=== PATIENT | male | born 1935 | race Caucasian/White ===

== ENCOUNTER 2018-12-09 10:47 | Inpatient (IN) | payer MEDICARE, OTHER, SELFPAY ==
[2018-12-09] VITALS (13 sets, daily range): BP systolic 115–153; BP diastolic 53–96; PULSE 67–85; RESP 16–34; TEMP 37.1–39.3; O2SAT 92–100; BMI 28.7
--- NOTE | 2018-12-09 | DI.ECHO.S_ITS ---
[place] [facility]---------+ [facility] +---------+ : : [address] : : : : [id number] : : : : Phone: [phone]+ Echocardiogram Report + + :Name: VALERIE GOODE Study Date: 12/10/2018 Height: 70 in : :[facility] Weight: 200 lb : : Gender: Male BSA: 2.1 m2 : :: 1935 Age: 83 yrs BP: 126/56 mmHg: :Reason For Study: Elevated Troponin : :Ordering Physician: Judith : :Hospitalist Performed By: Hugo Monae : :Referring: LYN POE E : + + Interpretation Summary The study is technically difficult due to poor acoustic windows. The basal inferior wall appear hypokinetic in some views. Poor endocardial definition and image quality reduce the sensitivity for wall motion assessment. Left ventricular wall thickness is mildly increased. The ejection fraction is estimated to be 65-70%. Diastolic parameters suggest a relaxation abnormality of the left ventricle, consistent with probable normal filling pressures. The right ventricle is not well visualized. Pulmonary artery pressures cannot be estimated because of the lack of a measurable TR jet velocity. The IVC is of normal diameter and collapses greater than 50% with a sniff. This suggests a low right atrial pressure of 3 mm Hg. There is no prior echocardiogram noted for this patient. Procedure: A two-dimensional transthoracic echocardiogram with color flow and Doppler was performed. There is no prior echocardiogram noted for this patient. The study quality was technically limited. The patient was in normal sinus rhythm during the exam. The heart rate ranged between 56-65 bpm during the study. Left Ventricle: The left ventricle is normal in size. There is normal left ventricular wall thickness. Left ventricular wall thickness is mildly increased. The ejection fraction is estimated to be 65-70%. There is a mild dyssynchronous contraction pattern, consistent with a conduction abnormality. The basal inferior wall appear hypokinetic. Diastolic parameters suggest a relaxation abnormality of the left ventricle, consistent with probable normal filling pressures. Right Ventricle: The right ventricle is not well visualized. Atria: The left atrium grossly appears normal in size. The right atrium grossly appears normal in size. The interatrial septum is intact with no evidence for an atrial septal defect. Mitral Valve: The mitral valve leaflets are moderately calcified. There is trace mitral regurgitation. Aortic Valve: The aortic valve is trileaflet. There is no aortic valve stenosis. There is mild aortic regurgitation. Tricuspid Valve: The tricuspid valve is not well visualized. Pulmonary artery pressures cannot be estimated because of the lack of a measurable TR jet velocity. Pulmonic Valve: The pulmonic valve is not well seen, but is grossly normal. There is mild pulmonic regurgitation. Great Vessels: The aortic root is normal size. The ascending aorta is mildly enlarged. The pulmonary artery is normal size. The IVC is of normal diameter and collapses greater than 50% with a sniff. This suggests a low right atrial pressure of 3 mm Hg. Pericardium/ Pleura There is no pericardial effusion. There is no pleural effusion. MMode/2D Measurements & Calculations LVIDd: 4.6 cm LVOT diam: 2.2 cm LVIDs: 3.0 cm Ao root diam: 3.8 cm FS: 35.2 % asc Aorta Diam: 3.7 cm LV hoover. diameter/BSA (cm/m^2): 2.2 LV sys. diameter/BSA (cm/m^2): 1.4 Doppler Measurements & Calculations Ao V2 max: 127.0 cm/sec LVOT Max Chuck: 105.6 cm/sec Ao V2 mean: 97.0 cm/sec LV V1 max P.5 mmHg Ao max P.5 mmHg LV V1 VTI: 22.1 cm Ao mean P.0 mmHg EDGAR(I,D): 3.5 cm2 Ao V2 VTI: 24.7 cm EDGAR(V,D): 3.3 cm2 sev ratio: 0.89 EDGAR indexed to BSA (cm^2/m^2): 1.7 MV E max chuck: 83.5 cm/sec PA V2 max: 58.3 cm/sec MV A max chuck: 106.3 cm/sec PA V2 mean: 42.8 cm/sec MV E/A: 0.79 PA mean P.80 mmHg Med Peak E' Chuck: 4.5 cm/sec PA pr(Accel): 36.6 mmHg E/E' med: 18.4 Lat Peak E' Chuck: 6.7 cm/sec E/E' lat: 12.4 E/e' average: 15.4 MV dec time: 0.29 sec SV(LVOT): 87.0 ml Electronically signed by: Noel Swenson M.D. on Reading Physician:12/10/2018 01:11 PM
--- NOTE | 2018-12-09 11:04 | ED.WEAKNESS ---
HPI - Weakness General Chief complaint: Weakness Stated complaint: Weakness, found on floor Time Seen by Provider: 12/09/18 10:53 Source: patient, family and EMS Mode of arrival: EMS Limitations: other ( Memory problems) History of Present Illness HPI Narrative: this is an 83-year-old male who is brought in after being found down at home. Patient lives at home alone, he has caregivers that come intermittently during the day. Patient was last seen last night. He was found in his bathroom on the floor, his bed had not been disturbed and he had not had his nighttime medications. Patient is a poor historian and unable to tell me when he fell or how he fell. His family states that he did not have his non slipper socks on and they suspect he slipped on his socks. Patient has had falls in the past. Patient denies any headache, he denies any chest pain or shortness of breath, he denies any nausea or vomiting, no diarrhea or constipation and he has not had any recent incontinence. Patient can't tell me he fell but he cannot give me any particulars. He does have some skin changes on the side of his face per EMS and his family which are new. He does take carbidopa levodopa for Parkinson's and had not had his nighttime or morning medication. Related Data Home Medications Medication Instructions Recorded Confirmed acetaminophen [Tylenol 8 Hour] 1,300 mg PO PRN PRN 12/09/18 12/09/18 carbidopa-levodopa 1.5 tab PO TID 12/09/18 12/09/18 cetirizine 10 mg PO DAILY 12/09/18 12/09/18 oxybutynin chloride 5 mg PO QPM 12/09/18 12/09/18 sertraline 50 mg PO DAILY 12/09/18 12/09/18 tamsulosin 0.4 mg PO BID 12/09/18 12/09/18 Allergies Allergy/AdvReac Type Severity Reaction Status Date / Time No Known Drug Allergies Allergy Verified 12/09/18 10:54 Review of Systems Review of Systems ROS Unobtainable: All systems reviewed & are unremarkable except as noted in HPI and below Constitutional Denies chills, Denies fever(s), Denies lethargy and Denies weakness ENT Ears, Nose, Mouth, and Throat: Denies neck pain Cardiovascular Denies chest pain, Denies irregular heart rhythm, Denies lightheadedness, Denies palpitations, Denies dyspnea, Denies dyspnea on exertion and Denies orthopnea Respiratory Denies cough, Denies dyspnea, Denies dyspnea on exertion and Denies wheezing Gastrointestinal Gastrointestinal: Denies abdominal pain, Denies change in bowel habits, Denies diarrhea, Denies nausea and Denies vomiting Genitourinary Denies hematuria, Denies flank pain, Denies urinary incontinence and Denies urinary urgency Musculoskeletal Denies back pain, Denies neck pain, Denies numbness, Denies tingling and Reports other ( Tremo) Neurologic Reports as per HPI, Denies numbness, Denies tingling, Reports tremor(s) and Denies weakness Endocrine Denies palpitations Allergic/Immunologic Denies wheezing PFSH Medical History BPH (benign prostatic hyperplasia) (Acute) Parkinson disease (Acute) Social History household members: none lives independently: Yes caregiver/support person: Yes (intermittently during day.) Social History household members: none lives independently: Yes caregiver/support person: Yes (intermittently during day.) Exam Narrative Exam Narrative: GEN: well nourished, well appearing male, alert and oriented x 2, patient appears to be in no acute distress. HEENT: atraumatic except for erythema the left side the face with some mild swelling, pupils are equal round reactive to light, extraocular movements are intact, nares are clear, TMs are clear with no fluid, there is no conjunctival pallor. Throat is clear without any exudates, erythema, tonsillar enlargement or uvular deviation HEART: Regular rate and rhythm without murmur, clicks, rubs. No carotid bruits, pulses are equal in upper and lower extremities LUNGS:Lungs clear to auscultation, no wheezes, rales, crackles, chest moves symmetrically ABD:bowel sounds normal, soft, non-tender, no guarding, rebound, rigidity, no masses noted, no hepatosplenomegaly :No CVA tenderness BACK: No cervical, thoracic or lumbar vertebral point tenderness. Patient has normal range of motion. Patient's gait is not tested. Muscle strength is 5/5 in upper and lower extremities, Dorsalis pedis and tibialis pulses are 2+ and lower extremities. Sensation is intact in the lower extremities. MSCL: Non-tender, no muscle atrophy, muscles strength 5/5 upper and lower extremities, full range of motion NEURO:CN 2-12 intact, sensation normal, reflexes 2/4 upper and lower extremities. Initial Vital Signs Initial Vital Signs: Vital Signs Temperature 98.7 F 12/09/18 10:54 Pulse Rate 73 12/09/18 10:54 Respiratory Rate 16 12/09/18 10:54 Blood Pressure 141/61 H 12/09/18 10:54 Pulse Oximetry 96 12/09/18 10:54 Course Orders Ordered: ED Orders 12/09/18 11:04 EKG-12 Lead Stat 12/09/18 11:05 XR chest 1V Stat 12/09/18 11:11 CT head/brain wo con Stat 12/09/18 12:22 EKG-12 Lead Routine 12/09/18 12:33 Complete Blood Count AUTO DIFF Stat Comprehensive Metabolic Panel Stat Lactate (Lactic Acid) Stat Partial Thromboplastin Time Stat Prothrombin Time INR Stat Troponin & CK Cardiac Panel Stat 12/09/18 13:42 B Type Natriuretic Peptide Stat 12/09/18 14:30 Urinalysis and Microscopic Stat Discontinued Medications Aspirin (Aspirin Chew) 324 mg PO NOW ONE Stop: 12/09/18 13:29 Last Admin: 12/09/18 13:47 Dose: Not Given Aspirin (Aspirin) 325 mg PO NOW ONE Stop: 12/09/18 13:47 Last Admin: 12/09/18 13:47 Dose: 325 mg Carbidopa/Levodopa (Sinemet 25-100 Tab) 1.5 each PO NOW ONE Stop: 12/09/18 11:06 Last Admin: 12/09/18 11:35 Dose: 1.5 each Furosemide (Lasix) 40 mg IV NOW ONE Stop: 12/09/18 14:54 Last Admin: 12/09/18 15:02 Dose: 40 mg Vital Signs - 8 hr 12/09/18 10:54 12/09/18 10:55 12/09/18 12:07 Temperature 98.7 F 98.7 F Pulse Rate 73 75 85 Respiratory Rate 16 29 H 34 H Blood Pressure 141/61 H Blood Pressure [Right Arm] 141/61 H 153/96 H Pulse Oximetry 96 100 94 12/09/18 13:59 Temperature Pulse Rate 74 Respiratory Rate 33 H Blood Pressure Blood Pressure [Right Arm] 135/64 Pulse Oximetry 94 MDM - Weakness Lab Data Attestation: I reviewed the patient's lab results. Result diagrams: 12/09/18 12:33 12/09/18 12:33 Lab Results 12/09/18 12/09/18 12/09/18 Range/Units 12:33 12:33 12:33 WBC 7.2 (4.5-11.0) X10^3/uL RBC 4.25 L (4.5-5.9) X10^6/uL Hgb 13.8 (13.5-17.5) g/dL Hct 41.9 (41-53) % MCV 98.6 (80-100) fL MCH 32.4 (26-34) PG MCHC 32.9 (30-36) % RDW 13.4 (11.6-14.8) % Plt Count 221 (150-400) X10^3/uL Neut % (Auto) 76.3 H (50-75) % Lymph % (Auto) 8.6 L (25-40) % [place] % (Auto) 14.4 H (3-14) % Eos % (Auto) 0.3 L (2-4) % Baso % (Auto) 0.4 (0-2) % Neut # (Auto) 5500 (8045-6150) /uL Lymph # (Auto) 600 L (6005-9897) /uL [place] # (Auto) 1000 H (0-900) /uL Eos # (Auto) 0 (0-450) /uL Baso # (Auto) 0 (0-100) /uL PT 12.7 (10.1-12.7) SECONDS INR 1.1 (0.9-1.3) APTT 29 (26.4-36.2) SECONDS Sodium 140 (137-145) mmol/L Potassium 3.8 (3.4-5.1) mmol/L Chloride 103 (98-107) mmol/L Carbon Dioxide 23 (22-32) mmol/L BUN 15 (9-20) mg/dL Creatinine 0.90 (0.66-1.25) mg/dL Estimated GFR > 60.0 (>60) mL/min BUN/Creatinine Ratio 16.7 (6-22) Glucose 111 H (80-110) mg/dL Lactate (0.7-2.1) mmol/L Calcium 8.8 (8.4-10.2) mg/dL Total Bilirubin 0.4 (0.2-1.3) mg/dL AST 36 (17-59) IU/L ALT 35 (21-72) IU/L Alkaline Phosphatase 78 (38-126) U/L Total Creatine Kinase (55-170) U/L CK-MB (CK-2) (<2.37) ng/mL CK-MB (CK-2) Rel Index (1.5-5.0) % Troponin I (0.01-0.034) ng/mL B-Natriuretic Peptide (<100) Total Protein 8.4 H (6.3-8.2) g/dL Albumin 4.4 (3.5-5.0) g/dL Globulin 4.0 (1.7-4.1) g/dL Albumin/Globulin Ratio 1.1 (1.0-2.8) 12/09/18 12/09/18 12/09/18 Range/Units 12:33 12:33 13:42 WBC (4.5-11.0) X10^3/uL RBC (4.5-5.9) X10^6/uL Hgb (13.5-17.5) g/dL Hct (41-53) % MCV (80-100) fL MCH (26-34) PG MCHC (30-36) % RDW (11.6-14.8) % Plt Count (150-400) X10^3/uL Neut % (Auto) (50-75) % Lymph % (Auto) (25-40) % [place] % (Auto) (3-14) % Eos % (Auto) (2-4) % Baso % (Auto) (0-2) % Neut # (Auto) (9110-0454) /uL Lymph # (Auto) (5783-4952) /uL [place] # (Auto) (0-900) /uL Eos # (Auto) (0-450) /uL Baso # (Auto) (0-100) /uL PT (10.1-12.7) SECONDS INR (0.9-1.3) APTT (26.4-36.2) SECONDS Sodium (137-145) mmol/L Potassium (3.4-5.1) mmol/L Chloride (98-107) mmol/L Carbon Dioxide (22-32) mmol/L BUN (9-20) mg/dL Creatinine (0.66-1.25) mg/dL Estimated GFR (>60) mL/min BUN/Creatinine Ratio (6-22) Glucose (80-110) mg/dL Lactate 2.1 (0.7-2.1) mmol/L Calcium (8.4-10.2) mg/dL Total Bilirubin (0.2-1.3) mg/dL AST (17-59) IU/L ALT (21-72) IU/L Alkaline Phosphatase (38-126) U/L Total Creatine Kinase 252 H (55-170) U/L CK-MB (CK-2) 1.82 (<2.37) ng/mL CK-MB (CK-2) Rel Index 0.7 L (1.5-5.0) % Troponin I 0.148 H* (0.01-0.034) ng/mL B-Natriuretic Peptide 160 H (<100) Total Protein (6.3-8.2) g/dL Albumin (3.5-5.0) g/dL Globulin (1.7-4.1) g/dL Albumin/Globulin Ratio (1.0-2.8) Imaging Data Chest x-ray: Radiologist's impression: [place] [address] XRay Report Signed Patient: Guillermo Meza [facility]#: [id number] : 5Acct:[id number] Age/Sex: 83 / MDate of Service: 12/09/18 Loc: ED Accession Number: [id number] Procedure: XR chest 1V Ordering Provider: aMrlene Harrison D.O. PROCEDURE: XR CHEST 1V INDICATIONS: fall vs syncope TECHNIQUE: One view of the chest was acquired. COMPARISON: None. FINDINGS: Surgical changes and devices: None. Lungs and pleura: Lungs are edematous. No pleural effusions or pneumothorax. Mediastinum: Mediastinal contours appear normal. Heart size is at the upper limits of normal. Bones and chest wall: No suspicious bony lesions. Overlying soft tissues appear unremarkable. IMPRESSION: Pulmonary edema pattern, heart size at upper limits of normal. Dictated by: Lico Betancur M.D. on 12/09/2018 at 11:36 Approved by: Lico Betancur M.D. on 12/09/2018 at 11:39 CT scan - head: Radiologist's impression: [address] [address] [address] Scan Report Signed Patient: Guillermo Meza [facility]#: [id number] : 5Acct:[id number] Age/Sex: 83 / MDate of Service: 12/09/18 Loc: ED Accession Number: [id number] Procedure: CT head/brain wo con Ordering Provider: Marlene Harrison D.O. PROCEDURE: CT HEAD/BRAIN WO CON INDICATIONS: fall vs syncope TECHNIQUE: Noncontrast 4.5 mm thick angled axial sections acquired from the foramen magnum to the vertex, with coronal and sagittal reformats. For radiation dose reduction, the following was used: automated exposure control, adjustment of mA and/or kV according to patient size. COMPARISON: [facility], CT, HEAD WITHOUT CONTRAST, 01/15/2014, 13:10. FINDINGS: Image quality: Excellent. CSF spaces: Basal cisterns are patent. No extra-axial fluid collections. The ventricles are symmetric in size and shape. Brain: No intracranial bleeds or masses. There is cerebral volume loss for age, with resultant ventricular and sulcal prominence. There are periventricular and deep white matter chronic small vessel ischemic changes. There is intracranial internal carotid artery atherosclerosis. Skull and face: Calvarium and visualized facial bones appear intact, without suspicious lesions. Sinuses: Visualized sinuses and mastoids are clear. IMPRESSION: No acute intracranial abnormality. Dictated by: Gabrielle Castle M.D. on 12/09/2018 at 11:20 Approved by: Gabrielle Castle M.D. on 12/09/2018 at 11:21 ECG Data Attestation: I personally reviewed and interpreted this ECG as follows: Prior ECG tracings: not available for review Interpretation: Sinus rhythm with first-degree AV block, patient has Parkinson's and has significant motion artifact. No clear ST elevation appreciated. EKG was repeated and patient has sinus rhythm with first-degree AV block a rate of 76 and P are interval of 212, QRS 89 and QTC of 376. Nonspecific ST changes. MDM Narrative Medical decision making narrative: Patient arrived to the ER, he has no complaints initially. Patient's family arrived and evaluated all along with the additional history. Head CT and chest x-ray shows some pulmonary edema but no acute intracranial changes. Lab work shows an elevated troponin. Patient is currently denying any chest pain or pressure when re-evaluated states feels maybe a little short of breath. He has a little bit of a wet cough. Patient's BNP is not elevated but chest x-ray shows some pulmonary edema. Discussed with patient and family he nor his family want aggressive interventions. They are okay with conservative medical management. Spoke with Dr. Mckeon who accepts for observation and discussed did aspirin as well as Lasix and continue to monitor. Discharge Plan Departure Patient Disposition: Admitted as Observation Clinical Impression: Non-ST elevation CA (NSTEMI) Referrals: Vinny Mckeon MD [Primary Care Provider] - Admit Date/Time: 12/09/18 15:09 Admit Provider: Vinny Mckeon
--- NOTE | 2018-12-09 11:11 | DI.CT.S_ITS ---
PROCEDURE: CT HEAD/BRAIN WO CON INDICATIONS: fall vs syncope TECHNIQUE: Noncontrast 4.5 mm thick angled axial sections acquired from the foramen magnum to the vertex, with coronal and sagittal reformats. For radiation dose reduction, the following was used: automated exposure control, adjustment of mA and/or kV according to patient size. COMPARISON: [facility], CT, HEAD WITHOUT CONTRAST, 01/15/2014, 13:10. FINDINGS: Image quality: Excellent. CSF spaces: Basal cisterns are patent. No extra-axial fluid collections. The ventricles are symmetric in size and shape. Brain: No intracranial bleeds or masses. There is cerebral volume loss for age, with resultant ventricular and sulcal prominence. There are periventricular and deep white matter chronic small vessel ischemic changes. There is intracranial internal carotid artery atherosclerosis. Skull and face: Calvarium and visualized facial bones appear intact, without suspicious lesions. Sinuses: Visualized sinuses and mastoids are clear. IMPRESSION: No acute intracranial abnormality. Dictated by: Gabrielle Castle M.D. on 12/09/2018 at 11:20 Approved by: Gabrielle Castle M.D. on 12/09/2018 at 11:21
[2018-12-09] MEDS: CARBIDOPA-LEVODOPA 25/100 TABLET 1.5 EACH PO ×2 (11:35→21:27)
[2018-12-09 13:00] LABS: Add Manual Diff / Slide Review NO; Basophils Absolute Auto 0 /uL (0-100); Basophils Percent Auto 0.4 % (0-2); Eosinophils Absolute Auto 0 /uL (0-450); Eosinophils Percent Auto 0.3 % (2-4); Hematocrit 41.9 % (41-53); Hemoglobin 13.8 g/dL (13.5-17.5); Lymphocytes Absolute Auto 600 /uL (1100-4500); Lymphocytes Percent Auto 8.6 % (25-40); Mean Corpuscular HGB Conc 32.9 % (30-36); Mean Corpuscular Hemoglobin 32.4 PG (26-34); Mean Corpuscular Volume 98.6 fL (80-100); Monocytes Absolute Auto 1000 /uL (0-900); Monocytes Percent Auto 14.4 % (3-14); Neutrophils Absolute Auto 5500 /uL (1500-7000); Neutrophils Percent Auto 76.3 % (50-75); Platelet Count 221 X10^3/uL (150-400); Red Blood Cell Count 4.25 X10^6/uL (4.5-5.9); Red Cell Distribution Width 13.4 % (11.6-14.8); White Blood Cell Count 7.2 X10^3/uL (4.5-11.0)
[2018-12-09 13:03] LABS: INR 1.1 (0.9-1.3); Prothrombin Time 12.7 SECONDS (10.1-12.7)
[2018-12-09 13:06] LABS: PTT Partial Thromboplastin Tim 29 SECONDS (26.4-36.2)
[2018-12-09 13:09] LABS: Creatine Kinase 252 U/L (55-170)
[2018-12-09 13:11] LABS: Alanine Aminotransferase 35 IU/L (21-72); Albumin 4.4 g/dL (3.5-5.0); Albumin Globulin Ratio 1.1 (1.0-2.8); Alkaline Phosphatase 78 U/L (38-126); Aspartate Aminotransferase 36 IU/L (17-59); BUN Creatinine Ratio 16.7 (6-22); Bilirubin Total 0.4 mg/dL (0.2-1.3); Blood Urea Nitrogen 15 mg/dL (9-20); Calcium 8.8 mg/dL (8.4-10.2); Carbon Dioxide 23 mmol/L (22-32); Chloride 103 mmol/L (98-107); Estimated Glomerular Filt Rate > 60.0 mL/min (>60); Glucose 111 mg/dL (80-110); HEMOLYSIS 19 (0-50); Lactate (Lactic Acid) 2.1 mmol/L (0.7-2.1); Potassium 3.8 mmol/L (3.4-5.1); Sodium 140 mmol/L (137-145); Total Protein 8.4 g/dL (6.3-8.2)
[2018-12-09 13:26] LABS: Troponin I 0.148 ng/mL (0.01-0.034)
[2018-12-09 13:30] LABS: CKMB % Relative Index 0.7 % (1.5-5.0); Creatine Kinase MB 1.82 ng/mL (<2.37)
--- NOTE | 2018-12-09 13:39 | ED_ITS ---
HPI - Weakness General Chief complaint: Weakness Stated complaint: Weakness, found on floor Time Seen by Provider: 12/09/18 10:53 Source: patient, family and EMS Mode of arrival: EMS Limitations: other ( Memory problems) History of Present Illness HPI Narrative: this is an 83-year-old male who is brought in after being found down at home. Patient lives at home alone, he has caregivers that come intermittently during the day. Patient was last seen last night. He was found in his bathroom on the floor, his bed had not been disturbed and he had not had his nighttime medications. Patient is a poor historian and unable to tell me when he fell or how he fell. His family states that he did not have his non s lipper socks on and they suspect he slipped on his socks. Patient has had falls in the past. Patient denies any headache, he denies any chest pain or shortness of breath, he denies any nausea or vomiting, no diarrhea or constipation and he has not had any recent incontinence. Patient can't tell me he fell but he cannot give me any particulars. He does have some skin changes on the side of his face per EMS and his family which are new. He does take carbidopa levodopa for Parkinson's and had not had his nighttime or morning medication. Related Data Home Medications Medication Instructions Recorded Confirmed acetaminophen [Tylenol 8 Hour] 1,300 mg PO PRN PRN 12/09/18 12/09/18 carbidopa-levodopa 1.5 tab PO TID 12/09/18 12/09/18 cetirizine 10 mg PO DAILY 12/09/18 12/09/18 oxybutynin chloride 5 mg PO QPM 12/09/18 12/09/18 sertraline 50 mg PO DAILY 12/09/18 12/09/18 tamsulosin 0.4 mg PO BID 12/09/18 12/09/18 Allergies Allergy/AdvReac Type Severity Reaction Status Date / Time No Known Drug Allergies Allergy Verified 12/09/18 10:54 Review of Systems Review of Systems ROS Unobtainable: All systems reviewed & are unremarkable except as noted in HPI and below Constitutional Denies chills, Denies fever(s), Denies lethargy and Denies weakness ENT Ears, Nose, Mouth, and Throat: Denies neck pain Cardiovascular Denies chest pain, Denies irregular heart rhythm, Denies lightheadedness, Denies palpitations, Denies dyspnea, Denies dyspnea on exertion and Denies orthopnea Respiratory Denies cough, Denies dyspnea, Denies dyspnea on exertion and Denies wheezing Gastrointestinal Gastrointestinal: Denies abdominal pain, Denies change in bowel habits, Denies diarrhea, Denies nausea and Denies vomiting Genitourinary Denies hematuria, Denies flank pain, Denies urinary incontinence and Denies urinary urgency Musculoskeletal Denies back pain, Denies neck pain, Denies numbness, Denies tingling and Reports other ( Tremo) Neurologic Reports as per HPI, Denies numbness, Denies tingling, Reports tremor(s) and Denies weakness Endocrine Denies palpitations Allergic/Immunologic Denies wheezing PFSH Medical History BPH (benign prostatic hyperplasia) (Acute) Parkinson disease (Acute) Social History household members: none lives independently: Yes caregiver/support person: Yes (intermittently during day.) Social History household members: none lives independently: Yes caregiver/support person: Yes (intermittently during day.) Exam Narrative Exam Narrative: GEN: well nourished, well appearing male, alert and oriented x 2, patient appears to be in no acute distress. HEENT: atraumatic except for erythema the left side the face with some mild swelling, pupils are equal round reactive to light, extraocular movements are intact, nares are clear, TMs are clear with no fluid, there is no conjunctival pallor. Throat is clear without any exudates, erythema, tonsillar enlargement or uvular deviation HEART: Regular rate and rhythm without murmur, clicks, rubs. No carotid bruits, pulses are equal in upper and lower extremities LUNGS:Lungs clear to auscultation, no wheezes, rales, crackles, chest moves symmetrically ABD:bowel sounds normal, soft, non-tender, no guarding, rebound, rigidity, no masses noted, no hepatosplenomegaly :No CVA tenderness BACK: No cervical, thoracic or lumbar vertebral point tenderness. Patient has normal range of motion. Patient's gait is not tested. Muscle strength is 5/5 in upper and lower extremities, Dorsalis pedis and tibialis pulses are 2+ and lower extremities. Sensation is intact in the lower extremities. MSCL: Non-tender, no muscle atrophy, muscles strength 5/5 upper and lower extremities, full range of motion NEURO:CN 2-12 intact, sensation normal, reflexes 2/4 upper and lower extremities. Initial Vital Signs Initial Vital Signs: Vital Signs Temperature 98.7 F 12/09/18 10:54 Pulse Rate 73 12/09/18 10:54 Respiratory Rate 16 12/09/18 10:54 Blood Pressure 141/61 H 12/09/18 10:54 Pulse Oximetry 96 12/09/18 10:54 Course Orders Ordered: ED Orders 12/09/18 11:04 EKG-12 Lead Stat 12/09/18 11:05 XR chest 1V Stat 12/09/18 11:11 CT head/brain wo con Stat 12/09/18 12:22 EKG-12 Lead Routine 12/09/18 12:33 Complete Blood Count AUTO DIFF Stat Comprehensive Metabolic Panel Stat Lactate (Lactic Acid) Stat Partial Thromboplastin Time Stat Prothrombin Time INR Stat Troponin & CK Cardiac Panel Stat 12/09/18 13:42 B Type Natriuretic Peptide Stat 12/09/18 14:30 Urinalysis and Microscopic Stat Discontinued Medications Aspirin (Aspirin Chew) 324 mg PO NOW ONE Stop: 12/09/18 13:29 Last Admin: 12/09/18 13:47 Dose: Not Given Aspirin (Aspirin) 325 mg PO NOW ONE Stop: 12/09/18 13:47 Last Admin: 12/09/18 13:47 Dose: 325 mg Carbidopa/Levodopa (Sinemet 25-100 Tab) 1.5 each PO NOW ONE Stop: 12/09/18 11:06 Last Admin: 12/09/18 11:35 Dose: 1.5 each Furosemide (Lasix) 40 mg IV NOW ONE Stop: 12/09/18 14:54 Last Admin: 12/09/18 15:02 Dose: 40 mg Vital Signs - 8 hr 12/09/18 10:54 12/09/18 10:55 12/09/18 12:07 Temperature 98.7 F 98.7 F Pulse Rate 73 75 85 Respiratory Rate 16 29 H 34 H Blood Pressure 141/61 H Blood Pressure [Right Arm] 141/61 H 153/96 H Pulse Oximetry 96 100 94 12/09/18 13:59 Temperature Pulse Rate 74 Respiratory Rate 33 H Blood Pressure Blood Pressure [Right Arm] 135/64 Pulse Oximetry 94 MDM - Weakness Lab Data Attestation: I reviewed the patient's lab results. Result diagrams: 12/09/18 12:33 12/09/18 12:33 Lab Results 12/09/18 12/09/18 12/09/18 Range/Units 12:33 12:33 12:33 WBC 7.2 (4.5-11.0) X10^3/uL RBC 4.25 L (4.5-5.9) X10^6/uL Hgb 13.8 (13.5-17.5) g/dL Hct 41.9 (41-53) % MCV 98.6 (80-100) fL MCH 32.4 (26-34) PG MCHC 32.9 (30-36) % RDW 13.4 (11.6-14.8) % Plt Count 221 (150-400) X10^3/uL Neut % (Auto) 76.3 H (50-75) % Lymph % (Auto) 8.6 L (25-40) % [place] % (Auto) 14.4 H (3-14) % Eos % (Auto) 0.3 L (2-4) % Baso % (Auto) 0.4 (0-2) % Neut # (Auto) 5500 (9302-0302) /uL Lymph # (Auto) 600 L (4807-1367) /uL [place] # (Auto) 1000 H (0-900) /uL Eos # (Auto) 0 (0-450) /uL Baso # (Auto) 0 (0-100) /uL PT 12.7 (10.1-12.7) SECONDS INR 1.1 (0.9-1.3) APTT 29 (26.4-36.2) SECONDS Sodium 140 (137-145) mmol/L Potassium 3.8 (3.4-5.1) mmol/L Chloride 103 (98-107) mmol/L Carbon Dioxide 23 (22-32) mmol/L BUN 15 (9-20) mg/dL Creatinine 0.90 (0.66-1.25) mg/dL Estimated GFR > 60.0 (>60) mL/min BUN/Creatinine Ratio 16.7 (6-22) Glucose 111 H (80-110) mg/dL Lactate (0.7-2.1) mmol/L Calcium 8.8 (8.4-10.2) mg/dL Total Bilirubin 0.4 (0.2-1.3) mg/dL AST 36 (17-59) IU/L ALT 35 (21-72) IU/L Alkaline Phosphatase 78 (38-126) U/L Total Creatine Kinase (55-170) U/L CK-MB (CK-2) (<2.37) ng/mL CK-MB (CK-2) Rel Index (1.5-5.0) % Troponin I (0.01-0.034) ng/mL B-Natriuretic Peptide (<100) Total Protein 8.4 H (6.3-8.2) g/dL Albumin 4.4 (3.5-5.0) g/dL Globulin 4.0 (1.7-4.1) g/dL Albumin/Globulin Ratio 1.1 (1.0-2.8) 12/09/18 12/09/18 12/09/18 Range/Units 12:33 12:33 13:42 WBC (4.5-11.0) X10^3/uL RBC (4.5-5.9) X10^6/uL Hgb (13.5-17.5) g/dL Hct (41-53) % MCV (80-100) fL MCH (26-34) PG MCHC (30-36) % RDW (11.6-14.8) % Plt Count (150-400) X10^3/uL Neut % (Auto) (50-75) % Lymph % (Auto) (25-40) % [place] % (Auto) (3-14) % Eos % (Auto) (2-4) % Baso % (Auto) (0-2) % Neut # (Auto) (2024-9061) /uL Lymph # (Auto) (6617-4638) /uL [place] # (Auto) (0-900) /uL Eos # (Auto) (0-450) /uL Baso # (Auto) (0-100) /uL PT (10.1-12.7) SECONDS INR (0.9-1.3) APTT (26.4-36.2) SECONDS Sodium (137-145) mmol/L Potassium (3.4-5.1) mmol/L Chloride (98-107) mmol/L Carbon Dioxide (22-32) mmol/L BUN (9-20) mg/dL Creatinine (0.66-1.25) mg/dL Estimated GFR (>60) mL/min BUN/Creatinine Ratio (6-22) Glucose (80-110) mg/dL Lactate 2.1 (0.7-2.1) mmol/L Calcium (8.4-10.2) mg/dL Total Bilirubin (0.2-1.3) mg/dL AST (17-59) IU/L ALT (21-72) IU/L Alkaline Phosphatase (38-126) U/L Total Creatine Kinase 252 H (55-170) U/L CK-MB (CK-2) 1.82 (<2.37) ng/mL CK-MB (CK-2) Rel Index 0.7 L (1.5-5.0) % Troponin I 0.148 H* (0.01-0.034) ng/mL B-Natriuretic Peptide 160 H (<100) Total Protein (6.3-8.2) g/dL Albumin (3.5-5.0) g/dL Globulin (1.7-4.1) g/dL Albumin/Globulin Ratio (1.0-2.8) Imaging Data Chest x-ray: Radiologist's impression: [place] [address] XRay Report Signed Patient: Guillermo Meza [facility]#: [id number] : 5Acct:[id number] Age/Sex: 83 / MDate of Service: 12/09/18 Loc: ED Accession Number: [id number] Procedure: XR chest 1V Ordering Provider: Marlene Harrison D.O. PROCEDURE: XR CHEST 1V INDICATIONS: fall vs syncope TECHNIQUE: One view of the chest was acquired. COMPARISON: None. FINDINGS: Surgical changes and devices: None. Lungs and pleura: Lungs are edematous. No pleural effusions or pneumothorax. Mediastinum: Mediastinal contours appear normal. Heart size is at the upper li mits of normal. Bones and chest wall: No suspicious bony lesions. Overlying soft tissues appe ar unremarkable. IMPRESSION: Pulmonary edema pattern, heart size at upper limits of normal. Dictated by: Lico Betancur M.D. on 12/09/2018 at 11:36 Approved by: Lico Betancur M.D. on 12/09/2018 at 11:39 CT scan - head: Radiologist's impression: [address] [address] [address] Scan Report Signed Patient: Guillermo Meza [facility]#: [id number] : 5Acct:[id number] Age/Sex: 83 / MDate of Service: 12/09/18 Loc: ED Accession Number: [id number] Procedure: CT head/brain wo con Ordering Provider: Marlene Harrison D.O. PROCEDURE: CT HEAD/BRAIN WO CON INDICATIONS: fall vs syncope TECHNIQUE: Noncontrast 4.5 mm thick angled axial sections acquired from the foramen magnum to the vertex, with coronal and sagittal reformats. For radiation dose reduction, the following was used: automated exposure control, adjustment of mA and/or kV according to patient size. COMPARISON: [facility], CT, HEAD WITHOUT CONTRAST, 01/15/2014, 13:10. FINDINGS: Image quality: Excellent. CSF spaces: Basal cisterns are patent. No extra-axial fluid collections. The ventricles are symmetric in size and shape. Brain: No intracranial bleeds or masses. There is cerebral volume loss for age, with resultant ventricular and sulcal prominence. There are periventricular and deep white matter chronic small vessel ischemic changes. There is intracranial internal carotid artery atherosclerosis. Skull and face: Calvarium and visualized facial bones appear intact, without suspicious lesions. Sinuses: Visualized sinuses and mastoids are clear. IMPRESSION: No acute intracranial abnormality. Dictated by: Gabrielle Castle M.D. on 12/09/2018 at 11:20 Approved by: Gabrielle Castle M.D. on 12/09/2018 at 11:21 ECG Data Attestation: I personally reviewed and interpreted this ECG as follows: Prior ECG tracings: not available for review Interpretation: Sinus rhythm with first-degree AV block, patient has Parkinson's and has significant motion artifact. No clear ST elevation appreciated. EKG was repeated and patient has sinus rhythm with first-degree AV block a rate of 76 and P are interval of 212, QRS 89 and QTC of 376. Nonspecific ST changes. MDM Narrative Medical decision making narrative: Patient arrived to the ER, he has no complaints initially. Patient's family arrived and evaluated all along with the additional history. Head CT and chest x-ray shows some pulmonary edema but no acute intracranial changes. Lab work shows an elevated troponin. Patient is currently denying any chest pain or pressure when re-evaluated states feels maybe a little short of breath. He has a little bit of a wet cough. Patient's BNP is not elevated but chest x-ray shows some pulmonary edema. Discussed with patient and family he nor his family want aggressive interventions. They are okay with conservative medical management. Spoke with Dr. Mckeon who accepts for observation and discussed did aspirin as well as Lasix and continue to monitor. Discharge Plan Departure Patient Disposition: Admitted as Observation Clinical Impression: Non-ST elevation MS (NSTEMI) Referrals: Vinny Mckeon MD [Primary Care Provider] - Admit Date/Time: 12/09/18 15:09 Admit Provider: Vinny Mckeon
[2018-12-09] MEDS: ASPIRIN 325 MG TABLET PO (13:47)
[2018-12-09 14:02] LABS: B Type Natriuretic Peptide 160 (<100)
[2018-12-09] MEDS: FUROSEMIDE 40 MG/4 ML VIAL IV (15:02)
[2018-12-09 15:11] LABS: Appearance Urine UA SL CLOUDY; Bilirubin Urine UA NEGATIVE (NEGATIVE); Color Urine UA YELLOW; Glucose Urine UA NEGATIVE (Negative); Ketones Urine UA NEGATIVE (NEGATIVE); Leukocyte Esterase Urine UA NEGATIVE (NEGATIVE); Nitrite Urine UA NEGATIVE (Negative); Occult Blood Urine UA 3+ (Negative); Protein Urine UA TRACE (Negative); Specific Gravity Urine UA 1.025 (1.000-1.035); Urobilinogen Urine UA 0.2 E.U./dL (0.2)
[2018-12-09 15:33] LABS: Bacteria Urine Occasional (0-1); Hyaline Casts Urine 0-1/LPF; RBC Urine 10-30/HPF (0-5/HPF); Squamous Epithelial Cell Urine 0-1 /HPF; WBC Urine 1-5/HPF (0-5/HPF)
[2018-12-09 15:34] LABS: Culture Indicated Urine Cult Not Indicated; Granular Casts Urine 0-1/LPF; Mucus Urine 1+ (Negative)
--- NOTE | 2018-12-09 17:07 | PC.NURSE ---
1415 While placing catheter i noted that patient's right testicle is very large and swollen Not red or tender, no known hernia or issues per son. Patient states it is normal but unsure about the reliability of him as a historian due to his confusion. Dr. Harrison aware.
--- NOTE | 2018-12-09 18:49 | P.HP_ITS ---
History of Present Illness Date Patient Seen: 12/09/18 Time Patient Seen: 18:25 Chief complaint: Weakness, found on floor Narrative: 83-year-old man well known to me for some time with a history of Parkinson's and progressive dementia has been living alone although with caregivers most of each day. They usually leave at 8 in the evening. He did take a fall in the past that was significant but has generally done really pretty well. In the past he was on 24 hr care but now it has been cut back to current schedule. When the caregiver arrived this morning they found him down in the bathroom with his arm on the toilet and unable to get up. He was much more confused than usual, medics were called and he was brought to the emergency room. Continued to be quite confused there with some impact on his strength and coordination. Reviewing status with his son who is primary family, patient has had some issues with sleep sometimes he gets up early sometimes he gets up rather late yesterday he got up at 3 in the afternoon, and it was evident that he did not get his morning medications and not even very clear that he got his evening medications prior to the departure of caregiver last evening. Son notes that his tremor was much more pronounced today it is usually pretty well co ntrolled with medications. So his medications have been fairly irregular in some ways. Certainly could have contributed to what occurred this morning. Patient does not know exactly what happened in fact he remains pretty confused tonight, but his son notes that the bed was not slept in, which is not uncommon as he feels more comfortable sleeping on the sofa times so very possible that he was on the sofa when he needed to void, usually wears some traction socks when he is up and around but in bed he wears more slippery socks, so possible that he as he entered the bathroom where the floors tile loss traction and fell at that time. He denies any pain in the head or extremities. Workup in the emergency room found no evidence of significant trauma labs by and large were normal, CT of the head showed no acute change, chest x-ray suggested some pulmonary edema. One abnormality was the troponin which was fairly elevated. But EKG and other cardiac evaluation showed no evidence of concern. Family has plans to resume 24 hr care they indicate that they can get that in place within a day at least by Wednesday. Reviewed code status continued to prefer no code No significant family history contributing to this admission. Social history well supported by family. Patient History Medical History BPH (benign prostatic hyperplasia) (Acute) Depression (Acute) Hydrocele in adult (Acute) Incontinent of urine (Acute) Parkinson disease (Acute) Pollen allergies (Acute) Social History household members: caregiver and none lives independently: Yes caregiver/support person: Yes (intermittently during day.) Smoking Status: Former smoker alcohol intake: current Family & Social History Social History: household members caregiver,none lives independently Yes caregiver/support person Yes: intermittently during day. Safety & Behavioral: Feels Safe in Current Yes Environment Been Physically Hurt or No Threatened By a Person Suicidal Ideation Description None Suicide Plan Description No Plan Tobacco & Substance use: Tobacco type cigarettes Smoking Status Former smoker alcohol intake current alcohol intake frequency 0-2 drinks per day Substance Use Type does not use Meds Home Medications Medication Instructions Recorded Confirmed Type acetaminophen [Tylenol 8 Hour] 1,300 mg PO PRN PRN 12/09/18 12/09/18 History carbidopa-levodopa 1.5 tab PO TID 12/09/18 12/09/18 History cetirizine 10 mg PO DAILY 12/09/18 12/09/18 History oxybutynin chloride 5 mg PO QPM 12/09/18 12/09/18 History sertraline 50 mg PO DAILY 12/09/18 12/09/18 History tamsulosin 0.4 mg PO BID 12/09/18 12/09/18 History Allergies Allergy/AdvReac Type Severity Reaction Status Date / Time No Known Drug Allergies Allergy Verified 12/09/18 10:54 Review of Systems Review of Systems Difficult to evaluate as patient is markedly confused. But he does deny any headache or pain says breathing has been more comfortable, there has been a cough that is wet, no nausea, feels hungry normal appetite. All systems reviewed & are unremarkable except as noted in HPI and below Exam Vital Signs (past 8 hours): - 12/09/18 10:54 12/09/18 10:55 12/09/18 12:07 Temperature 98.7 F 98.7 F Pulse Rate 73 75 85 Respiratory Rate 16 29 H 34 H Blood Pressure 141/61 H Blood Pressure [Right Arm] 141/61 H 153/96 H Pulse Oximetry 96 100 94 12/09/18 13:00 12/09/18 13:30 12/09/18 13:59 Temperature Pulse Rate 76 77 74 Respiratory Rate 30 H 32 H 33 H Blood Pressure Blood Pressure [Right Arm] 127/69 135/64 135/64 Pulse Oximetry 94 95 94 12/09/18 14:30 12/09/18 15:00 12/09/18 15:30 Temperature Pulse Rate 76 76 77 Respiratory Rate 30 H 26 H 23 Blood Pressure Blood Pressure [Right Arm] 129/55 L 130/65 123/61 Pulse Oximetry 93 12/09/18 16:00 12/09/18 16:40 Temperature 100.1 F H Pulse Rate 74 67 Respiratory Rate 26 H 28 H Blood Pressure 121/54 L Blood Pressure [Right Arm] 115/53 L Pulse Oximetry 93 94 Oxygen Delivery Method Room Air Narrative Exam Narrative: Fairly healthy-appearing no obvious distress awake alert provide some history but they clearly somewhat confused. Head is atraumatic normocephalic, pupils equal round reactive to light extraocular movements are intact oropharynx appears somewhat dry but clear neck is normal with no jugular venous distention no bruit no masses, chest seems clear heart regular without murmur abdomen soft nontender nondistended normoactive bowel tones no organomegaly or mass extremities with trace edema neurologically nonfocal. Genitalia show a large left scrotum consistent with a known history of hydrocele. Objective Labs Result Diagrams: 12/09/18 12:33 12/09/18 12:33 Labs: Laboratory Results - last 24 hr 12/09/18 12/09/18 12/09/18 12:33 12:33 12:33 WBC 7.2 RBC 4.25 L Hgb 13.8 Hct 41.9 MCV 98.6 MCH 32.4 MCHC 32.9 RDW 13.4 Plt Count 221 Neut % (Auto) 76.3 H Lymph % (Auto) 8.6 L [place] % (Auto) 14.4 H Eos % (Auto) 0.3 L Baso % (Auto) 0.4 Neut # (Auto) 5500 Lymph # (Auto) 600 L [place] # (Auto) 1000 H Eos # (Auto) 0 Baso # (Auto) 0 PT 12.7 INR 1.1 APTT 29 Sodium 140 Potassium 3.8 Chloride 103 Carbon Dioxide 23 BUN 15 Creatinine 0.90 Estimated GFR > 60.0 BUN/Creatinine Ratio 16.7 Glucose 111 H Lactate Calcium 8.8 Total Bilirubin 0.4 AST 36 ALT 35 Alkaline Phosphatase 78 Total Creatine Kinase CK-MB (CK-2) CK-MB (CK-2) Rel Index Troponin I B-Natriuretic Peptide Total Protein 8.4 H Albumin 4.4 Globulin 4.0 Albumin/Globulin Ratio 1.1 Urine Color Urine Appearance Urine pH Ur Specific [place] Urine Protein Urine Glucose (UA) Urine Ketones Urine Occult Blood Urine Nitrate Urine Bilirubin Urine Urobilinogen Ur Leukocyte Esterase Urine RBC Urine WBC Ur Squamous Epith Cells Urine Bacteria Hyaline Casts Granular Casts Urine Mucus Ur Culture Indicated? 12/09/18 12/09/18 12/09/18 12:33 12:33 13:42 WBC RBC Hgb Hct MCV MCH MCHC RDW Plt Count Neut % (Auto) Lymph % (Auto) [place] % (Auto) Eos % (Auto) Baso % (Auto) Neut # (Auto) Lymph # (Auto) [place] # (Auto) Eos # (Auto) Baso # (Auto) PT INR APTT Sodium Potassium Chloride Carbon Dioxide BUN Creatinine Estimated GFR BUN/Creatinine Ratio Glucose Lactate 2.1 Calcium Total Bilirubin AST ALT Alkaline Phosphatase Total Creatine Kinase 252 H CK-MB (CK-2) 1.82 CK-MB (CK-2) Rel Index 0.7 L Troponin I 0.148 H* B-Natriuretic Peptide 160 H Total Protein Albumin Globulin Albumin/Globulin Ratio Urine Color Urine Appearance Urine pH Ur Specific [place] Urine Protein Urine Glucose (UA) Urine Ketones Urine Occult Blood Urine Nitrate Urine Bilirubin Urine Urobilinogen Ur Leukocyte Esterase Urine RBC Urine WBC Ur Squamous Epith Cells Urine Bacteria Hyaline Casts Granular Casts Urine Mucus Ur Culture Indicated? 12/09/18 14:30 WBC RBC Hgb Hct MCV MCH MCHC RDW Plt Count Neut % (Auto) Lymph % (Auto) [place] % (Auto) Eos % (Auto) Baso % (Auto) Neut # (Auto) Lymph # (Auto) [place] # (Auto) Eos # (Auto) Baso # (Auto) PT INR APTT Sodium Potassium Chloride Carbon Dioxide BUN Creatinine Estimated GFR BUN/Creatinine Ratio Glucose Lactate Calcium Total Bilirubin AST ALT Alkaline Phosphatase Total Creatine Kinase CK-MB (CK-2) CK-MB (CK-2) Rel Index Troponin I B-Natriuretic Peptide Total Protein Albumin Globulin Albumin/Globulin Ratio Urine Color Yellow Urine Appearance Sl cloudy Urine pH 6.0 Ur Specific [place] 1.025 Urine Protein Trace H Urine Glucose (UA) Negative Urine Ketones Negative Urine Occult Blood 3+ H Urine Nitrate Negative Urine Bilirubin Negative Urine Urobilinogen 0.2 Ur Leukocyte Esterase Negative Urine RBC 10-30/hpf H Urine WBC 1-5/hpf Ur Squamous Epith Cells 0-1 /hpf Urine Bacteria Occasional (0-1) Hyaline Casts 0-1/lpf Granular Casts 0-1/lpf Urine Mucus 1+ H Ur Culture Indicated? Cult not indicated Assessment & Plan (1) Parkinson disease: Problem details: Usually well controlled with medication but some issues of missing doses may have contributed to following items. Will resume usual medications. Current visit: Yes Status: Acute (2) Fall as cause of accidental injury at home as place of occurrence: Problem details: Fell at home possibly slipped mechanism not clear but no evidence of significant injury. Was down for some extended period of time uncertain Current visit: Yes Status: Acute (3) Acute confusion: Problem details: More confused than at baseline possibly related to above issues some question of possible underlying acute brain injury. Will check MR stroke Current visit: Yes Status: Acute (4) Parkinson's disease: Current visit: Yes Status: Chronic (5) Dementia: Problem details: evolving process likely due to Parkinson's may have other factors. Current visit: Yes Status: Chronic (6) Troponin level elevated: Problem details: Fairly marked elevation but without evidence of heart injury otherwise. Will check echo, labs, and EKG in morning. Current visit: Yes Status: Acute (7) BPH loc w urin obs/LUTS: Current visit: Yes Status: Chronic Assessment & Plan narrative: Will monitor tonight, get workup as noted above, sounds like family will be in a position to provide 24 hr care as of Wednesday or 2 days from now would expect that he will be ready for discharge at that time. Further workup as noted. Time Spent With Patient Time with patient: Greater than 35 minutes Quality VTE Deep Vein Thrombosis/Pulmonary Embolism Present on Admission: No
[2018-12-09] MEDS: DEXTROSE 5%-0.45% NS 1,000 ML 100 ML IV (20:27)
[2018-12-09] MEDS: PANTOPRAZOLE 20 MG TABLET PO (21:26)
[2018-12-09] MEDS: TAMSULOSIN 0.4 MG CAPSULE PO (21:26)
[2018-12-09] MEDS: ACETAMINOPHEN 325 MG TABLET 650 MG PO (21:27)
[2018-12-09] MEDS: cefTRIAXone 1,000 MG in DEXTROSE 5 % IN WATER 50 ML 100 ML IV (22:19)
[2018-12-09 23:21] LABS: Creatine Kinase 407 U/L (55-170)
[2018-12-09 23:34] LABS: Troponin I 0.106 ng/mL (0.01-0.034)
[2018-12-09 23:37] LABS: CKMB % Relative Index 0.4 % (1.5-5.0); Creatine Kinase MB 1.74 ng/mL (<2.37)
--- NOTE | 2018-12-09 23:37 | PC.NURSE ---
abilio note pt has harsh cough, nonproductive. Pt is slow to respond to questions, does follow commands. Son says pt is much more confused today than normal. pt knows he is in hospital, but does not know the day or what happened today or last night. Pt given meds whole in applesauce, but some pill chewing seen. Pt spiked a temp of 102.7. Called Dr. Robbins and multiple new orders received.
[2018-12-09 23:46] LABS: Adenovirus Not Detected (Not Detect); Bordetella pertussis Not Detected (Not Detect); Chlamydophila pneumoniae Not Detected (Not Detect); Coronavirus 229E Not Detected (Not Detect); Coronavirus HKU1 Not Detected (Not Detect); Coronavirus NL 63 Not Detected (Not Detect); Coronavirus OC43 Not Detected (Not Detect); Human Metapneumovirus Not Detected (Not Detect); Human Rhinovirus/Enterovirus Not Detected (Not Detect); Influenza A Detected (Not Detect); Influenza B Not Detected (Not Detect); Mycoplasma pneumoniae Not Detected (Not Detect); Parainfluenza Virus 1 Not Detected (Not Detect); Parainfluenza Virus 2 Not Detected (Not Detect); Parainfluenza Virus 3 Not Detected (Not Detect); Parainfluenza Virus 4 Not Detected (Not Detect); Respiratory Syncytial Virus Not Detected (Not Detect)
[2018-12-10] VITALS (9 sets, daily range): BP systolic 111–140; BP diastolic 42–88; PULSE 59–79; RESP 16–31; TEMP 36.7–39.2; O2SAT 92–96
[2018-12-10 04:54] LABS: Hemoglobin 12.6 g/dL (13.5-17.5); Platelet Count 186 X10^3/uL (150-400)
[2018-12-10 05:00] LABS: Mean Corpuscular HGB Conc 33.2 % (30-36); Mean Corpuscular Hemoglobin 32.5 PG (26-34); Mean Corpuscular Volume 97.9 fL (80-100); Red Blood Cell Count 3.88 X10^6/uL (4.5-5.9); Red Cell Distribution Width 13.3 % (11.6-14.8); White Blood Cell Count 7.9 X10^3/uL (4.5-11.0)
[2018-12-10 05:04] LABS: BUN Creatinine Ratio 16.7 (6-22); Blood Urea Nitrogen 20 mg/dL (9-20); Calcium 8.4 mg/dL (8.4-10.2); Carbon Dioxide 25 mmol/L (22-32); Chloride 100 mmol/L (98-107); Estimated Glomerular Filt Rate 57.8 mL/min (>60); Glucose 132 mg/dL (80-110); HEMOLYSIS < 15 (0-50); Potassium 3.3 mmol/L (3.4-5.1); Sodium 135 mmol/L (137-145)
[2018-12-10 05:11] LABS: B Type Natriuretic Peptide 106 (<100)
[2018-12-10 05:27] LABS: Add Manual Diff / Slide Review YES
[2018-12-10 05:34] LABS: Neutrophils Absolute Manual 5372 /uL (3000-5900); RBC Morphology Normal Morphology; Total Cells Counted 100
[2018-12-10 05:40] LABS: Creatine Kinase 487 U/L (55-170)
[2018-12-10 05:48] LABS: Troponin I 0.082 ng/mL (0.01-0.034)
[2018-12-10 05:54] LABS: CKMB % Relative Index 0.2 % (1.5-5.0); Creatine Kinase MB 1.19 ng/mL (<2.37)
[2018-12-10] MEDS: PANTOPRAZOLE 20 MG TABLET PO (06:51)
--- NOTE | 2018-12-10 08:00 | DI.RAD.S_ITS ---
PROCEDURE: XR CHEST 1V INDICATIONS: cough, fever, congestive heart failure TECHNIQUE: One view of the chest was acquired. COMPARISON: [facility], CR, XR CHEST 1V, 12/09/2018, 11:17. FINDINGS: Surgical changes and devices: None. Lungs and pleura: No pleural effusion or pneumothorax. There are bilateral perihilar linear opacities and reticular opacities throughout the lungs bilaterally. Mediastinum: Widening of the cardiac and mediastinal silhouettes are stable the comparison exam of 12/09/2018. Bones and chest wall: No suspicious bony lesions. Overlying soft tissues appear unremarkable. IMPRESSION: Findings most consistent with mild pulmonary edema with atelectasis, with an obscured pneumonia thought less likely. Dictated by: Kashif Ling M.D. on 12/10/2018 at 12:08 Approved by: Kashif Ling M.D. on 12/10/2018 at 12:09
[2018-12-10] MEDS: ASPIRIN EC 325 MG TABLET PO (08:42)
[2018-12-10] MEDS: CARBIDOPA-LEVODOPA 25/100 TABLET 1.5 EACH PO ×3 (08:42→21:22)
[2018-12-10] MEDS: SERTRALINE 50 MG TABLET PO (08:42)
[2018-12-10] MEDS: LORATADINE 10 MG TABLET PO (08:42)
[2018-12-10] MEDS: KCL 40 MEQ IN NS 1,000 ML 100 MEQ IV ×2 (08:43→18:22)
[2018-12-10] MEDS: OSELTAMIVIR 75 MG CAPSULE PO ×2 (08:43→21:23)
[2018-12-10] MEDS: TAMSULOSIN 0.4 MG CAPSULE PO ×2 (08:47→21:23)
--- NOTE | 2018-12-10 09:13 | PC.NURSE ---
Pt is lethargic this morning but rousable to voice. He falls asleep during conversation and needs much coaching during med administration. When asked to open his eyes he is able to engage better. Tempt this am 100.3. 650mg Tylenol administered at 0900.
[2018-12-10] MEDS: CEFTRIAXONE 1 GM/50 ML FROZ.PIGGY IV ×2 (10:44→21:24)
[2018-12-10] MEDS: OXYBUTYNIN 5 MG TABLET PO (16:42)
[2018-12-10] MEDS: SODIUM CHLORIDE 0.9% FLUSH 10 ML IV (21:21)
--- NOTE | 2018-12-10 21:53 | PC.NURSE ---
Pt continues to have wet sounding cough with occasional mucus production. O2 sats = 95% on RA. Given IS to encourage deep breathing as well. Pt able to stand at bedside using walker and gait belt. Saini draining large amt of yellow urine. Denies pain. Taking meds with apple sauce, no signs of aspiration. Pt speaking in soft voice with sparse but appropriate content.
[2018-12-11] VITALS (10 sets, daily range): BP systolic 125–155; BP diastolic 50–83; PULSE 50–65; RESP 15–29; TEMP 36.7–37.6; O2SAT 93–95
[2018-12-11 05:44] LABS: Creatine Kinase 492 U/L (55-170)
[2018-12-11 05:45] LABS: Add Manual Diff / Slide Review NO; Basophils Absolute Auto 0 /uL (0-100); Basophils Percent Auto 0.5 % (0-2); Eosinophils Absolute Auto 100 /uL (0-450); Eosinophils Percent Auto 1.8 % (2-4); Hematocrit 37.3 % (41-53); Hemoglobin 12.2 g/dL (13.5-17.5); Lymphocytes Absolute Auto 1500 /uL (1100-4500); Lymphocytes Percent Auto 22.1 % (25-40); Mean Corpuscular HGB Conc 32.8 % (30-36); Mean Corpuscular Hemoglobin 32.4 PG (26-34); Mean Corpuscular Volume 98.7 fL (80-100); Monocytes Absolute Auto 1200 /uL (0-900); Monocytes Percent Auto 17.3 % (3-14); Neutrophils Absolute Auto 4000 /uL (1500-7000); Neutrophils Percent Auto 58.3 % (50-75); Platelet Count 155 X10^3/uL (150-400); Red Blood Cell Count 3.78 X10^6/uL (4.5-5.9); Red Cell Distribution Width 13.3 % (11.6-14.8); White Blood Cell Count 6.8 X10^3/uL (4.5-11.0)
[2018-12-11 05:47] LABS: HEMOLYSIS < 15 (0-50); Potassium 4.1 mmol/L (3.4-5.1)
[2018-12-11 05:48] LABS: Alanine Aminotransferase 22 IU/L (21-72); Albumin 3.2 g/dL (3.5-5.0); Alkaline Phosphatase 57 U/L (38-126); Aspartate Aminotransferase 38 IU/L (17-59); BUN Creatinine Ratio 16.7 (6-22); Bilirubin Total 0.2 mg/dL (0.2-1.3); Blood Urea Nitrogen 15 mg/dL (9-20); Calcium 7.8 mg/dL (8.4-10.2); Carbon Dioxide 22 mmol/L (22-32); Chloride 107 mmol/L (98-107); Estimated Glomerular Filt Rate > 60.0 mL/min (>60); Globulin 3.2 g/dL (1.7-4.1); Glucose 99 mg/dL (80-110); Sodium 139 mmol/L (137-145); Total Protein 6.4 g/dL (6.3-8.2)
[2018-12-11 05:56] LABS: Troponin I 0.048 ng/mL (0.01-0.034)
[2018-12-11 05:59] LABS: CKMB % Relative Index 0.4 % (1.5-5.0); Creatine Kinase MB 2.08 ng/mL (<2.37)
[2018-12-11] MEDS: KCL 40 MEQ IN NS 1,000 ML 100 MEQ IV (05:59)
[2018-12-11] MEDS: PANTOPRAZOLE 20 MG TABLET PO (06:00)
--- NOTE | 2018-12-11 07:47 | P.PN_ITS ---
Subjective Date Patient Seen: 12/10/18 Time Patient Seen: 07:14 Interval history: Since admission patient developed tachypnea as well as a fever of 102. Cultures were ordered including influenza swab. Patient was started on ceftriaxone and subsequently the influenza swab was positive. Patient is confused and is a poor historian. His son is at bedside on the 2nd time that I evaluated him today. It turns out that he fell at some point in the night prior to the day of admission and was down for anywhere from 6-12 hours. It is unclear what precipitated the fall. He had an elevated troponin on admit but no EKG changes and no history of chest pain. He is currently having a cough that is very wet which he did not have clearly on the day of admission. He is feeling very weak and tired. He has a MRI stroke protocol ordered and is requesting to do this tomorrow because he is tired and feeling poorly. His son would like us to respect these wishes. He denies any other pain or headaches. Apparently there was some sort of mistake with his medications which the family feels precipitated the fall. He denies hitting his head. Review of systems is negative other than above. His appetite is decreased but he is able to eat. He has not had a bowel movement. Exam Vital Signs (past 8 hours): - 12/11/18 00:24 12/11/18 00:25 12/11/18 05:37 Temperature 99.7 F H 98.3 F Pulse Rate 62 56 L Respiratory Rate 29 H 25 H Blood Pressure 155/64 H 144/63 H Pulse Oximetry 94 94 93 Oxygen Delivery Method Room Air Oxygen Flow Rate 0 Narrative Exam Narrative: Patient is alert and oriented to person and place but not to time. He is a poor historian . HEENT: No mucosal lesions. Mucous membranes moist and pink Neck: Supple without adenopathy or masses Chest: Diffuse rhonchi with some expiratory wheeze and sonorous breath sounds with upper airway secretions transmitting to the lungs. No egophany Cor: Regular rate and rhythm with distant S1 and S2 Abdomen: Positive bowel sounds, soft, nontender, nondistended Extremities: No edema, pulses intact, no rashes Objective Labs Result Diagrams: 12/11/18 05:19 12/11/18 05:19 Labs: Laboratory Results - last 24 hr 12/11/18 12/11/18 12/11/18 05:19 05:19 05:19 WBC 6.8 RBC 3.78 L Hgb 12.2 L Hct 37.3 L MCV 98.7 MCH 32.4 MCHC 32.8 RDW 13.3 Plt Count 155 Neut % (Auto) 58.3 Lymph % (Auto) 22.1 L Marshall % (Auto) 17.3 H Eos % (Auto) 1.8 L Baso % (Auto) 0.5 Neut # (Auto) 4000 Lymph # (Auto) 1500 Marshall # (Auto) 1200 H Eos # (Auto) 100 Baso # (Auto) 0 Sodium 139 Potassium 4.1 Chloride 107 Carbon Dioxide 22 BUN 15 Creatinine 0.90 Estimated GFR > 60.0 BUN/Creatinine Ratio 16.7 Glucose 99 Calcium 7.8 L Total Bilirubin 0.2 AST 38 ALT 22 Alkaline Phosphatase 57 Total Creatine Kinase 492 H CK-MB (CK-2) 2.08 CK-MB (CK-2) Rel Index 0.4 L Troponin I 0.048 H Total Protein 6.4 Albumin 3.2 L Globulin 3.2 Albumin/Globulin Ratio 1.0 Assessment & Plan Assessment & Plan narrative: 83-year-old male found down with probable will fall and now influenza. It is hard to say what precipitated what condition. Certainly influenza is having a strong contribution to his symptoms. He did not receive a flu shot. Assessment 1. Influenza. Presumably etiology of tachypnea, cough and fever Plan: Will treat with Tamiflu 75 mg p.o. b.i.d.. Will treat with Tylenol. Will consult respiratory therapy, supportive care. Will continue ceftriaxone for now. Assessment 2. Elevated troponin admitted with suspicion for non ST elevation acute NV. At this point I suspect that these lab abnormalities were related to his fall, influenza. His troponin is decreased. We will continue to trend out. They would not want any heroic measures such as cardiac catheterization. He is not showing any evidence of cardiovascular instability. We will continue to monitor . Assessment 3. Status post fall with unclear circumstances Plan: Will proceed with MRI stroke protocol Assessment 4. Parkinson's disease with dementia certainly at exacerbated by acute illness and hospitalization Plan: Continue on his outpatient medications. They will need to consider a seat a cholinesterase inhibitor as outpatient. He will need 24 hr care and the family is able to arrange this in the home and this will be the anticipated discharge. Assessment 5. Hypokalemia Plan: Will replace potassium and recheck. Quality VTE Deep Vein Thrombosis/Pulmonary Embolism Present on Admission: No
--- NOTE | 2018-12-11 08:01 | PM.PN.1 ---
Subjective Date Patient Seen: 12/11/18 Time Patient Seen: 08:01 Interval history: Patient is feeling much better today. He alert in the bed watching TV. He states that he is feeling better that his cough is better and overall his energy feels better. He denies any chest pain or shortness of breath or palpitations prior to presentation to the ER. He denies any URI symptoms but feels that he had sudden onset of a cough and fever. He has not had a bowel movement. His appetite is normal. He is taking in fluids orally. Twelve point review of systems is negative Denies any chest pain and lightheadedness, palpitations Patient denies any change in his bowel Patient states that prior to falling he was standing at the counter prior to admission and then just fell. He denies striking his head. He denies headaches. Exam Vital Signs (past 8 hours): - 12/11/18 00:24 12/11/18 00:25 12/11/18 05:37 Temperature 99.7 F H 98.3 F Pulse Rate 62 56 L Respiratory Rate 29 H 25 H Blood Pressure 155/64 H 144/63 H Pulse Oximetry 94 94 93 Oxygen Delivery Method Room Air Oxygen Flow Rate 0 Narrative Exam Narrative: alert in no apparent distress appearing younger than his stated age lying in hospital bed with his glasses on watching the news HEENT: Shows mucous membranes moist and pink with no lesions Neck: Supple without adenopathy, thyromegaly, jugular venous distension Chest: Still with scattered rhonchi but improved air exchange and no wheezes and less sonorous lung sounds Cor: Regular rate and rhythm, no murmurs rubs or gallops Abdomen: Positive bowel sounds, soft, nontender, nondistended Extremities: No edema, pulses intact Neurologic exam: Masked faces, he is slow to speak, in no tremor at rest Objective Labs Result Diagrams: 12/11/18 05:19 12/11/18 05:19 Labs: Laboratory Results - last 24 hr 12/11/18 12/11/18 12/11/18 05:19 05:19 05:19 WBC 6.8 RBC 3.78 L Hgb 12.2 L Hct 37.3 L MCV 98.7 MCH 32.4 MCHC 32.8 RDW 13.3 Plt Count 155 Neut % (Auto) 58.3 Lymph % (Auto) 22.1 L Johnson % (Auto) 17.3 H Eos % (Auto) 1.8 L Baso % (Auto) 0.5 Neut # (Auto) 4000 Lymph # (Auto) 1500 Johnson # (Auto) 1200 H Eos # (Auto) 100 Baso # (Auto) 0 Sodium 139 Potassium 4.1 Chloride 107 Carbon Dioxide 22 BUN 15 Creatinine 0.90 Estimated GFR > 60.0 BUN/Creatinine Ratio 16.7 Glucose 99 Calcium 7.8 L Total Bilirubin 0.2 AST 38 ALT 22 Alkaline Phosphatase 57 Total Creatine Kinase 492 H CK-MB (CK-2) 2.08 CK-MB (CK-2) Rel Index 0.4 L Troponin I 0.048 H Total Protein 6.4 Albumin 3.2 L Globulin 3.2 Albumin/Globulin Ratio 1.0 Assessment & Plan Assessment & Plan narrative: 83-year-old male found unresponsive Assessment 1. Febrile illness with cough and is suspicious of pneumonia on chest x-ray with clinical improvement and now afebrile suspect influenza Plan: Continue with Tamiflu, Tylenol, ceftriaxone, respiratory therapy, supportive care. We will check a BNP in the a.m.. He is positive on fluids balance. At this point he does not appear to be in overt failure. We will stop IV fluids. Assessment 2. Elevated troponin on admit with diagnosis of non ST elevation acute PR which I do not feel is likely the case. His troponin is now trending down. It was maximum on admission. He was down for approximately 12 hr before he was found. His EKG showed no acute changes. He has cardio vascularly stable. His echo did not show any obvious wall motion abnormality but quality was poor. Ejection fraction was normal. His we discussed options at this time and we will continue to monitor. Will recheck troponin in a.m. Assessment 3. Parkinson's disease with fall with possible TIA Plan: He will need 24 hr coverage on discharge. We will proceed with MRI stroke protocol which he did not want have yesterday. We will continue on his outpatient carbidopa levodopa. We will consult Physical therapy. Assessment 4. Hypokalemia. Improved Plan: Stop IV fluids and recheck in a.m. Assessment 5. BPH Plan: Continue on his Flomax and oxybutynin as outpatient Will discontinue Saini catheter Quality VTE Deep Vein Thrombosis/Pulmonary Embolism Present on Admission: No
[2018-12-11] MEDS: TAMSULOSIN 0.4 MG CAPSULE PO ×2 (08:08→21:56)
[2018-12-11] MEDS: LORATADINE 10 MG TABLET PO (08:08)
[2018-12-11] MEDS: CARBIDOPA-LEVODOPA 25/100 TABLET 1.5 EACH PO ×3 (08:08→21:56)
[2018-12-11] MEDS: SERTRALINE 50 MG TABLET PO (08:09)
[2018-12-11] MEDS: OSELTAMIVIR 75 MG CAPSULE PO ×2 (08:10→21:56)
[2018-12-11] MEDS: SODIUM CHLORIDE 0.9% FLUSH 10 ML IV ×2 (08:11→21:57)
[2018-12-11] MEDS: ASPIRIN EC 325 MG TABLET PO (08:11)
[2018-12-11] MEDS: CEFTRIAXONE 1 GM/50 ML FROZ.PIGGY IV ×2 (10:36→21:56)
--- NOTE | 2018-12-11 13:45 | PC.NURSE ---
Pt reports decreased cough and work of breathing. Lungs CTAB but diminished. Educated to IS and pt able to get 1500 ML with 5 repititions. Encouraged use 10x/hr while awake. Pt is AO x3 but forgetful at times. Son states this is baseline. He is calm and cooperative. OOB with SBA/CGA, walker/gaitbelt/yellow socks. Denies dizziness/lightheadedness. Gait is slow but steady, noting mild tremors to extremities. Dr. Robbins rounded and orders received to D/C IVFs, D/C diana, and increase mobility. Pt up to chair most of the day. Removed diana catheter and pt was able to void approx 100 ML. Using call light appropriately and waiting for assistance before getting up.
--- NOTE | 2018-12-11 16:28 | PT.IIE ---
Current Diagnoses Unspecified dementia without behavioral disturbance (12/09/18) Parkinson's disease (12/09/18) Benign prostatic hyperplasia with lower urinary tract symptoms (12/09/18) Disorientation, unspecified (12/09/18) Abnormal levels of other serum enzymes (12/09/18) Unspecified fall, initial encounter (12/09/18) Unspecified place in unspecified non-institutional (private) residence as the place of occurrence of the external cause (12/09/18) Medical History (Last Updated 12/09/18 @ 18:35 by Vinny Mckeon MD) BPH (benign prostatic hyperplasia) (Acute) Depression (Acute) Hydrocele in adult (Acute) Incontinent of urine (Acute) Parkinson disease (Acute) Pollen allergies (Acute) Physical Therapy Inpatient Evaluation/Re-Eval M1 PT/OT-IP Prior Functional Status Start: 12/11/18 15:42 Freq: Status: Active Protocol: Document 12/11/18 15:44 LRN (Rec: 12/11/18 16:27 LRN [id number]) Medical Review Prior Functional Status Medical History Reviewed Yes Communication Pt with hearing aids. Verbally no deficits. Mobility and Gait Independent ambulator with walker. Activities of Daily Living and IADL's Independent except for meals. Caregiver 3 days a week for meals. Social History Household Members caregiver none Number of Floors (Floors) One Floor Number of Stairs To Enter/Railing? 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 Pt has been currently receiving physical therapy at [facility]. Pt states he lives in a large house, walks 150' from bedroom to bathroom. M2 PT-IP Current Condition Start: 12/11/18 15:42 Freq: Status: Active Protocol: Document 12/11/18 15:44 LRN (Rec: 12/11/18 16:27 LRN [email or web address]) Physical Therapy Current Condition Current Condition Evaluation Date 12/11/18 Treatment Diagnosis Weakness, Found on floor Onset Date 12/09/18 Precautions Other Precautions Current History: Flu PMH: Parkinson Disease (Acute Weight Bearing Status Weight Bearing Status Full Weight Bearing M3 PT-IP Subjective Start: 12/11/18 15:42 Freq: Status: Active Protocol: Document 12/11/18 15:44 LRN (Rec: 12/11/18 16:27 LRN [email or web address]) Subjective Physical Therapy Visit Type Type Initial Evaluation Visit Start Time 14:45 Visit Stop Time 15:44 Total Visit Minutes 59 Number of PSYCHOLOGY TECHNICIAN Visits 0 Physical Therapy Visit Comments Patient Comments Pt reports 150' from bed to commode. States he is a current PT patient at [facility]. Patient Goals Pt goal is to return to his prior level of function and living situation. M4 PT-IP Mobility and Gait Start: 12/11/18 15:42 Freq: Status: Active Protocol: Document 12/11/18 15:44 LRN (Rec: 12/11/18 16:27 LRN [email or web address]) PT-Bed Mobility Assessment Rolling Type of Rolling Roll to Left Level of Assist Minimal Assistance Moderate Assistance Supine to Sit Supine to Sit Moderate Assistance Sit to Supine Sit to Supine Minimal Assistance Scooting Scooting to Edge of Bed Moderate Assistance Maximum Assistance PT-Transfer Assessment Sit to and From Stand Sit to and from Stand Minimal Assistance Equipment Transfer Assistive Device Front Wheeled Walker Orthotic/Prosthetic Devices or Brace: No Transfers Transfer Destination Bed Toilet Transfer Technique Stand Pivot Transfer Ability Level of Assist Minimal Assistance Comments Mobility Comments Transfers are most limiting activity for the pt. He requires mod A moving his legs in/out of bed and for physical cuing of arms/hands during transfer. Mod A for scooting hips to EOB in supine and Max A for scooting shouders to EOB. Pt states he gets in/out of bed on the left side. Gait Assessment Gait Gait Assistance Required: Standby Assistance Contact Guard Assist Distance (Feet) 16 Able to Maintain Weight Bearing Status Yes During Gait Assistive Devices Assistive Device Gait Belt Front Wheeled Walker Orthotic/Prosthetic Devices or Brace: No Gait Deviations General Gait Pattern Decreased Stride Length Decreased Feet Clearance Flexed Trunk Factors Limiting Gait Function Factors Limiting Gait Function Abnormal Tonal Influences Decreased Activity Tolerance PT-Balance Assessment Sitting Balance and Reactions Static Sitting Balance Ability Good Dynamic Sitting Balance Ability Good Standing Balance and Reactions Static Standing Balance Ability Good Dynamic Standing Balance Ability Good Device Used FWW Comments Other Balance Tests/Deviations/Treatment Pt needed assist for sitting : position in neutral after supine to sit transfer. M5 PT-IP Objective Assessments Start: 12/11/18 15:42 Freq: Status: Active Protocol: Document 12/11/18 15:44 LRN (Rec: 12/11/18 16:27 LRN [email or web address]) Orientation Orientation/Cognition Level of Alertness Alert Orientation Name Age Day of Week Place Language Function Ability Hard of Hearing Gross Range of Motion Upper Extremity ROM Assessment Within Functional Limits Lower Extremity ROM Assessment Within Functional Limits Strength Upper Extremity Strength Assessment Within Functional Limits Lower Extremity Strength Assessment Within Functional Limits M6 PT-IP Treatment Start: 12/11/18 15:42 Freq: Status: Active Protocol: Document 12/11/18 15:44 LRN (Rec: 12/11/18 16:27 LRN [email or web address]) Physical Therapy Treatment Exercises Exercises Ankle Pumps Heel Slides Shoulder Flexion Elbow Flexion/Extension Other Treatments Other Treatment Performed Transfer training Bed to commode>stand. Assist and verbal cuing needed for transfers and assist with toileting of patient. M7 PT-IP Assessment and Plan Start: 12/11/18 15:42 Freq: Status: Active Protocol: Document 12/11/18 15:44 LRN (Rec: 12/11/18 16:27 LRN [email or web address]) PT Summary Assessment and Plan Potential Rehabilitation Potential Good Status of Condition at Evaluation Stable Summary Impairments Bed Mobility Transfers Activity Tolerance Assessment Summary Pt is a pleasant 83 year old male who requires assist for bed mobility and transfer and is limited with activity tolerance due to his current condition and bed rest. He appears to ambulate safely with slow and shortened step lengths. At this time he did not appear to demonstrate standing balance deficits due to his bent forward posturing. The pt will benefit from skilled physical therapy for transfer training and general strengthening ex's and gait to improve his mobility and activity tolerance. The pt would be safe to ambulate with nursing with gait belt/CGA> SBA. Goals Bed Mobility Goal Independent Transfer Goal Independent Gait Goal Independent Gait Distance 150' Days to Meet Goals 3 Frequency of Treatment Frequency Of Treatment Once a Day Treatment Plan Physical Therapy Treatment Plan Bed Mobility Training Transfer Training Gait Training Balance Retraining Other Recommendations and Next Treatment Nursing to ambulate patient Focus 1x/day Recommendations To Nursing Amount of Assist Needed 1 Person Assist Discharge Recommendations PT Discharge Recommendations Home with 24/7 Assist SNF Rehab
[2018-12-11] MEDS: OXYBUTYNIN 5 MG TABLET PO (16:46)
--- NOTE | 2018-12-11 17:04 | CM.DANOTE ---
Discharge Planning/Care Management DCP: assessment: case received, EMR reviewed and went to room to meet with pt. He was noted to be lying in bed, eyes closed. Droplet precautions. Spoke then by phone with pt's POA son Derrick Meza: [phone]. Introduced self and role. Pt is an 83 year old male who does live alone in his own home with family watching over his closely. Derrick confirms that he currently has Home Attendent Caregivers in place [id number] every day but recently this has not been adaquate. He says his dad has been getting up and night and forgetting medication doses. He is poised to have 24/[address] with this agency but says he needs at least 24 hours alert before the discharge so that this can be put into place. He says his father very much wants to be in his own home and and family support this. He is currently going to OUTPT PT one day a week it's really all he can do but he feels this is better than HH. I think it is good for him to get up, dressed and to out in the car to the PT and it is part of what the caregiver staff do with him. OT and PT are ordered. P: at this time Derrick is hopeful for home as per above unless snf level medical needs arise. please give Derrick 24 hours advance notice on the d/c. Of note: KAYLI Block confirms admission status remains OBS: she further notes that she is sending this to EHR for review. Dr. Robbins's note does not indicate when pt might be stable for d/c. Advanced directive, confirm from FAMILY Start: 12/09/18 17:30 Freq: Q24H Status: Complete Protocol: Document 12/09/18 17:30 [facility] (Rec: 12/09/18 23:31 [facility] [id number]) Advance Directive, confirm on record Time 19:00 Person contacted mango Meza Copy received Yes CM Discharge Assessment Start: 12/11/18 17:00 Freq: Status: Active Protocol: Document 12/11/18 17:00 ITV (Rec: 12/11/18 17:03 ITV [id number]) Discharge Planning Assessment Advance Directives? Yes History Provided By Family Member Medical Record Has Patient been admitted in last 30 No days? Comment last admission to [facility]: 06/01-09/2018 Independent with ADL's No Is patient alert and oriented? unknown. dx Parkinson's with some dementia Whiteboard Updated in Patient Room with Yes name and ext. # of Sustainability Officer Review Status In Process Next Review Type Continued Stay Review
--- NOTE | 2018-12-11 22:48 | PC.NURSE ---
Pt with uneventful shift. Pt received on RA, SPO2 95%, denies SOB. Initially up in chair. Pt worked with PT, but preferred to remain in bed this shift. Pt with strong, wet sounding, productive cough. Swallowing secretions. Rhonchi in all perez. Pt is incontinent of urine, does not call when wet. Pt with incontinent BM this shift. Tolerating diet, denies nausea, denies pain. Pt is oriented x2, does not know date. Confusion seemed to increase with progression of shift. Pt was asking about his clothes, wallet and keys. Pt was reoriented to situation but remained slightly confused. Will continue to monitor, notify MD with changes.
--- NOTE | 2018-12-12 | DI.MRI.S_ITS ---
PROCEDURE: MR STROKE Pre- and post-contrast brain MRI, non-contrast brain MR angiogram, pre- and postcontrast neck MR angiogram INDICATIONS: acute mental status changes TECHNIQUE: Brain: Noncontrast axial T1 spin echo, axial T2 fast spin echo, sagittal and axial FLAIR, coronal T2 fast spin echo, axial gradient echo, axial diffusion and ADC through the brain. After the administration of contrast, axial 3D VIBE of the cranial vasculature and brain. Brain MRA: Non-contrast 3-D time of flight MR angiogram, with multiple mxfriug-malpcvawj-kvftklbvuw (MIP) reformats performed. Neck MRA: Axial and sagittal TruFISP through the neck. Coronal dynamic MR angiogram during administration of contrast in the arterial and venous phases, with 3-dimenstional yvdnbcc-psicyyfyc-vwlohkjiwz (MIP) reformats constructed from subtraction images. COMPARISON: [facility], CT, CT BRAIN WO CON, 01/17/2016, 21:48. FINDINGS: Image quality: Degraded by motion artifact. BRAIN: CSF spaces: Ventricles are normal in size and shape. Basal cisterns are patent. No extra-axial fluid collections. Brain: No intracranial bleeds or mass effects. Scattered small white matter signal changes, probably represent chronic microvascular ischemic disease, versus statistically less likely demyelination or other infectious, inflammatory, neurodegenerative etiology, technically nonspecific. Naqvi-white matter interface is normal. Diffusion weighted images show no acute ischemic insults. Brainstem appears normal. Normal intravascular flow voids are present. No abnormal intracranial enhancement. Skull and face: Calvarial marrow signal is normal. Orbits appear normal. Sinuses: Possible scant bilateral mastoid air cell fluid, technically age-indeterminate. A presumed mucous retention cyst or polyp involving the anterior left ethmoid air cells, grossly unchanged since 01/17/16. BRAIN MR ANGIOGRAM: Anterior circulation: Intracranial internal carotid arteries are normal in size and enhancement. 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 The right A1 segment is patent The flow within the paired anterior cerebral arteries is normal and symmetric. The flow within the distal M1 segments appears decreased bilaterally on the reformations, however on source images both segments appear within normal limits and the appearance may be related to motion artifact or slow flow. No stenoses, occlusions, or aneurysms. Posterior circulation: The visualized portions of the vertebral arteries demonstrate normal caliber, and join to form a normal appearing basilar artery. 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 No stenoses, occlusions, or aneurysms. NECK MR ANGIOGRAM: Carotids: Great vessels demonstrate a conventional anatomy as they arise from the aortic arch. The origins of the common carotid arteries appear patent. The calibers and courses of both common carotid arteries are normal. The bifurcation regions appear normal bilaterally. The right NIKOLE appears grossly patent without definite focal stenosis. There is approximate 80%, 1 cm long narrowing of the mid left internal carotid artery. Posterior circulation: The origins of the vertebral arteries appear patent. More superior portions of both vertebral arteries demonstrate normal course and caliber, and join to form a normal appearing basilar artery. Miscellaneous: Subclavian arteries appear patent. Pre-contrast images through the neck show no soft tissue abnormalities. IMPRESSION: BRAIN MRI: No evidence of acute ischemia. BRAIN MR ANGIOGRAM: No focal occlusion or stenosis. Motion degraded evaluation NECK MR ANGIOGRAM: Short segment 1 cm 80% narrowing of the mid left ICA. This can be further assessed with dedicated ultrasound as clinically warranted. Dictated by: Vasquez Duran M.D. on 12/12/2018 at 12:27 Approved by: Vasquez Duran M.D. on 12/12/2018 at 12:40
[2018-12-12 03:57] VITALS: BP 159/59; PULSE 53; RESP 18; TEMP 37.1; O2SAT 93
[2018-12-12 05:16] LABS: Add Manual Diff / Slide Review NO; Basophils Absolute Auto 0 /uL (0-100); Basophils Percent Auto 0.7 % (0-2); Creatine Kinase 340 U/L (55-170); Eosinophils Absolute Auto 500 /uL (0-450); Eosinophils Percent Auto 10.4 % (2-4); Hematocrit 38.7 % (41-53); Hemoglobin 12.7 g/dL (13.5-17.5); Lymphocytes Absolute Auto 1600 /uL (1100-4500); Lymphocytes Percent Auto 31.3 % (25-40); Mean Corpuscular HGB Conc 32.9 % (30-36); Mean Corpuscular Hemoglobin 32.2 PG (26-34); Mean Corpuscular Volume 98.1 fL (80-100); Monocytes Absolute Auto 900 /uL (0-900); Monocytes Percent Auto 17.2 % (3-14); Neutrophils Absolute Auto 2000 /uL (1500-7000); Neutrophils Percent Auto 40.4 % (50-75); Platelet Count 171 X10^3/uL (150-400); Red Blood Cell Count 3.95 X10^6/uL (4.5-5.9); Red Cell Distribution Width 13.3 % (11.6-14.8)
[2018-12-12 05:17] LABS: Blood Urea Nitrogen 16 mg/dL (9-20); Calcium 8.3 mg/dL (8.4-10.2); Carbon Dioxide 25 mmol/L (22-32); Chloride 104 mmol/L (98-107); Estimated Glomerular Filt Rate > 60.0 mL/min (>60); Glucose 97 mg/dL (80-110); HEMOLYSIS < 15 (0-50); Potassium 4.1 mmol/L (3.4-5.1); Sodium 137 mmol/L (137-145)
[2018-12-12 05:29] LABS: Troponin I 0.028 ng/mL (0.01-0.034)
[2018-12-12 05:32] LABS: CKMB % Relative Index 0.9 % (1.5-5.0); Creatine Kinase MB 3.03 ng/mL (<2.37)
[2018-12-12 05:41] VITALS: RESP 18; O2SAT 95
[2018-12-12 05:50] LABS: B Type Natriuretic Peptide 142 (<100)
[2018-12-12] MEDS: PANTOPRAZOLE 20 MG TABLET PO (06:05)
--- NOTE | 2018-12-12 06:15 | PC.NURSE ---
NOC SHIFT: Patient restless this shift, encouraged to sleep but patient not wanting to rest. More secretions noted this shift, patient cough is wet, course sounding. RT at bedside to assess and help suction patient. RT teaching with patient to self suction with joyceur. Patient tolerating that well. Patient remains on room air. Patient incontinent of urine. Frequent brief changes this shift. Patient's scrotum edematous and red. Redness noted near head of penis. Barrier cream used to help patient's skin. Patient's groin area moist and skin flaking with moisture. Barrier cream applied as well. Will pass of to day shift RN that this area may need some nystatin powder. Will continue to monitor.
[2018-12-12 08:00] VITALS: BP 170/62; PULSE 55; RESP 16; TEMP 36.5; O2SAT 94
[2018-12-12] MEDS: LORATADINE 10 MG TABLET PO (08:28)
[2018-12-12] MEDS: CARBIDOPA-LEVODOPA 25/100 TABLET 1.5 EACH PO ×3 (08:28→20:00)
[2018-12-12] MEDS: OSELTAMIVIR 75 MG CAPSULE PO ×2 (08:28→20:00)
[2018-12-12] MEDS: SERTRALINE 50 MG TABLET PO (08:28)
[2018-12-12] MEDS: ASPIRIN EC 325 MG TABLET PO (08:28)
[2018-12-12] MEDS: TAMSULOSIN 0.4 MG CAPSULE PO ×2 (08:28→20:00)
[2018-12-12 08:40] VITALS: BP 142/57; PULSE 61; RESP 19; O2SAT 97
[2018-12-12] MEDS: CEFTRIAXONE 1 GM/50 ML FROZ.PIGGY IV (12:07)
[2018-12-12] MEDS: SODIUM CHLORIDE 0.9% FLUSH 10 ML IV ×2 (12:08→20:00)
--- NOTE | 2018-12-12 12:11 | PT.IPTN ---
Current Diagnoses Unspecified dementia without behavioral disturbance (12/12/18) Parkinson's disease (12/12/18) Benign prostatic hyperplasia with lower urinary tract symptoms (12/12/18) Disorientation, unspecified (12/12/18) Abnormal levels of other serum enzymes (12/12/18) Unspecified fall, initial encounter (12/12/18) Unspecified place in unspecified non-institutional (private) residence as the place of occurrence of the external cause (12/12/18) Physical Therapy Treatment Note M2 PT-IP Current Condition Start: 12/11/18 15:42 Freq: Status: Active Protocol: Document 12/11/18 15:44 LRN (Rec: 12/11/18 16:27 LRN [id number]) Physical Therapy Current Condition Current Condition Evaluation Date 12/11/18 Treatment Diagnosis Weakness, Found on floor Onset Date 12/09/18 Precautions Other Precautions Current History: Flu PMH: Parkinson Disease (Acute Weight Bearing Status Weight Bearing Status Full Weight Bearing M3 PT-IP Subjective Start: 12/11/18 15:42 Freq: Status: Active Protocol: Document 12/12/18 11:30 HH (Rec: 12/12/18 12:11 HH [email or web address]) Subjective Physical Therapy Visit Type Type Treatment Note Visit Start Time 11:00 Visit Stop Time 11:30 Total Visit Minutes 30 Notes PT was up in w/c who just returned from MRI screening. Number of LABORER DRYING DEPARTMENT Visits 0 Physical Therapy Visit Comments Patient Comments I feel better and stronger today. M4 PT-IP Mobility and Gait Start: 12/11/18 15:42 Freq: Status: Active Protocol: Document 12/12/18 11:30 HH (Rec: 12/12/18 12:11 HH [email or web address]) PT-Transfer Assessment Sit to and From Stand Sit to and from Stand Minimal Assistance Equipment Transfer Assistive Device Front Wheeled Walker Orthotic/Prosthetic Devices or Brace: No Transfers Transfer Destination Chair Bedside Commode Transfer Technique Stand Step Pivot Transfer Ability Level of Assist Minimal Assistance Comments Mobility Comments Pt got up from w/c and replaced with commode for toileting. Pt used FWW and min A to stand up and he presented increased sway back and his weight primarily on B heels. Pt LOB once backward and required assistance to reposition him to upright. Pt also stood in front of sink counter for self cleaning for 10 mins with CGA/min A due to retropulsion. Pt needed max cues for transfer, especially hand placements during sit<> stand and back of knees chair touch. Gait Assessment Gait Gait Assistance Required: Standby Assistance Contact Guard Assist Distance (Feet) 90 Able to Maintain Weight Bearing Status Yes During Gait Assistive Devices Assistive Device Gait Belt Front Wheeled Walker Orthotic/Prosthetic Devices or Brace: No Gait Deviations General Gait Pattern Decreased Stride Length Decreased Feet Clearance Flexed Trunk Factors Limiting Gait Function Factors Limiting Gait Function Abnormal Tonal Influences Decreased Activity Tolerance Comments Gait Comments pt took small steps and required CGA to remind his upright position. PT-Balance Assessment Sitting Balance and Reactions Static Sitting Balance Ability Good Dynamic Sitting Balance Ability Good Standing Balance and Reactions Static Standing Balance Ability Fair Dynamic Standing Balance Ability Poor Device Used FWW M5 PT-IP Objective Assessments Start: 12/11/18 15:42 Freq: Status: Active Protocol: Document 12/11/18 15:44 LRN (Rec: 12/11/18 16:27 LRN [id number]) Orientation Orientation/Cognition Level of Alertness Alert Orientation Name Age Day of Week Place Language Function Ability Hard of Hearing Gross Range of Motion Upper Extremity ROM Assessment Within Functional Limits Lower Extremity ROM Assessment Within Functional Limits Strength Upper Extremity Strength Assessment Within Functional Limits Lower Extremity Strength Assessment Within Functional Limits M6 PT-IP Treatment Start: 12/11/18 15:42 Freq: Status: Active Protocol: Document 12/11/18 15:44 LRN (Rec: 12/11/18 16:27 LRN [id number]) Physical Therapy Treatment Exercises Exercises Ankle Pumps Heel Slides Shoulder Flexion Elbow Flexion/Extension Other Treatments Other Treatment Performed Transfer training Bed to commode>stand. Assist and verbal cuing needed for transfers and assist with toileting of patient. M7 PT-IP Assessment and Plan Start: 12/11/18 15:42 Freq: Status: Active Protocol: Document 12/12/18 11:30 HH (Rec: 12/12/18 12:11 HH [email or web address]) PT Summary Assessment and Plan Potential Rehabilitation Potential Good Status of Condition at Evaluation Stable Summary Impairments Bed Mobility Transfers Activity Tolerance Assessment Summary Pt showed improved amb distance and activity tolerance today. But he still presents increased sway back and high fall risks during sit <> stand and transfer activities. Pt also stated Im forgetful so please remind me what i need to do. Will cont to monitor pt's balance and activity tolerance. Pt cont will benefit from either home with 24/7 assist or SNF. If pt cont demonstrates high fall risks/ episode of LOB, SNF would be the ideal option. Goals Bed Mobility Goal Independent Transfer Goal Independent Front Wheeled Walker Gait Goal Independent Front Wheel Walker Gait Distance 150' Days to Meet Goals 3 Frequency of Treatment Frequency Of Treatment Once a Day Treatment Plan Physical Therapy Treatment Plan Bed Mobility Training Transfer Training Gait Training Balance Retraining Other Recommendations and Next Treatment transfer training as radha, Focus especially approaching chair and stand to sit. balance training gait training as radha Recommendations To Nursing Amount of Assist Needed 1 Person Assist Discharge Recommendations PT Discharge Recommendations Home with 24/7 Assist SNF Rehab
--- NOTE | 2018-12-12 12:46 | P.PN_ITS ---
Subjective Date Patient Seen: 12/12/18 Time Patient Seen: 12:43 Interval history: In good spirits today says he feels better. No complaints no concerns. Spoke later with son who is concerned that he is still quite confused at times but does feel as though he has gotten somewhat better with time. I discussed the nature of treatment including for influenza as well as bacterial infections. MRI that was done for question of underlying causes is not back yet was just done today. Exam Vital Signs (past 8 hours): - 12/12/18 05:41 12/12/18 08:00 12/12/18 08:40 Temperature 97.7 F Pulse Rate 55 L 61 Respiratory Rate 18 16 19 Blood Pressure 170/62 H 142/57 H Pulse Oximetry 95 94 97 Oxygen Delivery Method Room Air Oxygen Flow Rate 0 Narrative Exam Narrative: Fairly healthy-appearing today sitting up eating lunch, no acute distress. HEENT unremarkable neck is benign without bruit chest is clear heart regular with a 2/6 systolic murmur. Abdomen soft nontender nondistended normoactive bowel tones no organomegaly or mass extremities without edema neurologically nonfocal. Objective Labs Result Diagrams: 12/12/18 04:43 12/12/18 04:43 Labs: Laboratory Results - last 24 hr 12/12/18 12/12/18 12/12/18 04:43 04:43 04:43 WBC 5.0 RBC 3.95 L Hgb 12.7 L Hct 38.7 L MCV 98.1 MCH 32.2 MCHC 32.9 RDW 13.3 Plt Count 171 Neut % (Auto) 40.4 L Lymph % (Auto) 31.3 [place] % (Auto) 17.2 H Eos % (Auto) 10.4 H Baso % (Auto) 0.7 Neut # (Auto) 2000 Lymph # (Auto) 1600 [place] # (Auto) 900 Eos # (Auto) 500 H Baso # (Auto) 0 Sodium 137 Potassium 4.1 Chloride 104 Carbon Dioxide 25 BUN 16 Creatinine 0.80 Estimated GFR > 60.0 BUN/Creatinine Ratio 20.0 Glucose 97 Calcium 8.3 L Total Creatine Kinase 340 H CK-MB (CK-2) 3.03 H D CK-MB (CK-2) Rel Index 0.9 L Troponin I 0.028 B-Natriuretic Peptide 12/12/18 04:43 WBC RBC Hgb Hct MCV MCH MCHC RDW Plt Count Neut % (Auto) Lymph % (Auto) [place] % (Auto) Eos % (Auto) Baso % (Auto) Neut # (Auto) Lymph # (Auto) [place] # (Auto) Eos # (Auto) Baso # (Auto) Sodium Potassium Chloride Carbon Dioxide BUN Creatinine Estimated GFR BUN/Creatinine Ratio Glucose Calcium Total Creatine Kinase CK-MB (CK-2) CK-MB (CK-2) Rel Index Troponin I B-Natriuretic Peptide 142 H Assessment & Plan (1) Fall as cause of accidental injury at home as place of occurrence: Problem details: Fell at home possibly slipped mechanism not clear but no evidence of significant injury. Was down for some extended period of time uncertain Current visit: Yes Status: Acute (2) Acute confusion: Problem details: Continues somewhat worse than baseline per son suspect baseline of dementia with exacerbation due to illness and hospital stay. Continue to follow Current visit: Yes Status: Acute (3) Pneumonia and influenza: Problem details: Initially suspected more bacterial still may be a factor but also positive flu, is now on anti a bacterial as well as anti fluid. Seems improved. Current visit: Yes Status: Acute (4) Dementia: Problem details: evolving process likely due to Parkinson's but has above with illness and hospital stay contributing. Current visit: Yes Status: Chronic (5) Troponin level elevated: Problem details: Now normalized, no clear underlying cause ECHO pretty reassuring. CK was also somewhat elevated and it but it has come down as well thinking that is more related to his fall. Current visit: Yes Status: Acute Assessment & Plan narrative: Will change his IV antibiotic to an oral option follow labs, a really does look pretty good today so I have informed son that he will be likely ready for home tomorrow. Son will be making arrangements for 24 hr care and needs that 24 hr notice as well. Time Spent With Patient Time with patient: 25 - 35 minutes Quality VTE Deep Vein Thrombosis/Pulmonary Embolism Present on Admission: No
--- NOTE | 2018-12-12 14:22 | CM.DPC ---
DCP Cont: Met with patient's son, Derrick. Discussed discharge planning. He stated that he is in the process of hiring 24 hour caregivers, and he stated, should be in place tomorrow. Discussed home health, and he stated, may be a good idea for physical therapy, for it's hard for him to get out to outpatient therapy. He stated that he has no preference of home health agencies. Stated that he does not feel that nursing is needed, for the caregivers make sure that he takes his medication. Verified that patient has a lifeline at home, but did not use it when the fall occurred. Patient uses an agency, [facility]. Son stated that patient has had 24 hour a day caregivers before, but they had cut back for he stated, it wasn't necessary for so many hours because he was improving. He stated that his father has the funds, has [employer] health insurance, to enable him to be home with caregivers around the clock for the next few years. P: DCP to continue to follow closely. Patient could be discharged tomorrow, and will need to pursue face to face for Dr. Mckeon to sign. Latoya Gimenez RN/Signalling And Communications Engineer
--- NOTE | 2018-12-12 14:28 | OT.IP.TRT ---
Current Diagnoses Unspecified dementia without behavioral disturbance (12/12/18) Parkinson's disease (12/12/18) Influenza due to unidentified influenza virus with unspecified type of pneumonia (12/12/18) Benign prostatic hyperplasia with lower urinary tract symptoms (12/12/18) Disorientation, unspecified (12/12/18) Abnormal levels of other serum enzymes (12/12/18) Unspecified fall, initial encounter (12/12/18) Unspecified place in unspecified non-institutional (private) residence as the place of occurrence of the external cause (12/12/18) Occupational Therapy Treatment Note M3 OT- IP Subjective and Pain Start: 12/12/18 14:27 Freq: Status: Active Protocol: Document 12/12/18 14:00 [facility] (Rec: 12/12/18 14:28 [facility] [id number]) OT- Subjective Occupational Therapy Visit Type Type Patient Unavailable Notes Pt with nursing staff and being assisted to get cleaned up in bed, therefore to do OT eval tomorrow with pt.
--- NOTE | 2018-12-12 14:50 | PC.NURSE ---
Maintaining SPO2 high 90s on RA. Denies shortness of breath with exertion or at rest. VSS. Afebrile. Pt is more conversive today than this RNs prior assessments, but is more confused. Answers orientation questions correctly but then relates concerns about being unable to find his keys and telling staff he is waiting for a ride to [place]. At times becomes irritable with reorientation but is calm and redirectable. Pt's son at bedside while Dr. Mckeon on rounds reports to concerns for more confusion today. MRI completed today with results pending. Plan is to d/c home tomorrow with 26/04 caregiver. Bed alarm and chair alarm in use as pt is frequently attempting to get OOB or chair without assistance. Monitoring closely.
[2018-12-12] MEDS: OXYBUTYNIN 5 MG TABLET PO (15:37)
[2018-12-12 15:54] VITALS: O2SAT 95
[2018-12-12 15:57] VITALS: BP 143/61; PULSE 63; RESP 18; TEMP 37.1; O2SAT 95
[2018-12-12] MEDS: cefUROXime 250 MG TABLET 500 MG PO (20:00)
[2018-12-13 00:31] VITALS: O2SAT 97
[2018-12-13 00:33] VITALS: BP 117/76; PULSE 76; RESP 18; TEMP 36.6; O2SAT 94
[2018-12-13 04:57] VITALS: BP 158/69; PULSE 65; RESP 18; TEMP 36.7; O2SAT 96
[2018-12-13 05:05] LABS: Add Manual Diff / Slide Review NO; Basophils Absolute Auto 0 /uL (0-100); Basophils Percent Auto 0.6 % (0-2); Eosinophils Absolute Auto 600 /uL (0-450); Eosinophils Percent Auto 12.6 % (2-4); Hematocrit 37.9 % (41-53); Hemoglobin 12.7 g/dL (13.5-17.5); Lymphocytes Absolute Auto 1500 /uL (1100-4500); Lymphocytes Percent Auto 30.8 % (25-40); Mean Corpuscular HGB Conc 33.5 % (30-36); Mean Corpuscular Hemoglobin 32.4 PG (26-34); Mean Corpuscular Volume 96.6 fL (80-100); Monocytes Absolute Auto 900 /uL (0-900); Monocytes Percent Auto 18.4 % (3-14); Neutrophils Absolute Auto 1800 /uL (1500-7000); Neutrophils Percent Auto 37.6 % (50-75); Platelet Count 194 X10^3/uL (150-400); Red Blood Cell Count 3.92 X10^6/uL (4.5-5.9); White Blood Cell Count 4.8 X10^3/uL (4.5-11.0)
[2018-12-13 05:11] LABS: BUN Creatinine Ratio 17.5 (6-22); Blood Urea Nitrogen 14 mg/dL (9-20); Calcium 8.5 mg/dL (8.4-10.2); Carbon Dioxide 26 mmol/L (22-32); Chloride 103 mmol/L (98-107); Estimated Glomerular Filt Rate > 60.0 mL/min (>60); Glucose 115 mg/dL (80-110); HEMOLYSIS < 15 (0-50); Potassium 3.7 mmol/L (3.4-5.1); Sodium 138 mmol/L (137-145)
--- NOTE | 2018-12-13 06:08 | PC.NURSE ---
director oncology 2330: Assumed care of pt with safe hand off. Pt a/o with short term memory. Pt sitting up in chair reading the newspaper. Denies pain at this time. 0030: Pt transferred from chair to bed. Request lights to be on during the night. 0400: Pt having a hard time sleeping. Warm blanket offered. Pt accepted then refusing saying it was too much Denies pain at this time.
[2018-12-13] MEDS: PANTOPRAZOLE 20 MG TABLET PO (06:44)
[2018-12-13] MEDS: CARBIDOPA-LEVODOPA 25/100 TABLET 1.5 EACH PO (06:44)
[2018-12-13 07:00] VITALS: O2SAT 97
--- NOTE | 2018-12-13 08:22 | PM.DS.1 ---
History of Present Illness Chief complaint: Weakness, found on floor Discharge Providers Date of admission: 12/12/18 08:47 Discharge Date: 12/13/18 Primary care physician: Vinny Mckeon MD Consults: 12/09/18 17:29 Consult to Blowing Engineer Routine Comment: has caregivers. may need more help 12/10/18 06:57 Consult to Respiratory Therapy Evaluate & Treat Comment: Physician Instructions: Evaluate and treat 12/11/18 07:59 Consult to Physical Therapy Evaluate & Treat Comment: Physician Instructions: Evaluate and Treat 12/11/18 16:34 Consult to Occupational Therapy Evaluate & Treat Comment: Physician Instructions: Evaluate and treat Discharge provider: Melissa Robbins MD Summary Discharge Diagnosis: 1. Influenza 2. Possible secondary bacterial pneumonia 3. Elevated troponin, ruled out for acute myocardial infarction 4. Parkinson's disease with recent fall 5. Peripheral vascular disease with MRI showing 80% stenosis 6. Dementia Hospital Course: Patient was found down at his home where he resides alone with caregivers during the day but not at night. Unclear time period that he was down. He was admitted for elevated troponin and for the purpose of ruling out for acute myocardial infarction. On the evening of admission he developed tachypnea and fever and was found to be positive for influenza. He was treated with Tamiflu. He was treated with IV ceftriaxone. He was continued on his other outpatient medications and his condition rapidly improved. He was discharged home in improved condition with 24 hr care. Discharge medications Tamiflu 75 mg twice daily Ceftin 500 mg twice daily for 6 days Carbidopa levodopa 1.5 tablets p.o. t.i.d. Claritin 10 mg daily Oxybutynin 5 mg every night Sertraline 50 mg daily Tamsulosin 0.4 mg p.o. b.i.d. Discharge follow-up with Dr. Mckeon on Wednesday 24 hr care Will discuss peripheral vascular disease of follow-up Status at Discharge Cognitive/behavioral status at discharge: at baseline, confused Functional status at discharge: independent ambulation Overall status at discharge: patient is progressing back to baseline Time Spent with Patient Greater than 30 minutes Exam Vital Signs (past 8 hours): - 12/13/18 00:31 12/13/18 00:33 12/13/18 04:57 Temperature 97.9 F 98.0 F Pulse Rate 76 65 Respiratory Rate 18 18 Blood Pressure 117/76 158/69 H Pulse Oximetry 97 94 96 Oxygen Delivery Method Room Air Oxygen Flow Rate 0 Narrative Exam Narrative: Patient is afebrile, vital signs are stable. O2 sats are normal on room air. Patient is sleepy and is awakened for exam HEENT shows no mucosal lesions Neck: Supple without adenopathy or thyromegaly and no jugular venous distention and no bruits are auscultated Chest: Coarse upper airway sounds with some rhonchi but no wheezes and overall improved from my last exam on 12/11/2018 Cor: Regular rate and rhythm with distant S1 and S2 Abdomen: Positive bowel sounds, soft, nontender, nondistended Extremities: No edema pulses intact Objective Labs Result Diagrams: 12/13/18 04:38 12/13/18 04:38 Labs: Laboratory Results - last 24 hr 12/13/18 12/13/18 04:38 04:38 WBC 4.8 RBC 3.92 L Hgb 12.7 L Hct 37.9 L MCV 96.6 MCH 32.4 MCHC 33.5 RDW 13.0 Plt Count 194 Neut % (Auto) 37.6 L Lymph % (Auto) 30.8 [place] % (Auto) 18.4 H Eos % (Auto) 12.6 H Baso % (Auto) 0.6 Neut # (Auto) 1800 Lymph # (Auto) 1500 [place] # (Auto) 900 Eos # (Auto) 600 H Baso # (Auto) 0 Sodium 138 Potassium 3.7 Chloride 103 Carbon Dioxide 26 BUN 14 Creatinine 0.80 Estimated GFR > 60.0 BUN/Creatinine Ratio 17.5 Glucose 115 H Calcium 8.5 Discharge Plan Discharge Plan Discharge Problem: Non-ST elevation [place] (NSTEMI) Patient Disposition: Home Health Service Transfer to: Home Health, Other Discharge Med Rec/Prescriptions Prescriptions: New cefuroxime axetil 250 mg Tablet 500 mg PO BID Qty: 14 RF: 0 oseltamivir [Tamiflu] 75 mg Capsule 75 mg PO BID Qty: 4 RF: 0 Continued cetirizine 10 mg tablet 10 mg PO DAILY RF: 0 acetaminophen [Tylenol 8 Hour] 650 mg Tablet Extended Release 1,300 mg PO PRN PRN (Reason: pain) RF: 0 tamsulosin 0.4 mg capsule 0.4 mg PO BID RF: 0 carbidopa-levodopa 25-100 mg tablet 1.5 tab PO TID RF: 0 oxybutynin chloride 5 mg tablet 5 mg PO QPM RF: 0 sertraline 50 mg tablet 50 mg PO DAILY RF: 0 Follow up/Referrals: Vinny Mckeon MD [Primary Care Provider] - 12/16/18 9:00 am Provider Discharge Instructions Diet: Diet as Tolerated Discharge Data Primary Care Provider: Vinny Mckeon Attending Provider: Vinny Mckeon Admit Date/Time: 12/12/18 08:47 Quality VTE Deep Vein Thrombosis/Pulmonary Embolism Present on Admission: No
--- NOTE | 2018-12-13 09:12 | CM.DPC ---
DCP Cont: Patient is to be discharged today, 12/13 home. Had already spoken to son, Derrick, about 24 hour caregivers. Left son a message that patient is to be discharged today. [facility] Stated that their turn around time for physical therapy is 48 hours. Went ahead and faxed face to face, orders, and discharge summary. P: Patient is to be discharged home today with [facility]. Will be having caregivers in the home set up prior to discharge today. Latoya Gimenez RN/Principal Archaeologist
[2018-12-13] MEDS: cefUROXime 250 MG TABLET 500 MG PO (10:07)
[2018-12-13] MEDS: OSELTAMIVIR 75 MG CAPSULE PO (10:08)
[2018-12-13] MEDS: SERTRALINE 50 MG TABLET PO (10:08)
[2018-12-13] MEDS: TAMSULOSIN 0.4 MG CAPSULE PO (10:08)
[2018-12-13] MEDS: ASPIRIN EC 325 MG TABLET PO (10:08)
[2018-12-13] MEDS: LORATADINE 10 MG TABLET PO (10:08)
--- NOTE | 2018-12-13 10:30 | OT.IP.TRT ---
Current Diagnoses Unspecified dementia without behavioral disturbance (12/12/18) Parkinson's disease (12/12/18) Influenza due to unidentified influenza virus with unspecified type of pneumonia (12/12/18) Benign prostatic hyperplasia with lower urinary tract symptoms (12/12/18) Disorientation, unspecified (12/12/18) Abnormal levels of other serum enzymes (12/12/18) Unspecified fall, initial encounter (12/12/18) Unspecified place in unspecified non-institutional (private) residence as the place of occurrence of the external cause (12/12/18) Occupational Therapy Treatment Note M3 OT- IP Subjective and Pain Start: 12/12/18 14:27 Freq: Status: Active Protocol: Document 12/13/18 10:29 [facility] (Rec: 12/13/18 10:30 [facility] [id number]) OT- Subjective Occupational Therapy Visit Type Notes Pt being dischargd home with 24/7 assist today.
== END 2018-12-13 10:45 | disposition home health service (06) | DRG 947 ==
LOC: ED 14:15 → AC 15:09 → ICU 16:10
PROVIDERS: Family Medicine; Admitting Provider Family Medicine; Emergency Provider Emergency Medicine; Family Provider Family Medicine; PCP Family Medicine; Visit Provider Family Medicine
DX: R79.89 Other specified abnormal findings of blood chemistry (principal); J10.08 Influenza due to other identified influenza virus with other specified pneumonia; J15.9 Unspecified bacterial pneumonia; G20 Parkinson's disease; F02.80 Dementia in other diseases classified elsewhere, unspecified severity, without behavioral disturbance, psychotic disturbance, mood disturbance, and anxiety; W18.30XA Fall on same level, unspecified, initial encounter; Y92.009 Unspecified place in unspecified non-institutional (private) residence as the place of occurrence of the external cause; I73.9 Peripheral vascular disease, unspecified; R41.0 Disorientation, unspecified; I44.0 Atrioventricular block, first degree
CPT/HCPCS: 36415; 51701; 70450; 70553; 71045; 80048; 80053; 81001; 82550; 82553; 83605; 83880; 84484; 85025; 85610; 85730; 87040; 87633; 87797; 93005; 93010; 93306; 94760; 96374; 97116; 97162; 97530; 99285; G0378; A9579; J0696; J1940; J3480

== ENCOUNTER → 2019-04-12 14:11 | Outpatient (CLI) | payer MEDICARE, OTHER, SELFPAY ==
[2018-12-09 16:49] VITALS: BMI 28.7
== END ==
PROVIDERS: Family Provider Family Medicine; PCP Family Medicine; Visit Provider Family Medicine
DX: T25.221A Burn of second degree of right foot, initial encounter (principal); L89.321 Pressure ulcer of left buttock, stage 1; G20 Parkinson's disease; R41.9 Unspecified symptoms and signs involving cognitive functions and awareness; L03.115 Cellulitis of right lower limb
CPT/HCPCS: 16020; 99203; 99213

== ENCOUNTER 2019-04-17 15:49 | Inpatient (IN) | payer MEDICARE, OTHER, SELFPAY ==
[2018-12-09 16:49] VITALS: BMI 28.7
[2019-04-17 15:50] VITALS: BP 136/68; PULSE 94; RESP 14; TEMP 36.4; O2SAT 98
--- NOTE | 2019-04-17 16:04 | ED.FALL ---
HPI - Fall General Chief Complaint: Fall Stated Complaint: Fell out of bed onto the floor Time Seen by Provider: 04/17/19 15:54 Source: patient and family (Son) Mode of arrival: wheelchair Limitations: no limitations History of Present Illness HPI Narrative: Patient is an 83-year-old male. Has a history of Parkinson's disease. Was brought in by son for evaluation for progressive weakness over the past 3-4 days. Was also reported that last evening the patient was getting out of bed and slid to the floor landing on his bottom. Did not hit his head. No loss consciousness. Is not on anticoagulation. 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 The bed alarm went off in the home swiss type screw machine operator found him on the floor. They called EMS. The son reports that it took ?3 hours ?to get him off the floor. This morning the son came by and the patient was having more lower extremity weakness. It does appear that potentially the change in activity has been over the past several weeks but just worsening over the past 3-4 days. He normally ambulates with a walker but the son states that since Wednesday he has been unable to do so. He does have a wound to his right lower extremity that he sees wound Care for. This was secondary to a burn from a heating pad. The son also reports that the patient has been more confused recently. Also problems with swallowing. Related Data Home Medications Medication Instructions Recorded Confirmed acetaminophen [Tylenol 8 Hour] 650 mg PO Q8H PRN 12/09/18 04/17/19 carbidopa-levodopa 1.5 tab PO TID 12/09/18 04/17/19 cetirizine 10 mg PO DAILY 12/09/18 04/17/19 oxybutynin chloride 5 mg PO QPM 12/09/18 04/17/19 sertraline 50 mg PO DAILY 12/09/18 04/17/19 tamsulosin 0.4 mg PO BID 12/09/18 04/17/19 aspirin 81 mg PO QPM 04/17/19 04/17/19 cephalexin 500 mg PO QID 04/17/19 04/17/19 Allergies Allergy/AdvReac Type Severity Reaction Status Date / Time No Known Drug Allergies Allergy Verified 12/09/18 10:54 Review of Systems Constitutional Denies chills, Reports fatigue, Reports frequent falls, Denies headache(s) and Reports lethargy ENT Ears, Nose, Mouth, and Throat: Denies headache(s) Cardiovascular Denies chest pain and Denies dyspnea Respiratory Denies dyspnea Gastrointestinal Gastrointestinal: Denies abdominal pain, Denies change in bowel habits, Denies nausea and Denies vomiting Musculoskeletal Reports abnormal gait, Denies back pain, Denies myalgias, Reports muscle weakness and Denies numbness Integumentary/Breasts Denies rash Neurologic Reports abnormal gait, Reports confusion, Reports frequent falls, Denies headache(s) and Denies numbness Psychiatric Reports confusion Endocrine Reports fatigue Hematologic/Lymphatic Denies easy bleeding and Denies easy bruising Exam Initial Vital Signs Initial Vital Signs: Vital Signs Temperature 97.6 F 04/17/19 15:50 Pulse Rate 94 H 04/17/19 15:50 Respiratory Rate 14 04/17/19 15:50 Blood Pressure 136/68 04/17/19 15:50 Pulse Oximetry 98 04/17/19 15:50 Const General: cooperative, well developed, well groomed and No acute distress Orientation: alert, awake and oriented x3 HENMT Head: normal to inspection and normocephalic Resp Effort & Inspection: normal respiratory effort Auscultation: clear to auscultation bilaterally Cardio Rate: regular rate Rhythm: regular rhythm GI Inspection: non-distended Palpation: soft and No tender Skin Other: Patient with a air boot to the right lower extremity for decompression of the wound to the back of the right leg. Extrem General: capillary refill normal Other: 3/5 strength bilateral lower extremity. 5/5 strength bilateral upper extremity Psych Appearance: grossly normal and well kempt [facility] Medical History BPH (benign prostatic hyperplasia) (Acute) Depression (Acute) Hydrocele in adult (Acute) Incontinent of urine (Acute) Parkinson disease (Acute) Pollen allergies (Acute) Social History household members: caregiver and none lives independently: Yes caregiver/support person: Yes (intermittently during day.) Smoking Status: Former smoker alcohol intake: current Social History household members: caregiver and none lives independently: Yes caregiver/support person: Yes (intermittently during day.) Smoking Status: Former smoker alcohol intake: current Scores GCS Ryder coma scale eye opening: Spontaneous Ryder coma scale verbal response: Orientated Ryder coma scale motor response: Obey commands Ryder coma scale total score: 15 Course Orders Ordered: ED Orders 04/17/19 16:05 CT head/brain wo con Stat 04/17/19 16:32 Basic Metabolic Panel Stat Complete Blood Count AUTO DIFF Stat Partial Thromboplastin Time Stat Prothrombin Time INR Stat 04/17/19 18:40 XR pelvis 1-2V Urgent Carbidopa/Levodopa (Sinemet 25-100 Tab) 1.5 each PO TID ABDELRAHMAN Vital Signs - 8 hr 04/17/19 15:50 04/17/19 17:25 04/17/19 17:51 Temperature 97.6 F Pulse Rate 94 H 61 59 L Respiratory Rate 14 16 18 Blood Pressure 136/68 119/49 L 121/59 L Pulse Oximetry 98 97 99 MDM - Fall Lab Data Result diagrams: 04/17/19 16:32 04/17/19 16:32 Lab Results 04/17/19 04/17/19 04/17/19 Range/Units 16:32 16:32 16:32 WBC 9.6 (4.5-11.0) X10^3/uL RBC 3.89 L (4.5-5.9) X10^6/uL Hgb 12.5 L (13.5-17.5) g/dL Hct 37.8 L (41-53) % MCV 97.3 (80-100) fL MCH 32.1 (26-34) PG MCHC 33.0 (30-36) % RDW 13.6 (11.6-14.8) % Plt Count 301 (150-400) X10^3/uL Neut % (Auto) 59.5 (50-75) % Lymph % (Auto) 22.7 L (25-40) % [place] % (Auto) 14.7 H (3-14) % Eos % (Auto) 2.3 (2-4) % Baso % (Auto) 0.8 (0-2) % Neut # (Auto) 5700 (7451-9351) /uL Lymph # (Auto) 2200 (8415-0201) /uL [place] # (Auto) 1400 H (0-900) /uL Eos # (Auto) 200 (0-450) /uL Baso # (Auto) 100 (0-100) /uL PT 14.1 H (10.1-12.7) SECONDS INR 1.2 (0.9-1.3) APTT 28 (26.4-36.2) SECONDS Sodium 137 (137-145) mmol/L Potassium 4.0 (3.4-5.1) mmol/L Chloride 102 (98-107) mmol/L Carbon Dioxide 26 (22-32) mmol/L BUN 14 (9-20) mg/dL Creatinine 0.90 (0.66-1.25) mg/dL Estimated GFR > 60.0 (>60) mL/min BUN/Creatinine Ratio 15.6 (6-22) Glucose 128 H (80-110) mg/dL Calcium 8.6 (8.4-10.2) mg/dL Imaging Data CT scan - head: Radiologist's impression: [address] [address] [address] Scan Report Signed Patient: Guillermo Meza [facility]#: [id number] : 5Acct:[id number] Age/Sex: 83 / MDate of Service: 04/17/19 Loc: ED Accession Number: [id number] Procedure: CT head/brain wo con Ordering Provider: Brooks Tineo D.O. PROCEDURE: CT HEAD/BRAIN WO CON INDICATIONS: History of Parkinson's bilateral lower extremity weakness TECHNIQUE: Noncontrast 4.5 mm thick angled axial sections acquired from the foramen magnum to the vertex, with coronal and sagittal reformats. For radiation dose reduction, the following was used: automated exposure control, adjustment of mA and/or kV according to patient size. COMPARISON: Merged With [facility], CT, CT HEAD/BRAIN WO CON, 12/09/2018, 11:03. FINDINGS: Image quality: Excellent. CSF spaces: Basal cisterns are patent. No extra-axial fluid collections. The ventricles are symmetric in size and shape. Brain: No intracranial bleeds or masses. There is cerebral volume loss for age, with resultant ventricular and sulcal prominence. There are moderate periventricular and deep white matter chronic small vessel ischemic changes. There is intracranial internal carotid artery atherosclerosis. Skull and face: Calvarium and visualized facial bones appear intact, without suspicious lesions. Sinuses: Visualized sinuses and mastoids are clear. IMPRESSION: 1. Age related volume loss and moderate small vessel ischemic change. 2. No evidence acute stroke, hemorrhage, or mass. Dictated by: Alessandro Hoffman M.D. on 04/17/2019 at 16:25 Approved by: Alessandro Hoffman M.D. on 04/17/2019 at 16:26 [facility] Narrative Medical decision making narrative: Head CT is unremarkable. Labs are unremarkable. Unable to obtain a urinalysis here in the emergency department before he was admitted. His son is at bedside. Does appear that patient has had a rapid decline over the past couple days of weakness in his lower extremity. Son also states that he has been more confused recently and potentially has had some problems with swallowing. Discussed the case with Dr. Robbins who is on-call for the patient's primary provider. Will admit for further evaluation and treatment. Discussed admission with the patient and his son. They both expressed understanding and agreement. Discharge Plan Departure Patient Disposition: Admitted as Observation Clinical Impression: Parkinson's disease, Weakness, Confusion Discharge Date/Time: 04/17/19 17:25 Interventions: ED Discharge Assessment Last Done: 04/17/19 17:25 Admit Date/Time: 04/17/19 17:29 Admit Provider: Melissa Robbins
[2019-04-17 16:46] LABS: Add Manual Diff / Slide Review NO; Basophils Absolute Auto 100 /uL (0-100); Basophils Percent Auto 0.8 % (0-2); Eosinophils Absolute Auto 200 /uL (0-450); Eosinophils Percent Auto 2.3 % (2-4); Hematocrit 37.8 % (41-53); Hemoglobin 12.5 g/dL (13.5-17.5); Lymphocytes Absolute Auto 2200 /uL (1100-4500); Lymphocytes Percent Auto 22.7 % (25-40); Mean Corpuscular Hemoglobin 32.1 PG (26-34); Mean Corpuscular Volume 97.3 fL (80-100); Monocytes Absolute Auto 1400 /uL (0-900); Monocytes Percent Auto 14.7 % (3-14); Neutrophils Absolute Auto 5700 /uL (1500-7000); Neutrophils Percent Auto 59.5 % (50-75); Platelet Count 301 X10^3/uL (150-400); Red Blood Cell Count 3.89 X10^6/uL (4.5-5.9); Red Cell Distribution Width 13.6 % (11.6-14.8); White Blood Cell Count 9.6 X10^3/uL (4.5-11.0)
[2019-04-17 16:56] LABS: INR 1.2 (0.9-1.3); Prothrombin Time 14.1 SECONDS (10.1-12.7)
[2019-04-17 16:59] LABS: PTT Partial Thromboplastin Tim 28 SECONDS (26.4-36.2)
[2019-04-17 17:00] LABS: BUN Creatinine Ratio 15.6 (6-22); Blood Urea Nitrogen 14 mg/dL (9-20); Calcium 8.6 mg/dL (8.4-10.2); Carbon Dioxide 26 mmol/L (22-32); Chloride 102 mmol/L (98-107); Estimated Glomerular Filt Rate > 60.0 mL/min (>60); Glucose 128 mg/dL (80-110); HEMOLYSIS 37 (0-50); Sodium 137 mmol/L (137-145)
[2019-04-17 17:25] VITALS: BP 119/49; PULSE 61; RESP 16; O2SAT 97
[2019-04-17 17:40] VITALS: BMI 29.1
[2019-04-17 17:51] VITALS: BP 121/59; PULSE 59; RESP 18; O2SAT 99
--- NOTE | 2019-04-17 18:06 | PC.ADMIT ---
[address] Admission Note: The patient,Guillermo Meza,83 y/o, was given written information regarding hospital policies, unit procedures and contact persons. Patient's smoking status: Former smoker. Vital Signs - 8 hr 04/17/19 15:50 04/17/19 17:25 04/17/19 17:51 Temperature 97.6 F Pulse Rate 94 H 61 59 L Respiratory Rate 14 16 18 Blood Pressure 136/68 119/49 L 121/59 L Pulse Oximetry 98 97 99 Patient admitted from ED to room 227, awake, alert, and pleasant. Transferred via sliding board due to weakness. Son states patient has been wheelchair bound with increasing weakness for the past few weeks. Oriented to room, environment and plan of care. Call light within reach. Son Derrick at bedside providing supportive care.
--- NOTE | 2019-04-17 18:40 | DI.RAD.S_ITS ---
PROCEDURE: XR PELVIS 1-2V INDICATIONS: pain TECHNIQUE: Single view of the pelvis acquired. COMPARISON: Merged With [facility], CR, XR SACRUM COCCYX MIN 2V, 04/17/2019, 18:45. FINDINGS: Bones: No displaced fractures or dislocations. There is mild axial joint space narrowing bilaterally. There is bony prominence of the femoral head-neck junction bilaterally. No suspicious bony lesions. Soft tissues: Visualized bowel gas pattern is normal. No suspicious soft tissue calcifications. IMPRESSION: 1. Mild axial joint space narrowing in the hips. 2. Bony prominence of the femoral head-neck junction bilaterally may reflect femoral acetabular impingement in the appropriate clinical context. 3. No displaced fracture or subluxation. Dictated by: Willam Larson M.D. on 04/17/2019 at 19:39 Approved by: Willam Larson M.D. on 04/17/2019 at 19:40
--- NOTE | 2019-04-17 18:46 | DI.RAD.S_ITS ---
PROCEDURE: XR SACRUM COCCYX MIN 2V INDICATIONS: PAIN TECHNIQUE: 3 views of the sacrum and coccyx acquired. COMPARISON: [facility], CR, XR PELVIS 1-2V, 04/17/2019, 18:45. FINDINGS: Bones: No displaced fractures or dislocations. There is mild degeneration of the sacroiliac joints inferiorly. There is mild facet arthropathy within the visualized lower lumbar spine. No suspicious bony lesions. Soft tissues: Visualized bowel gas pattern is normal. No suspicious soft tissue densities. IMPRESSION: 1. No displaced fracture or dislocation. Dictated by: Willam Larson M.D. on 04/17/2019 at 19:41 Approved by: Willam Larson M.D. on 04/17/2019 at 19:41
--- NOTE | 2019-04-17 19:11 | PM.HP.1 ---
History of Present Illness Date Patient Seen: 04/17/19 Time Patient Seen: 19:13 Chief complaint: Fell out of bed onto the floor Narrative: This 83-year-old male is a former patient of Dr. Mckeon who will now be seen Dr. Alonso and is brought to emergency room for evaluation of progressive weakness and confusion status post fall. He lives at home alone but has 24 hour care coverage and apparently fell out of bed last night and fell on his coccyx. They had to call the paramedics to help get him back in bed and then this morning he has not been able to move so he was brought to the emergency room for evaluation by his son. He otherwise has been in his usual state of health. He has a history of Parkinson's and dementia which is said to be progressive. Past medical history: 1. Parkinson's disease 2. Dementia, progressive presumably secondary to 1. 3. BPH 4. Depression 5. Hyperlipidemia 6. Cancer of the prostate 7. Obstructive sleep apnea 8. GERD 9. Cervical radiculopathy 10. Colonic polyps 11. Hospitalized December 2018 for influenza and complication of pneumonia Current medications are Keflex 500 mg p.o. q.i.d. through WednesdayApril 19 Tamsulosin 0.4 mg 1 p.o. b.i.d. Oxybutynin 5 mg at 9:00 p.m. The Zyrtec 10 mg at 9:00 a.m. Sertraline 50 mg at 9:00 a.m. Sinemet 25/100 1.5 tablets p.o. t.i.d. Aspirin 81 mg daily at 9:00 p.m. Tylenol 650 mg p.o. Q 8 hours as needed Allergies: No known drug allergies Past surgical history: Unremarkable Health through behavior: He previously was a smoker but quit 1963 He has a glass a wine daily Family history: Father age 74 secondary to an acute [place] Mother of breast cancer No family history of Parkinson's disease Social history: Patient is originally from [place]. 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 He is a . He lives alone but has a caregiver 24 hours a day 7 days a week. He has 1 son and 3 daughters. His son lives locally Review of systems: He has been followed at the [facility] and has an appointment on Wednesday for a wound on the back of his leg secondary to heating pad He denies any depression. He denies any headaches or fever or cough or shortness of breath. He denies any change in his bowel or bladder. He is incontinent of urine at times. He currently is complaining of tailbone pain after his fall. He denies other pain or injuries. He denies any headache. He denies any chest pain or shortness of breath or palpitations or lightheadedness or dizziness Patient History Medical History BPH (benign prostatic hyperplasia) (Acute) Depression (Acute) Hydrocele in adult (Acute) Incontinent of urine (Acute) Parkinson disease (Acute) Pollen allergies (Acute) Social History household members: caregiver and none lives independently: Yes caregiver/support person: Yes (intermittently during day.) Smoking Status: Former smoker alcohol intake: current Family & Social History Social History: household members caregiver,none lives independently Yes caregiver/support person Yes: intermittently during day. Safety & Behavioral: Feels Safe in Current Yes Environment Been Physically Hurt or No Threatened By a Person Tobacco & Substance use: Tobacco type cigarettes Smoking Status Former smoker alcohol intake current alcohol intake frequency 0-2 drinks per day Substance Use Type does not use Meds Home Medications Medication Instructions Recorded Confirmed Type acetaminophen [Tylenol 8 Hour] 650 mg PO Q8H PRN 12/09/18 04/17/19 History carbidopa-levodopa 1.5 tab PO TID 12/09/18 04/17/19 History cetirizine 10 mg PO DAILY 12/09/18 04/17/19 History oxybutynin chloride 5 mg PO QPM 12/09/18 04/17/19 History sertraline 50 mg PO DAILY 12/09/18 04/17/19 History tamsulosin 0.4 mg PO BID 12/09/18 04/17/19 History aspirin 81 mg PO QPM 04/17/19 04/17/19 History cephalexin 500 mg PO QID 04/17/19 04/17/19 History Allergies Allergy/AdvReac Type Severity Reaction Status Date / Time No Known Drug Allergies Allergy Verified 12/09/18 10:54 Review of Systems Review of Systems All systems reviewed & are unremarkable except as noted in HPI and below Exam Vital Signs (past 8 hours): - 04/17/19 15:50 04/17/19 17:25 04/17/19 17:51 Temperature 97.6 F Pulse Rate 94 H 61 59 L Respiratory Rate 14 16 18 Blood Pressure 136/68 119/49 L 121/59 L Pulse Oximetry 98 97 99 Oxygen Delivery Method Room Air Narrative Exam Narrative: Patient is alert and oriented in no apparent distress Head is normocephalic atraumatic, eyes pupils equal round reactive to light, sclera nonicteric; nose ears unremarkable. Oropharynx shows no erythema or exudate mucous membranes moist and pink Neck: Supple without adenopathy, jugular venous distension thyromegaly or bruits Chest: Clear to auscultation without wheezes rhonchi or crackles Cor: Regular rate and rhythm without any murmur but distant S1-S2 Extremities: No edema, pulses intact, wound bruit on right lower extremity Neurologic exam: Masked face, no focal abnormality. Patient was not ambulated Musculoskeletal exam. Patient with tenderness significant numbness tail bone Skin no rashes Objective Labs Result Diagrams: 04/17/19 16:32 04/17/19 16:32 Labs: Laboratory Results - last 24 hr 04/17/19 04/17/19 04/17/19 16:32 16:32 16:32 WBC 9.6 RBC 3.89 L Hgb 12.5 L Hct 37.8 L MCV 97.3 MCH 32.1 MCHC 33.0 RDW 13.6 Plt Count 301 Neut % (Auto) 59.5 Lymph % (Auto) 22.7 L [place] % (Auto) 14.7 H Eos % (Auto) 2.3 Baso % (Auto) 0.8 Neut # (Auto) 5700 Lymph # (Auto) 2200 [place] # (Auto) 1400 H Eos # (Auto) 200 Baso # (Auto) 100 PT 14.1 H INR 1.2 APTT 28 Sodium 137 Potassium 4.0 Chloride 102 Carbon Dioxide 26 BUN 14 Creatinine 0.90 Estimated GFR > 60.0 BUN/Creatinine Ratio 15.6 Glucose 128 H Calcium 8.6 Assessment & Plan Assessment & Plan narrative: 83-year-old male with Parkinson's and progressive weakness, confusion and recent fall Assessment 1. Suspect progression of disease but due to the sudden worsening we need to rule out infectious or metabolic process. Labs thus far unrevealing. Urine cultures pending. We will admit to the hospital for further monitoring and treatment. We will continue outpatient Keflex for wound. We will maintain his outpatient medications for Parkinson's disease. We will consult Physical therapy as well as social service agency director for possible placement, temporary. Assessment 2. Infectious Disease. No elevation of his white blood cell count but some concern for this with a worsening confusion and weakness. We will await the urine culture. We will continue the outpatient Keflex and have wound Care evaluate him tomorrow. Assessment 3. Coccygeal pain secondary to a fall Plan: Will do x-rays to rule out fracture. Will treat with Tylenol this point. Will consult physical therapy. Assessment 4. Dementia. Not currently on medications. We will monitor. Assessment 5. Depression stable Plan continue sertraline as outpatient Assessment 6. BPH with urinary incontinence Plan continue outpatient medications of oxybutynin and Flomax Assessment 7. Allergic rhinitis Plan continue outpatient medications of Zyrtec Code status is do not resuscitate 45 minutes spent with patient in care
[2019-04-17] MEDS: cephALEXin 250 MG CAPSULE 500 MG PO ×2 (19:23→23:45)
[2019-04-17 19:57] VITALS: BP 133/71; PULSE 56; RESP 16; TEMP 36.4; O2SAT 96
[2019-04-17] MEDS: OXYBUTYNIN 5 MG TABLET PO (20:26)
[2019-04-17] MEDS: CARBIDOPA-LEVODOPA 25/100 TABLET 1.5 EACH PO (20:26)
[2019-04-17] MEDS: SERTRALINE 50 MG TABLET PO (20:26)
[2019-04-17] MEDS: ASPIRIN EC 81 MG TABLET PO (20:26)
[2019-04-17 23:45] VITALS: BP 139/63; PULSE 57; RESP 16; TEMP 36.7; O2SAT 99
[2019-04-18 03:02] LABS: Appearance Urine UA CLEAR; Bacteria Urine None Seen; Bilirubin Urine UA NEGATIVE (NEGATIVE); Color Urine UA YELLOW; Glucose Urine UA NEGATIVE (Negative); Ketones Urine UA NEGATIVE (NEGATIVE); Leukocyte Esterase Urine UA NEGATIVE (NEGATIVE); Nitrite Urine UA NEGATIVE (Negative); Occult Blood Urine UA NEGATIVE (Negative); Protein Urine UA NEGATIVE (Negative); RBC Urine None Seen (0-5/HPF); Urobilinogen Urine UA 0.2 E.U./dL (0.2); WBC Urine None Seen (0-5/HPF); pH Urine UA 6.5 (4.5-8.0)
[2019-04-18 03:18] LABS: Culture Indicated Urine Cult Not Indicated; Urine Comments Microscopic Normal
[2019-04-18 05:20] VITALS: BP 134/52; PULSE 56; RESP 17; TEMP 36.8; O2SAT 97
[2019-04-18 05:32] LABS: Albumin 3.6 g/dL (3.5-5.0); Alkaline Phosphatase 76 U/L (38-126); Aspartate Aminotransferase 19 IU/L (17-59); BUN Creatinine Ratio 14.4 (6-22); Bilirubin Total 0.5 mg/dL (0.2-1.3); Blood Urea Nitrogen 13 mg/dL (9-20); Carbon Dioxide 29 mmol/L (22-32); Chloride 105 mmol/L (98-107); Estimated Glomerular Filt Rate > 60.0 mL/min (>60); Globulin 3.7 g/dL (1.7-4.1); Glucose 116 mg/dL (80-110); HEMOLYSIS < 15 (0-50); Potassium 4.6 mmol/L (3.4-5.1); Sodium 141 mmol/L (137-145); Total Protein 7.3 g/dL (6.3-8.2)
[2019-04-18 05:33] LABS: Alanine Aminotransferase < 6 IU/L (21-72)
[2019-04-18 05:35] LABS: Add Manual Diff / Slide Review NO; Basophils Absolute Auto 100 /uL (0-100); Basophils Percent Auto 0.6 % (0-2); Eosinophils Absolute Auto 400 /uL (0-450); Eosinophils Percent Auto 4.9 % (2-4); Hematocrit 37.7 % (41-53); Hemoglobin 12.6 g/dL (13.5-17.5); Lymphocytes Absolute Auto 2200 /uL (1100-4500); Lymphocytes Percent Auto 25.7 % (25-40); Mean Corpuscular HGB Conc 33.4 % (30-36); Mean Corpuscular Hemoglobin 32.5 PG (26-34); Mean Corpuscular Volume 97.4 fL (80-100); Monocytes Absolute Auto 1200 /uL (0-900); Monocytes Percent Auto 14.1 % (3-14); Neutrophils Absolute Auto 4700 /uL (1500-7000); Neutrophils Percent Auto 54.7 % (50-75); Platelet Count 292 X10^3/uL (150-400); Red Blood Cell Count 3.86 X10^6/uL (4.5-5.9); Red Cell Distribution Width 13.7 % (11.6-14.8); White Blood Cell Count 8.6 X10^3/uL (4.5-11.0)
[2019-04-18 08:00] VITALS: BP 141/67; PULSE 58; RESP 18; TEMP 36.9; O2SAT 98
[2019-04-18] MEDS: CARBIDOPA-LEVODOPA 25/100 TABLET 1.5 EACH PO ×3 (09:58→20:17)
[2019-04-18] MEDS: TAMSULOSIN 0.4 MG CAPSULE PO (09:58)
[2019-04-18] MEDS: cephALEXin 250 MG CAPSULE 500 MG PO ×3 (09:59→20:17)
--- NOTE | 2019-04-18 11:30 | PT.IIE ---
Medical History (Last Reviewed 04/17/19 @ 18:42 by Brooks Tineo DO) BPH (benign prostatic hyperplasia) (Acute) Depression (Acute) Hydrocele in adult (Acute) Incontinent of urine (Acute) Parkinson disease (Acute) Pollen allergies (Acute) Physical Therapy Inpatient Evaluation/Re-Eval M1 PT/OT-IP Prior Functional Status Start: 04/18/19 13:40 Freq: NEEDED Status: Active Protocol: Document 04/18/19 11:30 AB (Rec: 04/18/19 13:53 AB [id number]) Medical Review Prior Functional Status Medical History Reviewed Yes Communication able to make needs known Mobility and Gait Pt's son present during PT session: stated that pt has 24 /7 caregivers. pt requires assist with bed mobility and transfers. able to ambulate using an uprightFWW with SBA but has been getting weaker these passed few days and was needing CGA. Activities of Daily Living and IADL's caregivers assist pt with toileting, dressing and bathing but pt is not needing total A Social History Household Members caregiver none Living Arrangements House Number of Floors (Floors) One Floor Number of Stairs To Enter/Railing? no steps to enter Home Environment High Toilet Walk in Shower Home Equipment Front Wheel Walker Shower Seat with Backrest Hand Held Shower Grab Bars Near Toilet Grab Bars In Shower Employment Status Retired Additional Social History Comment pt has an adjustable bed and has a bed alarm M2 PT-IP Current Condition Start: 04/18/19 13:40 Freq: NEEDED Status: Active Protocol: Document 04/18/19 11:30 AB (Rec: 04/18/19 13:53 AB [id number]) Physical Therapy Current Condition Current Condition Evaluation Date 04/18/19 Treatment Diagnosis weakness s/p fall; PD; difficulty in walking Onset Date 04/17/19 Precautions Other Precautions falls M3 PT-IP Subjective Start: 04/18/19 13:40 Freq: NEEDED Status: Active Protocol: Document 04/18/19 11:30 AB (Rec: 04/18/19 13:53 AB [id number]) Subjective Physical Therapy Visit Type Type Initial Evaluation Visit Start Time 11:30 Visit Stop Time 12:02 Total Visit Minutes 32 Number of NETWORKING ENGINEER Visits 0 Physical Therapy Visit Comments Patient Comments pt agreeable to do PT Therapy Pain Assessment Pain When Pain Assessed During Mobility Pain Present Pain Present Pain Reported Location Right Heel Scale Used pain scale not stated Pain Behaviors Guarding Pain Management Techniques Timing of Activity with Medications M4 PT-IP Mobility and Gait Start: 04/18/19 13:40 Freq: NEEDED Status: Active Protocol: Document 04/18/19 11:30 AB (Rec: 04/18/19 13:53 AB [id number]) PT-Bed Mobility Assessment Supine to Sit Supine to Sit Maximum Assistance 1 Person Assistance Head of Bed Elevated Scooting Scooting to Edge of Bed Minimal Assistance PT-Transfer Assessment Sit to and From Stand Sit to and from Stand Maximum Assistance 1 Person Assistance 2 Person Assistance Use of Upper Extremities Equipment Transfer Assistive Device Gait Belt Front Wheeled Walker Orthotic/Prosthetic Devices or Brace: No Transfers Transfer Destination Chair Transfer Technique Stand Step Pivot Transfer Ability Level of Assist Maximum Assistance 1 Person Assistance Use of Upper Extremities Comments Mobility Comments pt required max A for sit to stand from EOB but required max A x 1-2 for sit to stand from chair. pt requires max cues with all tasks. has difficulty with LLE advancement requiring assist with weight shifting to the R. Pt has difficulty with weight bearing on R heel due to wound. Gait Assessment Gait Gait Assistance Required: Maximum Assistance 1 Person Assist Distance (Feet) 6 Able to Maintain Weight Bearing Status Yes During Gait Assistive Devices Assistive Device Gait Belt Front Wheeled Walker Gait Deviations General Gait Pattern Antalgic Decreased Stride Length Decreased Feet Clearance Narrow Based Gait Factors Limiting Gait Function Factors Limiting Gait Function Decreased Activity Tolerance Decreased Strength Difficulty Following Directions Limited Range of Motion Pain Poor Balance Poor Safety Awareness Comments Gait Comments requires cues for upright posture and increase BLE elevation. needs assist with stability and weight shifting. PT-Balance Assessment Sitting Balance and Reactions Static Sitting Balance Ability Good Dynamic Sitting Balance Ability Fair Standing Balance and Reactions Static Standing Balance Ability Poor Dynamic Standing Balance Ability Poor Device Used FWW M5 PT-IP Objective Assessments Start: 04/18/19 13:40 Freq: NEEDED Status: Active Protocol: Document 04/18/19 11:30 AB (Rec: 04/18/19 13:53 AB [id number]) Orientation Orientation/Cognition Level of Alertness Alert Orientation Name Place Situation Language Function Ability Hard of Hearing Safety Awareness Decreased Safety Awareness Memory Description Short Term Impaired Care Home Impaired Gross Range of Motion Lower Extremity ROM Assessment Within Functional Limits Strength Lower Extremity Strength Assessment Bilaterally Impaired Comments Strength Comments RLE: 3+/5 LLE: 3+/5 Coordination Assessment Gross Coordination Gross Coordination WNL Muscle Tone Muscle Tone WNL Yes M6 PT-IP Treatment Start: 04/18/19 13:40 Freq: NEEDED Status: Active Protocol: Document 04/18/19 11:30 AB (Rec: 04/18/19 13:53 AB [id number]) Physical Therapy Treatment Education Education Provided Precautions Safety M7 PT-IP Assessment and Plan Start: 04/18/19 13:40 Freq: NEEDED Status: Active Protocol: Document 04/18/19 11:30 AB (Rec: 04/18/19 13:53 AB [id number]) PT Summary Assessment and Plan Potential Rehabilitation Potential Good Status of Condition at Evaluation Evolving Summary Impairments Pain ROM Strength Balance Coordination Sensation Tone Cognition Bed Mobility Transfers Gait Activity Tolerance Assessment Summary pt requiring max A x 1-2 and max cues and unable to tolerate much activity. d/c plan depending on progress and if caregivers will be able to assist pt safely. Currently, pt is needing max A and may require SNF rehab to improve strength and mobility. will continue to assess. Goals Bed Mobility Goal Standby Assistance Transfer Goal Standby Assistance Front Wheeled Walker Gait Goal Standby Assistance Front Wheel Walker Gait Distance 100 Days to Meet Goals 10 Frequency of Treatment Frequency Of Treatment Twice a Day Treatment Plan Physical Therapy Treatment Plan Bed Mobility Training Transfer Training Gait Training Therapeutic Exercise Balance Retraining Discharge Planning Neuromuscular Re-ed Coordination Retraining Manual Therapy Recommendations To Nursing Amount of Assist Needed 2 Person Assist Discharge Recommendations PT Discharge Recommendations Home with 24/7 Assist Home Health SNF Rehab Other Discharge Recommendations depending on progress: SNF vs home with 24/7 and homehealth PT
[2019-04-18 12:00] VITALS: BP 138/75; PULSE 70; RESP 17; TEMP 36.2; O2SAT 98
[2019-04-18] MEDS: ACETAMINOPHEN 325 MG TABLET 650 MG PO (12:11)
--- NOTE | 2019-04-18 12:25 | CM.DANOTE ---
DCP: Case received, EMR reviewed and conversed with son, Derrick, over the phone. Was able to meet with him in patient's room later. Introduced self and role. Was able to obtain health history and care levels from son, regarding patient. DCP template/assessment completed with information currently available. Patient is an 83 year old male who admitted yesterday to the care of the hospitalist team. PCP: Dr. Alonso. Payer: confirmed: Medicare/[facility]. Patient came to hospital via EMS secondary to a ground level fall. Patient had slid out of his bed, and caregiver was unable to get him up. Patient has history of Parkinson's, and according to son, Derrick, who is POA, stated that he has shown considerable weakness within the last week. Son stated that patient has 24 hour caregivers through [employer]. He is hoping that patient can go to [facility] for short term rehab, for he would have to get another caregiver to come into the home due to his weakness. Explained to son that he is considered observation at this point, unless after review, something can be found to make him inpatient. Son has been over at [facility] looking at rooms, and was told that they would have a room by . His mother is also at [facility], and he knows Christiano Khan. Met with patient as well in his room. Pleasant. He is a retired [place] [employer]. Discussed other option at [facility], and asked if he would be able to pay privately. Son stated, if he has to pay privately, he is prepared to do that, and is aware that cost is approximately $375.00 a day. At this point, he is waiting in patient's room to discuss with Dr. Alonso, or Cari may be in for Dr. Alonso today. Discussed current care that patient is getting at home. He has a bed alarm at night, due to falls, and he has shower assist, meal assist, grooming. As son stated, he has been unable to walk with his walker lately. He is unclear as to why his Parkinson's has gotten so much worse so fast, in which he will discuss with provider. P: DCP to continue to follow. At this time, looks like observation, unless provider can find something to make him inpatient. May need to go over to [facility] private pay, if this is the case, before returning home. Will also discuss with Pamela in admissions, at [facility]. Latoya Gimenez RN/Human Resources Support Specialist
--- NOTE | 2019-04-18 13:58 | CM.DPC ---
DCP Cont: Spoke to Dr. Robbins, who is seeing patient today. She was discussing with KAYLI Carter nurse regarding changing him to inpatient status. Stated that patient had been using a walker recently, but now wheel-chair bound, which is a significant change in his weakness. This may be able to be enough to change to inpatient status. Dr. Robbins is documenting this. Went ahead and faxed face to March at [facility]. Dr. Robbins can justify keeping patient here for a couple of days. He will also be working with speech therapy secondary to some swallowing issues P: DCP to continue to follow closely. Plan is for [facility]. Latoya Gimenez RN/Technical Sales Support Specialist
--- NOTE | 2019-04-18 14:00 | P.PN_ITS ---
Subjective Date Patient Seen: 04/18/19 Time Patient Seen: 13:53 Interval history: Patient had uneventful night. He is resting in chair at bedside with his son Derrick and his daughter Sneha present. The family notes that he has been having progressive worsening difficulty swallowing his food and pills often times choking and from their observation their current Cerner about possible aspiration. He denies shortness of breath or chest pain or cough. He has been constipated and would like something to help him have a bowel movement. He is still having tail bone pain there using a cushion and it is helpful. Wound care has not seen him and have asked our nurses to transient the dressing on his right heel. He is scheduled for an appointment tomorrow with the wound care clinic and I have asked them to consult on him here. We will contact them today. The patient continues to be profoundly weak and requires a complete 2 person assist and is wheelchair-bound which is new in the last 2 weeks. He has had progressive weakness and decline in mobility. Prior to this admission patient was able to ambulate with a walker. He is no longer able to do this it is difficult to have him sit upright even in the chair. On April 06 he did have a nausea vomiting and diarrhea episode and did pass out while sitting on the toilet and fell. He has been less mobile since that time. His workup thus far showed negative white blood cell count, negative electrolyte abnormality, negative head CT, negative pelvic and sacral coccygeal x-rays. Twelve point review of systems is otherwise negative other than above Exam Vital Signs (past 8 hours): - 04/18/19 08:00 04/18/19 12:00 Temperature 98.4 F 97.2 F L Pulse Rate 58 L 70 Respiratory Rate 18 17 Blood Pressure 141/67 H 138/75 Pulse Oximetry 98 98 Oxygen Delivery Method Room Air Oxygen Flow Rate 0 Narrative Exam Narrative: Alert and oriented x3 but poor historian Flat affect and no facial expression Neck: Supple without adenopathy, thyromegaly, jugular venous distention or bruits Chest: Clear to auscultation without wheezes rhonchi or crackles Cor: Regular rate and rhythm without Murmur Abdomen: Positive bowel sounds, soft, nontender, slightly distended, no guarding Extremities: No edema, pulses intact Objective Labs Result Diagrams: 04/18/19 05:05 07/16/19 05:05 Labs: Laboratory Results - last 24 hr 04/17/19 04/17/19 04/17/19 16:32 16:32 16:32 WBC 9.6 RBC 3.89 L Hgb 12.5 L Hct 37.8 L MCV 97.3 MCH 32.1 MCHC 33.0 RDW 13.6 Plt Count 301 Neut % (Auto) 59.5 Lymph % (Auto) 22.7 L Griggs % (Auto) 14.7 H Eos % (Auto) 2.3 Baso % (Auto) 0.8 Neut # (Auto) 5700 Lymph # (Auto) 2200 Griggs # (Auto) 1400 H Eos # (Auto) 200 Baso # (Auto) 100 PT 14.1 H INR 1.2 APTT 28 Sodium 137 Potassium 4.0 Chloride 102 Carbon Dioxide 26 BUN 14 Creatinine 0.90 Estimated GFR > 60.0 BUN/Creatinine Ratio 15.6 Glucose 128 H Calcium 8.6 Total Bilirubin AST ALT Alkaline Phosphatase Total Protein Albumin Globulin Albumin/Globulin Ratio Urine Color Urine Appearance Urine pH Ur Specific [place] Urine Protein Urine Glucose (UA) Urine Ketones Urine Occult Blood Urine Nitrate Urine Bilirubin Urine Urobilinogen Ur Leukocyte Esterase Urine RBC Urine WBC Urine Bacteria Ur Culture Indicated? Micro UA Comment 04/18/19 04/18/19 04/18/19 02:15 05:05 05:05 WBC 8.6 RBC 3.86 L Hgb 12.6 L Hct 37.7 L MCV 97.4 MCH 32.5 MCHC 33.4 RDW 13.7 Plt Count 292 Neut % (Auto) 54.7 Lymph % (Auto) 25.7 Griggs % (Auto) 14.1 H Eos % (Auto) 4.9 H Baso % (Auto) 0.6 Neut # (Auto) 4700 Lymph # (Auto) 2200 Griggs # (Auto) 1200 H Eos # (Auto) 400 Baso # (Auto) 100 PT INR APTT Sodium 141 Potassium 4.6 Chloride 105 Carbon Dioxide 29 BUN 13 Creatinine 0.90 Estimated GFR > 60.0 BUN/Creatinine Ratio 14.4 Glucose 116 H Calcium 9.0 Total Bilirubin 0.5 AST 19 ALT < 6 L Alkaline Phosphatase 76 Total Protein 7.3 Albumin 3.6 Globulin 3.7 Albumin/Globulin Ratio 1.0 Urine Color Yellow Urine Appearance Clear Urine pH 6.5 Ur Specific [place] 1.010 Urine Protein Negative Urine Glucose (UA) Negative Urine Ketones Negative Urine Occult Blood Negative Urine Nitrate Negative Urine Bilirubin Negative Urine Urobilinogen 0.2 Ur Leukocyte Esterase Negative Urine RBC None seen Urine WBC None seen Urine Bacteria None seen Ur Culture Indicated? Cult not indicated Micro UA Comment Microscopic normal Assessment & Plan Assessment & Plan narrative: 83-year-old male Assessment 1. Parkinson's disease with decline rapidly over the last 1-2 weeks a nd now patient with severe weakness and now wheelchair-bound were previously was able to ambulate with a walker. He is also having swallowing difficulties. We will continue with physical therapy. We will have speech evaluate him. We will continue the Sinemet. He will need skilled care facility with physical therapy in order to strengthen him in hopes to get him back home with 24 hour care. T here is no other obvious etiology for his sudden progressive weakness. There is no infectious, metabolic, cerebrovascular, intracranial or other neurologic etiology. I suspect it was related to his fall goals, natural progression of the disease and decrease in mobility related to previous infection. Assessment 2. BPH stable Plan: Continue outpatient medications Assessment 3. Depression stable Plan: Continue outpatient Zoloft Assessment 4. Constipation Plan: MiraLax Assessment 5. DVT prophylaxis Plan: Lovenox Assessment 6. Dysphagia Plan: Speech eval Assessment 7. Burn on right heel Plan: Will have nurses change the dressing today and will have wound care see him as scheduled tomorrow
[2019-04-18] MEDS: ENOXAPARIN 40 MG/0.4 ML SYRINGE SUBCUT (14:05)
[2019-04-18] MEDS: POLYETHYLENE GLYCOL 3350 17 GM POWD.PACK PO (14:06)
[2019-04-18 15:41] VITALS: BP 123/62; PULSE 62; RESP 18; TEMP 36.4; O2SAT 99
--- NOTE | 2019-04-18 15:42 | PT.IPTN ---
Physical Therapy Treatment Note M2 PT-IP Current Condition Start: 04/18/19 13:40 Freq: NEEDED Status: Active Protocol: Document 04/18/19 11:30 AB (Rec: 04/18/19 13:53 AB [id number]) Physical Therapy Current Condition Current Condition Evaluation Date 04/18/19 Treatment Diagnosis weakness s/p fall; PD; difficulty in walking Onset Date 04/17/19 Precautions Other Precautions falls M3 PT-IP Subjective Start: 04/18/19 13:40 Freq: NEEDED Status: Active Protocol: Document 04/18/19 14:40 CLB (Rec: 04/18/19 15:42 CLB [id number]) Subjective Physical Therapy Visit Type Type Treatment Note Visit Start Time 14:40 Visit Stop Time 15:00 Total Visit Minutes 20 Number of RFID ENGINEER Visits 1 Physical Therapy Visit Comments Patient Comments pt agreeable to do PT but respectfully refused ambulation. M4 PT-IP Mobility and Gait Start: 04/18/19 13:40 Freq: NEEDED Status: Active Protocol: Document 04/18/19 14:40 CLB (Rec: 04/18/19 15:42 CLB [id number]) PT-Transfer Assessment Sit to and From Stand Sit to and from Stand Moderate Assistance 1 Person Assistance Use of Upper Extremities Equipment Transfer Assistive Device Gait Belt Front Wheeled Walker Orthotic/Prosthetic Devices or Brace: No Transfers Transfer Destination Chair Transfer Ability Level of Assist Moderate Assistance 1 Person Assistance Use of Upper Extremities Comments Mobility Comments Pt performed sit<>stand x3 requiring cues to tighten quads and tuck bottom to assist with full standing posture. Pt also needed cues for hand placement for safety. M5 PT-IP Objective Assessments Start: 04/18/19 13:40 Freq: NEEDED Status: Active Protocol: Document 04/18/19 11:30 AB (Rec: 04/18/19 13:53 AB [id number]) Orientation Orientation/Cognition Level of Alertness Alert Orientation Name Place Situation Language Function Ability Hard of Hearing Safety Awareness Decreased Safety Awareness Memory Description Short Term Impaired Claims Auditor Impaired Gross Range of Motion Lower Extremity ROM Assessment Within Functional Limits Strength Lower Extremity Strength Assessment Bilaterally Impaired Comments Strength Comments RLE: 3+/5 LLE: 3+/5 Coordination Assessment Gross Coordination Gross Coordination WNL Muscle Tone Muscle Tone WNL Yes M6 PT-IP Treatment Start: 04/18/19 13:40 Freq: NEEDED Status: Active Protocol: Document 04/18/19 14:40 CLB (Rec: 04/18/19 15:42 CLB [id number]) Physical Therapy Treatment Exercises Exercises Ankle Pumps Gluteal Sets Quad Sets Seated Knee Flexion/Extension Other Treatments Other Treatment Performed seated marches x20 sit<>stand x3 M7 PT-IP Assessment and Plan Start: 04/18/19 13:40 Freq: NEEDED Status: Active Protocol: Document 04/18/19 14:40 CLB (Rec: 04/18/19 15:42 CLB [id number]) PT Summary Assessment and Plan Summary Impairments Pain ROM Strength Balance Coordination Sensation Tone Cognition Bed Mobility Transfers Gait Activity Tolerance Assessment Summary Pt follows 1 step commands with increased processing time . Pt was able to improve with sit<>stand and performed seated exercises as pt respectfully refused ambulation. Goals Bed Mobility Goal Standby Assistance Transfer Goal Standby Assistance Front Wheeled Walker Gait Goal Standby Assistance Front Wheel Walker Gait Distance 100 Days to Meet Goals 10 Frequency of Treatment Frequency Of Treatment Twice a Day Treatment Plan Physical Therapy Treatment Plan Bed Mobility Training Transfer Training Gait Training Therapeutic Exercise Balance Retraining Discharge Planning Neuromuscular Re-ed Coordination Retraining Manual Therapy Recommendations To Nursing Amount of Assist Needed 2 Person Assist Discharge Recommendations PT Discharge Recommendations Home with 24/7 Assist Home Health SNF Rehab Other Discharge Recommendations depending on progress: SNF vs home with 24/7 and homehealth PT
--- NOTE | 2019-04-18 16:57 | ST.IPIE ---
Care Team Visit Care Team Role Provider Type Merlyn Concepcion DPM Other Providers Non-Staff Specialty: Podiatry Address: [address] [place] [address] Email: Celio Theodore MD Other Providers Physician Specialty: Wound Care Address: [address] [place] [address] Email: Brooks Alonso MD Family Provider Physician Primary Care Provider Specialty: Family Practice Address: [address] [place] [address] Email: Brooks Tineo DO Emergency Provider Physician Specialty: Emergency Medicine Address: [address] [place] [address] Email: Melissa Robbins MD Admit Provider Physician Attending Provider Specialty: Family Practice Address: [address] [place] [address] Email: Past Medical History (Last Reviewed 04/17/19 @ 18:42 by Brooks Tineo DO) BPH (benign prostatic hyperplasia) (Acute Medical) Depression (Acute Medical) Hydrocele in adult (Acute Medical) Incontinent of urine (Acute Medical) Parkinson disease (Acute Medical) Usually well controlled with medication but some issues of missing doses may have contributed to following items. Will resume usual medications. 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 Robbins Reason for Referral Swallow difficulty Setting Assessment Location Acute Care Visit Type Note Type Initial Evaluation Next Note Type Next Note Type Treatment Note Patient Information Identification Type Name ID Card History This 83-year-old male was brought to emergency room for evaluation of progressive weakness and confusion status post fall. He lives at home alone but has 24 hour 7 care coverage and apparently fell out of bed and fell on his coccyx. They had to call the paramedics to help get him back in bed and then next morning he was not able to move so he was brought to the emergency room for evaluation by his son. He has a history of Parkinson's and dementia which is said to be progressive. The family notes that he has been having progressive worsening, difficulty swallowing his food and pills often times choking and from their observation they are concerned about possible aspiration. Subjective Observations The pt was sitting up in chair watching TV, agreeable to swallow evaluation. He reported that his kids have noticed him having trouble swallowing multiple pills at a time. He confirmed some difficulty transporting pills from mouth to throat and occasionally pills sticking either in mouth or throat. He denied difficulty with any other oral intake. He typically takes pills with water and had not tried taking with carrier. Agreed swallowing pills one at a time would be advisable. Evaluation Liquids Trialed Thin Solids Trialed Puree Dysphagia Mechanical Regular Administration Type Cup Single Sip Cup Consecutive Sips Straw Self-Feeding Oral Impairment WFL Oral Strategies Upright at 90 degrees Oral Phase Comments Oral Peripheral Exam: WFL. Pt has dental implants with one molar missing, lower right. Mildly reduced lingual strength. Pt able to perform lingual sweep with good control and ROM. Soft palate elevates upon phonation. Hyolaryngeal elevation/ excursion WNL via palpation. Volitional swallow intact. Oral Phase: WFL. Adequate mastication, extended with dry turkey sandwich, which is appropriate. Swallow trigger appears timely. No pocketing or abnormal oral residue observed. Mild typical residue cleared with lingual sweep and/or liquid wash. Pharyngeal Impairment Mildly Impaired Pharyngeal Strategies Sitting Upright (90 deg) Small Bites and Sips Pharyngeal Phase Comments Occasional mild throat clearing observed following swallows of thin liquid in single and consecutive sips, indicating incomplete closure of the laryngeal vestibule. No other overt s/sx of aspiration were observed. Pt maintained clear vocal quality throughout. Findings Dysphagia Type Mild Pharyngeal Dysphagia Rehabilitation Potential Good Impressions Pt presents with indications of mild pharyngeal dysphagia likely secondary to Parkinson' s disease and characterized by mild throat clearing with thin liquids, indicative of reduced airway closure. Modification to diet/liquids do not appear warranted at this time. Recommend pills be administered one at a time with water or in a carrier, according to pt's preference. Speech Pathology to follow pt for ongoing assessment with meals, pt/family education, and for training in exercises to improve strength and coordination of swallow musculature, particularly given the presence of Parkinson's disease. The pt participated appropriately in conversation related to his recent falls, living situation, and swallow experiences. No confusion was displayed during these conversations. The pt was able to follow simple 1- and 2- step commands. Diet Recommendations Liquids Order Thin Diet Order Regular Medication Recommendations One at a Time Aspiration Precautions Recommended Precautions Upright at 90 Degrees Small Bites/Sips Treatment Plan Placement Recommendations after Custodial Facility Discharge Home with Home Health Appropriate for Therapy Yes Therapy Recommendations Ongoing assessment with meals, pt/family education, and training in exercises to improve strength and coordination of swallow musculature Dysphagia Goals 1. The pt will follow general aspiration precautions to maintain swallow safety and reduce risk of aspiration. 2. The pt will complete swallow exercises (e.g., laryngeal elevation, Marycarmen, base of tongue, etc.) with min v/v cues to improve swallow function and safety and reduce risk of aspiration. 3. The pt will tolerate least restrictive diet to meet his nutrition and hydration needs.
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
[2019-04-18 20:15] VITALS: BP 137/60; PULSE 57; RESP 18; TEMP 36
[2019-04-18] MEDS: OXYBUTYNIN 5 MG TABLET PO (20:17)
[2019-04-18] MEDS: ASPIRIN EC 81 MG TABLET PO (20:17)
[2019-04-18] MEDS: SERTRALINE 50 MG TABLET PO (20:17)
[2019-04-18] MEDS: SODIUM CHLORIDE 0.9% FLUSH 10 ML IV (21:19)
[2019-04-18 23:00] VITALS: BP 116/56; PULSE 59; RESP 16; TEMP 36.1; O2SAT 98
[2019-04-19] MEDS: cephALEXin 250 MG CAPSULE 500 MG PO ×5 (00:33→21:01)
[2019-04-19 05:00] VITALS: BP 140/69; PULSE 64; RESP 16; TEMP 36.8; O2SAT 94
[2019-04-19 06:05] LABS: Add Manual Diff / Slide Review NO; Basophils Absolute Auto 100 /uL (0-100); Basophils Percent Auto 1.1 % (0-2); Eosinophils Absolute Auto 500 /uL (0-450); Eosinophils Percent Auto 6.4 % (2-4); Hematocrit 39.4 % (41-53); Hemoglobin 13.3 g/dL (13.5-17.5); Lymphocytes Absolute Auto 2000 /uL (1100-4500); Lymphocytes Percent Auto 27.7 % (25-40); Mean Corpuscular HGB Conc 33.7 % (30-36); Mean Corpuscular Hemoglobin 32.6 PG (26-34); Mean Corpuscular Volume 96.7 fL (80-100); Monocytes Absolute Auto 800 /uL (0-900); Neutrophils Absolute Auto 3700 /uL (1500-7000); Neutrophils Percent Auto 52.8 % (50-75); Platelet Count 329 X10^3/uL (150-400); Red Blood Cell Count 4.08 X10^6/uL (4.5-5.9); Red Cell Distribution Width 13.6 % (11.6-14.8); White Blood Cell Count 7.1 X10^3/uL (4.5-11.0)
[2019-04-19 06:10] LABS: BUN Creatinine Ratio 21.3 (6-22); Blood Urea Nitrogen 17 mg/dL (9-20); Calcium 8.9 mg/dL (8.4-10.2); Carbon Dioxide 27 mmol/L (22-32); Chloride 104 mmol/L (98-107); Estimated Glomerular Filt Rate > 60.0 mL/min (>60); Glucose 112 mg/dL (80-110); HEMOLYSIS < 15 (0-50); Potassium 4.2 mmol/L (3.4-5.1); Sodium 139 mmol/L (137-145)
[2019-04-19 08:00] VITALS: BP 135/68; PULSE 55; RESP 17; TEMP 36.4; O2SAT 95
[2019-04-19] MEDS: ENOXAPARIN 40 MG/0.4 ML SYRINGE SUBCUT (09:50)
[2019-04-19] MEDS: TAMSULOSIN 0.4 MG CAPSULE PO (09:50)
[2019-04-19] MEDS: CARBIDOPA-LEVODOPA 25/100 TABLET 1.5 EACH PO ×3 (09:50→20:59)
[2019-04-19] MEDS: SODIUM CHLORIDE 0.9% FLUSH 10 ML IV ×2 (09:50→20:59)
--- NOTE | 2019-04-19 10:15 | CM.DPNOTE ---
Addendum entered by Chantel Bloom LPN 04/19/19 14:34: Dr. Alonso was here today and confirmed that pt will need followup at the [facility]. Spoke with Samantha Durbin who says they will have openings to fit him in next week and [facility] can call to facilitate this. [facility] is updated and confirms that this will be fine. Will check in tomorrow and follow accordingly. Addendum entered by Chantel Bloom LPN 04/19/19 10:33: Updated Derrick as planned. He expresses thankfulness for the information and the great care my dad is getting in the hospital. He and Sneha will be in later today. Original Note: DCP: continued: Case received and discussed in Team Rounds. EMR reviewed. OT/PT and CORPORATE QUALITY MANAGER are seeing pt. Pt is current with the [facility] and RN Samantha Durbin saw pt last evening: see her note in Patient Care Notes. UR RN Emma (Sukhdev) and UR Managere Eliz have conferred and have now confirm Admission Status as INPT: order has been in place since 04/17/19. Spoke then with [facility]. She confirms they will have a bed for pt for 04/20 >, whenever pt is stable for d/c. She is aware of the wound care information which does include discussion of possible I&D and also the updated admission status information. Pt will utilized his SNF Medicare benefit at [facility]. Met with pt, introduced self and role. Updated his re above. He confirms his plan, he has not seen the rounding physician yet today. Says Young will be here sometime later today. Will call GEORGE Meza now with the updates re admission status and acceptance of pt by [facility]. PASRR: will begin in prep for the pending d/c.
--- NOTE | 2019-04-19 11:15 | PT.IPTN ---
Current Diagnoses Parkinson's disease (04/18/19) Physical Therapy Treatment Note M2 PT-IP Current Condition Start: 04/18/19 13:40 Freq: NEEDED Status: Active Protocol: Document 04/18/19 11:30 AB (Rec: 04/18/19 13:53 AB [id number]) Physical Therapy Current Condition Current Condition Evaluation Date 04/18/19 Treatment Diagnosis weakness s/p fall; PD; difficulty in walking Onset Date 04/17/19 Precautions Other Precautions falls M3 PT-IP Subjective Start: 04/18/19 13:40 Freq: NEEDED Status: Active Protocol: Document 04/19/19 11:15 GGD (Rec: 04/19/19 12:01 GGD [id number]) Subjective Physical Therapy Visit Type Type Treatment Note Visit Start Time 10:50 Visit Stop Time 11:15 Total Visit Minutes 25 Number of NURSE EMERGENCY ROOM Visits 2 Physical Therapy Visit Comments Patient Comments Pt willing to get up out of bed. M4 PT-IP Mobility and Gait Start: 04/18/19 13:40 Freq: NEEDED Status: Active Protocol: Document 04/19/19 11:15 GGD (Rec: 04/19/19 12:01 GGD [id number]) PT-Bed Mobility Assessment Supine to Sit Supine to Sit Contact Guard Assistance 1 Person Assistance Head of Bed Elevated Bedrails Scooting Scooting to Edge of Bed Contact Guard Assistance PT-Transfer Assessment Sit to and From Stand Sit to and from Stand Minimal Assistance 1 Person Assistance Use of Upper Extremities Equipment Transfer Assistive Device Gait Belt Front Wheeled Walker Orthotic/Prosthetic Devices or Brace: No Transfers Transfer Destination Chair Transfer Ability Level of Assist Minimal Assistance 1 Person Assistance Use of Upper Extremities Comments Mobility Comments Pt needed cues for posture. Stood at EOB x 2 min for brief change by AUDIO VISUAL ARTS DIRECTOR. Gait Assessment Gait Gait Assistance Required: Minimum Assistance Distance (Feet) 5 Able to Maintain Weight Bearing Status Yes During Gait Assistive Devices Assistive Device Gait Belt Front Wheeled Walker Gait Deviations General Gait Pattern Antalgic Decreased Stride Length Decreased Feet Clearance Narrow Based Gait Factors Limiting Gait Function Factors Limiting Gait Function Decreased Activity Tolerance Decreased Strength Difficulty Following Directions Limited Range of Motion Pain Poor Balance Poor Safety Awareness M5 PT-IP Objective Assessments Start: 04/18/19 13:40 Freq: NEEDED Status: Active Protocol: Document 04/18/19 11:30 AB (Rec: 04/18/19 13:53 AB [id number]) Orientation Orientation/Cognition Level of Alertness Alert Orientation Name Place Situation Language Function Ability Hard of Hearing Safety Awareness Decreased Safety Awareness Memory Description Short Term Impaired Residential Impaired Gross Range of Motion Lower Extremity ROM Assessment Within Functional Limits Strength Lower Extremity Strength Assessment Bilaterally Impaired Comments Strength Comments RLE: 3+/5 LLE: 3+/5 Coordination Assessment Gross Coordination Gross Coordination WNL Muscle Tone Muscle Tone WNL Yes M6 PT-IP Treatment Start: 04/18/19 13:40 Freq: NEEDED Status: Active Protocol: Document 04/19/19 11:15 GGD (Rec: 04/19/19 12:01 GGD [id number]) Physical Therapy Treatment Exercises Exercises Ankle Pumps Seated Knee Flexion/Extension M7 PT-IP Assessment and Plan Start: 04/18/19 13:40 Freq: NEEDED Status: Active Protocol: Document 04/19/19 11:15 GGD (Rec: 04/19/19 12:01 GGD [id number]) PT Summary Assessment and Plan Summary Assessment Summary Pt is slow moving, but needed less assist when allowed time. He need cues for upright standing posture. He did have mild posterior lean in standing. He has low tolerance to activity. Frequency of Treatment Frequency Of Treatment Once a Day Recommendations To Nursing Amount of Assist Needed 2 Person Assist Discharge Recommendations PT Discharge Recommendations SNF Rehab
[2019-04-19 12:00] VITALS: BP 134/61; PULSE 59; RESP 17; TEMP 36.5; O2SAT 95
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
[2019-04-19] MEDS: MAGNESIUM HYDROXIDE 30 ML UDC PO (13:49)
[2019-04-19 15:10] VITALS: BP 165/75; PULSE 58; RESP 18; TEMP 36.3; O2SAT 97
--- NOTE | 2019-04-19 15:36 | ST.IPDYTX ---
EDUCATION TECHNICIAN Dysphagia Treatment EDUCATION TECHNICIAN Dysphagia Treatment Start: 04/18/19 16:31 Freq: Status: Active Protocol: Document 04/19/19 14:08 TLC (Rec: 04/19/19 14:29 TLC [id number]) Dysphagia Treatment Session Time Visit Start Time 13:45 Visit Stop Time 14:05 Total Visit Minutes 20 Visit Information Visit Number 2 Setting Assessment Location Acute Care Visit Type Note Type Treatment Note Patient Information Subjective Observations Mr. Meza was sitting in the chair in his room with his daughter and grandson present. He recalled participating in a clinical swallow evaluation yesterday. Treatment Liquids Trialed Thin Treatment Activities Patient consumed single and consecutive straw sips of water without signs of aspiration, but declined further trials asking if he could instead be seen with a meal tomorrow. Ongoing verbal education was provided to the patient and his family regarding safe swallow strategies including small bites/sips, medication one at a time and slow rate. We discussed instrumental assessment vs. clinical (bedside) assessment including possible results and what treatment would look like based on different outcomes. Patient's daughter was appreciative of this and says they will consider this option in the future if swallowing becomes worse or as a baseline measure. Nursing reports patient has not shown signs of aspiration with meals or pills today. Assessment Patient Response to Treatment Good Assessment of Improvement Patient displays intermittent signs of suspected pharyngeal dysphagia with PO trials. He likely has intermittent episodes of aspiration given family reports of occasional coughing/hacking during meals. Clinically, he does not appear to be at risk for aspiration pneumonia. Positive prognostic indicators include good mental status, good oral health status and overall fair health status and mobility. Diet Recommendations Recommendations Continue Current Diet Liquids Order Thin Diet Order Regular Medication Recommendations One at a Time Additional Dietary Needs Single Sips Controlled Sips Reminders to Use Strategies Aspiration Precautions Recommended Precautions Upright at 90 Degrees Alternate Liquids/Solids Small Bites/Sips Treatment Plan Placement Recommendation after [facility]charge [facility] Facility Appropriate for Continued Therapy Yes Therapy Recommendations Follow- up with patient during a meal if possible to assess compliance with recommended strategies. Dysphagia Goals 1. The pt will follow general aspiration precautions to maintain swallow safety and reduce risk of aspiration during PO intake.
[2019-04-19] MEDS: TRAMADOL 50 MG TABLET PO (16:32)
[2019-04-19] MEDS: ASPIRIN EC 81 MG TABLET PO (20:59)
[2019-04-19] MEDS: OXYBUTYNIN 5 MG TABLET PO (20:59)
[2019-04-19] MEDS: SERTRALINE 50 MG TABLET PO (20:59)
[2019-04-19 21:00] VITALS: BP 123/55; PULSE 58; RESP 18; TEMP 36.5; O2SAT 96
--- NOTE | 2019-04-19 22:28 | PC.NURSE ---
Patient is A&O x4 pleasant and cooperative w/ staff and is able to make needs known when nec. Patient is however impulsive getting out of bed when he wants to get up. Waffel cushion on buttocks and right foot. New order for Tramadol for pain PRN. Call light with in reach, bed in low pos. alarm active.
[2019-04-19 23:40] VITALS: BP 122/59; PULSE 58; RESP 16; TEMP 36.4; O2SAT 94
[2019-04-20] MEDS: TRAMADOL 50 MG TABLET PO (00:13)
[2019-04-20 05:06] VITALS: BP 132/58; PULSE 56; RESP 16; TEMP 36.5; O2SAT 93
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
[2019-04-20 07:45] VITALS: BP 131/55; PULSE 55; RESP 16; TEMP 36.4; O2SAT 93
--- NOTE | 2019-04-20 08:30 | PM.DS.1 ---
History of Present Illness Date Patient Seen: 04/20/19 Time Patient Seen: 08:00 Chief complaint: Fell out of bed onto the floor Narrative: Patient is continuing to have ongoing progression of Parkinson's reached a point where he was unable to bear weight had several falls in close succession. No loss of consciousness or new neurologic injuries but it has significant low back pain. Admitted for management of these issues hydration evaluation for urinary tract infection as well. Patient had evaluation of low back sacrum coccyx to exclude fracture. Patient is weakness continues will need outpatient physical therapy strengthening probably some balance rehabilitation at fpc along with medication management and pain management Discharge Providers Date of admission: 04/17/19 17:29 Discharge Date: 04/20/19 Primary care physician: Brooks Alonso MD Consults: 04/17/19 18:59 Consult to Physical Therapy Evaluate & Treat Comment: Physician Instructions: Evaluate and Treat Consult to Wound Care Routine Comment: Consulting Provider: [facility] 04/18/19 13:48 Consult to Speech Therapy Evaluate & Treat Comment: parkinson's and choking on food/pills and pneumoni Physician Instructions: Evaluate and treat Discharge provider: Brooks Alonso MD Summary Hospital Course: Patient was admitted from the emergency room secondary to several significant falls on the day of admission. Has long history of Parkinson's which is progressing including cognitive affects as well as neuro muscular. Patient has the diagnosis of dementia. Also has depression hyperlipidemia past history of cancer of the prostate obstructive sleep apnea reflux and significant BPH. Patient also has component of significant depression and is on antidepressants for that was stable during the course of his hospital physician Patient was admitted evaluated with head scan x-rays of the sacrum coccyx pelvis low back which showed no fractures. Hydration feeding and physical therapy were performed during this admission all which have provided benefit patient and his and improving slowly. Again will need outpatient physical therapy to decrease falling and more severe injury Patient also had swallowing evaluation to evaluate for aspiration risk and patient passed that test with speech therapy very well. Status at Discharge Cognitive/behavioral status at discharge: oriented and at baseline, oriented Functional status at discharge: bed bound Overall status at discharge: patient is not back to baseline Time Spent with Patient Greater than 30 minutes Exam Vital Signs (past 8 hours): - 04/20/19 05:06 Temperature 97.7 F Pulse Rate 56 L Respiratory Rate 16 Blood Pressure 132/58 L Pulse Oximetry 93 Oxygen Delivery Method Room Air Oxygen Flow Rate 0 Narrative Exam Narrative: Patient alert and fairly oriented this morning recognizes me easily is seems to be sitting comfortably PERRLA EOMs intact Neck without mass Lungs clear to auscultation Cardiovascular shows regular rate and rhythm without murmur S3 Abdomen is nontender without hepatosplenomegaly rebound or guarding. Back without any significant skin breakdowns overall stiffness as a part of the Parkinson's is present Pelvis pain in the sacrum and xiphoid area with some slight redness some minimal bruising negative x-rays Neuro Neuro shows patient alert cognition [place] is appears good this morning. Stiffness overall good strength good sensory Objective Labs Result Diagrams: 04/19/19 05:37 04/19/19 05:37 Discharge Plan Discharge Plan Patient Disposition: SNF Transfer to: [facility] Transportation: Facility vehicle Consult as needed: Dental, Hearing, Mental health, Podiatry and Vision I certify the postop hospital [facility]pc care is medically necessary on a continuing basis for any conditions for which he/ she received care during this hospitalization.: Yes The receiving facility has agreed to accept transfer and provide medical treatment.: Yes Discharge Med Rec/Prescriptions Prescriptions: Continued cetirizine 10 mg tablet 10 mg PO DAILY RF: 0 acetaminophen [Tylenol 8 Hour] 650 mg Tablet Extended Release 650 mg PO Q8H PRN (Reason: pain) RF: 0 tamsulosin 0.4 mg capsule 0.4 mg PO BID RF: 0 carbidopa-levodopa 25-100 mg tablet 1.5 tab PO TID RF: 0 oxybutynin chloride 5 mg tablet 5 mg PO QPM RF: 0 sertraline 50 mg tablet 50 mg PO DAILY RF: 0 aspirin 81 mg Tablet,Delayed Release (Dr/Ec) 81 mg PO QPM RF: 0 cephalexin 500 mg capsule 500 mg PO QID RF: 0 Follow up/Referrals: Brooks Alonso MD [Primary Care Provider] - Discharge Health Status Brief summary of current health status: Patient admitted with severe weakness and progressive falling secondary to progression of his Parkinson's disease. Quite possibly urinary tract infection as well. Stabilized and improved working well with physical therapy. Needs outpatient physical therapy for to re-establish leg strength and balance. Will continue with current Parkinson's management Multidrug resistant organism: No MDRO Precautions: [place] Provider Discharge Instructions Diet: Diet as Tolerated Liquid consistency: Normal/Thin Food texture: Regular Discharge Data Primary Care Provider: Brooks Alonso Attending Provider: Melissa Robbins Admit Date/Time: 04/17/19 17:29
--- NOTE | 2019-04-20 08:42 | P.DS_ITS ---
History of Present Illness Date Patient Seen: 04/20/19 Time Patient Seen: 08:00 Chief complaint: Fell out of bed onto the floor Narrative: Patient is continuing to have ongoing progression of Parkinson's reached a point where he was unable to bear weight had several falls in close succession. No loss of consciousness or new neurologic injuries but it has significant low back pain. Admitted for management of these issues hydration evaluation for urinary tract infection as well. Patient had evaluation of low back sacrum coccyx to exclude fracture. Patient is weakness continues will need outpatient physical therapy strengthening probably some balance rehabilitation at long-term along with medication management and pain management Discharge Providers Date of admission: 04/17/19 17:29 Discharge Date: 04/20/19 Primary care physician: Brooks Alonso MD Consults: 04/17/19 18:59 Consult to Physical Therapy Evaluate & Treat Comment: Physician Instructions: Evaluate and Treat Consult to Wound Care Routine Comment: Consulting Provider: [facility] 04/18/19 13:48 Consult to Speech Therapy Evaluate & Treat Comment: parkinson's and choking on food/pills and pneumoni Physician Instructions: Evaluate and treat Discharge provider: Brooks Alonso MD Summary Hospital Course: Patient was admitted from the emergency room secondary to several significant falls on the day of admission. Has long history of Parkinson's which is progressing including cognitive affects as well as neuro muscular. Patient has the diagnosis of dementia. Also has depression hyperlipidemia past history of cancer of the prostate obstructive sleep apnea reflux and significant BPH. Patient also has component of significant depression and is on antidepressants for that was stable during the course of his hospital physician Patient was admitted evaluated with head scan x-rays of the sacrum coccyx pelvis low back which showed no fractures. Hydration feeding and physical therapy were performed during this admission all which have provided benefit patient and his and improving slowly. Again will need outpatient physical therapy to decrease falling and more severe injury Patient also had swallowing evaluation to evaluate for aspiration risk and patient passed that test with speech therapy very well. Status at Discharge Cognitive/behavioral status at discharge: oriented and at baseline, oriented Functional status at discharge: bed bound Overall status at discharge: patient is not back to baseline Time Spent with Patient Greater than 30 minutes Exam Vital Signs (past 8 hours): - 04/20/19 05:06 Temperature 97.7 F Pulse Rate 56 L Respiratory Rate 16 Blood Pressure 132/58 L Pulse Oximetry 93 Oxygen Delivery Method Room Air Oxygen Flow Rate 0 Narrative Exam Narrative: Patient alert and fairly oriented this morning recognizes me easily is seems to be sitting comfortably PERRLA EOMs intact Neck without mass Lungs clear to auscultation Cardiovascular shows regular rate and rhythm without murmur S3 Abdomen is nontender without hepatosplenomegaly rebound or guarding. Back without any significant skin breakdowns overall stiffness as a part of the Parkinson's is present Pelvis pain in the sacrum and xiphoid area with some slight redness some minimal bruising negative x-rays Neuro Neuro shows patient alert cognition [place] is appears good this morning. Stiffness overall good strength good sensory Objective Labs Result Diagrams: 04/19/19 05:37 04/19/19 05:37 Discharge Plan Discharge Plan Patient Disposition: SNF Transfer to: [facility] Transportation: Facility vehicle Consult as needed: Dental, Hearing, Mental health, Podiatry and Vision I certify the postop hospital long-term care is medically necessary on a continuing basis for any conditions for which he/ she received care during this hospitalization.: Yes The receiving facility has agreed to accept transfer and provide medical treatment.: Yes Discharge Med Rec/Prescriptions Prescriptions: Continued cetirizine 10 mg tablet 10 mg PO DAILY RF: 0 acetaminophen [Tylenol 8 Hour] 650 mg Tablet Extended Release 650 mg PO Q8H PRN (Reason: pain) RF: 0 tamsulosin 0.4 mg capsule 0.4 mg PO BID RF: 0 carbidopa-levodopa 25-100 mg tablet 1.5 tab PO TID RF: 0 oxybutynin chloride 5 mg tablet 5 mg PO QPM RF: 0 sertraline 50 mg tablet 50 mg PO DAILY RF: 0 aspirin 81 mg Tablet,Delayed Release (Dr/Ec) 81 mg PO QPM RF: 0 cephalexin 500 mg capsule 500 mg PO QID RF: 0 Follow up/Referrals: Brooks Alonso MD [Primary Care Provider] - Discharge Health Status Brief summary of current health status: Patient admitted with severe weakness and progressive falling secondary to progression of his Parkinson's disease. Quite possibly urinary tract infection as well. Stabilized and improved working well with physical therapy. Needs outpatient physical therapy for to re- establish leg strength and balance. Will continue with current Parkinson's management Multidrug resistant organism: No MDRO Precautions: [place] Provider Discharge Instructions Diet: Diet as Tolerated Liquid consistency: Normal/Thin Food texture: Regular Discharge Data Primary Care Provider: Brooks Alonso Attending Provider: Melissa Robbins Admit Date/Time: 04/17/19 17:29
[2019-04-20] MEDS: CARBIDOPA-LEVODOPA 25/100 TABLET 1.5 EACH PO (10:01)
[2019-04-20] MEDS: cephALEXin 250 MG CAPSULE 500 MG PO (10:02)
[2019-04-20] MEDS: ENOXAPARIN 40 MG/0.4 ML SYRINGE SUBCUT (10:02)
[2019-04-20] MEDS: SODIUM CHLORIDE 0.9% FLUSH 10 ML IV (10:03)
[2019-04-20] MEDS: TAMSULOSIN 0.4 MG CAPSULE PO (10:03)
--- NOTE | 2019-04-20 10:18 | SLP.IPNOTE ---
Attempted to see pt for swallowing therapy. Pt had just completed breakfast and was sitting in bedside walter. Pt reported to eat ~50% of meals. Nursing reported the pt is safely tolerating medication/po intake without overt s/sx aspiration.
--- NOTE | 2019-04-20 11:00 | CM.DPC ---
DCP: continued: Dr. Alonso was here this morning and ok'd pt for the d/c to [facility]. He wanted to make sure that pt could [facility] and assured him that March/[facility] stated yesterday that this would not be a problem. OF NOTE: he did not mention this in his DC summary but March today is aware of same and the wound care note from Samantha Durbin is included in the dc/snf paperwork. Dr. Alonso stated to this DCPlanner that PT.OT/[facility] would be following at the snf but did not put these specifics in his orders. A VVO for same is placed on the snf paperwork. PASRR: completed, faxed to [facility], copy to [facility] to scan. Placed into snf packet. Orders are gathered, reviewed and faxed. Dr. Alonso did not sign the medication list before he left, March is aware and this will be acceptable since the DC summary is e-signed by him. [facility] van can pick pt up at 1300. SHARATH Moeller, pt and his son Derrick are all updated. Will follow prn until pt leaves.
[2019-04-20 11:49] VITALS: BP 126/64; PULSE 62; RESP 16; TEMP 36.3; O2SAT 92
--- NOTE | 2019-04-20 12:34 | PC.NURSE ---
Pt is 2 pa with walker. He denies pain at discomfort. Discharging to [facility] at 1300. Son in room.
--- NOTE | 2019-04-20 12:45 | OT.IP.TRT ---
Current Diagnoses Parkinson's disease (04/17/19) Parkinson's disease (04/18/19) Occupational Therapy Treatment Note M3 OT- IP Subjective and Pain Start: 04/20/19 12:49 Freq: Status: Active Protocol: Document 04/20/19 12:49 FLOR (Rec: 04/20/19 12:50 FLOR [id number]) OT- Subjective Occupational Therapy Visit Type Type Administrative Note Visit Start Time 12:45 Notes OT referral received, but pt to d/c to SNF tday so will defer OT eval to SNF.
== END 2019-04-20 13:15 | DRG 57 ==
LOC: ED 16:54 → AC 04-18 07:51
PROVIDERS: Admitting Provider Family Medicine; Emergency Provider Emergency Medicine; Family Provider Family Medicine; PCP Family Medicine; Visit Provider Family Medicine
DX: G20 Parkinson's disease (principal); L89.322 Pressure ulcer of left buttock, stage 2; F02.80 Dementia in other diseases classified elsewhere, unspecified severity, without behavioral disturbance, psychotic disturbance, mood disturbance, and anxiety; R40.2362 Coma scale, best motor response, obeys commands, at arrival to emergency department; R40.2142 Coma scale, eyes open, spontaneous, at arrival to emergency department; R40.2242 Coma scale, best verbal response, confused conversation, at arrival to emergency department; R13.10 Dysphagia, unspecified; F32.9 Major depressive disorder, single episode, unspecified; N40.1 Benign prostatic hyperplasia with lower urinary tract symptoms; R32 Unspecified urinary incontinence; K59.00 Constipation, unspecified; Z87.891 Personal history of nicotine dependence; W06.XXXA Fall from bed, initial encounter; Z99.3 Dependence on wheelchair; T25.021D Burn of unspecified degree of right foot, subsequent encounter
CPT/HCPCS: 36415; 36591; 70450; 72170; 72220; 80048; 80053; 81001; 85025; 85610; 85730; 92526; 92610; 97110; 97162; 97530; 99282; 99284; G0378; J1650

== ENCOUNTER → 2019-04-26 14:24 | Outpatient (CLI) | payer MEDICARE, OTHER, SELFPAY ==
[2019-05-16 11:33] VITALS: BMI 28.3
== END ==
PROVIDERS: PCP Family Medicine; Visit Provider Family Medicine
DX: L89.610 Pressure ulcer of right heel, unstageable (principal); L89.323 Pressure ulcer of left buttock, stage 3; G20 Parkinson's disease; R41.9 Unspecified symptoms and signs involving cognitive functions and awareness
CPT/HCPCS: 11042; 99212; 99213

== ENCOUNTER → 2019-05-01 10:31 | Outpatient (CLI) | payer SELFPAY ==
[2019-04-17 17:40] VITALS: BMI 29.1
--- NOTE | 2019-05-01 10:36 | DI.RAD.S_ITS ---
PROCEDURE: XR CALCANEOUS RT MIN 2V INDICATIONS: CALCANEUS INFECTION TECHNIQUE: Two views of the calcaneus were acquired. COMPARISON: None. FINDINGS: Bones: No fractures or dislocations. There is lucency in the posterior inferior aspect of the calcaneus suspicious for osteomyelitis. Soft tissues: No suspicious calcifications. Achilles tendon appears normal. Soft tissue defect in the posterior heel. 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 Dictated by: Randy Guo M.D. on 05/01/2019 at 14:45 Approved by: Randy Guo M.D. on 05/01/2019 at 14:46
== END ==
PROVIDERS: Family Provider Family Medicine; PCP Family Medicine; Visit Provider Family Medicine
DX: L89.610 Pressure ulcer of right heel, unstageable (principal)
CPT/HCPCS: 73650

== ENCOUNTER → 2019-05-03 15:13 | Outpatient (CLI) | payer MEDICARE, OTHER, SELFPAY ==
[2019-04-17 17:40] VITALS: BMI 29.1
== END ==
PROVIDERS: Family Provider Family Medicine; PCP Family Medicine; Visit Provider Family Medicine
DX: L89.614 Pressure ulcer of right heel, stage 4 (principal); L89.323 Pressure ulcer of left buttock, stage 3; G20 Parkinson's disease; R41.9 Unspecified symptoms and signs involving cognitive functions and awareness
CPT/HCPCS: 11044; 11047; 87070; 87075; 87077; 87186; 87205

== ENCOUNTER → 2019-05-09 12:40 | Outpatient (CLI) | payer MEDICARE, OTHER, SELFPAY ==
[2019-05-16 11:33] VITALS: BMI 28.3
== END ==
PROVIDERS: PCP Family Medicine; Visit Provider Family Medicine
DX: L89.614 Pressure ulcer of right heel, stage 4 (principal); M86.171 Other acute osteomyelitis, right ankle and foot; M87.274 Osteonecrosis due to previous trauma, right foot; G20 Parkinson's disease; R41.9 Unspecified symptoms and signs involving cognitive functions and awareness
CPT/HCPCS: 99214; 99215

== ENCOUNTER → 2019-05-10 15:35 | Outpatient (CLI) | payer MEDICARE, OTHER, SELFPAY ==
[2019-04-17 17:40] VITALS: BMI 29.1
--- NOTE | 2019-05-10 | DI.RAD.S_ITS ---
PROCEDURE: XR FOOT RT 2V INDICATIONS: Bruising in R Forefoot TECHNIQUE: 2 views of the foot were acquired. COMPARISON: None. FINDINGS: Bones: No fractures or dislocations. No suspicious bony lesions. Soft tissues: No tibiotalar joint effusion. Achilles tendon appears normal. IMPRESSION: Normal for age, source of current burning sensation symptoms is not seen. Dictated by: Lico Betancur M.D. on 05/10/2019 at 16:36 Approved by: Lico Betancur M.D. on 05/10/2019 at 16:36
--- NOTE | 2019-05-10 | DI.MRI.S_ITS ---
PROCEDURE: MR FOOT RT WO/W CON INDICATIONS: Pressure Ulcer, Stage 4 TECHNIQUE: Noncontrast coronal T1 spin echo and STIR, sagittal T1 spin echo with fat saturation and STIR, axial T1 spin echo and T2 fast spin echo with fat saturation. After the administration of contrast, axial/sagittal/coronal T1 spin echo with fat saturation through the right ankle and hindfoot. COMPARISON: [facility], CR, XR CALCANEOUS RT MIN 2V, 05/01/2019, 10:38. [facility], CR, XR FOOT RT 2V, 05/10/2019, 15:52. FINDINGS: Image quality: Excellent. Bones: There is marrow edema involving the posterior lateral cortex of posterior calcaneus near Achilles tendon insertion with linear hypointense signal extending along posterior calcaneus in this area. Cortical erosion involving posterior lateral cortex of the calcaneus is also seen. No other area of abnormal marrow signal or area of abnormal intraosseous enhancement. The overlying cortex appears intact. No other area of abnormal intraosseous enhancement. Soft tissues: Full-thickness ulceration over dorsal and lateral aspect of right heel is seen with mild surrounding soft tissue edema and enhancement consistent with cellulitis. No abscess collection. No soft tissue masses are visualized. The scanned muscles demonstrate normal overall bulk and internal signal. IMPRESSION: 1. Full-thickness ulceration involving posterior lateral aspect of right heel with mild cellulitis. No drainable abscess collection is seen. 2. Osteomyelitis involving adjacent posterior lateral aspect of right calcaneus with cortical erosion. Linear T2 hyperintense signal deep to the area of cortical erosion near the distal Achilles tendon insertion is seen, concerning for early osteonecrosis in this area. No other area of abnormal marrow signal or bone erosion is seen. Dictated by: Erwin Connelly M.D. on 05/10/2019 at 18:06 Approved by: Erwin Connelly M.D. on 05/10/2019 at 18:25
== END ==
PROVIDERS: Family Provider Family Medicine; PCP Family Medicine; Visit Provider Family Medicine
DX: L89.614 Pressure ulcer of right heel, stage 4 (principal); S90.31XA Contusion of right foot, initial encounter; R22.41 Localized swelling, mass and lump, right lower limb; M86.8X7 Other osteomyelitis, ankle and foot
CPT/HCPCS: 73620; 73720; A9579

== ENCOUNTER → 2019-05-15 12:02 | Outpatient (CLI) | payer MEDICARE, OTHER, SELFPAY ==
[2019-04-17 17:40] VITALS: BMI 29.1
--- NOTE | 2019-05-15 | DI.US.S_ITS ---
PROCEDURE: US ARTERIAL DUPLEX LE RT INDICATIONS: ULCER RIGHT HEEL TECHNIQUE: Color and pulse Doppler interrogation was performed of the right lower extremity arterial system, with image documentation. COMPARISON: None. FINDINGS: Common femoral artery: 139 cm/sec, with triphasic flow. Deep femoral artery: 227 cm/sec, with triphasic flow. Proximal superficial femoral artery: 103 cm/sec, with triphasic flow. Mid superficial femoral artery: 205 cm/sec, with triphasic flow. Distal superficial femoral artery: 188 cm/sec, with triphasic flow. Popliteal artery: 66-84 cm/sec, with monophasic flow. Posterior tibial artery: 85-153 cm/sec, with monophasic flow. Anterior tibial artery/dorsalis pedis: 74-79 cm/sec, with monophasic flow. Naqvi-scale imaging description: Prominent calcific and soft plaque IMPRESSION: Elevated flow velocities at the profunda femoris artery origin and also at the mid and distal superficial femoral artery indicating presence of significant arterial stenosis at those sites. Secondary monophasic flow extends through the remainder of the right lower extremity arterial vasculature, and note is also made of reversed flow in the dorsalis pedis artery presumably from collateral flow through the arterial vasculature more superiorly. These findings indicates significant arterial insufficiency to the right lower extremity from the mid thigh inferiorly, and followup MR angiography may be warranted if planning for surgical or interventional radiology treatment is anticipated. Dictated by: Lico Betancur M.D. on 05/15/2019 at 18:14 Approved by: Lico Betancur M.D. on 05/15/2019 at 18:20
== END ==
PROVIDERS: PCP Family Medicine; Visit Provider Family Medicine
DX: L89.614 Pressure ulcer of right heel, stage 4 (principal)
CPT/HCPCS: 93926

== ENCOUNTER 2019-05-16 06:01 | Inpatient (IN) | payer MEDICARE, OTHER, SELFPAY ==
[2019-05-16] VITALS (18 sets, daily range): BP systolic 120–168; BP diastolic 51–77; PULSE 52–85; RESP 8–24; TEMP 36–36.8; O2SAT 92–100; BMI 28.3
[2019-05-16] MEDS: LACTATED RINGERS 1,000 ML 100 ML IV (07:08)
--- NOTE | 2019-05-16 07:19 | PM.PREOP ---
Pre-operative Note Interval Note History & Physical reviewed/Exam performed by Physician: Yes Changes to H&P: No
--- NOTE | 2019-05-16 07:25 | P.OP_ITS ---
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 This is not healing despite over a month of dedicated wound care. Patient has been indicated for operative debridement deep bone biopsy. The risks benefits and alternatives to the procedure were discussed with the patient and his son. Risks include but are not limited to infection, nonunion, malunion, persistent pain, wound healing problems, need for additional procedures, amputation, DVT, pulmonary embolism, stroke, paralysis, . Patient has elected to proceed with the surgery. Consent was signed in the office. Discussed operative plan will be for limited debridement. Preoperative vascular studies will be obtained. Due to the poor appearance of the ulcer, an initial a debridement will be undertaken. If the patient is indicated for vascular intervention he will undergo this prior to any larger reconstructive type procedure. Plan will be for a negative pressure wound VAC device. Patient will be admitted to the hospital for antibiotics and culture monitoring. The patient will either be discharged to a snf or with wound VAC changes through the [facility] Care Center. Surgeon: Ayde Neil Click Yes if Unassisted: Yes Anesthesia Type: General Operative Notes Findings: Full-thickness right posterior heel ulcer compensating the lateral half of the heel measuring 6 cm by 5 cm x 1 cm deep. Central necrosis. Mild surrounding erythema. Exposed calcaneus and insertion of the Achilles the lateral aspect. Closure Type: non-primary Specimen(s): other (Bone cultures for microbiology) Applied: other (Negative pressure wound VAC) Estimated Blood Loss (mL): 10 Blood products transfused: none Tourniquet time (min): 0 Procedure in detail: The patient was seen in the preoperative area his site of surgery was marked and informed consent confirmed. Final questions were answered. Patient was then brought back to the operating room by the anesthesia team. General anesthesia was administered on the bed. Once general anesthesia was obtained the patient was positioned prone on the Harpal frame. All bony prominences were well padded. An SCD was placed on the contralateral leg. No tourniquet was used. The right lower extremity was prepped and draped in the standard sterile fashion. Formal time-out procedure was performed confirming the patient's side and site of surgery presence of informed consent. Prophylactic antibiotics were held for cultures. Once cultures were obtained 2 g of cefazolin was administered. Attention was turned to the right heel. There is a large posterior full- thickness heel ulcer with central eschar. This measured approximately 6 cm x 5 cm. Sharp dissection was taken down excising through the ulcer down to the calcaneus. Subperiosteal dissection was taken off the calcaneus to remove the ulcer. No abscess was encountered. The lateral calcaneus bone was soft. Based on the preoperative imaging the osteotomes were used to remove the posterior lateral aspect of the calcaneus as suspected necrotic based on the preoperative MRI. This was easily removed using the osteotomes. Good bleeding bone wound base was achieved. Curettes were used for complete excision followed by the hand rasp to smooth the edges. Additional debridement of the exposed Achilles tendon fibers and wound edges were undertaken demonstrating good bleeding tissue throughout the wound bed. The bone was then sent for culture and the antibiotics administered. The wound was then irrigated with 3 L of saline using cysto tubing. Clean drapes were placed down and gloves were changed. The wound was again measured was 6 cm x 5 cm x 1 cm deep. The VAC sponge was cut and placed into the wound followed by standard VAC dressings. Good suction was achieved. And the heel was padded with ABD pads and Kerlix wrap and Shravan wrap. This terminated the procedure. The drapes were removed the patient was placed onto his hospital bed and woken from general anesthesia. There were no immediate complications from the procedure. Patient was taken to the recovery room. Complications: none Condition: stable Disposition: Acute Care Plan for aftercare: Patient will be admitted to the floor. His cultures will be monitored. He will be on empiric antibiotics that will be tailored based on the biopsies. He will be nonweightbearing to the right lower extremity. He will have wound VAC changes every 48-72 hours. Since there is no vascular intervention available at the hospital he will be arranged for outpatient vascular consultation.
--- NOTE | 2019-05-16 08:40 | SUR.OPER ---
Prone on padded OR bed, head in foam head support, gel chest rolls, gel pad under knees, pillow under lower legs, toes free of pressure, arms secured on padded arm boards at <90 degrees abduction. Safety belt at thigh.
[2019-05-16] MEDS: CEFAZOLIN 2 GM/100 ML FROZ.PIGGY IV (08:45)
[2019-05-16] MEDS: fentaNYL 100 MCG/2 ML INJ 50 MCG IV (09:41)
--- NOTE | 2019-05-16 10:00 | SUR.PHASEI ---
RN unavailable for report, will call back per Victoria QUEEN.
--- NOTE | 2019-05-16 10:01 | SUR.PHASEI ---
Pt arrived, slow to wake, c/o pain medicated x 1 with fentanyl, dressing to r foot remained c/d/i and pain now tolerable. Skin very dry and flacky, buttocks red, skin intact with white cream in place. awaiting rn to call back to give report.
--- NOTE | 2019-05-16 10:12 | SUR.PHASEI ---
rn did not return call, called again report given.
--- NOTE | 2019-05-16 10:56 | SUR.PHASEI ---
Late entry: Pt left in stable condition under the care of Lorene EARLY and Victoria QUEEN
[2019-05-16] MEDS: VANCOMYCIN 1,500 MG/300 ML FROZ.PIGGY 200 MG IV ×2 (11:47→23:29)
[2019-05-16 11:50] LABS: Add Manual Diff / Slide Review NO; Basophils Absolute Auto 0 /uL (0-100); Basophils Percent Auto 0.6 % (0-2); Eosinophils Absolute Auto 200 /uL (0-450); Eosinophils Percent Auto 2.3 % (2-4); Hemoglobin 12.2 g/dL (13.5-17.5); Lymphocytes Absolute Auto 1200 /uL (1100-4500); Lymphocytes Percent Auto 15.3 % (25-40); Mean Corpuscular Hemoglobin 32.1 PG (26-34); Mean Corpuscular Volume 97.1 fL (80-100); Monocytes Absolute Auto 200 /uL (0-900); Neutrophils Absolute Auto 6300 /uL (1500-7000); Neutrophils Percent Auto 78.8 % (50-75); Platelet Count 227 X10^3/uL (150-400); Red Blood Cell Count 3.81 X10^6/uL (4.5-5.9); Red Cell Distribution Width 13.6 % (11.6-14.8); White Blood Cell Count 7.9 X10^3/uL (4.5-11.0)
[2019-05-16 12:05] LABS: Albumin 3.7 g/dL (3.5-5.0); Alkaline Phosphatase 133 U/L (38-126); Aspartate Aminotransferase 20 IU/L (17-59); BUN Creatinine Ratio 28.8 (6-22); Bilirubin Total 0.2 mg/dL (0.2-1.3); Blood Urea Nitrogen 23 mg/dL (9-20); C-Reactive Protein Quant 1.1 mg/dL (<1.0); Calcium 9.1 mg/dL (8.4-10.2); Carbon Dioxide 30 mmol/L (22-32); Chloride 106 mmol/L (98-107); Estimated Glomerular Filt Rate > 60.0 mL/min (>60); Globulin 3.7 g/dL (1.7-4.1); Glucose 139 mg/dL (80-110); HEMOLYSIS < 15 (0-50); Potassium 5.3 mmol/L (3.4-5.1); Sodium 141 mmol/L (137-145); Total Protein 7.4 g/dL (6.3-8.2)
[2019-05-16 12:06] LABS: Alanine Aminotransferase < 6 IU/L (21-72)
[2019-05-16 12:09] LABS: Erythrocyte Sedimentation Rate 66 MM/HR (0-15)
[2019-05-16] MEDS: ACETAMINOPHEN 325 MG TABLET 975 MG PO ×2 (14:03→20:11)
--- NOTE | 2019-05-16 14:33 | PC.NURSE ---
POST OP - assumed care pt at 1425 from SHARATH Espino, pt is awake, states earlier tylenol providing adequate relief, wound vac 125mmhg w/serosang in tubing, +sensation and able to wiggle toes slightly, wearing support to keep heel elevated, dsg cdi, ra 100%, vanco infusing, son at bedside.
[2019-05-16] MEDS: LACTATED RINGERS 1,000 ML 42 ML IV (15:00)
[2019-05-16] MEDS: CARBIDOPA-LEVODOPA 25/100 TABLET 1.5 EACH PO ×2 (15:00→20:12)
[2019-05-16 15:45] LABS: Bacteria Urine None Seen; RBC Urine None Seen (0-5/HPF)
[2019-05-16 15:56] LABS: Appearance Urine UA CLEAR; Bilirubin Urine UA NEGATIVE (NEGATIVE); Color Urine UA YELLOW; Glucose Urine UA NEGATIVE (Negative); Ketones Urine UA NEGATIVE (NEGATIVE); Leukocyte Esterase Urine UA NEGATIVE (NEGATIVE); Nitrite Urine UA NEGATIVE (Negative); Occult Blood Urine UA NEGATIVE (Negative); Protein Urine UA NEGATIVE (Negative); Specific Gravity Urine UA <=1.005 (1.000-1.035); Urobilinogen Urine UA 0.2 E.U./dL (0.2)
[2019-05-16 16:21] LABS: Culture Indicated Urine Cult Not Indicated; Squamous Epithelial Cell Urine 0-1 /HPF (0-5/HPF); WBC Urine 0-1/HPF (0-5/HPF)
--- NOTE | 2019-05-16 16:23 | PT.IIE ---
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) Osteonecrosis, unspecified (05/16/19) Surgery Performed Operation Date: 05/16/19 07:45 Actual Procedures p I&D partial bone excision and bone Biopsy calcaneus wound WITH application wound VAC(Right) - Ayde Neil MD Medical History (Last Updated 05/12/19 @ 11:10 by Becca Torres RN) BPH (benign prostatic hyperplasia) (Acute) Cervical radiculopathy (Acute) Depression (Acute) GERD (gastroesophageal reflux disease) (Acute) HLD (hyperlipidemia) (Acute) Hydrocele in adult (Acute) Incontinent of urine (Acute) Influenza (Acute ~12/2018) Parkinson disease (Acute) Pollen allergies (Acute) Prostate cancer (Acute) Sleep apnea (Acute ~2004) Physical Therapy Inpatient Evaluation/Re-Eval M1 PT/OT-IP Prior Functional Status Start: 05/16/19 16:14 Freq: NEEDED Status: Active Protocol: Document 05/16/19 16:23 AB (Rec: 05/16/19 17:23 AB [id number]) Medical Review Prior Functional Status Medical History Reviewed Yes Communication able to make needs known Mobility and Gait per pt: RLE wound started ~ 2 weeks ago and has not been able to ambulate much. pt has assistance with bed mobility, transfers using FWW, usually uses a manual w/c or uses his lift chair. 2 weeks prior to wound on RLE: pt stated that he is independent with all mobilities and ambulation without AD Social History Household Members caregiver Number of Floors (Floors) One Floor Number of Stairs To Enter/Railing? no steps to enter Home Environment Standard Height Toilet High Toilet Walk in Shower Built-In Shower Seat Home Equipment Front Wheel Walker Raised Toilet Seat w/Armrests Shower Seat with Backrest Hand Held Shower Lift Recliner Hospital Bed Grab Bars In Shower Additional Social History Comment pt stated that he has a 24/7 caregiver that assists him; has a sister that lives next door that can also assist him if needed Son/daughter lives ~ 5-10 miles away. pt's hospital bed has bed rails M2 PT-IP Current Condition Start: 05/16/19 16:14 Freq: NEEDED Status: Active Protocol: Document 05/16/19 16:23 AB (Rec: 05/16/19 17:23 AB [id number]) Physical Therapy Current Condition Current Condition Evaluation Date 05/16/19 Treatment Diagnosis s/p R partial excision of calcaneus; difficulty in walking Onset Date 05/16/19 Precautions Other Precautions RLE wound vac Weight Bearing Status Weight Bearing Status Non-Weight Bearing Allowed Weight Bearing Amount (enter % requires clarification but or #) (%) opted for NWB RLE for safety M3 PT-IP Subjective Start: 05/16/19 16:14 Freq: NEEDED Status: Active Protocol: Document 05/16/19 16:23 AB (Rec: 05/16/19 16:19 AB [id number]) Subjective Physical Therapy Visit Type Type Initial Evaluation Visit Start Time 16:23 Visit Stop Time 16:58 Total Visit Minutes 35 Notes received PT eval order 215 pm. pt with bedrest activity order and informed nurse Kenzie . Nurse called OR nurse to inform Dr. Neil. also requested clarification for weight bearing status on RLE: per operative note: NWB but on weight bearing status order: WBAT. checked bed rest activity order and bed rest order was stopped and order was completed. activity order of bed rest still appears on status board eventhough order was stopped/completed. Nor clarification received for weight bearing status. PT opted for NWB RLE for safety. Number of TEMPERATURE REGULATOR PYROMETER Visits 0 Physical Therapy Visit Comments Patient Comments pt requesting to use the toilet Therapy Pain Assessment Pain When Pain Assessed At Rest Pain Present Pain Present Pain Reported Location Right Heel Intensity 4 Scale Used Numeric (1 - 10) Pain Management Techniques Re-positioning Timing of Activity with Medications M4 PT-IP Mobility and Gait Start: 05/16/19 16:14 Freq: NEEDED Status: Active Protocol: Document 05/16/19 16:23 AB (Rec: 05/16/19 17:23 AB [id number]) PT-Bed Mobility Assessment Rolling Type of Rolling Bilateral Level of Assist Minimal Assistance 1 Person Assistance Supine to Sit Supine to Sit Minimal Assistance 1 Person Assistance Head of Bed Elevated Sit to Supine Sit to Supine Minimal Assistance 1 Person Assistance Scooting Scooting to Edge of Bed Moderate Assistance PT-Transfer Assessment Sit to and From Stand Sit to and from Stand Maximum Assistance 1 Person Assistance Use of Upper Extremities Equipment Transfer Assistive Device Gait Belt Front Wheeled Walker Orthotic/Prosthetic Devices or Brace: No Comments Mobility Comments pt trying to get out of bed and requested to use the toilet. NAC also present. started to assist pt but pt has already voided. Pt completed rolling L<>R with use of bed rail min A while NAC assisted with hygiene care and brief change. pt agreed to do PT. completed supine to sit min A and cues. pt used bed rail. pt was able to sit on EOB CGA to min A. pt with posterior LOB during scooting requiring mod A for recovery. educated pt on NWB on RLE. completed sit to stand max A and max cues. pt was able to stand and maintain NWB mod A and cues. instructed pt to side step using FWW and completed ~ 4 steps with max A and cues to maintain NWB RLE. pt completed sit to supine min A and cues. positioned pt on the bed. positioned with RLE heel floater and SCD on LLE. call light and table placed within reach. Gait Assessment Gait Gait Assistance Required: Maximum Assistance 1 Person Assist Distance (Feet) 2 Able to Maintain Weight Bearing Status Yes During Gait Assistive Devices Assistive Device Gait Belt Front Wheeled Walker Orthotic/Prosthetic Devices or Brace: No Factors Limiting Gait Function Factors Limiting Gait Function Decreased Activity Tolerance Decreased Strength Limited Range of Motion Pain Poor Balance Poor Safety Awareness Comments Gait Comments pt completed sidestepping towards HOB using FWW NWB on RLE. PT-Balance Assessment Sitting Balance and Reactions Static Sitting Balance Ability Good Dynamic Sitting Balance Ability Fair Standing Balance and Reactions Static Standing Balance Ability Fair Dynamic Standing Balance Ability Poor Device Used FWW M5 PT-IP Objective Assessments Start: 05/16/19 16:14 Freq: NEEDED Status: Active Protocol: Document 05/16/19 16:23 AB (Rec: 05/16/19 17:23 AB [id number]) Orientation Orientation/Cognition Level of Alertness Alert Orientation Name Place Situation Safety Awareness Decreased Safety Awareness Gross Range of Motion Lower Extremity ROM Assessment Right Impaired Impairments R ankle with dressing/wrap Strength Lower Extremity Strength Assessment Bilaterally Impaired Comments Strength Comments LLE: 4-/5 RLE 3+/5 Coordination Assessment Gross Coordination Gross Coordination WNL Muscle Tone Muscle Tone WNL Yes M6 PT-IP Treatment Start: 05/16/19 16:14 Freq: NEEDED Status: Active Protocol: Document 05/16/19 16:23 AB (Rec: 05/16/19 17:23 AB [id number]) Physical Therapy Treatment Education Education Provided Precautions Weight Bearing Status Safety M7 PT-IP Assessment and Plan Start: 05/16/19 16:14 Freq: NEEDED Status: Active Protocol: Document 05/16/19 16:23 AB (Rec: 05/16/19 17:23 AB [id number]) PT Summary Assessment and Plan Potential Rehabilitation Potential Fair Status of Condition at Evaluation Evolving Summary Impairments Pain ROM Strength Balance Coordination Sensation Tone Cognition Bed Mobility Transfers Gait Activity Tolerance Assessment Summary pt requiring max A with mobility using FWW. d/c plan depending on progress but may require SNF rehab to improve strength and mobility. will continue to assess progress. Goals Bed Mobility Goal Standby Assistance Transfer Goal Standby Assistance Front Wheeled Walker Gait Goal Standby Assistance Front Wheel Walker Gait Distance 15 Days to Meet Goals 10 Frequency of Treatment Frequency Of Treatment Twice a Day Treatment Plan Physical Therapy Treatment Plan Bed Mobility Training Transfer Training Gait Training Therapeutic Exercise Balance Retraining Post Op Education Discharge Planning Hot or Cold Pack Neuromuscular Re-ed Coordination Retraining Manual Therapy Other Recommendations and Next Treatment transfers Focus Recommendations To Nursing Amount of Assist Needed PT/OT Assist Only Mechanical Lift Discharge Recommendations PT Discharge Recommendations SNF Rehab
[2019-05-16] MEDS: ASPIRIN EC 81 MG TABLET PO ×2 (17:02→20:13)
[2019-05-16] MEDS: SODIUM CHLORIDE 0.9% 1,000 ML 84 ML IV (19:43)
[2019-05-16] MEDS: OXYBUTYNIN 5 MG TABLET PO (20:12)
[2019-05-16] MEDS: DOCUSATE 100 MG CAPSULE PO (20:12)
[2019-05-16] MEDS: TAMSULOSIN 0.4 MG CAPSULE PO (20:13)
[2019-05-16] MEDS: ENOXAPARIN 40 MG/0.4 ML SYRINGE SUBCUT (20:13)
[2019-05-16] MEDS: OXYCODONE IR 5 MG TABLET 2.5 MG PO (22:27)
--- NOTE | 2019-05-16 23:43 | PC.NURSE ---
Addendum entered by Kajal Hawkins R.N. 05/17/19 05:29: Found sitting on edge of bed with gown off and feet hanging off bed. Reminded he needs to call for assistance if wanting to get up. Cooperative with getting back into bed. Addendum entered by Kajal Hawkins R.N. 05/17/19 03:38: Patient complains of 6/10 aching right heel pain; medicated with Oxycodone. Explained reason for isolation precautions; verbalizes understanding. Addendum entered by Kajal Hawkins R.N. 05/17/19 01:51: Noted to have gm + cocci growing in wound cultures on gm stain so placed in contact isolation. Addendum entered by Kajal Hawkins R.N. 05/16/19 23:51: CMS is intact although bilateral pedal pulses are weak. Original Note: Patient is alert and oriented. [place] with bilateral hearing aids in. Breath sounds at bases diminished with inspiratory crackles; RA sat 95%. HRR but bradycardic at 52 bpm. Denies nausea. BT present and abdomen is soft. Denies dysuria, frequency or urgency; reportedly uses urinal but is also incontinent of urine. Able to turn self in bed. Wearing SCD to left LE. Right LE with chon wrap over dressing CDI. Wound vac to 125mmhg with sanguinous drainage in tube/drain. Right leg is elevated on foam wedge to keep pressure off heel. States pain is currently 5/10 but had pain med at 2227 and is improving. Fall risk score is high as patient reports 2 falls in past 3 months; report from evening RN states he can be impulsive; bed alarm is activated.
[2019-05-17] VITALS (8 sets, daily range): BP systolic 112–127; BP diastolic 44–52; PULSE 46–58; RESP 16–20; TEMP 36.2–37.6; O2SAT 92–98
[2019-05-17] MEDS: OXYCODONE IR 5 MG TABLET 2.5 MG PO ×2 (03:35→08:28)
[2019-05-17 06:13] LABS: Hematocrit 33.1 % (41-53); Hemoglobin 10.9 g/dL (13.5-17.5); Mean Corpuscular HGB Conc 32.9 % (30-36); Mean Corpuscular Volume 97.4 fL (80-100); Platelet Count 245 X10^3/uL (150-400); Red Cell Distribution Width 13.6 % (11.6-14.8); White Blood Cell Count 10.9 X10^3/uL (4.5-11.0)
--- NOTE | 2019-05-17 07:31 | P.PN_ITS ---
Subjective Date Patient Seen: 05/17/19 Time Patient Seen: 07:30 Interval history: Hospital day 2, postop day 1 following partial excision of right calcaneus and debridement of ulcer by Dr. Neil. Patient states he has had discomfort throughout the night. Was given oxycodone 2.5 mg this morning which he states worked well. He is nonweightbearing right leg. He has not worked with PT. He does have wound VAC. G stain noted gram-positive cocci and patient is on contact precautions. Culture is pending. Exam Vital Signs (past 8 hours): - 05/17/19 03:10 Temperature 97.4 F L Pulse Rate 46 L Respiratory Rate 18 Blood Pressure 121/52 L Pulse Oximetry 95 Oxygen Delivery Method Room Air Oxygen Flow Rate 0 Narrative Exam Narrative: Alert, oriented no acute distress resting in bed. Right leg. Bulky dressing to right foot and ankle is dry without drainage. Good blanching and sensation of toes. Wound VAC in place. Objective Labs Result Diagrams: 05/17/19 05:45 05/16/19 11:35 Labs: Laboratory Results - last 24 hr 05/16/19 05/16/19 05/16/19 11:35 11:35 15:00 WBC 7.9 RBC 3.81 L Hgb 12.2 L Hct 37.0 L MCV 97.1 MCH 32.1 MCHC 33.0 RDW 13.6 Plt Count 227 Neut % (Auto) 78.8 H Lymph % (Auto) 15.3 L [place] % (Auto) 3.0 Eos % (Auto) 2.3 Baso % (Auto) 0.6 Neut # (Auto) 6300 Lymph # (Auto) 1200 [place] # (Auto) 200 Eos # (Auto) 200 Baso # (Auto) 0 ESR 66 H Sodium 141 Potassium 5.3 H Chloride 106 Carbon Dioxide 30 BUN 23 H Creatinine 0.80 Estimated GFR > 60.0 BUN/Creatinine Ratio 28.8 H Glucose 139 H Calcium 9.1 Total Bilirubin 0.2 AST 20 ALT < 6 L Alkaline Phosphatase 133 H C-Reactive Protein 1.1 H Total Protein 7.4 Albumin 3.7 Globulin 3.7 Albumin/Globulin Ratio 1.0 Prealbumin 19.0 Urine Color Yellow Urine Appearance Clear Urine pH 7.0 Ur Specific [place] <=1.005 Urine Protein Negative Urine Glucose (UA) Negative Urine Ketones Negative Urine Occult Blood Negative Urine Nitrate Negative Urine Bilirubin Negative Urine Urobilinogen 0.2 Ur Leukocyte Esterase Negative Urine RBC None seen Urine WBC 0-1/hpf Ur Squamous Epith Cells 0-1 /hpf Urine Bacteria None seen Ur Culture Indicated? Cult not indicated 05/17/19 05:45 WBC 10.9 RBC 3.40 L Hgb 10.9 L Hct 33.1 L MCV 97.4 MCH 32.0 MCHC 32.9 RDW 13.6 Plt Count 245 Neut % (Auto) Lymph % (Auto) [place] % (Auto) Eos % (Auto) Baso % (Auto) Neut # (Auto) Lymph # (Auto) [place] # (Auto) Eos # (Auto) Baso # (Auto) ESR Sodium Potassium Chloride Carbon Dioxide BUN Creatinine Estimated GFR BUN/Creatinine Ratio Glucose Calcium Total Bilirubin AST ALT Alkaline Phosphatase C-Reactive Protein Total Protein Albumin Globulin Albumin/Globulin Ratio Prealbumin Urine Color Urine Appearance Urine pH Ur Specific [place] Urine Protein Urine Glucose (UA) Urine Ketones Urine Occult Blood Urine Nitrate Urine Bilirubin Urine Urobilinogen Ur Leukocyte Esterase Urine RBC Urine WBC Ur Squamous Epith Cells Urine Bacteria Ur Culture Indicated? Assessment & Plan Post-op Postoperative Procedures Operation Date: 05/16/19 07:45 Actual Procedures Side Surgeon p I&D partial bone excision and bone Biopsy calcaneus wound WITH application wound VAC Right Ayde Neil MD Plan: Patient will continue with wound VAC. Nonweightbearing right leg. Awaiting culture results for final antibiotic treatment. Quality [facility] Deep Vein Thrombosis/Pulmonary Embolism Present on Admission: No
[2019-05-17] MEDS: ENOXAPARIN 40 MG/0.4 ML SYRINGE SUBCUT (08:29)
[2019-05-17] MEDS: SERTRALINE 50 MG TABLET PO (08:30)
[2019-05-17] MEDS: DOCUSATE 100 MG CAPSULE PO ×2 (08:30→20:37)
[2019-05-17] MEDS: TAMSULOSIN 0.4 MG CAPSULE PO ×2 (08:30→20:37)
[2019-05-17] MEDS: ACETAMINOPHEN 325 MG TABLET 975 MG PO ×3 (08:30→20:31)
[2019-05-17] MEDS: LORATADINE 10 MG TABLET PO (08:30)
[2019-05-17] MEDS: SODIUM CHLORIDE 0.9% 1,000 ML 84 ML IV ×2 (08:46→22:20)
[2019-05-17] MEDS: CARBIDOPA-LEVODOPA 25/100 TABLET 1.5 EACH PO ×3 (10:20→20:38)
--- NOTE | 2019-05-17 11:50 | PT.IPTN ---
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) Osteonecrosis, unspecified (05/16/19) Surgery Performed Operation Date: 05/16/19 07:45 Actual Procedures p I&D partial bone excision and bone Biopsy calcaneus wound WITH application wound VAC(Right) - Ayde Neil MD Physical Therapy Treatment Note M2 PT-IP Current Condition Start: 05/16/19 16:14 Freq: NEEDED Status: Active Protocol: Document 05/16/19 16:23 AB (Rec: 05/16/19 17:23 AB [id number]) Physical Therapy Current Condition Current Condition Evaluation Date 05/16/19 Treatment Diagnosis s/p R partial excision of calcaneus; difficulty in walking Onset Date 05/16/19 Precautions Other Precautions RLE wound vac Weight Bearing Status Weight Bearing Status Non-Weight Bearing Allowed Weight Bearing Amount (enter % requires clarification but or #) (%) opted for NWB RLE for safety M3 PT-IP Subjective Start: 05/16/19 16:14 Freq: NEEDED Status: Active Protocol: Document 05/17/19 11:50 GGD (Rec: 05/17/19 12:13 GGD [id number]) Subjective Physical Therapy Visit Type Type Treatment Note Visit Start Time 11:20 Visit Stop Time 11:49 Total Visit Minutes 29 Number of CORONER Visits 1 Physical Therapy Visit Comments Patient Comments Pt would like to get up. Therapy Pain Assessment Pain When Pain Assessed During Mobility Pain Present Pain Present Pain Reported M4 PT-IP Mobility and Gait Start: 05/16/19 16:14 Freq: NEEDED Status: Active Protocol: Document 05/17/19 11:50 GGD (Rec: 05/17/19 12:13 GGD [id number]) PT-Bed Mobility Assessment Supine to Sit Supine to Sit Contact Guard Assistance 1 Person Assistance Head of Bed Elevated Scooting Scooting to Edge of Bed Contact Guard Assistance PT-Transfer Assessment Sit to and From Stand Sit to and from Stand Minimal Assistance 1 Person Assistance Use of Upper Extremities Equipment Transfer Assistive Device Gait Belt Front Wheeled Walker Orthotic/Prosthetic Devices or Brace: No Transfers Transfer Destination Chair Transfer Technique Stand Pivot Transfer Ability Level of Assist Moderate Assistance 1 Person Assistance Use of Upper Extremities Comments Mobility Comments Pt sit to stand from high bed x 2 with standing x 2 min for nursing care. Pt needed cues for weight bearing with transfers. M5 PT-IP Objective Assessments Start: 05/16/19 16:14 Freq: NEEDED Status: Active Protocol: Document 05/16/19 16:23 AB (Rec: 05/16/19 17:23 AB [id number]) Orientation Orientation/Cognition Level of Alertness Alert Orientation Name Place Situation Safety Awareness Decreased Safety Awareness Gross Range of Motion Lower Extremity ROM Assessment Right Impaired Impairments R ankle with dressing/wrap Strength Lower Extremity Strength Assessment Bilaterally Impaired Comments Strength Comments LLE: 4-/5 RLE 3+/5 Coordination Assessment Gross Coordination Gross Coordination WNL Muscle Tone Muscle Tone WNL Yes M6 PT-IP Treatment Start: 05/16/19 16:14 Freq: NEEDED Status: Active Protocol: Document 05/17/19 11:50 GGD (Rec: 05/17/19 12:13 GGD [id number]) Physical Therapy Treatment Education Education Provided Precautions Weight Bearing Status M7 PT-IP Assessment and Plan Start: 05/16/19 16:14 Freq: NEEDED Status: Active Protocol: Document 05/17/19 11:50 GGD (Rec: 05/17/19 12:13 GGD [id number]) PT Summary Assessment and Plan Summary Assessment Summary Pt improving with bed mobility and sit to stand from higher surface. Pt had difficulty with transfers and maintaining weight bearing. He needed cues for use for UE and scooting L LE. Frequency of Treatment Frequency Of Treatment Twice a Day Treatment Plan Physical Therapy Treatment Plan Bed Mobility Training Transfer Training Gait Training Therapeutic Exercise Balance Retraining Post Op Education Discharge Planning Hot or Cold Pack Neuromuscular Re-ed Coordination Retraining Manual Therapy Recommendations To Nursing Amount of Assist Needed PT/OT Assist Only Mechanical Lift Discharge Recommendations PT Discharge Recommendations Home with 26/04 Assist Home Health SNF Rehab Other Discharge Recommendations SNF vs home with caregivers
[2019-05-17] MEDS: VANCOMYCIN 1,500 MG/300 ML FROZ.PIGGY 200 MG IV ×2 (12:27→23:39)
--- NOTE | 2019-05-17 13:18 | CM.DANOTE ---
Patient is an 84 year old male who was admitted on 05/16/19 for Deep Bone Biopsy and Debridment. Pt has [facility] and [employer] and his PCP is Dr. Brooks Alonso. EMR was reviewed. Per MD, pt likely needing remote computer terminal operator IV-Abx and waiting for cultures to determine medication and dosing and pt currently with wound vac. Per PT, recommending SNF rehab at d/c due to nonweight baring status. Pt was recently discharged to [facility] rehab on 04/20/19 and discharged home on 05/10/19 with in-home caregivers set up. Per previous admission a month ago, pt's son Derrick is POA and lives in [place] but sometimes travels for work. Pt also has local adult Dtr support. Patient has had 24 hour caregivers through [employer] that help with He has a bed alarm at night, due to falls, shower assist, meal assist, grooming for the past few months and pt's spouse has also been at [facility] rehab and may still be there. Pt previously had been agreeable to Private Pay SNF if he was not going to be covered by Medicare but fortunately Medicare covered his rehab stay at last discharge in April. SW met bedside with pt (no family present) and explained role and pt seemed alert and oriented x3 but possible memory issues present. Pt confirmed that he went to [facility] and was able to d/c home for about a week before this scheduled procedure. Pt's preference is to get home as quickly as possible but understands that after cultures return there may be a need for Assistant Real Estate Manager IV-Abx and wound care. Pt seems agreeable to plan of SNF for IV-Abx and wound care and therapy prior to return home with caregivers. (Pt's insurance may be a barrier to home infusion and unknown if outpt infusion would be reasonable option for the pt at this time). Pt requesting SW to also check in with his son/DPKENNETH Meza and pt is unsure if Derrick is currently out of town for work or if he will be bedside during pt's stay. SW left ms for son Derrick requesting call back for d/c planning. UR determined that currently pt meets Inpt Status which will be helpful if SNF needed. Plan: SW to follow for return call from DPOA son Derrick for d/c discussion of possible SNF and cultures to return to determine Abx, frequency, and dose. PASRR completed in anticipation of SNF. UATUMN Cazares Discharge Planning/Care Management CM Discharge Assessment Start: 05/17/19 13:15 Freq: Status: Active Protocol: Document 05/17/19 13:16 BF (Rec: 05/17/19 13:18 BF [id number]) Discharge Planning Assessment Assigned Kiln Stacker AUTUMN Hatch DPOA/Assigned Designee Name mango Meza Contact Information [phone] Advance Directives? Yes History Provided By Patient Family Member Medical Record Has Patient been admitted in last 30 Yes days? Comment d/c to [facility] on 04/20/19 and then to home on 05/10/19 with caregivers Prior Living Arrangements House Household Members caregiver Type of transporation used prior to Relies on Others admit Independent with ADL's No Is patient alert and oriented? Yes: mostly, some memory issues Needs Assistance With Managing Medications Home Chores / Shopping Caregiver for Another No Patient/Family Preference Alf Facility Discharge Plan Alf Facility Transportation Arrangement Facility Additional Comment Waiting to determine IV-Abx needs and admission status Whiteboard Updated in Patient Room with Yes name and ext. # of Kiln Stacker Review Status In Process Please Provide Date Initial DC 05/17/19 Assessment Was Performed Next Review Type Continued Stay Review Pre-Anesthesia Assessment Start: 05/12/19 10:46 Freq: Status: Complete Protocol: Document 05/12/19 10:47 CAB (Rec: 05/12/19 11:10 CAB [id number]) Pre-Anesthesia Assessment PAC Comment Admit to 04/17/19-04/20/19 for glf r/t progression of Parkinson's resulting in multiple falls/balance issues Patient Also Known As (SARITHA Li Patient Information Reviewed Via Chart Review Comment Surgeon H&P not available at time of PAC assessment Primary Care Provider Brooks Alonso Seen Specialist in Last 12 Months Yes Specialist Seen Orthopedist Primary Language Bermudian Preferred Language Bermudian Director Investment Banking Required No Chemicals Distiller Yes alcohol intake current alcohol intake frequency 0-2 drinks per day Smoking Status Former smoker Tobacco type cigarettes how long ago did patient quit smoking 1970 Substance Use Type does not use Pain Present Pain Reported History of Falling (Recent or History of Yes ) Gait/Transferring Weak Impaired Is patient on oxygen? No Hx Sleep Apnea Yes: Unknown if uses CPAP Currently Taking a Beta Sana No Anti-Coagulant Therapy No Has a Credit Clerk No Cardiac Testing Yes: Last Echo @ 12/09/18 EF 65-70% Hx Pacemaker/ICD No Pacemaker Rep Required? No Comment Hx of Non-STEMI Urinary Catheter Present No Hx Urinary Self Catheterization No Diabetes No Have you traveled outside the [facility] States in the last 30 days? Marital Status / Lives With caregiver none Support System Child/Children Do You Have Any Spiritual Beliefs That No May Affect Your HC Choices? Do You Have Any Cultural Practices That No May Affect Your HC Choices? Health Care Proxy/Next of Kin Derrick (Son) Health Care Proxy Emergency Contact Name Derrick (Son) Emergency Contact Advance Directives? Yes
--- NOTE | 2019-05-17 14:30 | PT.IPTN ---
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) Osteonecrosis, unspecified (05/16/19) Surgery Performed Operation Date: 05/16/19 07:45 Actual Procedures p I&D partial bone excision and bone Biopsy calcaneus wound WITH application wound VAC(Right) - Ayde Neil MD Physical Therapy Treatment Note M2 PT-IP Current Condition Start: 05/16/19 16:14 Freq: NEEDED Status: Active Protocol: Document 05/16/19 16:23 AB (Rec: 05/16/19 17:23 AB [id number]) Physical Therapy Current Condition Current Condition Evaluation Date 05/16/19 Treatment Diagnosis s/p R partial excision of calcaneus; difficulty in walking Onset Date 05/16/19 Precautions Other Precautions RLE wound vac Weight Bearing Status Weight Bearing Status Non-Weight Bearing Allowed Weight Bearing Amount (enter % requires clarification but or #) (%) opted for NWB RLE for safety M3 PT-IP Subjective Start: 05/16/19 16:14 Freq: NEEDED Status: Active Protocol: Document 05/17/19 14:30 GGD (Rec: 05/17/19 16:18 GGD [id number]) Subjective Physical Therapy Visit Type Type Treatment Note Visit Start Time 14:18 Visit Stop Time 14:32 Total Visit Minutes 14 Number of METAL PRECISION MACHINE ASSEMBLER Visits 2 Physical Therapy Visit Comments Patient Comments Pt would like to return to bed . M4 PT-IP Mobility and Gait Start: 05/16/19 16:14 Freq: NEEDED Status: Active Protocol: Document 05/17/19 14:30 GGD (Rec: 05/17/19 16:18 GGD [id number]) PT-Bed Mobility Assessment Sit to Supine Sit to Supine Minimal Assistance 1 Person Assistance Scooting Scooting to Edge of Bed Contact Guard Assistance PT-Transfer Assessment Sit to and From Stand Sit to and from Stand Moderate Assistance 1 Person Assistance Use of Upper Extremities Equipment Transfer Assistive Device Gait Belt Front Wheeled Walker Orthotic/Prosthetic Devices or Brace: No Transfers Transfer Destination Chair Transfer Technique Stand Pivot Transfer Ability Level of Assist Moderate Assistance 1 Person Assistance Use of Upper Extremities M5 PT-IP Objective Assessments Start: 05/16/19 16:14 Freq: NEEDED Status: Active Protocol: Document 05/16/19 16:23 AB (Rec: 05/16/19 17:23 AB [id number]) Orientation Orientation/Cognition Level of Alertness Alert Orientation Name Place Situation Safety Awareness Decreased Safety Awareness Gross Range of Motion Lower Extremity ROM Assessment Right Impaired Impairments R ankle with dressing/wrap Strength Lower Extremity Strength Assessment Bilaterally Impaired Comments Strength Comments LLE: 4-/5 RLE 3+/5 Coordination Assessment Gross Coordination Gross Coordination WNL Muscle Tone Muscle Tone WNL Yes M6 PT-IP Treatment Start: 05/16/19 16:14 Freq: NEEDED Status: Active Protocol: Document 05/17/19 14:30 GGD (Rec: 05/17/19 16:18 GGD [id number]) Physical Therapy Treatment Education Education Provided Precautions Weight Bearing Status Safety M7 PT-IP Assessment and Plan Start: 05/16/19 16:14 Freq: NEEDED Status: Active Protocol: Document 05/17/19 14:30 GGD (Rec: 05/17/19 16:18 GGD [id number]) PT Summary Assessment and Plan Summary Assessment Summary Pt had increase in difficulty with sit to stand from lower surface. He needed increase in assist and cues for weight bearing and was not able to consistently follow precautions. Frequency of Treatment Frequency Of Treatment Twice a Day Recommendations To Nursing Amount of Assist Needed PT/OT Assist Only Mechanical Lift Discharge Recommendations PT Discharge Recommendations Home with 26/04 Assist Home Health SNF Rehab
--- NOTE | 2019-05-17 15:40 | PC.NURSE ---
Day Shift- Right foot wound vac at continuous 125 suction with sang returns. Kerlix and chon wrap dressing CDI. PPP, weak. Foam wedge cushion in place. Waffle cushion in place under buttocks while in bed or in chair. Pt oriented X2-3, states December 1999, after talking about his birthday being in the current month. Forgetful, follows direction, does need at times reinforcement to stay in chair with chair alarm on and not get out without help. Right inner buttock has 2 dry skin areas, left inner buttock red and blanchable. Felicity-area excoriated along with scrotum and part of penis. Cleansed area with inc and brief change, barrier cream applied. Non tender.
[2019-05-17] MEDS: ASPIRIN EC 81 MG TABLET PO (20:36)
[2019-05-17] MEDS: OXYBUTYNIN 5 MG TABLET PO (20:39)
--- NOTE | 2019-05-17 22:00 | PC.NURSE ---
pt A&Ox3 but forgetful. 95%RA. pt impulsive, bed alarm active. RLE dressing intact. wound vac set to 125mmhg cont. able to wiggle toes. cap refill <2sec. q2turn, waffle cushion in place. pt is incontinent and will occasionally use the urinal.
--- NOTE | 2019-05-18 00:01 | PC.NURSE ---
Addendum entered by Kajal Hawkins R.N. 05/18/19 06:54: Patient has been more confused tonight, attempting multiple times to crawl out of bed without calling for assistance. Not always remembering he is in the hospital. This morning is wanting a list of what everyone wants for breakfast so I can deliver it to them. Is easily redirected but quickly forgets again. Addendum entered by Kajal Hawkins R.N. 05/18/19 05:47: States pain in right heel is 5/10 with movement and requests Tylenol rather than Oxycodone; medicated with a.m. scheduled dose of Tylenol. Original Note: Patient is oriented except to month, day and age. Breath sounds with inspiratory crackles in bilateral LL; RA sat 97%. HRR but bradycardic in 50's. Denies nausea. BT hypoactive; had BM yesterday. Is incontinent of urine. Perineal area remains reddened and excoriated. Still 1 white area noted on left inner buttock but not open. Skin around coccyx is reddened but blanchable. Is able to turn self in bed but not always doing so; monitored and repositioned as needed with waffle cushion under buttocks. Denies pain. Dressing to right heel is CDI; wound vac to 125mmhg. SCD to left LE. CMS is intact although pedal pulses are weak. Fall risk score is high and bed alarm is activated. On contact isolation due to gm + cocci growing on wound culture.
[2019-05-18 03:56] VITALS: BP 117/54; PULSE 52; RESP 18; TEMP 36.6; O2SAT 97
[2019-05-18] MEDS: ACETAMINOPHEN 325 MG TABLET 975 MG PO ×3 (05:45→20:15)
[2019-05-18 08:15] VITALS: BP 130/65; PULSE 50; RESP 16; TEMP 36.4; O2SAT 97
[2019-05-18 08:20] VITALS: PULSE 50; RESP 16; O2SAT 97
[2019-05-18] MEDS: CARBIDOPA-LEVODOPA 25/100 TABLET 1.5 EACH PO ×3 (08:45→20:16)
[2019-05-18] MEDS: LORATADINE 10 MG TABLET PO (08:51)
[2019-05-18] MEDS: DOCUSATE 100 MG CAPSULE PO ×2 (08:51→20:16)
[2019-05-18] MEDS: SERTRALINE 50 MG TABLET PO (08:51)
[2019-05-18] MEDS: TAMSULOSIN 0.4 MG CAPSULE PO ×2 (08:51→20:16)
[2019-05-18] MEDS: ENOXAPARIN 40 MG/0.4 ML SYRINGE SUBCUT (08:51)
[2019-05-18 09:05] LABS: BUN Creatinine Ratio 25.6 (6-22); Blood Urea Nitrogen 23 mg/dL (9-20); Calcium 8.3 mg/dL (8.4-10.2); Carbon Dioxide 27 mmol/L (22-32); Chloride 111 mmol/L (98-107); Estimated Glomerular Filt Rate > 60.0 mL/min (>60); Glucose 97 mg/dL (80-110); HEMOLYSIS < 15 (0-50); Potassium 4.3 mmol/L (3.4-5.1); Sodium 141 mmol/L (137-145)
--- NOTE | 2019-05-18 10:55 | PT.IPTN ---
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) Osteonecrosis, unspecified (05/16/19) Surgery Performed Operation Date: 05/16/19 07:45 Actual Procedures p I&D partial bone excision and bone Biopsy calcaneus wound WITH application wound VAC(Right) - Ayde Neil MD Physical Therapy Treatment Note M2 PT-IP Current Condition Start: 05/16/19 16:14 Freq: NEEDED Status: Active Protocol: Document 05/16/19 16:23 AB (Rec: 05/16/19 17:23 AB [id number]) Physical Therapy Current Condition Current Condition Evaluation Date 05/16/19 Treatment Diagnosis s/p R partial excision of calcaneus; difficulty in walking Onset Date 05/16/19 Precautions Other Precautions RLE wound vac Weight Bearing Status Weight Bearing Status Non-Weight Bearing Allowed Weight Bearing Amount (enter % requires clarification but or #) (%) opted for NWB RLE for safety M3 PT-IP Subjective Start: 05/16/19 16:14 Freq: NEEDED Status: Active Protocol: Document 05/18/19 10:55 GGD (Rec: 05/18/19 11:32 GGD [id number]) Subjective Physical Therapy Visit Type Type Treatment Note Visit Start Time 10:33 Visit Stop Time 10:58 Total Visit Minutes 25 Number of WIND PROJECT MANAGER Visits 3 Physical Therapy Visit Comments Patient Comments Pt willing to work with PT. Therapy Pain Assessment Pain When Pain Assessed At Rest Pain Present Pain Present Denied Pain M4 PT-IP Mobility and Gait Start: 05/16/19 16:14 Freq: NEEDED Status: Active Protocol: Document 05/18/19 10:55 GGD (Rec: 05/18/19 11:32 GGD [id number]) PT-Bed Mobility Assessment Supine to Sit Supine to Sit Contact Guard Assistance 1 Person Assistance Head of Bed Elevated Scooting Scooting to Edge of Bed Minimal Assistance PT-Transfer Assessment Sit to and From Stand Sit to and from Stand Minimal Assistance 1 Person Assistance Use of Upper Extremities Equipment Transfer Assistive Device Gait Belt Front Wheeled Walker Orthotic/Prosthetic Devices or Brace: No Transfers Transfer Destination Chair Transfer Technique Stand Pivot Transfer Ability Level of Assist Minimal Assistance 1 Person Assistance Use of Upper Extremities M5 PT-IP Objective Assessments Start: 05/16/19 16:14 Freq: NEEDED Status: Active Protocol: Document 05/16/19 16:23 AB (Rec: 05/16/19 17:23 AB [id number]) Orientation Orientation/Cognition Level of Alertness Alert Orientation Name Place Situation Safety Awareness Decreased Safety Awareness Gross Range of Motion Lower Extremity ROM Assessment Right Impaired Impairments R ankle with dressing/wrap Strength Lower Extremity Strength Assessment Bilaterally Impaired Comments Strength Comments LLE: 4-/5 RLE 3+/5 Coordination Assessment Gross Coordination Gross Coordination WNL Muscle Tone Muscle Tone WNL Yes M6 PT-IP Treatment Start: 05/16/19 16:14 Freq: NEEDED Status: Active Protocol: Document 05/18/19 10:55 GGD (Rec: 05/18/19 11:32 GGD [id number]) Physical Therapy Treatment Education Education Provided Precautions Weight Bearing Status Safety M7 PT-IP Assessment and Plan Start: 05/16/19 16:14 Freq: NEEDED Status: Active Protocol: Document 05/18/19 10:55 GGD (Rec: 05/18/19 11:32 GGD [id number]) PT Summary Assessment and Plan Summary Assessment Summary Pt improve with mobility and transfers. He was able to follow NWB. He did need cues for use of UE to unload left LE. Frequency of Treatment Frequency Of Treatment Twice a Day Recommendations To Nursing Amount of Assist Needed 2 Person Assist Discharge Recommendations PT Discharge Recommendations Home with 26/04 Assist Home Health SNF Rehab
[2019-05-18] MEDS: SODIUM CHLORIDE 0.9% 1,000 ML 84 ML IV (11:35)
[2019-05-18 11:50] VITALS: BP 121/56; PULSE 58; RESP 16; TEMP 36.4; O2SAT 97
[2019-05-18 12:11] LABS: Vancomycin Trough 18.1 ug/mL (10-20)
--- NOTE | 2019-05-18 12:23 | CM.DPNOTE ---
DCP Cont: Met w/pt's son/DPOA Derrick this morning, reviewed DCP options. Derrick explained that [facility] has been managing pt's 26/04 assist for quite some time and he has been very pleased with them. He is hopeful that pt can return home upon DC but understands that w/the addition of the wound vac, and possibly IV abx, SNF might be more realistic. Derrick is not able to hire 2 cgs at a time for 24/7 assist at pt's home. Home Health service discussed, dependent on pt's needs upon DC ie every day wound vac change vs every other day? There is no one capable of wound vac changes through [facility]. SNF discussed, pt has been to [facility] in the past. Derrick explains he has concerns about the staffing at any SNF setting and is considering hiring a cg to sit w/pt while at SNF, in hopes pt will not need SNF for long. During pt's times here, he will likely progress physically to return home, although, as stated previously, his medical needs might outweigh the capabilities of home health, in home cgs and family. Derrick would like [facility] and [facility] to be contacted, he would like to hear from the community relations/admission coordinators to learn more about services available at these facilities. This GAS PROVER left msg for Yeni Pérez at [facility] P# [phone]. Then spoke w/ Bernie at [facility] P# [phone], provided Derrick's number and faxed clinical packet for review. Bernie will plan to contact Derrick and likely will need to complete a bedside assessment. P: Likely require SNF upon DC, cultures pending for ongoing IV abx need (?) and awaiting input from Julieta Hubbard RN re: wound vac management, likely need to coordinate for the SNF setting. AUTUMN Chan
--- NOTE | 2019-05-18 12:23 | PM.PNPO.1 ---
Subjective Date Patient Seen: 05/18/19 Time Patient Seen: 07:24 Interval history: POD 2 R heel excisional debridement. Calc osteomyelitis. VAC in place good suction IV abx with vanc awaiting cx Exam Vital Signs (past 8 hours): - 05/18/19 08:15 05/18/19 08:20 Temperature 97.5 F L Pulse Rate 50 L 50 L Respiratory Rate 16 16 Blood Pressure 130/65 Pulse Oximetry 97 97 Fraction of Inspired Oxygen 21 Oxygen Delivery Method Room Air Oxygen Flow Rate 0 Narrative Exam Narrative: NAD, alert. breathing unlabored RA. RLE with wound vac in place good suction. wiggles toes, calf soft Objective Labs Result Diagrams: 05/17/19 05:45 05/18/19 08:30 Labs: Laboratory Results - last 24 hr 05/18/19 05/18/19 08:30 11:25 Sodium 141 Potassium 4.3 Chloride 111 H Carbon Dioxide 27 BUN 23 H Creatinine 0.90 Estimated GFR > 60.0 BUN/Creatinine Ratio 25.6 H Glucose 97 Calcium 8.3 L Vancomycin Trough 18.1 Assessment & Plan Post-op Postoperative Procedures Operation Date: 05/16/19 07:45 Actual Procedures Side Surgeon p I&D partial bone excision and bone Biopsy calcaneus wound WITH application wound VAC Right Ayde Neil MD 1. float heels. will get vac change with wound care on Wednesday. 2. cx with enterococcus/staph/dipth. on vanc--will get picc and dc with Vanc IV x 6 weeks and home health for IV abx, weekly crp, esr, cmp 3. f/u 2 wks ortho 4. wound care for vac changes 5. oupt vascular surgery consult for arterial insufficiency. 6. at dc stop lovenox and start aspirin 81 mg BID Quality VTE Deep Vein Thrombosis/Pulmonary Embolism Present on Admission: No
[2019-05-18] MEDS: VANCOMYCIN 1,500 MG/300 ML FROZ.PIGGY 200 MG IV (12:35)
--- NOTE | 2019-05-18 14:41 | PC.NURSE ---
Day SHift- Spoke with Samanthacounselor/art therapist at 1440. Plan for wound vac change Saturday 05/19 in afternoon.
--- NOTE | 2019-05-18 14:45 | PT.IPTN ---
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) Osteonecrosis, unspecified (05/16/19) Surgery Performed Operation Date: 05/16/19 07:45 Actual Procedures p I&D partial bone excision and bone Biopsy calcaneus wound WITH application wound VAC(Right) - Ayde Neil MD Physical Therapy Treatment Note M2 PT-IP Current Condition Start: 05/16/19 16:14 Freq: NEEDED Status: Active Protocol: Document 05/16/19 16:23 AB (Rec: 05/16/19 17:23 AB [id number]) Physical Therapy Current Condition Current Condition Evaluation Date 05/16/19 Treatment Diagnosis s/p R partial excision of calcaneus; difficulty in walking Onset Date 05/16/19 Precautions Other Precautions RLE wound vac Weight Bearing Status Weight Bearing Status Non-Weight Bearing Allowed Weight Bearing Amount (enter % requires clarification but or #) (%) opted for NWB RLE for safety M3 PT-IP Subjective Start: 05/16/19 16:14 Freq: NEEDED Status: Active Protocol: Document 05/18/19 14:45 GGD (Rec: 05/18/19 16:02 GGD [id number]) Subjective Physical Therapy Visit Type Type Treatment Note Visit Start Time 14:30 Visit Stop Time 14:50 Total Visit Minutes 20 Number of LEAD BASED PAINT TECHNICIAN Visits 4 Physical Therapy Visit Comments Patient Comments Pt states he needed to use the bathroom. Therapy Pain Assessment Pain When Pain Assessed During Mobility Pain Present Pain Present Pain Reported M4 PT-IP Mobility and Gait Start: 05/16/19 16:14 Freq: NEEDED Status: Active Protocol: Document 05/18/19 14:45 GGD (Rec: 05/18/19 16:02 GGD [id number]) PT-Bed Mobility Assessment Sit to Supine Sit to Supine Minimal Assistance 1 Person Assistance Scooting Scooting to Edge of Bed Minimal Assistance PT-Transfer Assessment Sit to and From Stand Sit to and from Stand Minimal Assistance Moderate Assistance 1 Person Assistance Use of Upper Extremities Equipment Transfer Assistive Device Gait Belt Front Wheeled Walker Orthotic/Prosthetic Devices or Brace: No Transfers Transfer Destination Bed Bedside Commode Transfer Technique Stand Pivot Transfer Ability Level of Assist Minimal Assistance 1 Person Assistance Use of Upper Extremities Comments Mobility Comments Mod a from chair and min A for BSC. M5 PT-IP Objective Assessments Start: 05/16/19 16:14 Freq: NEEDED Status: Active Protocol: Document 05/16/19 16:23 AB (Rec: 05/16/19 17:23 AB [id number]) Orientation Orientation/Cognition Level of Alertness Alert Orientation Name Place Situation Safety Awareness Decreased Safety Awareness Gross Range of Motion Lower Extremity ROM Assessment Right Impaired Impairments R ankle with dressing/wrap Strength Lower Extremity Strength Assessment Bilaterally Impaired Comments Strength Comments LLE: 4-/5 RLE 3+/5 Coordination Assessment Gross Coordination Gross Coordination WNL Muscle Tone Muscle Tone WNL Yes M6 PT-IP Treatment Start: 05/16/19 16:14 Freq: NEEDED Status: Active Protocol: Document 05/18/19 14:45 GGD (Rec: 05/18/19 16:02 GGD [id number]) Physical Therapy Treatment Education Education Provided Precautions Weight Bearing Status Safety M7 PT-IP Assessment and Plan Start: 05/16/19 16:14 Freq: NEEDED Status: Active Protocol: Document 05/18/19 14:45 GGD (Rec: 05/18/19 16:02 GGD [id number]) PT Summary Assessment and Plan Summary Assessment Summary Pt needed increase in cue for NWB. He improved with L LE advancement. He improved with sit to stand needing less assist and following NWB. Frequency of Treatment Frequency Of Treatment Twice a Day Recommendations To Nursing Amount of Assist Needed 2 Person Assist Discharge Recommendations PT Discharge Recommendations Home with 24/ Assist Home Health SNF Rehab
--- NOTE | 2019-05-18 15:49 | DI.RAD.S_ITS ---
PROCEDURE: XR CHEST FOR PICC 1V INDICATIONS: PICC line placement TECHNIQUE: One view of the chest was acquired. COMPARISON: [facility], , XR CHEST 1V, 12/10/2018, 4:27. FINDINGS: Surgical changes and devices: Right-sided PICC with the catheter tip at the lower third of the SVC. Lungs and pleura: Lungs are clear. No pleural effusions or pneumothorax. Mediastinum: Mediastinal contours appear normal. Heart size is normal. Bones and chest wall: No suspicious bony lesions. Overlying soft tissues appear unremarkable. IMPRESSION: Newly placed right-sided PICC with the tip at the lower third of the SVC. No pneumothorax. Dictated by: Randy Albarado M.D. on 05/18/2019 at 17:10 Approved by: Randy Albarado M.D. on 05/18/2019 at 17:10
[2019-05-18 16:38] VITALS: BP 129/58; PULSE 53; RESP 20; TEMP 36.6; O2SAT 93
--- NOTE | 2019-05-18 17:09 | PC.NURSE ---
Wound Care Nurse Consult Note. I reviewed Mr. Meza's chart and have not spoken with Care Management yet, but did see Zuri's recent note. I understand that Mr. Meza will have a PIC line place today to start IV Vancomycin. Mr. Meza also has a KCI wound vac which myself and Dr. Theodore will change the KCI wound vac dressing tomorrow as well as assess the right heel surgical wound. I spoke with Mr. Meza's nurse. His son was not there when I arrived. She stated that Mr. Meza will have IV antibiotics and the KCI. There was talk of two options for Mr. Meza's discharge. Mr. Meza could be discharged to [facility]. If he is discharged to [facility] they use a Medella Wound Vac and they would have to order and place the Medella. The other scenario which his some Guillermo would like is to have Mr. Meza be discharged home with 24 hour care that he would private hire. If this was the option then I would need to pre-order a home KCI to place on Mr. Meza and [facility] would need to be re-instituted to provide daily IV infusions and twice a week KCI Vac changes. I have reservations of having the patient discharged home over the weekend with a KCI wound vac if home health nursing in not established in case there is a problem as the KCI wound vac, AND patient is to receive daily IV antibiotics. At this point I was in favor of having the patient go to a SNF. As I was leaving, Mr. Meza's son arrived and we spoke. He said he wants his father to go home NOT to [facility]. He has a call into a in home care company and is awaiting to hear back from them [facility] they can provide 24 hour care 7 days a week. He also wants to have his father discharged home with a diana catheter (internal urinary catheter) to prevent his father from having the urge to get up to go to the bathroom as this has caused many falls in the recent past. He would like to have his father discharged next week. I told him my concerns of discharging to home if we did not have [facility] set up and I told him I understand his concerns regarding the care his father received while he was recently at [facility]. I also expressed my concerns for his father's ambulatory status as we would not want his father to have any weight baring on his right heel. He said he has been working with PT and doing well with non-weight baring on his heel. I spoke to Dr. Theodore about my conversation with Guillermo. I will need to start the process of [employer] if Mr. Meza gets discharged home, but we will also need to speak with Care Management tomorrow regarding this somewhat complex situation in formulating a solid discharge plan.
[2019-05-18 19:34] VITALS: BP 125/55; PULSE 53; RESP 20; TEMP 36.7; O2SAT 98
[2019-05-18] MEDS: OXYBUTYNIN 5 MG TABLET PO (20:15)
[2019-05-18] MEDS: OXYCODONE IR 5 MG TABLET 2.5 MG PO (20:16)
[2019-05-18] MEDS: ASPIRIN EC 81 MG TABLET PO (20:16)
[2019-05-19] VITALS (8 sets, daily range): BP systolic 139–152; BP diastolic 63–77; PULSE 53–61; RESP 16–20; TEMP 36.3–36.9; O2SAT 92–99
[2019-05-19] MEDS: VANCOMYCIN 1,500 MG/300 ML FROZ.PIGGY 200 MG IV ×3 (00:30→23:51)
--- NOTE | 2019-05-19 01:51 | PC.NURSE ---
Addendum entered by Kajal Hawkins R.N. 05/19/19 06:14: Has slept through the shift being awakened q2h for brief change and repositioning and then falls right back to sleep. Only attempted to get out of bed x1 earlier in the shift. Original Note: Patient is very drowsy tonight and more confused knowing only his own name and birthdate. Breath sounds CTA with RA sat of 96%. HRR but bradycardic in 50's. BP elevated still at 152/66. Denies nausea. BT hypoactive. Incontinent of urine. Groins still excoriated but perineal area/scrotum/penis less red. Coccyx area still red with 1 white spot noted; no open areas and is blanchable. Patient can turn self but staff assists if he does not turn at least q2h; using waffle cushion under buttocks. Right foot dressing is CDI with intact wound vac to 125mmhg and foot is elevated on foam support. Wearing SCD on left LE. Pedal pulses remain weak but otherwise has good CMS. Patient can be impulsive and starts to get up out of bed; fall risk score is high and bed alarm is activated. Remains on contact isolation as sensitivities are not yet back on wound culture so uncertain if MRSA or not.
[2019-05-19] MEDS: SODIUM CHLORIDE 0.9% 1,000 ML 84 ML IV ×2 (05:40→20:57)
--- NOTE | 2019-05-19 09:12 | PM.PNPO.1 ---
Subjective Date Patient Seen: 05/19/19 Time Patient Seen: 09:12 Interval history: Hospital day 4, postop day 3 following right heel ulcer I and D and partial excision calcaneus by Dr. Neil. Patient remained stable. He does have wound VAC to his right heel. Wound VAC is scheduled be changed by the wound clinic today. Wound culture notes Corynebacterium striatum, Enterococcus faecalis, staphylococci us epidermis. He also had positive yeast. He was started on Diflucan today by Dr. Neil. He is currently on vancomycin for bacteria. Further sensitivity to follow. Dr. Neil plans to keep patient in hospital through we can awaiting further culture results and planning for discharge. Patient may need SNF because of IV antibiotics and wound VAC. Possible home health. Exam Vital Signs (past 8 hours): - 05/19/19 01:39 05/19/19 06:00 Temperature 98.1 F 98.4 F Pulse Rate 55 L 60 Respiratory Rate 20 16 Blood Pressure 152/66 H 139/72 Pulse Oximetry 96 94 Fraction of Inspired Oxygen 21 Oxygen Delivery Method Room Air Oxygen Flow Rate 0 Narrative Exam Narrative: Patient is sleeping but arousable is lying in bed. Right leg. Splint and dressing to right ankle and foot is dry without drainage. Good blanching and sensation to toes. Objective Labs Result Diagrams: 05/17/19 05:45 05/18/19 08:30 Labs: Laboratory Results - last 24 hr 05/18/19 05/18/19 08:30 11:25 Sodium 141 Potassium 4.3 Chloride 111 H Carbon Dioxide 27 BUN 23 H Creatinine 0.90 Estimated GFR > 60.0 BUN/Creatinine Ratio 25.6 H Glucose 97 Calcium 8.3 L Vancomycin Trough 18.1 Assessment & Plan Post-op Postoperative Procedures Operation Date: 05/16/19 07:45 Actual Procedures Side Surgeon p I&D partial bone excision and bone Biopsy calcaneus wound WITH application wound VAC Right Ayde Neil MD Patient will be seen by Wound Clinic today for wound VAC change. Continue on his current antibiotic pending sensitivity results. Possible discharge to SNF versus home with home health. See Dr. Neil is note from 05/18/2019 for discharge plan. DC Lovenox when he is discharged and start aspirin 81 mg b.i.d.. Patient will need an outpatient vascular surgery consult for arterial insufficiency. Patient will need PICC line started and plan for 6 weeks IV vancomycin. He will need weekly CRP, ESR, CMP labs. Quality VTE Deep Vein Thrombosis/Pulmonary Embolism Present on Admission: No
[2019-05-19] MEDS: DOCUSATE 100 MG CAPSULE PO ×2 (09:27→20:43)
[2019-05-19] MEDS: ACETAMINOPHEN 325 MG TABLET 975 MG PO ×3 (09:27→20:43)
[2019-05-19] MEDS: ENOXAPARIN 40 MG/0.4 ML SYRINGE SUBCUT (09:27)
[2019-05-19] MEDS: LORATADINE 10 MG TABLET PO (09:27)
[2019-05-19] MEDS: TAMSULOSIN 0.4 MG CAPSULE PO ×2 (09:28→20:41)
[2019-05-19] MEDS: SERTRALINE 50 MG TABLET PO (09:28)
[2019-05-19] MEDS: CARBIDOPA-LEVODOPA 25/100 TABLET 1.5 EACH PO ×3 (09:29→20:41)
[2019-05-19] MEDS: FLUCONAZOLE 100 MG TABLET 400 MG PO (09:37)
--- NOTE | 2019-05-19 10:15 | PT.IPTN ---
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) Osteonecrosis, unspecified (05/16/19) Surgery Performed Operation Date: 05/16/19 07:45 Actual Procedures p I&D partial bone excision and bone Biopsy calcaneus wound WITH application wound VAC(Right) - Ayde Neil MD Physical Therapy Treatment Note M2 PT-IP Current Condition Start: 05/16/19 16:14 Freq: NEEDED Status: Active Protocol: Document 05/16/19 16:23 AB (Rec: 05/16/19 17:23 AB [id number]) Physical Therapy Current Condition Current Condition Evaluation Date 05/16/19 Treatment Diagnosis s/p R partial excision of calcaneus; difficulty in walking Onset Date 05/16/19 Precautions Other Precautions RLE wound vac Weight Bearing Status Weight Bearing Status Non-Weight Bearing Allowed Weight Bearing Amount (enter % requires clarification but or #) (%) opted for NWB RLE for safety M3 PT-IP Subjective Start: 05/16/19 16:14 Freq: NEEDED Status: Active Protocol: Document 05/19/19 10:15 GGD (Rec: 05/19/19 13:46 GGD [id number]) Subjective Physical Therapy Visit Type Type Treatment Note Visit Start Time 09:50 Visit Stop Time 10:15 Total Visit Minutes 23 Number of ERCO MACHINE OPERATOR Visits 5 Physical Therapy Visit Comments Patient Comments Pt willing to get up. Therapy Pain Assessment Pain When Pain Assessed During Mobility Pain Present Pain Present Pain Reported Location Right Heel Intensity 3 Scale Used Numeric (1 - 10) M4 PT-IP Mobility and Gait Start: 05/16/19 16:14 Freq: NEEDED Status: Active Protocol: Document 05/19/19 10:15 GGD (Rec: 05/19/19 13:46 GGD [id number]) PT-Bed Mobility Assessment Supine to Sit Supine to Sit Contact Guard Assistance 1 Person Assistance Head of Bed Elevated Scooting Scooting to Edge of Bed Contact Guard Assistance PT-Transfer Assessment Sit to and From Stand Sit to and from Stand Contact Guard Assistance 1 Person Assistance Use of Upper Extremities Equipment Transfer Assistive Device Gait Belt Front Wheeled Walker Orthotic/Prosthetic Devices or Brace: No Transfers Transfer Destination Chair Transfer Ability Level of Assist Minimal Assistance 1 Person Assistance Use of Upper Extremities Comments Mobility Comments pt stood from high bed. M5 PT-IP Objective Assessments Start: 05/16/19 16:14 Freq: NEEDED Status: Active Protocol: Document 05/16/19 16:23 AB (Rec: 05/16/19 17:23 AB [id number]) Orientation Orientation/Cognition Level of Alertness Alert Orientation Name Place Situation Safety Awareness Decreased Safety Awareness Gross Range of Motion Lower Extremity ROM Assessment Right Impaired Impairments R ankle with dressing/wrap Strength Lower Extremity Strength Assessment Bilaterally Impaired Comments Strength Comments LLE: 4-/5 RLE 3+/5 Coordination Assessment Gross Coordination Gross Coordination WNL Muscle Tone Muscle Tone WNL Yes M6 PT-IP Treatment Start: 05/16/19 16:14 Freq: NEEDED Status: Active Protocol: Document 05/19/19 10:15 GGD (Rec: 05/19/19 13:46 GGD [id number]) Physical Therapy Treatment Education Education Provided Precautions Weight Bearing Status Safety M7 PT-IP Assessment and Plan Start: 05/16/19 16:14 Freq: NEEDED Status: Active Protocol: Document 05/19/19 10:15 GGD (Rec: 05/19/19 13:46 GGD [id number]) PT Summary Assessment and Plan Summary Assessment Summary Pt was able to transfer and sit to stand NWB. He did need cues to use UE to help unload left LE. He was able to transfer with small hops and scooting left LE. Frequency of Treatment Frequency Of Treatment Twice a Day Recommendations To Nursing Amount of Assist Needed 2 Person Assist Discharge Recommendations PT Discharge Recommendations Home with 24/7 Assist Home Health SNF Rehab
--- NOTE | 2019-05-19 10:49 | PC.NURSE ---
Day Shift- Brief update speaking with pt's son Derrick at 1045 who will be back around 1300 for wound vac dressing change. Derrick's goal for pt is to have pt go home with care next Wednesday. Right heel/foot wound VAC continuous 125 mmhg, dressing CDI. Pulses weak yet palpable. Pt did sleep in until 0900, pain 2/10 aching to right heel, non radiating. High fall risk precautions in place with chair and bed alarm on.
--- NOTE | 2019-05-19 13:00 | PT.IPTN ---
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) Osteonecrosis, unspecified (05/16/19) Surgery Performed Operation Date: 05/16/19 07:45 Actual Procedures p I&D partial bone excision and bone Biopsy calcaneus wound WITH application wound VAC(Right) - Ayde Neil MD Physical Therapy Treatment Note M2 PT-IP Current Condition Start: 05/16/19 16:14 Freq: NEEDED Status: Active Protocol: Document 05/16/19 16:23 AB (Rec: 05/16/19 17:23 AB [id number]) Physical Therapy Current Condition Current Condition Evaluation Date 05/16/19 Treatment Diagnosis s/p R partial excision of calcaneus; difficulty in walking Onset Date 05/16/19 Precautions Other Precautions RLE wound vac Weight Bearing Status Weight Bearing Status Non-Weight Bearing Allowed Weight Bearing Amount (enter % requires clarification but or #) (%) opted for NWB RLE for safety M3 PT-IP Subjective Start: 05/16/19 16:14 Freq: NEEDED Status: Active Protocol: Document 05/19/19 13:00 GGD (Rec: 05/19/19 13:59 GGD [id number]) Subjective Physical Therapy Visit Type Type Treatment Note Visit Start Time 12:45 Visit Stop Time 13:02 Total Visit Minutes 17 Number of SENIOR POWER PLANT OPERATOR Visits 6 Physical Therapy Visit Comments Patient Comments Pt wants to go back to bed. Therapy Pain Assessment Pain When Pain Assessed During Mobility Pain Present Pain Present Pain Reported Location Right Heel Intensity 4 Scale Used Numeric (1 - 10) M4 PT-IP Mobility and Gait Start: 05/16/19 16:14 Freq: NEEDED Status: Active Protocol: Document 05/19/19 13:00 GGD (Rec: 05/19/19 13:59 GGD [id number]) PT-Bed Mobility Assessment Sit to Supine Sit to Supine Contact Guard Assistance 1 Person Assistance Scooting Scooting to Edge of Bed Contact Guard Assistance PT-Transfer Assessment Sit to and From Stand Sit to and from Stand Minimal Assistance 1 Person Assistance Use of Upper Extremities Equipment Transfer Assistive Device Gait Belt Front Wheeled Walker Orthotic/Prosthetic Devices or Brace: No Transfers Transfer Destination Bed Transfer Technique Stand Pivot Transfer Ability Level of Assist Minimal Assistance 1 Person Assistance Use of Upper Extremities M5 PT-IP Objective Assessments Start: 05/16/19 16:14 Freq: NEEDED Status: Active Protocol: Document 05/16/19 16:23 AB (Rec: 05/16/19 17:23 AB [id number]) Orientation Orientation/Cognition Level of Alertness Alert Orientation Name Place Situation Safety Awareness Decreased Safety Awareness Gross Range of Motion Lower Extremity ROM Assessment Right Impaired Impairments R ankle with dressing/wrap Strength Lower Extremity Strength Assessment Bilaterally Impaired Comments Strength Comments LLE: 4-/5 RLE 3+/5 Coordination Assessment Gross Coordination Gross Coordination WNL Muscle Tone Muscle Tone WNL Yes M6 PT-IP Treatment Start: 05/16/19 16:14 Freq: NEEDED Status: Active Protocol: Document 05/19/19 13:00 GGD (Rec: 05/19/19 13:59 GGD [id number]) Physical Therapy Treatment Education Education Provided Precautions Weight Bearing Status Safety M7 PT-IP Assessment and Plan Start: 05/16/19 16:14 Freq: NEEDED Status: Active Protocol: Document 05/19/19 13:00 GGD (Rec: 05/19/19 13:59 GGD [id number]) PT Summary Assessment and Plan Summary Assessment Summary Pt needed increase in assist for sit to stand from lower chair. He needed increase in cues for NWB and use of UE. He needs min A for mobility. Frequency of Treatment Frequency Of Treatment Twice a Day Recommendations To Nursing Amount of Assist Needed 2 Person Assist Discharge Recommendations PT Discharge Recommendations Home with 24/7 Assist Home Health SNF Rehab
[2019-05-19] MEDS: OXYCODONE IR 5 MG TABLET 2.5 MG PO ×2 (13:09→17:17)
[2019-05-19 16:11] LABS: Albumin 3.1 g/dL (3.5-5.0); Alkaline Phosphatase 80 U/L (38-126); Aspartate Aminotransferase 25 IU/L (17-59); Bilirubin Total 0.3 mg/dL (0.2-1.3); Bilirubin Unconjugated 0.2 mg/dL (0.0-1.1); Globulin 3.1 g/dL (1.7-4.1); HEMOLYSIS < 15 (0-50); Total Protein 6.2 g/dL (6.3-8.2)
[2019-05-19 16:22] LABS: Alanine Aminotransferase 8 IU/L (21-72)
[2019-05-19] MEDS: SILVER NITRATE STICK 2 EACH TOP (17:30)
[2019-05-19] MEDS: HYDROMORPHONE 0.5 MG INJ IV (18:20)
--- NOTE | 2019-05-19 18:58 | PC.NURSE ---
Wound Nurse Consult Note I did speak with Case Management today, Zuri and when I arrived to the floor to see Mr. Meza she was in a meeting with Mr. Meza's son, Guillermo. I joined them. The plan is to have Mr. Meza return home after his hospital stay with 24 hour care and Home Health Nursing to help manage his IV therapy and [facility] wound vac therapy with [facility] (weekly visits with Dr. Theodore) I then went in to change the wound vac dressing. The black foam was stuck to the wound bed so I soaked it with Normal Saline for 5 minutes then removed the black foam which was still stuck to the wound bed. There was a lot of bleeding from the exposed bone as well as soft tissue. I held pressure for 15 minutes but the bone bleeding did not stop. I tried alginate with a pressure dressing for another 30 minutes and the bleeding continued. I tried silver nitrate stick so some of the soft tissue and some of the bone. The bleeding continued. I called Dr. Theodore and he suggested bone wax and I also called Dr. Neil. She agreed to use bone wax to stop the bleeding. Then use adaptic and the replace the Kci wound vac. After obtaining the bone wax I cleaned the wound again with Normal Saline, pat dry and placed the bone wax onto the bone. The bleeding stopped. I then cut an adaptic to fit the wound and placed over the bone covered with bone wax. I used one piece of black foam into the wound and bridged it above his foot and ankle. I used another piece black foam for a button and connected the track pad. His nurse, Fatuma helped me apply the wound vac. Mr. Meza's son and daughter where in the room during the vac change. Fatuma was able to give Mr. Meza pain medication for the procedure as she got a one time order from Dr. Neil. Dr. Neil instructed me to let the nursing staff know to call her if there was any [place] bleeding being obtained in the wound vac. I have let Fatuma know and she will monitor the wound vac. The wound vac is set at 125mmHg continuous. The wound bed is beefy red, with blood filled bone exposed. The duke-wound is with out erythema and some slight edema. I did not take a measurement or photo of the wound.
[2019-05-19] MEDS: OXYBUTYNIN 5 MG TABLET PO (20:41)
[2019-05-19] MEDS: ASPIRIN EC 81 MG TABLET PO (20:43)
[2019-05-19] MEDS: SODIUM CHLORIDE 0.9% FLUSH 10 ML IV (20:51)
--- NOTE | 2019-05-20 02:54 | PC.NURSE ---
PT alert and oriented x2. Forgetful and confused at times. Pt trying to get out of bed after voiding in brief several times throughout the night. Redirectable.
[2019-05-20 07:00] VITALS: BP 144/54; PULSE 59; RESP 17; TEMP 36.4; O2SAT 98
[2019-05-20 08:44] VITALS: BP 145/56; PULSE 53; RESP 16; TEMP 36.6; O2SAT 98
[2019-05-20] MEDS: CARBIDOPA-LEVODOPA 25/100 TABLET 1.5 EACH PO ×3 (09:02→20:49)
[2019-05-20] MEDS: FLUCONAZOLE 100 MG TABLET 400 MG PO (09:03)
[2019-05-20] MEDS: TAMSULOSIN 0.4 MG CAPSULE PO ×2 (09:03→20:49)
[2019-05-20] MEDS: ENOXAPARIN 40 MG/0.4 ML SYRINGE SUBCUT (09:03)
[2019-05-20] MEDS: DOCUSATE 100 MG CAPSULE PO ×2 (09:03→20:49)
[2019-05-20] MEDS: SERTRALINE 50 MG TABLET PO (09:03)
[2019-05-20] MEDS: ACETAMINOPHEN 325 MG TABLET 975 MG PO ×3 (09:03→20:49)
[2019-05-20] MEDS: LORATADINE 10 MG TABLET PO (09:03)
--- NOTE | 2019-05-20 09:05 | CM.DPNOTE ---
Addendum entered by AUTUMN Chan 05/20/19 09:31: Per Derrick, son/DPOA: Home Health choice is [facility]i [facility]. Original Note: DCP Cont: DC needs according to Dr Neil and Julieta Hubbard nurse: Home health for PT/OT/RN(wound care and vac changes)/ INTERPRETER TRANSLATOR (?), Home infusion for 6 weeks IV Vanco Q12, child watch attendant care for in home cgs (likely 2 cgs during the day, one at night around the clock care), family for IV abx administration, and outpatient vascular surgery consult for arterial insufficiency/outpt Ortho and outpt wound clinic for wound vac changes x 1 weekly . Spoke w/ Rosemarie at child watch attendant care P# [phone]; she explained son wants to take pt home w/ 26/04 cgs, likely 2 cgs during the day. Rosemarie is working on this schedule, she will not have these cgs available until next Wednesday. Rosemarie requests a call Wednesday morning to review pt's needs and further requests night nurses at document pt's night needs so that she is better educated about what her evening cg can expect once pt is home. This SUPPLY CHAIN SPECIALIST relayed above to evening nurse who said she would do her best to pass on to night nurse. Spoke w/son Derrick yester afternoon at length to review DCP. Explained that this SUPPLY CHAIN SPECIALIST's recommendation and that of [facility] would be SNF d/t pt's dementia, impulsiveness, risk of falls at home, and need for longterm management for medical complications. Derrick feels very strongly that a SNF can not provide the caliber of care that he can arrange at home and that pt will heal and thrive the best in his home environment. Derrick has the following response based on pt's medical needs: -Need for wound vac: Home health nurse can change x2 weekly and pt can be taken into wound care clinic for the 3rd recommended change. [facility] will begin wound vac auth today, wound vac will be available Wednesday. It's possible pt can DC with a smaller, less cumbersome unit. -6 wks IV abx: Derrick and/or allie Hoover will receive training from [employer], Derrick has no agency preference. HH RN and/or bed bug exterminator will need to manage PICC (pt has made no attempt to pull PICC out). -Wound care and therapy needs: Home health can provide RN/PT/OT/INTERPRETER TRANSLATOR. -Transportation to/from outpt appts: [facility] will be scheduled as family has done before on pt's behalf. -Home half-way care: [facility] is arranging 24/7 care to include 2 cgs during the day and one overnight. Derrick is hopeful that once a diana is in place and medication has been altered (flomax?) pt well have less irritation w/urination and hopefully will be getting up less in the middle of the night [facility] aware of above and completed a wound vac change Wednesday afternoon. This SUPPLY CHAIN SPECIALIST working on continued coordination for safe DC Planning. Strongly encouraged son Derrick to consider SNF again, and encouraged Derrick to take the numbers for SNFs, he explained he can research SNF options from home and will likely look in [place] if SNF is needed after all. AUTUMN Chan
[2019-05-20] MEDS: SODIUM CHLORIDE 0.9% FLUSH 10 ML IV (09:11)
[2019-05-20] MEDS: SODIUM CHLORIDE 0.9% 1,000 ML 84 ML IV (09:15)
--- NOTE | 2019-05-20 09:21 | PM.PNPO.1 ---
Subjective Date Patient Seen: 05/20/19 Time Patient Seen: 09:21 Interval history: Postop day 4. Irrigation debridement partial excision calcaneal osteomyelitis and wound VAC placement Resting comfortably in bed. No acute distress. No complaints. Heel floated. Had wound VAC change with wound care nurse last night. No drainage and canister this morning. Wound VAC with good suction. No issues. Exam Vital Signs (past 8 hours): - 05/20/19 07:00 05/20/19 08:44 Temperature 97.6 F 97.9 F Pulse Rate 59 L 53 L Respiratory Rate 17 16 Blood Pressure 144/54 H 145/56 H Pulse Oximetry 98 98 Fraction of Inspired Oxygen 21 Oxygen Delivery Method Room Air Oxygen Flow Rate 0 Narrative Exam Narrative: Alert, sitting up in bed. No complaints. Breathing comfortably on room air. Vital signs stable. Right lower extremity with wound VAC in place. No erythema. No drainage in the canister. Good suction. Wiggles toes. Heel floated. Calf is soft. He demonstrates active dorsiflexion plantar flexion of the ankle. Objective Labs Result Diagrams: 05/17/19 05:45 05/18/19 08:30 Labs: Laboratory Results - last 24 hr 05/19/19 14:15 Total Bilirubin 0.3 Conjugated Bilirubin 0.0 Unconjugated Bilirubin 0.2 AST 25 ALT 8 L Alkaline Phosphatase 80 D Total Protein 6.2 L Albumin 3.1 L Globulin 3.1 Albumin/Globulin Ratio 1.0 Assessment & Plan Post-op Postoperative Procedures Operation Date: 05/16/19 07:45 Actual Procedures Side Surgeon p I&D partial bone excision and bone Biopsy calcaneus wound WITH application wound VAC Right Ayde Neil MD 1. float heels. will get vac change with wound care on Wednesday. 2. cx with enterococcus/staph/dipth. on vanc-- picc and dc with Vanc IV x 6 weeks -discussed vanc goal 20. Will get fluconazole 400 mg oral x6 weeks for yeast and home health for IV abx, weekly crp, esr, cmp, liver function labs 3. f/u 2 wks ortho 4. wound care for vac changes 5. oupt vascular surgery consult for arterial insufficiency. 6. at dc stop lovenox and start aspirin 81 mg BID 7. Based on healing progress may require additional debridement or coverage procedure versus larger partial calcaneus to me and local flap closure. Ideally any additional procedure would be after revascularize, if indicated--so will continue antibiotic treatment and wound VAC changes prior to vascular consultation/intervention 8. DC the snf versus home with home health and outpatient wound care-when coordinated 9. Dietary consult ordered for recs--possible add protein shakes for low albumin to help with wound healing 10. DVT prophylaxis with Lovenox while in the hospital. At discharge will be switched to 81 mg aspirin b.i.d. Quality VTE Deep Vein Thrombosis/Pulmonary Embolism Present on Admission: No
--- NOTE | 2019-05-20 09:28 | PT.IPTN ---
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) Osteonecrosis, unspecified (05/16/19) Surgery Performed Operation Date: 05/16/19 07:45 Actual Procedures p I&D partial bone excision and bone Biopsy calcaneus wound WITH application wound VAC(Right) - Ayde Neil MD Physical Therapy Treatment Note M2 PT-IP Current Condition Start: 05/16/19 16:14 Freq: NEEDED Status: Active Protocol: Document 05/16/19 16:23 AB (Rec: 05/16/19 17:23 AB [id number]) Physical Therapy Current Condition Current Condition Evaluation Date 05/16/19 Treatment Diagnosis s/p R partial excision of calcaneus; difficulty in walking Onset Date 05/16/19 Precautions Other Precautions RLE wound vac Weight Bearing Status Weight Bearing Status Non-Weight Bearing Allowed Weight Bearing Amount (enter % requires clarification but or #) (%) opted for NWB RLE for safety M3 PT-IP Subjective Start: 05/16/19 16:14 Freq: NEEDED Status: Active Protocol: Document 05/20/19 09:28 AB (Rec: 05/20/19 13:14 AB [id number]) Subjective Physical Therapy Visit Type Type Treatment Note Visit Start Time 09:28 Visit Stop Time 09:53 Total Visit Minutes 25 Number of FINANCIAL SALES MANAGER Visits 0 Physical Therapy Visit Comments Patient Comments pt ageed to get up M4 PT-IP Mobility and Gait Start: 05/16/19 16:14 Freq: NEEDED Status: Active Protocol: Document 05/20/19 09:28 AB (Rec: 05/20/19 13:14 AB [id number]) PT-Bed Mobility Assessment Supine to Sit Supine to Sit Maximum Assistance 1 Person Assistance 2 Person Assistance Head of Bed Elevated Scooting Scooting to Edge of Bed Maximum Assistance PT-Transfer Assessment Sit to and From Stand Sit to and from Stand Maximum Assistance 1 Person Assistance 2 Person Assistance Use of Upper Extremities Equipment Transfer Assistive Device Gait Belt Front Wheeled Walker Orthotic/Prosthetic Devices or Brace: No Transfers Transfer Destination Chair Transfer Technique Stand Step Pivot Transfer Ability Level of Assist Maximum Assistance 1 Person Assistance 2 Person Assistance Use of Upper Extremities Comments Mobility Comments pt completed supine to sit max A x 1-2 and max cues with HOB elevated. pt requiring increase time to respond to questions and instructions today. pt was able to sit on EOB mod A and max cues to keep trunk forward. pt complete sit to stand from EOB max A x1 -2 and max cues. pt required max cues and assist to maintain NWB on RLE. pt completed stand pivot transfer using FWW max A x 1-2 and max cues. pt unable to maintain NWB on RLE requiring max A and max cues. positioned pt on the chair. chair alarm on. call light and table placed within reach. M5 PT-IP Objective Assessments Start: 05/16/19 16:14 Freq: NEEDED Status: Active Protocol: Document 05/16/19 16:23 AB (Rec: 05/16/19 17:23 AB [id number]) Orientation Orientation/Cognition Level of Alertness Alert Orientation Name Place Situation Safety Awareness Decreased Safety Awareness Gross Range of Motion Lower Extremity ROM Assessment Right Impaired Impairments R ankle with dressing/wrap Strength Lower Extremity Strength Assessment Bilaterally Impaired Comments Strength Comments LLE: 4-/5 RLE 3+/5 Coordination Assessment Gross Coordination Gross Coordination WNL Muscle Tone Muscle Tone WNL Yes M6 PT-IP Treatment Start: 05/16/19 16:14 Freq: NEEDED Status: Active Protocol: Document 05/20/19 09:28 AB (Rec: 05/20/19 13:14 AB [id number]) Physical Therapy Treatment Education Education Provided Weight Bearing Status Safety M7 PT-IP Assessment and Plan Start: 05/16/19 16:14 Freq: NEEDED Status: Active Protocol: Document 05/20/19 09:28 AB (Rec: 05/20/19 13:14 AB [id number]) PT Summary Assessment and Plan Potential Rehabilitation Potential Fair Summary Impairments Pain ROM Strength Balance Coordination Sensation Tone Cognition Bed Mobility Transfers Gait Activity Tolerance Progress Towards Goals Slow Progress due to Medical Issues Slow Progress due to Activity Tolerance Assessment Summary pt needing increase assistance today and has difficulty following instructions. d/c plan depending on progress and if pt will have enough assistance at home. will continue to assess progress. Goals Bed Mobility Goal Standby Assistance Transfer Goal Minimal Assistance Front Wheeled Walker Days to Meet Goals 10 Frequency of Treatment Frequency Of Treatment Twice a Day Recommendations To Nursing Amount of Assist Needed 2 Person Assist Discharge Recommendations PT Discharge Recommendations Home with / Assist Home Health SNF Rehab
--- NOTE | 2019-05-20 11:11 | PC.NURSE ---
Addendum entered by Margarita King R.N. 05/20/19 11:24: CMS- CMS + to BLE's. Bilateral pedal pulses are weak but palpable. Both feet are warm, pink and with cap refill <2 seconds. Heel of RLE being floated with foam apparatus. Original Note: Shift summary: Dozing intermittently. Oriented to self/place/situation, some forgetfulness noted. Wound vac to R heel, dressing is C/D/I. Wound vac set to 125 mm/Hg continuous- no drainage noted in collection container. Reports pain well-managed with scheduled Tylenol. Lungs with fine bibasilar crackles. Encouraged coughing and deep breathing. HRR. Tolerating general diet without issue. IVF per orders, PICC site (RUE) WNL. Up in chair at this time (got up with PT). Able to make needs known but does not always remember to call. Call light and belongings within reach, chair alarm on.
[2019-05-20 11:23] VITALS: BP 91/71; PULSE 63; RESP 15; TEMP 36.7; O2SAT 95
--- NOTE | 2019-05-20 11:50 | PT.IPTN ---
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) Osteonecrosis, unspecified (05/16/19) Surgery Performed Operation Date: 05/16/19 07:45 Actual Procedures p I&D partial bone excision and bone Biopsy calcaneus wound WITH application wound VAC(Right) - Ayde Neil MD Physical Therapy Treatment Note M2 PT-IP Current Condition Start: 05/16/19 16:14 Freq: NEEDED Status: Active Protocol: Document 05/16/19 16:23 AB (Rec: 05/16/19 17:23 AB [id number]) Physical Therapy Current Condition Current Condition Evaluation Date 05/16/19 Treatment Diagnosis s/p R partial excision of calcaneus; difficulty in walking Onset Date 05/16/19 Precautions Other Precautions RLE wound vac Weight Bearing Status Weight Bearing Status Non-Weight Bearing Allowed Weight Bearing Amount (enter % requires clarification but or #) (%) opted for NWB RLE for safety M3 PT-IP Subjective Start: 05/16/19 16:14 Freq: NEEDED Status: Active Protocol: Document 05/20/19 11:50 AB (Rec: 05/20/19 13:21 AB [id number]) Subjective Physical Therapy Visit Type Type Treatment Note Visit Start Time 11:50 Visit Stop Time 12:11 Total Visit Minutes 21 Number of STRATEGIC PARTNERSHIP MANAGER Visits 0 Physical Therapy Visit Comments Patient Comments nurse stated that pt wants to use the toilet and needs assistance M4 PT-IP Mobility and Gait Start: 05/16/19 16:14 Freq: NEEDED Status: Active Protocol: Document 05/20/19 11:50 AB (Rec: 05/20/19 13:21 AB [id number]) PT-Transfer Assessment Sit to and From Stand Sit to and from Stand Maximum Assistance 2 Person Assistance Use of Upper Extremities Equipment Transfer Assistive Device Gait Belt Front Wheeled Walker Transfers Transfer Destination Bedside Commode Transfer Technique Stand Step Pivot Transfer Ability Level of Assist Maximum Assistance 2 Person Assistance Use of Upper Extremities Comments Mobility Comments pt completed sit to stand from chair requiring max A x 2 and max cues. pt completed stand pivot transfer using FWW max A x 2 and max cues. pt was unable to maintain NWB on RLE and requires max to keep LE off the floor. pt completed sit to stand from the bedside commode max A x 2 and max cues and was able to maintain standing using FWW for support max A x 1-2 while NAC assisted with brief management. pt completed stand pivot transfer using FWW max A x2-3 and max cues. pt required max A x 2 for controlled descent to the chair. positioned pt on the chair. left pt with NAC and nurse. M5 PT-IP Objective Assessments Start: 05/16/19 16:14 Freq: NEEDED Status: Active Protocol: Document 05/16/19 16:23 AB (Rec: 05/16/19 17:23 AB [id number]) Orientation Orientation/Cognition Level of Alertness Alert Orientation Name Place Situation Safety Awareness Decreased Safety Awareness Gross Range of Motion Lower Extremity ROM Assessment Right Impaired Impairments R ankle with dressing/wrap Strength Lower Extremity Strength Assessment Bilaterally Impaired Comments Strength Comments LLE: 4-/5 RLE 3+/5 Coordination Assessment Gross Coordination Gross Coordination WNL Muscle Tone Muscle Tone WNL Yes M6 PT-IP Treatment Start: 05/16/19 16:14 Freq: NEEDED Status: Active Protocol: Document 05/20/19 11:50 AB (Rec: 05/20/19 13:21 AB [id number]) Physical Therapy Treatment Education Education Provided Weight Bearing Status Safety M7 PT-IP Assessment and Plan Start: 05/16/19 16:14 Freq: NEEDED Status: Active Protocol: Document 05/20/19 11:50 AB (Rec: 05/20/19 13:21 AB [id number]) PT Summary Assessment and Plan Potential Rehabilitation Potential Fair Summary Impairments Pain ROM Strength Balance Coordination Sensation Tone Cognition Bed Mobility Transfers Gait Activity Tolerance Progress Towards Goals Slow Progress due to Pain Slow Progress due to Medical Issues Assessment Summary pt requiring max A x 2 -3 with mobility. pt requiring increase assistance today compared to yesterdays. informed nurse. pt at this time may require SNF rehab to improve strength and mobility. Goals Bed Mobility Goal Standby Assistance Transfer Goal Minimal Assistance Front Wheeled Walker Days to Meet Goals 10 Frequency of Treatment Frequency Of Treatment Twice a Day Recommendations To Nursing Amount of Assist Needed Mechanical Lift Discharge Recommendations PT Discharge Recommendations SNF Rehab
[2019-05-20 12:37] LABS: Vancomycin Trough 19.8 ug/mL (10-20)
--- NOTE | 2019-05-20 12:46 | CM.DPNOTE ---
DCP Cont: Reviewed chart. Faxed referral to [facility] and spoke to pharmacist Zuri. They do not foresee a problem arranging IV Vanc as soon as Wednesday although can not run Medicare/[employer] and give an out of pocket quote until Wednesday. [employer] team will be following closely and will plan to continue coordination Wednesday. Then faxed referral to [facility], spoke w/Constance. She said pt is current w/them and they will only require resumption orders upon DC. Explained to Constance that pt will now require weekly wound vac changes and wound care, updated that he would be going home w/PICC and IV abx. This information included in the clinical packet faxed. Constance appreciative and will wait for an update on DC date. AUTUMN Chan
[2019-05-20] MEDS: VANCOMYCIN 1,500 MG/300 ML FROZ.PIGGY 200 MG IV (13:08)
[2019-05-20 15:25] VITALS: BP 150/73; PULSE 61; RESP 18; TEMP 36.6; O2SAT 99
[2019-05-20] MEDS: OXYCODONE IR 5 MG TABLET 2.5 MG PO ×2 (16:24→20:51)
[2019-05-20 20:10] VITALS: BP 146/64; PULSE 60; RESP 18; TEMP 36.6; O2SAT 97
[2019-05-20] MEDS: OXYBUTYNIN 5 MG TABLET PO (20:49)
[2019-05-20] MEDS: ASPIRIN EC 81 MG TABLET PO (20:49)
[2019-05-20 23:50] VITALS: BP 163/64; PULSE 57; RESP 17; TEMP 36.6; O2SAT 96
[2019-05-21] MEDS: SODIUM CHLORIDE 0.9% 1,000 ML 84 ML IV ×3 (00:09→23:58)
[2019-05-21] MEDS: VANCOMYCIN 1,500 MG/300 ML FROZ.PIGGY 200 MG IV ×3 (00:09→23:55)
--- NOTE | 2019-05-21 01:20 | PC.NURSE ---
0030 Denies any pain @ this time, used the urinal voided 100 cc. Pt. still having large inc. duke & skin care done. Duke-anal area still erythematous & skin intact. Barrier cream applied, waffle cushion to buttocks placed. Instructed not to get up OOB without any assistance. He stated I'm not going anywhere & I don't want to fall. Call light with-in reached & bed alarm activated. Will cont. POC & monitor.
[2019-05-21 04:40] VITALS: BP 153/68; PULSE 58; RESP 17; TEMP 36.3; O2SAT 97
--- NOTE | 2019-05-21 07:14 | RT ---
PT CONTINUES TO REFUSE CPAP
[2019-05-21 08:57] VITALS: BP 147/62; PULSE 56; RESP 16; TEMP 36.1; O2SAT 98
[2019-05-21] MEDS: CARBIDOPA-LEVODOPA 25/100 TABLET 1.5 EACH PO ×3 (09:31→20:57)
[2019-05-21] MEDS: FLUCONAZOLE 100 MG TABLET 400 MG PO (09:31)
--- NOTE | 2019-05-21 09:32 | PM.PNPO.1 ---
Subjective Date Patient Seen: 05/21/19 Time Patient Seen: 09:32 Interval history: Postop day 5. s/p Irrigation debridement partial excision calcaneal osteomyelitis and wound VAC placement Resting comfortably in bed. No acute distress. No complaints. Heel floated. No drainage and canister this morning. Wound VAC with good suction. No issues. Exam Vital Signs (past 8 hours): - 05/21/19 04:40 05/21/19 08:57 Temperature 97.4 F L 97 F L Pulse Rate 58 L 56 L Respiratory Rate 17 16 Blood Pressure 153/68 H 147/62 H Pulse Oximetry 97 98 Fraction of Inspired Oxygen 21 Oxygen Delivery Method Room Air Oxygen Flow Rate 0 Narrative Exam Narrative: Alert oriented no acute distress. Breathing unlabored on room air. Sitting up in bed. Vital signs stable. Heel floated. Vac in place. No erythema. Wound VAC to good suction. Scant drainage in canister. Wiggles toes. Demonstrates active dorsiflexion plantar flexion of ankle. Calf is soft. Objective Labs Result Diagrams: 05/17/19 05:45 05/18/19 08:30 Labs: Laboratory Results - last 24 hr 05/20/19 12:00 Vancomycin Trough 19.8 Assessment & Plan Post-op Postoperative Procedures Operation Date: 05/16/19 07:45 Actual Procedures Side Surgeon p I&D partial bone excision and bone Biopsy calcaneus wound WITH application wound VAC Right Ayde Neil MD 1. float heels. will get vac changes with wound care. next due Wednesday 2. cx with enterococcus/staph/dipth. on vanc-- picc and dc with Vanc IV x 6 weeks -discussed vanc goal 20. Will get fluconazole 400 mg oral x6 weeks for yeast and home health for IV abx, weekly crp, esr, cmp, liver function labs 3. f/u 2 wks ortho 4. wound care for vac changes 5. oupt vascular surgery consult for arterial insufficiency. 6. at dc stop lovenox and start aspirin 81 mg BID 7. Based on healing progress may require additional debridement or coverage procedure versus larger partial calcaneus to me and local flap closure. Ideally any additional procedure would be after revascularize, if indicated--so will continue antibiotic treatment and wound VAC changes prior to vascular consultation/intervention 8. DC the snf versus home with home health and outpatient wound care-when coordinated 9. Dietary consult ordered for recs--possible add protein shakes for low albumin to help with wound healing 10. DVT prophylaxis with Lovenox while in the hospital. At discharge will be switched to 81 mg aspirin b.i.d. Quality VTE Deep Vein Thrombosis/Pulmonary Embolism Present on Admission: No
[2019-05-21] MEDS: DOCUSATE 100 MG CAPSULE PO ×2 (09:36→20:56)
[2019-05-21] MEDS: ACETAMINOPHEN 325 MG TABLET 975 MG PO ×3 (09:36→20:56)
[2019-05-21] MEDS: LORATADINE 10 MG TABLET PO (09:37)
[2019-05-21] MEDS: ENOXAPARIN 40 MG/0.4 ML SYRINGE SUBCUT (09:37)
[2019-05-21] MEDS: TAMSULOSIN 0.4 MG CAPSULE PO ×2 (09:37→20:57)
[2019-05-21] MEDS: SERTRALINE 50 MG TABLET PO (09:37)
[2019-05-21 11:30] VITALS: BP 150/66; PULSE 57; RESP 16; TEMP 36.8; O2SAT 98
[2019-05-21] MEDS: OXYCODONE IR 5 MG TABLET 2.5 MG PO ×2 (11:52→22:44)
[2019-05-21] MEDS: POLYETHYLENE GLYCOL 3350 17 GM POWD.PACK PO (12:50)
--- NOTE | 2019-05-21 13:05 | PT.IPTN ---
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) Osteonecrosis, unspecified (05/16/19) Surgery Performed Operation Date: 05/16/19 07:45 Actual Procedures p I&D partial bone excision and bone Biopsy calcaneus wound WITH application wound VAC(Right) - Ayde Neil MD Physical Therapy Treatment Note M2 PT-IP Current Condition Start: 05/16/19 16:14 Freq: NEEDED Status: Active Protocol: Document 05/16/19 16:23 AB (Rec: 05/16/19 17:23 AB [id number]) Physical Therapy Current Condition Current Condition Evaluation Date 05/16/19 Treatment Diagnosis s/p R partial excision of calcaneus; difficulty in walking Onset Date 05/16/19 Precautions Other Precautions RLE wound vac Weight Bearing Status Weight Bearing Status Non-Weight Bearing Allowed Weight Bearing Amount (enter % requires clarification but or #) (%) opted for NWB RLE for safety M3 PT-IP Subjective Start: 05/16/19 16:14 Freq: NEEDED Status: Active Protocol: Document 05/21/19 11:55 AW (Rec: 05/21/19 12:17 AW [id number]) Subjective Physical Therapy Visit Type Type Treatment Note Visit Start Time 10:04 Visit Stop Time 10:41 Total Visit Minutes 37 Number of SUPERVISOR ELECTRIC MOTOR TESTING Visits 0 Physical Therapy Visit Comments Patient Comments Pt agreed to participate in therapy, wanting to use the commode M4 PT-IP Mobility and Gait Start: 05/16/19 16:14 Freq: NEEDED Status: Active Protocol: Document 05/21/19 11:55 AW (Rec: 05/21/19 12:17 AW [id number]) PT-Bed Mobility Assessment Supine to Sit Supine to Sit Maximum Assistance 2 Person Assistance Head of Bed Elevated Sit to Supine Sit to Supine Maximum Assistance 2 Person Assistance Head of Bed Elevated Scooting Scooting to Edge of Bed Maximum Assistance PT-Transfer Assessment Sit to and From Stand Sit to and from Stand Maximum Assistance 2 Person Assistance Use of Upper Extremities Equipment Transfer Assistive Device Gait Belt Front Wheeled Walker Transfers Transfer Destination Bed Bedside Commode Transfer Technique Stand Pivot Transfer Ability Level of Assist Maximum Assistance 2 Person Assistance Use of Upper Extremities Comments Mobility Comments Pt completed supine to sit requiring max A x 2 with HOB elevated, requiring max A to unweight R leg to move to the left side EOB. Pt completed sit to stand from EOB to FWW requiring max A x 2 and max verbal cues. Pt completed stand pivot transfer using FWW requiring max A x 2 and max verbal cues/visual demonstration for sequencing. Pt had difficulty pivoting/ coordinating movement and was unable to maintain NWB on RLE without therapist assist. Pt demonstrated TTWB on RLE at best. M5 PT-IP Objective Assessments Start: 05/16/19 16:14 Freq: NEEDED Status: Active Protocol: Document 05/16/19 16:23 AB (Rec: 05/16/19 17:23 AB [id number]) Orientation Orientation/Cognition Level of Alertness Alert Orientation Name Place Situation Safety Awareness Decreased Safety Awareness Gross Range of Motion Lower Extremity ROM Assessment Right Impaired Impairments R ankle with dressing/wrap Strength Lower Extremity Strength Assessment Bilaterally Impaired Comments Strength Comments LLE: 4-/5 RLE 3+/5 Coordination Assessment Gross Coordination Gross Coordination WNL Muscle Tone Muscle Tone WNL Yes M6 PT-IP Treatment Start: 05/16/19 16:14 Freq: NEEDED Status: Active Protocol: Document 05/21/19 11:55 AW (Rec: 05/21/19 12:17 AW [id number]) Physical Therapy Treatment Education Education Provided Weight Bearing Status Safety M7 PT-IP Assessment and Plan Start: 05/16/19 16:14 Freq: NEEDED Status: Active Protocol: Document 05/21/19 11:55 AW (Rec: 05/21/19 12:17 AW [id number]) PT Summary Assessment and Plan Potential Rehabilitation Potential Fair Summary Impairments Pain ROM Strength Balance Coordination Sensation Tone Cognition Bed Mobility Transfers Gait Activity Tolerance Progress Towards Goals Slow Progress due to Pain Slow Progress due to Medical Issues Slow Progress due to Activity Tolerance Assessment Summary Pt required max A x 2 for all mobility, representing a decline from previous sessions . Pt required more time and assistance to complete transfer with significant difficulty pivoting on LLE. PT recommending SNF rehab stay to increase strength and independence with transfers Goals Bed Mobility Goal Standby Assistance Transfer Goal Minimal Assistance Front Wheeled Walker Days to Meet Goals 10 Frequency of Treatment Frequency Of Treatment Twice a Day Treatment Plan Physical Therapy Treatment Plan Bed Mobility Training Transfer Training Gait Training Therapeutic Exercise Balance Retraining Post Op Education Discharge Planning Hot or Cold Pack Recommendations To Nursing Amount of Assist Needed Mechanical Lift Discharge Recommendations PT Discharge Recommendations SNF Rehab
[2019-05-21 16:03] VITALS: BP 141/62; PULSE 60; RESP 18; TEMP 36.2; O2SAT 96
--- NOTE | 2019-05-21 16:35 | PT.IPTN ---
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) Osteonecrosis, unspecified (05/16/19) Surgery Performed Operation Date: 05/16/19 07:45 Actual Procedures p I&D partial bone excision and bone Biopsy calcaneus wound WITH application wound VAC(Right) - Ayde Neil MD Physical Therapy Treatment Note M2 PT-IP Current Condition Start: 05/16/19 16:14 Freq: NEEDED Status: Active Protocol: Document 05/16/19 16:23 AB (Rec: 05/16/19 17:23 AB [id number]) Physical Therapy Current Condition Current Condition Evaluation Date 05/16/19 Treatment Diagnosis s/p R partial excision of calcaneus; difficulty in walking Onset Date 05/16/19 Precautions Other Precautions RLE wound vac Weight Bearing Status Weight Bearing Status Non-Weight Bearing Allowed Weight Bearing Amount (enter % requires clarification but or #) (%) opted for NWB RLE for safety M3 PT-IP Subjective Start: 05/16/19 16:14 Freq: NEEDED Status: Active Protocol: Document 05/21/19 16:13 AW (Rec: 05/21/19 16:33 AW [id number]) Subjective Physical Therapy Visit Type Type Treatment Note Visit Start Time 15:19 Visit Stop Time 15:55 Total Visit Minutes 36 Number of FUNCTIONAL ANALYST Visits 0 Physical Therapy Visit Comments Patient Comments Pt visiting with daughterSneha. Agreeable to participate in therapy. M4 PT-IP Mobility and Gait Start: 05/16/19 16:14 Freq: NEEDED Status: Active Protocol: Document 05/21/19 16:13 AW (Rec: 05/21/19 16:33 AW [id number]) PT-Bed Mobility Assessment Rolling Type of Rolling Roll to Right Roll to Left Level of Assist Minimal Assistance 1 Person Assistance Supine to Sit Supine to Sit Maximum Assistance 2 Person Assistance Head of Bed Elevated Sit to Supine Sit to Supine Maximum Assistance 2 Person Assistance Head of Bed Elevated Scooting Scooting to Edge of Bed Maximum Assistance PT-Transfer Assessment Sit to and From Stand Sit to and from Stand Maximum Assistance 2 Person Assistance Use of Upper Extremities Equipment Transfer Assistive Device Gait Belt Front Wheeled Walker Transfers Transfer Destination Bed Transfer Technique Stand Pivot Transfer Ability Level of Assist Maximum Assistance 2 Person Assistance Use of Upper Extremities Comments Mobility Comments Pt completed supine to sit with max A x 2 with HOB elevated, requiring less assist to move legs compared with morning session. Sit to stand EOB to FWW required max A x 2 and verbal cues for hand placement/sequencing. Pt attempted stand pivot transfer x 2, requiring max A x 2 and max verbal cues/repeated demonstration for movement strategy. Pt unable to complete stand pivot transfer and remains unable to maintain NWB on RLE for protection of wounds. M5 PT-IP Objective Assessments Start: 05/16/19 16:14 Freq: NEEDED Status: Active Protocol: Document 05/16/19 16:23 AB (Rec: 05/16/19 17:23 AB [id number]) Orientation Orientation/Cognition Level of Alertness Alert Orientation Name Place Situation Safety Awareness Decreased Safety Awareness Gross Range of Motion Lower Extremity ROM Assessment Right Impaired Impairments R ankle with dressing/wrap Strength Lower Extremity Strength Assessment Bilaterally Impaired Comments Strength Comments LLE: 4-/5 RLE 3+/5 Coordination Assessment Gross Coordination Gross Coordination WNL Muscle Tone Muscle Tone WNL Yes M6 PT-IP Treatment Start: 05/16/19 16:14 Freq: NEEDED Status: Active Protocol: Document 05/21/19 16:13 AW (Rec: 05/21/19 16:33 AW [id number]) Physical Therapy Treatment Education Education Provided Weight Bearing Status Safety M7 PT-IP Assessment and Plan Start: 05/16/19 16:14 Freq: NEEDED Status: Active Protocol: Document 05/21/19 16:13 AW (Rec: 05/21/19 16:33 AW [id number]) PT Summary Assessment and Plan Potential Rehabilitation Potential Fair Summary Impairments Pain ROM Strength Balance Coordination Sensation Tone Cognition Bed Mobility Transfers Gait Activity Tolerance Progress Towards Goals Slow Progress due to Pain Slow Progress due to Medical Issues Slow Progress due to Activity Tolerance Assessment Summary Pt unable to complete stand pivot transfer with max A x 2 at this session. Daughter ( Sneha) noted recent diagnosis of Parkinson's disease and associated difficulty with movement awareness/planning. Daughter was present throughout session and witnessed difficulty of transfer activity. PT discussed current discharge recommendation of SNF rehab for strengthening and improved independence with transfers. Daughter expressed agreement with this assessment. Goals Bed Mobility Goal Standby Assistance Transfer Goal Minimal Assistance Front Wheeled Walker Days to Meet Goals 10 Frequency of Treatment Frequency Of Treatment Twice a Day Treatment Plan Physical Therapy Treatment Plan Bed Mobility Training Transfer Training Gait Training Therapeutic Exercise Balance Retraining Post Op Education Discharge Planning Hot or Cold Pack Other Recommendations and Next Treatment May attempt to teach sliding Focus board transfer if patient is able to follow directions for scooting. Recommendations To Nursing Amount of Assist Needed Mechanical Lift Discharge Recommendations PT Discharge Recommendations SNF Rehab
[2019-05-21 20:24] VITALS: BP 143/65; PULSE 61; RESP 18; TEMP 36.5; O2SAT 96
[2019-05-21] MEDS: OXYBUTYNIN 5 MG TABLET PO (20:56)
[2019-05-21] MEDS: SODIUM CHLORIDE 0.9% FLUSH 10 ML IV (20:57)
[2019-05-21] MEDS: ASPIRIN EC 81 MG TABLET PO (20:57)
[2019-05-21 23:50] VITALS: BP 140/57; PULSE 66; RESP 20; TEMP 36.7; O2SAT 95
[2019-05-22 03:22] VITALS: BP 140/71; PULSE 60; RESP 17; TEMP 36.6; O2SAT 96
--- NOTE | 2019-05-22 05:30 | PC.NURSE ---
Pt alert and oriented x3 but forgetful at times. Denies any pain throughout the shift. Wound vac continuous at 125, clean dry and intact. Pt heel elevated. Turning pt q 2 hours. Pt voiding to urinal and incont at times voiding in brief.
[2019-05-22] MEDS: OXYCODONE IR 5 MG TABLET 2.5 MG PO ×2 (05:44→10:08)
[2019-05-22 08:10] VITALS: BP 151/71; PULSE 55; RESP 16; TEMP 36.4; O2SAT 98
[2019-05-22] MEDS: FLUCONAZOLE 100 MG TABLET 400 MG PO (08:29)
[2019-05-22] MEDS: CARBIDOPA-LEVODOPA 25/100 TABLET 1.5 EACH PO ×3 (08:30→22:26)
[2019-05-22] MEDS: ACETAMINOPHEN 325 MG TABLET 975 MG PO ×3 (08:33→22:25)
[2019-05-22] MEDS: POLYETHYLENE GLYCOL 3350 17 GM POWD.PACK PO (08:34)
[2019-05-22] MEDS: ENOXAPARIN 40 MG/0.4 ML SYRINGE SUBCUT (08:34)
[2019-05-22] MEDS: TAMSULOSIN 0.4 MG CAPSULE PO ×2 (08:34→22:28)
[2019-05-22] MEDS: DOCUSATE 100 MG CAPSULE PO ×2 (08:34→22:28)
[2019-05-22] MEDS: LORATADINE 10 MG TABLET PO (08:34)
[2019-05-22] MEDS: SERTRALINE 50 MG TABLET PO (08:36)
[2019-05-22 08:39] VITALS: BMI 28.3
--- NOTE | 2019-05-22 08:47 | DIET.PN ---
Dietary Progress Note Assessment: 84y M referred to nutrition for MNA 10 (at risk for malnutrition), Sudhir 14, and per request of provider for ONS to increase PRO for wound healing. Pt POs consistently @ 75% including ONS Oskar bid. HT: 175.2cm WT: 87kg (pt wt stable since December 2018 per [facility] records) BMI: 28.3 Labs: Hgb: 10.9 (L), Total Pro 6.2 (L), alb: 3.1 (L) Nutrition Diagnosis: Elevated Pro needs r/t s/p Irrigation debridement partial excision calcaneal osteomyelitis aeb wound VAC placement, d/c plan c IV abx c wound vac, progressing Parkinsons. Interventions: RD initiated ONS Oskar bid on 05/17/19 providing additional 24g PRO/d c arginine for wound healing. Pt BG in normal range which helps wound healing. Providing pt c Oskar coupon and instruction to continue bid for 2w. Note: do not take more than bid. Monitoring/Evaluations: wound healing
--- NOTE | 2019-05-22 10:30 | PT.IPTN ---
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) Osteonecrosis, unspecified (05/16/19) Surgery Performed Operation Date: 05/16/19 07:45 Actual Procedures p I&D partial bone excision and bone Biopsy calcaneus wound WITH application wound VAC(Right) - Ayde Neil MD Physical Therapy Treatment Note M2 PT-IP Current Condition Start: 05/16/19 16:14 Freq: NEEDED Status: Active Protocol: Document 05/16/19 16:23 AB (Rec: 05/16/19 17:23 AB [id number]) Physical Therapy Current Condition Current Condition Evaluation Date 05/16/19 Treatment Diagnosis s/p R partial excision of calcaneus; difficulty in walking Onset Date 05/16/19 Precautions Other Precautions RLE wound vac Weight Bearing Status Weight Bearing Status Non-Weight Bearing Allowed Weight Bearing Amount (enter % requires clarification but or #) (%) opted for NWB RLE for safety M3 PT-IP Subjective Start: 05/16/19 16:14 Freq: NEEDED Status: Active Protocol: Document 05/22/19 10:30 RS (Rec: 05/22/19 12:03 RS [id number]) Subjective Physical Therapy Visit Type Type Treatment Note Visit Start Time 09:30 Visit Stop Time 10:30 Total Visit Minutes 60 Number of MUSKRAT TRAPPER Visits 0 Physical Therapy Visit Comments Patient Comments Pt reports feet being sore but is otherwise doing ok and willing to participate in therapy session. Therapy Pain Assessment Pain When Pain Assessed At Rest Pain Present Pain Present Pain Reported M4 PT-IP Mobility and Gait Start: 05/16/19 16:14 Freq: NEEDED Status: Active Protocol: Document 05/22/19 10:30 RS (Rec: 05/22/19 12:03 RS [id number]) PT-Bed Mobility Assessment Supine to Sit Supine to Sit Standby Assistance Head of Bed Elevated Bedrails Sit to Supine Sit to Supine Standby Assistance Head of Bed Elevated Bedrails Scooting Scooting to Edge of Bed Standby Assistance PT-Transfer Assessment Sit to and From Stand Sit to and from Stand Moderate Assistance 1 Person Assistance Use of Upper Extremities Equipment Transfer Assistive Device Gait Belt Front Wheeled Walker Transfers Transfer Destination Chair Transfer Technique Mechanical Lift Transfer Ability Level of Assist Total Assistance 1 Person Assistance Comments Mobility Comments Pt able to get up to EOB (HOB elevated) with only SBA. Bed height elevated slightly to make standing easier. Once heavy verbal cues were provided pt actually able to perform sit>stand with only 1P min A and was able to maintain RLE NWB. Pt stood for approx 1 minute total before needing to sit down. While standing attempted lateral and A/P weight shifts, but pt unable to perform very well. On 2nd attempt pt needed mod A to stand up and was having more difficulty maintaining RLE NWB d/t RLE fatigue. Did attempt small alternating pivots on L heel/ball of foot. Pt needing demonstration and [id number] verbal cues to attempt, but pt had difficulty coordinating this movement while keeping RLE in the air. On 3rd attempt pt needed min A to stand up and was able to maintain static stance while keeping RLE in air but needed min A for balance while DORMITORY KEEPER peformed brief change. On final standing attempt a red theraband was looped behind pt 's R knee and attached to FWW to assist in keeping RLE NWB. With this in place pt was able to tolerate a longer standing duration. With therapist's left foot next to pt's L foot, assisted in reciprocal pivoting on heel and ball of foot, lateral scooting to the L. Pt needed ongoing verbal cues to continue maintaining RLE NWB and verbal cues for [id number] pivoting technique, min A to maintain balance and move FWW, and mod/ max A for the actual movement of the L foot. In total pt able to laterally scoot/pivot to the L approx 8 inches before needing to sit down. Mechanical lift was used to transfer pt to the chair. M5 PT-IP Objective Assessments Start: 05/16/19 16:14 Freq: NEEDED Status: Active Protocol: Document 05/16/19 16:23 AB (Rec: 05/16/19 17:23 AB [id number]) Orientation Orientation/Cognition Level of Alertness Alert Orientation Name Place Situation Safety Awareness Decreased Safety Awareness Gross Range of Motion Lower Extremity ROM Assessment Right Impaired Impairments R ankle with dressing/wrap Strength Lower Extremity Strength Assessment Bilaterally Impaired Comments Strength Comments LLE: 4-/5 RLE 3+/5 Coordination Assessment Gross Coordination Gross Coordination WNL Muscle Tone Muscle Tone WNL Yes M6 PT-IP Treatment Start: 05/16/19 16:14 Freq: NEEDED Status: Active Protocol: Document 05/21/19 16:13 AW (Rec: 05/21/19 16:33 AW [id number]) Physical Therapy Treatment Education Education Provided Weight Bearing Status Safety M7 PT-IP Assessment and Plan Start: 05/16/19 16:14 Freq: NEEDED Status: Active Protocol: Document 05/22/19 10:30 RS (Rec: 05/22/19 12:03 RS [id number]) PT Summary Assessment and Plan Potential Rehabilitation Potential Fair Summary Assessment Summary Pt's standing tolerance is such that he's not able to safely perform a standing transfer at this time. However , pt needs much less assist than yesterday and was able to start working towards a standing transfer again while maintaining RLE NWB. Discussed equipment options that would be required if pt went home, however, both son and pt are finally on board with the plan to d/c to SNF rehab. Pt does have potential for continued functional improvement and will benefit from ongoing acute and then subacute skilled therapies. Frequency of Treatment Frequency Of Treatment Twice a Day Recommendations To Nursing Amount of Assist Needed Mechanical Lift Discharge Recommendations PT Discharge Recommendations SNF Rehab
[2019-05-22 12:57] VITALS: BP 147/61; PULSE 59; RESP 16; TEMP 36.7; O2SAT 96
[2019-05-22] MEDS: VANCOMYCIN 1,500 MG/300 ML FROZ.PIGGY 200 MG IV (13:05)
--- NOTE | 2019-05-22 14:37 | PT.IPTN ---
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) Osteonecrosis, unspecified (05/16/19) Surgery Performed Operation Date: 05/16/19 07:45 Actual Procedures p I&D partial bone excision and bone Biopsy calcaneus wound WITH application wound VAC(Right) - Ayde Neil MD Physical Therapy Treatment Note M2 PT-IP Current Condition Start: 05/16/19 16:14 Freq: NEEDED Status: Active Protocol: Document 05/16/19 16:23 AB (Rec: 05/16/19 17:23 AB [id number]) Physical Therapy Current Condition Current Condition Evaluation Date 05/16/19 Treatment Diagnosis s/p R partial excision of calcaneus; difficulty in walking Onset Date 05/16/19 Precautions Other Precautions RLE wound vac Weight Bearing Status Weight Bearing Status Non-Weight Bearing Allowed Weight Bearing Amount (enter % requires clarification but or #) (%) opted for NWB RLE for safety M3 PT-IP Subjective Start: 05/16/19 16:14 Freq: NEEDED Status: Active Protocol: Document 05/22/19 14:34 CLB (Rec: 05/22/19 14:37 CLB [id number]) Subjective Physical Therapy Visit Type Type Patient Refusal Notes Pt refused therapy stating his foot is in pain since his morning PT session and he doesn't want to press the issue. Pt stated he was content to remain in the chair at this time.
--- NOTE | 2019-05-22 14:40 | CM.DPNOTE ---
Addendum entered by AUTUMN Chan 05/28/19 08:04: Late Entry, Reason for delayed DC: No visit from Wound Care Nurse this day, pt needing wound vac change at bedside, son requesting addtl. education about wound vac appliance JW Original Note: DCP Cont: Reviewed chart. Spoke w/son Derrick this morning, plan has changed, pt now requiring a fernando lift, he is unable to stand pivot at this time. Derrick explained that the wound vac change on Wednesday did not go well and pt was in excruciating pain . A wound vac change is expected today and pt will be pre-medicated for this. Derrick is mtg PT Char this morning in pt's room to see AM session. Discussed DCP; Derrick still committed to bringing pt home as soon as he becomes more functionally capable and can be assisted by 1-2 cgs. Pt understands the need for SNF today and requests [facility], he does not want to go out of town for care. Derrick requests this QA AUDITOR contact [facility] to discuss change in plans. Spoke w/Yeni at [facility] this morning, they can accommodate pt, wound vac is secured and IV Vanc is not a barrier to admission. Yeni will attempt to contact son Derrick to discuss his previously stated concerns re: staffing limitations. Updated [facility] re: above. Derrick will update [facility], Derrick will ask that they schedule one cg for 1:1 with pt while admitted at [facility]. Discussed DCP again w/Derrick; explained that pt is medically ready to leave the hospital once safe plan is in place, Derrick understands. Reviewed IMM w/ Derrick, he understands pt/family (DPOA) right to appeal. Verbal agreement obtained and documented on IMM. Derrick is agreeable to [facility] but he is concerned today that Samantha Durbin has not completed her eval yet today to assess the wound and vac, Derrick concerned because the IH appliance differs from the one used at [facility] (?) Also Derrick is advocating that a cath be placed, which he requested last week, SHARATH Veloz asking Dr Neil to address this today before DC to [facility]. Derrick also actively working on a cg to provide 1:1 through [facility]. P: DC likely Wednesday to [facility] via cabulance. Following closely. AUTUMN Chan
[2019-05-22 16:40] VITALS: BP 148/58; PULSE 55; RESP 18; TEMP 36.6; O2SAT 98
[2019-05-22 19:28] VITALS: BP 169/73; PULSE 58; RESP 16; TEMP 36.6; O2SAT 98
[2019-05-22] MEDS: ASPIRIN EC 81 MG TABLET PO (22:26)
[2019-05-22] MEDS: OXYBUTYNIN 5 MG TABLET PO (22:28)
--- NOTE | 2019-05-22 22:55 | PC.NURSE ---
Evening Shift Note Per Dr Neil wound vac to be changed today by director of student affairs. Confusion w/ director of student affairs weather MD or her to change wound vac today d/t bleeding complications w/ last change. This RN paged director of student affairs, director of student affairs able to changed wound vac tomorrow if MD wishes. MD paged for clarification and MD order for director of student affairs to change wound vac tomorrow.
[2019-05-23] MEDS: VANCOMYCIN 1,500 MG/300 ML FROZ.PIGGY 200 MG IV ×2 (00:13→13:12)
[2019-05-23] MEDS: SODIUM CHLORIDE 0.9% 1,000 ML 84 ML IV ×2 (00:21→13:12)
[2019-05-23 00:48] VITALS: BP 163/58; PULSE 54; RESP 19; TEMP 36.5; O2SAT 98
--- NOTE | 2019-05-23 05:28 | PC.NURSE ---
Pt is impulsive, tries to get OOB to use the bathroom frequently. He managed to take off his splint, clamp his wound vac and disconnect it from the machine. Wound Vac functioning properly and in place, very minimal drainage. Reports pain that is tolerable in the right heel. Hypertensive and asymptomatic
[2019-05-23 05:42] VITALS: BP 120/69; PULSE 53; RESP 17; TEMP 36.5; O2SAT 97
--- NOTE | 2019-05-23 07:35 | PC.NURSE ---
Wound vac: This ghost writer left a message with wound care center asking them to call so we can discuss plans re: changing the wound vac today. Evidently there was confusion yesterday about whether Dr Neil would change it herself, or whether she wanted the [facility] nurse to change it. Per report from abilio and noc shift RN's Dr Neil would like the rodbuster to change it.
[2019-05-23 07:40] VITALS: BP 181/79; PULSE 58; RESP 14; TEMP 36.3; O2SAT 99
[2019-05-23] MEDS: ACETAMINOPHEN 325 MG TABLET 975 MG PO ×2 (08:46→15:37)
[2019-05-23] MEDS: DOCUSATE 100 MG CAPSULE PO (08:47)
[2019-05-23] MEDS: ENOXAPARIN 40 MG/0.4 ML SYRINGE SUBCUT (08:47)
[2019-05-23] MEDS: CARBIDOPA-LEVODOPA 25/100 TABLET 1.5 EACH PO ×2 (08:47→15:36)
[2019-05-23] MEDS: FLUCONAZOLE 100 MG TABLET 400 MG PO (08:47)
[2019-05-23] MEDS: LORATADINE 10 MG TABLET PO (08:48)
[2019-05-23] MEDS: OXYCODONE IR 5 MG TABLET 2.5 MG PO (08:48)
[2019-05-23] MEDS: SERTRALINE 50 MG TABLET PO (08:48)
[2019-05-23] MEDS: TAMSULOSIN 0.4 MG CAPSULE PO (08:51)
[2019-05-23] MEDS: POLYETHYLENE GLYCOL 3350 17 GM POWD.PACK PO (08:52)
[2019-05-23] MEDS: HYDROMORPHONE 0.5 MG INJ IV (10:24)
--- NOTE | 2019-05-23 10:37 | PM.DS.1 ---
History of Present Illness Date Patient Seen: 05/23/19 Time Patient Seen: 10:37 Chief complaint: [id number] *OPB* Narrative: Hospital day 8, postop day 7 following right heel ulcer I and D and partial calcaneal excision by Dr. Neil. He has had wound VAC in place to his right heel since surgery. Patient was initially planned to go home with home health and wound clinic to follow him. Patient is requiring Reshma lift for transfers. Limited weight-bearing on his right leg. Patient is now plan to go to [facility] for ongoing treatment. He did have urine incontinence problems and unable to use a urinal fast enough. Saini catheter was placed during the night. Patient is to have his wound VAC changed by the wound clinic today. Discharge Providers Date of admission: 05/16/19 06:01 Discharge Date: 05/23/19 Primary care physician: Brooks Alonso MD Consults: 05/12/19 11:12 Consult to Respiratory Therapy Evaluate & Treat Comment: OPD 05/16/19 @ 0745-BALJEET, unknown if uses CPAP Physician Instructions: Evaluate and treat 05/16/19 10:27 Consult to Discharge Planning Routine Comment: Consult to Physical Therapy Evaluate & Treat Comment: Physician Instructions: Evaluate and Treat Consult to Respiratory Therapy Evaluate & Treat Comment: Physician Instructions: Evaluate and treat Consult to Wound Care Routine Comment: Consulting Provider: [facility] 05/16/19 11:39 Consult to [employer] Routine Comment: 05/20/19 09:14 Consult to Dietitian, Adult Routine Comment: Reason For Exam: add protein shake? for low albumin-wound healing Discharge provider: Elpidio Woodall PA-C Summary Discharge Diagnosis: Status post right heel ulcer I and D with partial calcaneal excision and wound VAC. Hospital Course: Patient brought to hospital on 05/16/2019 for above noted surgery by Dr. Neil. He has remained stable postoperatively. He will appears to be healing. Patient did also have yeast present and his culture and was started on Diflucan. He has been receiving vancomycin daily through PICC line. He remains 2 person assist in needing Reshma lift for transfers. Limited weight-bearing on the right leg. He has had urine incontinence in to brief and Saini catheter was started last night. He is to be discharged to [facility] today of stable. Status at Discharge Cognitive/behavioral status at discharge: oriented Functional status at discharge: wheelchair bound Time Spent with Patient Less than 30 minutes Exam Vital Signs (past 8 hours): - 05/23/19 05:42 05/23/19 07:40 Temperature 97.7 F 97.4 F L Pulse Rate 53 L 58 L Respiratory Rate 17 14 Blood Pressure 120/69 181/79 H Pulse Oximetry 97 99 Fraction of Inspired Oxygen 21 Oxygen Delivery Method Room Air Oxygen Flow Rate 0 Narrative Exam Narrative: Alert, oriented no acute distress resting in bed. Right leg. Wound VAC in place. Heel appears good color without signs of infection or inflammation. Good pulses and sensation of foot. Objective Labs Result Diagrams: 05/17/19 05:45 05/18/19 08:30 Discharge Plan Discharge Plan Patient Disposition: SNF Transfer to: [facility] Under care of provider: Facility MD or PCP Transportation: Facility vehicle Discharge comment: Vancomycin 1500 mg and 300 mL at 200 mL/hour IV q.12h x6 weeks postop. I certify the postop hospital correction care is medically necessary on a continuing basis for any conditions for which he/ she received care during this hospitalization.: Yes The receiving facility has agreed to accept transfer and provide medical treatment.: Yes Discharge Med Rec/Prescriptions Prescriptions: New fluconazole [Diflucan] 100 mg Tablet 400 mg PO DAILY 42 Days RF: 0 oxycodone 5 mg Tablet 2.5 mg PO Q4-6H PRN (Reason: Pain, Moderate (4-6)) Qty: 40 RF: 0 aspirin 81 mg tablet,delayed release (DR/EC) 81 mg PO BID Qty: 60 RF: 0 Continued cetirizine 10 mg tablet 10 mg PO DAILY RF: 0 acetaminophen [Tylenol 8 Hour] 650 mg Tablet Extended Release 650 mg PO Q8H PRN (Reason: pain) RF: 0 tamsulosin 0.4 mg capsule 0.4 mg PO BID RF: 0 carbidopa-levodopa 25-100 mg tablet 1.5 tab PO TID RF: 0 oxybutynin chloride 5 mg tablet 5 mg PO QPM RF: 0 sertraline 50 mg tablet 50 mg PO DAILY RF: 0 Discontinued aspirin 81 mg Tablet,Delayed Release (Dr/Ec) 81 mg PO QPM RF: 0 Follow up/Referrals: Ayde Neil MD [Physician] - Brooks Alonso MD [Primary Care Provider] - Discharge Health Status Brief summary of current health status: Patient had diabetic ulcer to right heel. Brought to hospital for I and D of ulcer and partial calcaneal excision. Cultures noted Enterococcus/staph epidermidis, diphtheroids and yeast. He has wound VAC to his right heel. Wound VAC is to be followed by Wound Clinic. Multidrug resistant organism: No MDRO MDRO Verified by culture: Yes Precautions: Contact Provider Discharge Instructions Diet: Diet as Tolerated Liquid consistency: Normal/Thin Food texture: Regular Activity: Float right heel while in bed. Toe-touch weight-bearing to right leg. Catheter: 2-way Saini Other treatments: Please follow up outpatient with [facility] in 2 weeks and with Vascular physician at [facility] Will need weekly CBC w/ diff, CMP, ESR, CRP Discharge Rx: Vancomycin IV Q12hrs Skin/Wound/Dressing Care Skin care: Wound Clinic to manage his wound VAC. Report to your healthcare provider any signs of infection, such as:: chills, fever, night sweats, increased pain, unusual drainage and unusual redness Dressing: Wound VAC to right heel will be managed by Wound Clinic. Special Rehabilitation Services Reason for rehabilitation: Post-operative therapy Rehab type: Physical therapy and Occupational therapy Restrictions to mobility: Toe touch weight-bearing right leg. Visit Report/Discharge Packet Instructions: How to Prevent Falls, DI for Postoperative Pain, DI for Incision and Drainage, [facility]: Wound Care Visit Report Forms: Stroke Signs & Symptoms Discharge Data Primary Care Provider: Brooks Alonso Attending Provider: Ayde Niel Admit Date/Time: 05/16/19 06:01 Quality VTE Deep Vein Thrombosis/Pulmonary Embolism Present on Admission: No
--- NOTE | 2019-05-23 10:42 | P.DS_ITS ---
History of Present Illness Date Patient Seen: 05/23/19 Time Patient Seen: 10:37 Chief complaint: [id number] *OPB* Narrative: Hospital day 8, postop day 7 following right heel ulcer I and D and partial calcaneal excision by Dr. Neil. He has had wound VAC in place to his right heel since surgery. Patient was initially planned to go home with home health and wound clinic to follow him. Patient is requiring Reshma lift for transfers. Limited weight-bearing on his right leg. Patient is now plan to go to [facility] for ongoing treatment. He did have urine incontinence problems and unable to use a urinal fast enough. Saini catheter was placed during the night. Patient is to have his wound VAC changed by the wound clinic today. Discharge Providers Date of admission: 05/16/19 06:01 Discharge Date: 05/23/19 Primary care physician: Brooks Alonso MD Consults: 05/12/19 11:12 Consult to Respiratory Therapy Evaluate & Treat Comment: OPD 05/16/19 @ 0745-BALJEET, unknown if uses CPAP Physician Instructions: Evaluate and treat 05/16/19 10:27 Consult to Discharge Planning Routine Comment: Consult to Physical Therapy Evaluate & Treat Comment: Physician Instructions: Evaluate and Treat Consult to Respiratory Therapy Evaluate & Treat Comment: Physician Instructions: Evaluate and treat Consult to Wound Care Routine Comment: Consulting Provider: [facility] 05/16/19 11:39 Consult to Flask Handler Routine Comment: 05/20/19 09:14 Consult to Dietitian, Adult Routine Comment: Reason For Exam: add protein shake? for low albumin-wound healing Discharge provider: Elpidio Woodall PA-C Summary Discharge Diagnosis: Status post right heel ulcer I and D with partial calcaneal excision and wound VAC. Hospital Course: Patient brought to hospital on 05/16/2019 for above noted surgery by Dr. Neil. He has remained stable postoperatively. He will letty ears to be healing. Patient did also have yeast present and his culture and was started on Diflucan. He has been receiving vancomycin daily through PICC line. He remains 2 person assist in needing Reshma lift for transfers. Limited weight- bearing on the right leg. He has had urine incontinence in to brief and Saini catheter was started last night. He is to be discharged to [facility] today of stable. Status at Discharge Cognitive/behavioral status at discharge: oriented Functional status at discharge: wheelchair bound Time Spent with Patient Less than 30 minutes Exam Vital Signs (past 8 hours): - 05/23/19 05:42 05/23/19 07:40 Temperature 97.7 F 97.4 F L Pulse Rate 53 L 58 L Respiratory Rate 17 14 Blood Pressure 120/69 181/79 H Pulse Oximetry 97 99 Fraction of Inspired Oxygen 21 Oxygen Delivery Method Room Air Oxygen Flow Rate 0 Narrative Exam Narrative: Alert, oriented no acute distress resting in bed. Right leg. Wound VAC in place. Heel appears good color without signs of infection or inflammation. Good pulses and sensation of foot. Objective Labs Result Diagrams: 05/17/19 05:45 05/18/19 08:30 Discharge Plan Discharge Plan Patient Disposition: SNF Transfer to: [facility] Under care of provider: Facility MD or PCP Transportation: Facility vehicle Discharge comment: Vancomycin 1500 mg and 300 mL at 200 mL/hour IV q.12h x6 weeks postop. I certify the postop hospital long-term care is medically necessary on a continuing basis for any conditions for which he/ she received care during this hospitalization.: Yes The receiving facility has agreed to accept transfer and provide medical treatment.: Yes Discharge Med Rec/Prescriptions Prescriptions: New fluconazole [Diflucan] 100 mg Tablet 400 mg PO DAILY 42 Days RF: 0 oxycodone 5 mg Tablet 2.5 mg PO Q4-6H PRN (Reason: Pain, Moderate (4-6)) Qty: 40 RF: 0 aspirin 81 mg tablet,delayed release (DR/EC) 81 mg PO BID Qty: 60 RF: 0 Continued cetirizine 10 mg tablet 10 mg PO DAILY RF: 0 acetaminophen [Tylenol 8 Hour] 650 mg Tablet Extended Release 650 mg PO Q8H PRN (Reason: pain) RF: 0 tamsulosin 0.4 mg capsule 0.4 mg PO BID RF: 0 carbidopa-levodopa 25-100 mg tablet 1.5 tab PO TID RF: 0 oxybutynin chloride 5 mg tablet 5 mg PO QPM RF: 0 sertraline 50 mg tablet 50 mg PO DAILY RF: 0 Discontinued aspirin 81 mg Tablet,Delayed Release (Dr/Ec) 81 mg PO QPM RF: 0 Follow up/Referrals: Ayde Neil MD [Physician] - Brooks Alonso MD [Primary Care Provider] - Discharge Health Status Brief summary of current health status: Patient had diabetic ulcer to right heel. Brought to hospital for I and D of ulcer and partial calcaneal excision. Cultures noted Enterococcus/staph epidermidis, diphtheroids and yeast. He has wound VAC to his right heel. Wound VAC is to be followed by Wound Clinic. Multidrug resistant organism: No MDRO MDRO Verified by culture: Yes Precautions: Contact Provider Discharge Instructions Diet: Diet as Tolerated Liquid consistency: Normal/Thin Food texture: Regular Activity: Float right heel while in bed. Toe-touch weight-bearing to right leg. Catheter: 2-way Saini Other treatments: Please follow up outpatient with [facility] in 2 weeks and with Vascular physician at [facility] Will need weekly CBC w/ diff, CMP, ESR, CRP Discharge Rx: Vancomycin IV Q12hrs Skin/Wound/Dressing Care Skin care: Wound Clinic to manage his wound VAC. Report to your healthcare provider any signs of infection, such as:: chills, fever, night sweats, increased pain, unusual drainage and unusual redness Dressing: Wound VAC to right heel will be managed by Wound Clinic. Special Rehabilitation Services Reason for rehabilitation: Post-operative therapy Rehab type: Physical therapy and Occupational therapy Restrictions to mobility: Toe touch weight-bearing right leg. Visit Report/Discharge Packet Instructions: How to Prevent Falls, DI for Postoperative Pain, DI for Incision and Drainage, [facility]: Wound Care Visit Report Forms: Stroke Signs & Symptoms Discharge Data Primary Care Provider: Brooks Alonso Attending Provider: Ayde Neil Admit Date/Time: 05/16/19 06:01 Quality VTE Deep Vein Thrombosis/Pulmonary Embolism Present on Admission: No
[2019-05-23] MEDS: BISACODYL 10 MG SUPP PR (11:42)
[2019-05-23 11:45] VITALS: BP 176/74; PULSE 54; RESP 14; TEMP 36.9; O2SAT 97
--- NOTE | 2019-05-23 12:45 | PT.IPTN ---
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) Osteonecrosis, unspecified (05/16/19) Surgery Performed Operation Date: 05/16/19 07:45 Actual Procedures p I&D partial bone excision and bone Biopsy calcaneus wound WITH application wound VAC(Right) - Ayde Neil MD Physical Therapy Treatment Note M2 PT-IP Current Condition Start: 05/16/19 16:14 Freq: NEEDED Status: Active Protocol: Document 05/16/19 16:23 AB (Rec: 05/16/19 17:23 AB [id number]) Physical Therapy Current Condition Current Condition Evaluation Date 05/16/19 Treatment Diagnosis s/p R partial excision of calcaneus; difficulty in walking Onset Date 05/16/19 Precautions Other Precautions RLE wound vac Weight Bearing Status Weight Bearing Status Non-Weight Bearing Allowed Weight Bearing Amount (enter % requires clarification but or #) (%) opted for NWB RLE for safety M3 PT-IP Subjective Start: 05/16/19 16:14 Freq: NEEDED Status: Active Protocol: Document 05/23/19 12:44 AB (Rec: 05/23/19 12:45 AB [id number]) Subjective Physical Therapy Visit Type Notes checked on pt but pt is not ready for PT. pt was going to have a wound vac change. M4 PT-IP Mobility and Gait Start: 05/16/19 16:14 Freq: NEEDED Status: Active Protocol: Document 05/22/19 10:30 RS (Rec: 05/22/19 12:03 RS [id number]) PT-Bed Mobility Assessment Supine to Sit Supine to Sit Standby Assistance Head of Bed Elevated Bedrails Sit to Supine Sit to Supine Standby Assistance Head of Bed Elevated Bedrails Scooting Scooting to Edge of Bed Standby Assistance PT-Transfer Assessment Sit to and From Stand Sit to and from Stand Moderate Assistance 1 Person Assistance Use of Upper Extremities Equipment Transfer Assistive Device Gait Belt Front Wheeled Walker Transfers Transfer Destination Chair Transfer Technique Mechanical Lift Transfer Ability Level of Assist Total Assistance 1 Person Assistance Comments Mobility Comments Pt able to get up to EOB (HOB elevated) with only SBA. Bed height elevated slightly to make standing easier. Once heavy verbal cues were provided pt actually able to perform sit>stand with only 1P min A and was able to maintain RLE NWB. Pt stood for approx 1 minute total before needing to sit down. While standing attempted lateral and A/P weight shifts, but pt unable to perform very well. On 2nd attempt pt needed mod A to stand up and was having more difficulty maintaining RLE NWB d/t RLE fatigue. Did attempt small alternating pivots on L heel/ball of foot. Pt needing demonstration and [id number] verbal cues to attempt, but pt had difficulty coordinating this movement while keeping RLE in the air. On 3rd attempt pt needed min A to stand up and was able to maintain static stance while keeping RLE in air but needed min A for balance while [employer] peformed brief change. On final standing attempt a red theraband was looped behind pt 's R knee and attached to FWW to assist in keeping RLE NWB. With this in place pt was able to tolerate a longer standing duration. With therapist's left foot next to pt's L foot, assisted in reciprocal pivoting on heel and ball of foot, lateral scooting to the L. Pt needed ongoing verbal cues to continue maintaining RLE NWB and verbal cues for [id number] pivoting technique, min A to maintain balance and move FWW, and mod/ max A for the actual movement of the L foot. In total pt able to laterally scoot/pivot to the L approx 8 inches before needing to sit down. Mechanical lift was used to transfer pt to the chair. M5 PT-IP Objective Assessments Start: 05/16/19 16:14 Freq: NEEDED Status: Active Protocol: Document 05/16/19 16:23 AB (Rec: 05/16/19 17:23 AB [id number]) Orientation Orientation/Cognition Level of Alertness Alert Orientation Name Place Situation Safety Awareness Decreased Safety Awareness Gross Range of Motion Lower Extremity ROM Assessment Right Impaired Impairments R ankle with dressing/wrap Strength Lower Extremity Strength Assessment Bilaterally Impaired Comments Strength Comments LLE: 4-/5 RLE 3+/5 Coordination Assessment Gross Coordination Gross Coordination WNL Muscle Tone Muscle Tone WNL Yes M6 PT-IP Treatment Start: 05/16/19 16:14 Freq: NEEDED Status: Active Protocol: Document 05/21/19 16:13 AW (Rec: 05/21/19 16:33 AW [id number]) Physical Therapy Treatment Education Education Provided Weight Bearing Status Safety M7 PT-IP Assessment and Plan Start: 05/16/19 16:14 Freq: NEEDED Status: Active Protocol: Document 05/22/19 10:30 RS (Rec: 05/22/19 12:03 RS [id number]) PT Summary Assessment and Plan Potential Rehabilitation Potential Fair Summary Assessment Summary Pt's standing tolerance is such that he's not able to safely perform a standing transfer at this time. However , pt needs much less assist than yesterday and was able to start working towards a standing transfer again while maintaining RLE NWB. Discussed equipment options that would be required if pt went home, however, both son and pt are finally on board with the plan to d/c to SNF rehab. Pt does have potential for continued functional improvement and will benefit from ongoing acute and then subacute skilled therapies. Frequency of Treatment Frequency Of Treatment Twice a Day Recommendations To Nursing Amount of Assist Needed Mechanical Lift Discharge Recommendations PT Discharge Recommendations SNF Rehab
[2019-05-23 12:58] LABS: Estimated Glomerular Filt Rate > 60.0 mL/min (>60)
--- NOTE | 2019-05-23 13:48 | CM.DPC ---
DCP/continued: Reviewed chart. Received notification from Ortho/team that patient would be medically stable for discharge today. Samantha from wound care taking wound vac off today and it is expected to be put back on once patient discharged to [facility]. Placed call to Yeni at [facility] and she confirms that they can accept and that they do have wound vac. Patient also requiring IV abx. Orders obtained and faxed to [facility] which included PASRR, copy of scripts, and signed medication list. Met with patient and son/Derrick both aware and agreeable to plan. Son reports that he has spoken with [facility] and feels comfortable with his Dad going there. RN reports patient has not had BM for 6dys. picking crew supervisor scheduled for 4:00pm. Attending provider, [facility] and son requesting that patient has BM prior to discharge. P: [facility] today. picking crew supervisor scheduled for 4:00PM. RN working with patient on BM. If for some reason patient unsuccessful d/c to be cancelled. Important message from medicare signed by son. AUTUMN Crandall
--- NOTE | 2019-05-23 13:49 | PC.NURSE ---
Wound Care Nurse Consult Note Guillermo will now be going to [facility] and not home. Since he will be going to [facility] I removed the wound vac. [facility] will use a Medella Negative Pressure Wound Vac and I will not order a KCI Negative Pressure Wound Vac. We will follow Mr. Meza at the [facility]. Dr. Theodore and I suggest that he continue with Negative Pressure Wound Vac therapy. We also suggest that there be adaptic against the exposed bone in the wound so that the wound vac sponge doesn't stick to the bone. After I removed the KCI wound vac, I cleaned the wound with Normal Saline, the filled with wound with a 4x4 moist with Normal Saline, then gauze and Kerlix. His Right Heel PI/Surgical wound measures 5.0x 5.5x 0.7. Bone is exposed. There is some slough and granulation tissue. The per-wound edge was slightly macerated. Dr. Theodore was notified of the wound progression and the Care Plan for Mr. Meza. Mr. Meza's son Guillermo was in the room with me during the dressing change and understands and is in agreement with the Care Plan. Mr. Meza has his right heel is off-loaded with a Heel Keeper. We will see Mr. Meza on Wednesday at the [facility].
--- NOTE | 2019-05-23 14:30 | PT.IPTN ---
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) Osteonecrosis, unspecified (05/16/19) Surgery Performed Operation Date: 05/16/19 07:45 Actual Procedures p I&D partial bone excision and bone Biopsy calcaneus wound WITH application wound VAC(Right) - Ayde Neil MD Physical Therapy Treatment Note M2 PT-IP Current Condition Start: 05/16/19 16:14 Freq: NEEDED Status: Discharge Protocol: Document 05/16/19 16:23 AB (Rec: 05/16/19 17:23 AB [id number]) Physical Therapy Current Condition Current Condition Evaluation Date 05/16/19 Treatment Diagnosis s/p R partial excision of calcaneus; difficulty in walking Onset Date 05/16/19 Precautions Other Precautions RLE wound vac Weight Bearing Status Weight Bearing Status Non-Weight Bearing Allowed Weight Bearing Amount (enter % requires clarification but or #) (%) opted for NWB RLE for safety M3 PT-IP Subjective Start: 05/16/19 16:14 Freq: NEEDED Status: Discharge Protocol: Document 05/23/19 14:38 AB (Rec: 05/23/19 17:24 AB [id number]) Subjective Physical Therapy Visit Type Type Treatment Note Visit Start Time 14:30 Visit Stop Time 14:40 Total Visit Minutes 10 Number of RESTORATIVE AIDE Visits 0 Physical Therapy Visit Comments Patient Comments pt requested to use the commode M4 PT-IP Mobility and Gait Start: 05/16/19 16:14 Freq: NEEDED Status: Discharge Protocol: Document 05/23/19 14:38 AB (Rec: 05/23/19 17:24 AB [id number]) PT-Bed Mobility Assessment Supine to Sit Supine to Sit Moderate Assistance Head of Bed Elevated Bedrails PT-Transfer Assessment Sit to and From Stand Sit to and from Stand Maximum Assistance 1 Person Assistance 2 Person Assistance Use of Upper Extremities Equipment Transfer Assistive Device Gait Belt Front Wheeled Walker Orthotic/Prosthetic Devices or Brace: No Transfers Transfer Destination Bedside Commode Transfer Technique Stand Step Pivot Transfer Ability Level of Assist Maximum Assistance 2 Person Assistance Use of Upper Extremities Comments Mobility Comments pt completed sit to stand max A x 1-2 and max cues. completed stand pivot transfer using FWW max A x 2 and max cues. pt unable to maintain NWB on RLE. pt required max A x 1-2 for controlled descent to the commode. left pt with nurse to assist. M5 PT-IP Objective Assessments Start: 05/16/19 16:14 Freq: NEEDED Status: Discharge Protocol: Document 05/16/19 16:23 AB (Rec: 05/16/19 17:23 AB [id number]) Orientation Orientation/Cognition Level of Alertness Alert Orientation Name Place Situation Safety Awareness Decreased Safety Awareness Gross Range of Motion Lower Extremity ROM Assessment Right Impaired Impairments R ankle with dressing/wrap Strength Lower Extremity Strength Assessment Bilaterally Impaired Comments Strength Comments LLE: 4-/5 RLE 3+/5 Coordination Assessment Gross Coordination Gross Coordination WNL Muscle Tone Muscle Tone WNL Yes M6 PT-IP Treatment Start: 05/16/19 16:14 Freq: NEEDED Status: Discharge Protocol: Document 05/23/19 14:38 AB (Rec: 05/23/19 17:24 AB [id number]) Physical Therapy Treatment Education Education Provided Weight Bearing Status Safety M7 PT-IP Assessment and Plan Start: 05/16/19 16:14 Freq: NEEDED Status: Discharge Protocol: Document 05/23/19 14:38 AB (Rec: 05/23/19 17:24 AB [id number]) PT Summary Assessment and Plan Potential Rehabilitation Potential Fair Summary Impairments Pain ROM Strength Balance Coordination Sensation Tone Cognition Bed Mobility Transfers Gait Activity Tolerance Progress Towards Goals Slow Progress due to Medical Issues Slow Progress due to Activity Tolerance Assessment Summary pt requiring max A x 2 for mobility and unable to maintain NWB on RLE. pt will require SNF rehab to improve strength and function. Goals Bed Mobility Goal Standby Assistance Transfer Goal Minimal Assistance Front Wheeled Walker Days to Meet Goals 10 Frequency of Treatment Frequency Of Treatment Twice a Day Treatment Plan Physical Therapy Treatment Plan Bed Mobility Training Transfer Training Gait Training Therapeutic Exercise Balance Retraining Post Op Education Discharge Planning Hot or Cold Pack Other Recommendations and Next Treatment May attempt to teach sliding Focus board transfer if patient is able to follow directions for scooting. Recommendations To Nursing Amount of Assist Needed Mechanical Lift Discharge Recommendations PT Discharge Recommendations SNF Rehab
--- NOTE | 2019-05-23 16:01 | PC.NURSE ---
Transfer to SNF (planned for 1600)- PICC line left in place at discharge. R foot wrapped with gauze dressing which is C/D/I. Patient had very large, formed BM approx 1400 today. Saini cath. to remain in place at transfer. This insurance underwriter sales called report to Mary at [facility] (emphasized that patient needs to get his Sinemet doses as close to the scheduled times as possible). Transfer packet given to [facility] staff (including script for Oxycodone). Reshma lifted to wheelchair and taken out by [facility] transport staff.
== END 2019-05-23 16:13 | DRG 464 ==
LOC: OR 06:08 → AC 06:20
PROVIDERS: Admitting Provider Orthopaedic Surgery Foot and Ankle Surgery; PCP Family Medicine; Visit Provider Orthopaedic Surgery Foot and Ankle Surgery
PROC: 0QBL0ZZ Excision of Right Tarsal, Open Approach (ICD-10-PCS; principal; 2019-05-16 07:45)
DX: M86.8X7 Other osteomyelitis, ankle and foot (principal); L97.414 Non-pressure chronic ulcer of right heel and midfoot with necrosis of bone; B37.89 Other sites of candidiasis; M87.874 Other osteonecrosis, right foot; R32 Unspecified urinary incontinence; G20 Parkinson's disease; B95.2 Enterococcus as the cause of diseases classified elsewhere; B95.8 Unspecified staphylococcus as the cause of diseases classified elsewhere; B96.89 Other specified bacterial agents as the cause of diseases classified elsewhere
CPT/HCPCS: 36415; 36569; 36592; 80048; 80053; 80076; 80202; 81001; 82565; 84134; 85025; 85027; 85651; 86140; 87040; 87070; 87075; 87077; 87102; 87176; 87185; 87186; 87205; 93926; 94760; 94762; 97162; 97530; J0690; J1100; J1170; J1650; J2405; J2704; J3010

== ENCOUNTER → 2019-05-25 13:19 | Outpatient (ROUT) | payer SELFPAY ==
[2019-05-16 11:33] VITALS: BMI 28.3
[2019-05-25 13:41] LABS: Vancomycin Peak 28.5 ug/mL (20-40)
== END ==
PROVIDERS: PCP Family Medicine; Visit Provider Internal Medicine
DX: T36.8X1A Poisoning by other systemic antibiotics, accidental (unintentional), initial encounter (principal)
CPT/HCPCS: 80202

== ENCOUNTER → 2019-05-26 09:51 | Outpatient (CLI) | payer MEDICARE, OTHER, SELFPAY ==
[2019-05-16 11:33] VITALS: BMI 28.3
== END ==
PROVIDERS: PCP Family Medicine; Visit Provider Family Medicine
DX: L89.614 Pressure ulcer of right heel, stage 4 (principal); M87.274 Osteonecrosis due to previous trauma, right foot; M86.171 Other acute osteomyelitis, right ankle and foot; R41.9 Unspecified symptoms and signs involving cognitive functions and awareness; G20 Parkinson's disease; M79.671 Pain in right foot
CPT/HCPCS: 11043; 11046; 97605

== ENCOUNTER → 2019-05-31 11:47 | Outpatient (CLI) | payer MEDICARE, OTHER, SELFPAY ==
[2019-05-16 11:33] VITALS: BMI 28.3
== END ==
PROVIDERS: PCP Family Medicine; Visit Provider Internal Medicine
DX: M86.00 Acute hematogenous osteomyelitis, unspecified site (principal); L89.614 Pressure ulcer of right heel, stage 4; M87.274 Osteonecrosis due to previous trauma, right foot; M86.171 Other acute osteomyelitis, right ankle and foot; G20 Parkinson's disease; R41.9 Unspecified symptoms and signs involving cognitive functions and awareness
CPT/HCPCS: 11043; 11046; 80202; 97605

== ENCOUNTER → 2019-05-31 14:00 | Outpatient (CLI) | payer MEDICARE, OTHER, SELFPAY ==
[2019-05-16 11:33] VITALS: BMI 28.3
== END ==
PROVIDERS: Family Provider Family Medicine; PCP Family Medicine; Visit Provider Family Medicine
DX: L89.614 Pressure ulcer of right heel, stage 4 (principal); M87.274 Osteonecrosis due to previous trauma, right foot; M86.171 Other acute osteomyelitis, right ankle and foot; G20 Parkinson's disease; R41.9 Unspecified symptoms and signs involving cognitive functions and awareness
CPT/HCPCS: 11043; 11046; 97605

== ENCOUNTER → 2019-06-06 15:17 | Outpatient (ROUT) | payer SELFPAY ==
[2019-05-16 11:33] VITALS: BMI 28.3
[2019-06-06 16:06] LABS: Vancomycin Trough 13.6 ug/mL (10-20)
== END ==
PROVIDERS: PCP Family Medicine; Visit Provider Nurse Practitioner Family
DX: L97.419 Non-pressure chronic ulcer of right heel and midfoot with unspecified severity (principal)
CPT/HCPCS: 80202

== ENCOUNTER → 2019-06-07 14:01 | Outpatient (CLI) | payer MEDICARE, OTHER, SELFPAY ==
[2019-05-16 11:33] VITALS: BMI 28.3
== END ==
PROVIDERS: PCP Family Medicine; Visit Provider Family Medicine
DX: L89.614 Pressure ulcer of right heel, stage 4 (principal); M87.274 Osteonecrosis due to previous trauma, right foot; G20 Parkinson's disease; R41.9 Unspecified symptoms and signs involving cognitive functions and awareness; I73.9 Peripheral vascular disease, unspecified; M86.9 Osteomyelitis, unspecified
CPT/HCPCS: 11042; 11045

== ENCOUNTER → 2019-06-13 23:10 | Outpatient (ROUT) | payer SELFPAY ==
[2019-05-16 11:33] VITALS: BMI 28.3
[2019-06-13 23:54] LABS: Vancomycin Trough 15.9 ug/mL (10-20)
== END ==
PROVIDERS: PCP Family Medicine; Visit Provider Internal Medicine
DX: Z51.81 Encounter for therapeutic drug level monitoring (principal)
CPT/HCPCS: 80202

== ENCOUNTER → 2019-06-14 14:35 | Outpatient (CLI) | payer MEDICARE, OTHER, SELFPAY ==
[2019-05-16 11:33] VITALS: BMI 28.3
== END ==
PROVIDERS: PCP Family Medicine; Visit Provider Family Medicine
DX: L89.614 Pressure ulcer of right heel, stage 4 (principal); M87.274 Osteonecrosis due to previous trauma, right foot; M86.171 Other acute osteomyelitis, right ankle and foot; G20 Parkinson's disease; R41.9 Unspecified symptoms and signs involving cognitive functions and awareness; I73.9 Peripheral vascular disease, unspecified
CPT/HCPCS: 11043; 97605

== ENCOUNTER → 2019-06-21 14:54 | Outpatient (CLI) | payer MEDICARE, OTHER, SELFPAY ==
[2019-05-16 11:33] VITALS: BMI 28.3
== END ==
PROVIDERS: PCP Family Medicine; Visit Provider Family Medicine
DX: L89.614 Pressure ulcer of right heel, stage 4 (principal); M87.274 Osteonecrosis due to previous trauma, right foot; M86.171 Other acute osteomyelitis, right ankle and foot; G20 Parkinson's disease; R41.9 Unspecified symptoms and signs involving cognitive functions and awareness; I73.9 Peripheral vascular disease, unspecified
CPT/HCPCS: 11042; 11045; 97605

== ENCOUNTER → 2019-06-22 08:46 | Outpatient (ROUT) | payer SELFPAY ==
[2019-05-16 11:33] VITALS: BMI 28.3
[2019-06-22 09:02] LABS: Vancomycin Trough 11.7 ug/mL (10-20)
== END ==
PROVIDERS: PCP Family Medicine; Visit Provider Internal Medicine
DX: L89.610 Pressure ulcer of right heel, unstageable (principal); E78.5 Hyperlipidemia, unspecified
CPT/HCPCS: 80202; 81001

== ENCOUNTER → 2019-06-28 10:08 | Outpatient (ROUT) | payer SELFPAY ==
[2019-05-16 11:33] VITALS: BMI 28.3
[2019-06-28 10:29] LABS: Vancomycin Trough 14.1 ug/mL (10-20)
== END ==
PROVIDERS: PCP Family Medicine; Visit Provider Internal Medicine
DX: E78.5 Hyperlipidemia, unspecified (principal); L89.610 Pressure ulcer of right heel, unstageable; G20 Parkinson's disease
CPT/HCPCS: 80202

== ENCOUNTER → 2019-06-28 14:31 | Outpatient (CLI) | payer MEDICARE, OTHER, SELFPAY ==
[2019-05-16 11:33] VITALS: BMI 28.3
== END ==
PROVIDERS: PCP Family Medicine; Visit Provider Family Medicine
DX: M86.171 Other acute osteomyelitis, right ankle and foot (principal); L89.614 Pressure ulcer of right heel, stage 4; M87.274 Osteonecrosis due to previous trauma, right foot; G20 Parkinson's disease; R41.9 Unspecified symptoms and signs involving cognitive functions and awareness; I73.9 Peripheral vascular disease, unspecified
CPT/HCPCS: 99213

== ENCOUNTER → 2019-07-03 09:31 | Outpatient (ROUT) | payer SELFPAY ==
[2019-05-16 11:33] VITALS: BMI 28.3
== END ==
PROVIDERS: PCP Family Medicine; Visit Provider Internal Medicine
DX: E78.5 Hyperlipidemia, unspecified (principal); G20 Parkinson's disease
CPT/HCPCS: 80202

== ENCOUNTER → 2019-07-06 12:12 | Outpatient (ROUT) | payer SELFPAY ==
[2019-05-16 11:33] VITALS: BMI 28.3
[2019-07-06 12:23] LABS: Blood Urea Nitrogen 20 mg/dL (9-20); Calcium 9.2 mg/dL (8.4-10.2); Carbon Dioxide 25 mmol/L (22-32); Chloride 104 mmol/L (98-107); Estimated Glomerular Filt Rate > 60.0 mL/min (>60); Glucose 147 mg/dL (80-110); HEMOLYSIS < 15 (0-50); Potassium 3.6 mmol/L (3.4-5.1); Sodium 141 mmol/L (137-145)
[2019-07-06 12:28] LABS: Vancomycin Trough 18.1 ug/mL (10-20)
[2019-07-06 12:33] LABS: Add Manual Diff / Slide Review NO; Basophils Absolute Auto 100 /uL (0-100); Basophils Percent Auto 0.6 % (0-2); Eosinophils Absolute Auto 500 /uL (0-450); Eosinophils Percent Auto 5.4 % (2-4); Hematocrit 32.7 % (41-53); Hemoglobin 10.6 g/dL (13.5-17.5); Lymphocytes Absolute Auto 2000 /uL (1100-4500); Mean Corpuscular HGB Conc 32.5 % (30-36); Mean Corpuscular Hemoglobin 30.6 PG (26-34); Mean Corpuscular Volume 94.2 fL (80-100); Monocytes Absolute Auto 1400 /uL (0-900); Monocytes Percent Auto 14.5 % (3-14); Neutrophils Absolute Auto 5600 /uL (1500-7000); Neutrophils Percent Auto 58.5 % (50-75); Platelet Count 444 X10^3/uL (150-400); Red Blood Cell Count 3.48 X10^6/uL (4.5-5.9); Red Cell Distribution Width 13.3 % (11.6-14.8); White Blood Cell Count 9.5 X10^3/uL (4.5-11.0)
== END ==
PROVIDERS: Family Provider Family Medicine; PCP Family Medicine; Visit Provider Internal Medicine
DX: E78.5 Hyperlipidemia, unspecified (principal)
CPT/HCPCS: 80048; 80202; 85025

== ENCOUNTER → 2019-07-07 15:39 | Outpatient (CLI) | payer MEDICARE, OTHER, SELFPAY ==
[2019-05-16 11:33] VITALS: BMI 28.3
== END ==
PROVIDERS: Family Provider Family Medicine; PCP Family Medicine; Visit Provider Family Medicine
DX: L89.614 Pressure ulcer of right heel, stage 4 (principal); M87.274 Osteonecrosis due to previous trauma, right foot; M86.171 Other acute osteomyelitis, right ankle and foot; G20 Parkinson's disease; I73.9 Peripheral vascular disease, unspecified; R41.9 Unspecified symptoms and signs involving cognitive functions and awareness
CPT/HCPCS: 11042

== ENCOUNTER → 2019-07-11 08:59 | Outpatient (ROUT) | payer SELFPAY ==
[2019-05-16 11:33] VITALS: BMI 28.3
[2019-07-11 09:45] LABS: Vancomycin Trough 20.7 ug/mL (10-20)
== END ==
PROVIDERS: Family Provider Family Medicine; PCP Family Medicine; Visit Provider Internal Medicine
DX: E78.5 Hyperlipidemia, unspecified (principal)
CPT/HCPCS: 80202

== ENCOUNTER → 2019-07-19 12:04 | Outpatient (CLI) | payer MEDICARE, OTHER, SELFPAY ==
[2019-05-16 11:33] VITALS: BMI 28.3
== END ==
PROVIDERS: Family Provider Family Medicine; PCP Family Medicine; Visit Provider Family Medicine
DX: L89.614 Pressure ulcer of right heel, stage 4 (principal); M87.274 Osteonecrosis due to previous trauma, right foot; M86.171 Other acute osteomyelitis, right ankle and foot; G20 Parkinson's disease; R41.9 Unspecified symptoms and signs involving cognitive functions and awareness; I73.9 Peripheral vascular disease, unspecified
CPT/HCPCS: 11043; 99213

== ENCOUNTER → 2019-07-26 12:57 | Outpatient (CLI) | payer MEDICARE, OTHER, SELFPAY ==
[2019-05-16 11:33] VITALS: BMI 28.3
== END ==
PROVIDERS: Family Provider Family Medicine; PCP Family Medicine; Visit Provider Family Medicine
DX: L89.614 Pressure ulcer of right heel, stage 4 (principal); M87.274 Osteonecrosis due to previous trauma, right foot; M86.171 Other acute osteomyelitis, right ankle and foot; G20 Parkinson's disease; R41.9 Unspecified symptoms and signs involving cognitive functions and awareness; I73.9 Peripheral vascular disease, unspecified
CPT/HCPCS: 11042; 99213

== ENCOUNTER → 2019-08-02 14:14 | Outpatient (CLI) | payer MEDICARE, OTHER, SELFPAY ==
[2019-05-16 11:33] VITALS: BMI 28.3
== END ==
PROVIDERS: Family Provider Family Medicine; PCP Family Medicine; Visit Provider Family Medicine
DX: M87.274 Osteonecrosis due to previous trauma, right foot (principal); M86.171 Other acute osteomyelitis, right ankle and foot; L89.614 Pressure ulcer of right heel, stage 4; I73.9 Peripheral vascular disease, unspecified; G20 Parkinson's disease; R41.9 Unspecified symptoms and signs involving cognitive functions and awareness
CPT/HCPCS: 11042

== ENCOUNTER → 2019-08-14 15:11 | Outpatient (ROUT) | payer MEDICARE, OTHER, SELFPAY ==
[2019-05-16 11:33] VITALS: BMI 28.3
[2019-08-14 15:55] LABS: Hematocrit 40.4 % (41-53); Hemoglobin 13.3 g/dL (13.5-17.5); Red Blood Cell Count 4.24 X10^6/uL (4.5-5.9); White Blood Cell Count 7.9 X10^3/uL (4.5-11.0)
[2019-08-14 15:56] LABS: Add Manual Diff / Slide Review NO; Eosinophils Percent Auto 5.8 % (2-4); Lymphocytes Percent Auto 31.3 % (25-40); Mean Corpuscular HGB Conc 32.9 % (30-36); Mean Corpuscular Hemoglobin 31.4 PG (26-34); Mean Corpuscular Volume 95.2 fL (80-100); Monocytes Percent Auto 10.5 % (3-14); Neutrophils Absolute Auto 4 /uL (1500-7000); Neutrophils Percent Auto 51.4 % (50-75); Red Cell Distribution Width 14.8 % (11.6-14.8)
[2019-08-14 15:57] LABS: Basophils Absolute Auto 0 /uL (0-100); Eosinophils Absolute Auto 1 /uL (0-450); Lymphocytes Absolute Auto 3 /uL (1100-4500); Monocytes Absolute Auto 1 /uL (0-900)
[2019-08-14 15:58] LABS: Platelet Count 138 X10^3/uL (150-400)
== END ==
PROVIDERS: Family Provider Family Medicine; PCP Family Medicine; Visit Provider Family Medicine
DX: L97.414 Non-pressure chronic ulcer of right heel and midfoot with necrosis of bone (principal); M86.171 Other acute osteomyelitis, right ankle and foot
CPT/HCPCS: 85025

== ENCOUNTER → 2019-08-16 12:55 | Outpatient (CLI) | payer MEDICARE, OTHER, SELFPAY ==
[2019-05-16 11:33] VITALS: BMI 28.3
== END ==
PROVIDERS: Family Provider Family Medicine; PCP Family Medicine; Visit Provider Family Medicine
DX: M86.171 Other acute osteomyelitis, right ankle and foot (principal); L89.614 Pressure ulcer of right heel, stage 4; M87.274 Osteonecrosis due to previous trauma, right foot; G20 Parkinson's disease; R41.9 Unspecified symptoms and signs involving cognitive functions and awareness; I73.9 Peripheral vascular disease, unspecified
CPT/HCPCS: 11043

== ENCOUNTER → 2019-08-23 13:24 | Outpatient (CLI) | payer MEDICARE, OTHER, SELFPAY ==
[2019-05-16 11:33] VITALS: BMI 28.3
== END ==
PROVIDERS: Family Provider Family Medicine; PCP Family Medicine; Visit Provider Family Medicine
DX: L89.614 Pressure ulcer of right heel, stage 4 (principal); M87.274 Osteonecrosis due to previous trauma, right foot; M86.171 Other acute osteomyelitis, right ankle and foot; G20 Parkinson's disease
CPT/HCPCS: 11043

== ENCOUNTER → 2019-08-30 13:12 | Outpatient (CLI) | payer MEDICARE, OTHER, SELFPAY ==
[2019-05-16 11:33] VITALS: BMI 28.3
== END ==
PROVIDERS: Family Provider Family Medicine; PCP Family Medicine; Visit Provider Family Medicine
DX: L89.614 Pressure ulcer of right heel, stage 4 (principal); M87.274 Osteonecrosis due to previous trauma, right foot; M86.171 Other acute osteomyelitis, right ankle and foot; G20 Parkinson's disease; R41.9 Unspecified symptoms and signs involving cognitive functions and awareness; I73.9 Peripheral vascular disease, unspecified
CPT/HCPCS: 11042

== ENCOUNTER 2019-09-06 10:41 | Inpatient (IN) | payer MEDICARE, OTHER, SELFPAY ==
[2019-05-16 11:33] VITALS: BMI 28.3
[2019-09-05 11:48] VITALS: BMI 27.9
[2019-09-06] VITALS (11 sets, daily range): BP systolic 121–141; BP diastolic 60–73; PULSE 54–70; RESP 6–24; TEMP 35.6–36.7; O2SAT 90–97; BMI 27.9
--- NOTE | 2019-09-06 | DI.RAD.S_ITS ---
PROCEDURE: XR CALCANEOUS RT MIN 2V INDICATIONS: CALCANECTOMY TECHNIQUE: Two views of the calcaneus were acquired. COMPARISON: [facility], MR, MR FOOT RT WO/W CON, 05/10/2019, 16:06. [facility], CR, XR FOOT RT 2V, 05/10/2019, 15:52. [facility], CR, XR CALCANEOUS RT MIN 2V, 05/01/2019, 10:38. FINDINGS: 2 intraoperative images demonstrate partial resection of calcaneus. IMPRESSION: Partial resection of calcaneus. Dictated by: Randy Guo M.D. on 09/06/2019 at 16:32 Approved by: Randy Guo M.D. on 09/06/2019 at 16:34
--- NOTE | 2019-09-06 08:28 | PM.HP.1 ---
History of Present Illness History of Present Illness Date Patient Seen: 09/06/19 Chief complaint: [id number] Narrative: Mr. Meza is an 84-year-old gentleman that developed a pressure ulceration on his right heel. This is a full-thickness wound and sick calcaneal osteomyelitis. His situation is complicated by severe vascular deficiency. Patient had a debridement and treatment with IV antibiotics and vascular workup. He had an angiogram to optimize his blood flow. Patient now refer returns for partial calcanectomy and closure of the wound. Patient understands that this is a salvage procedure and an alternative to below-knee amputation however the wound does not heal or infection persists, the patient and his son, power of deputy commonwealth's attorney, understand that the patient may require more proximal procedure Patient History Medical History BPH (benign prostatic hyperplasia) (Acute) Cervical radiculopathy (Acute) Constipation (Acute) Depression (Acute) Saini catheter in place on admission (Acute) GERD (gastroesophageal reflux disease) (Acute) HLD (hyperlipidemia) (Acute) Hydrocele in adult (Acute) Incontinent of urine (Acute) Influenza (Acute ~12/2018) Parkinson disease (Acute) Pollen allergies (Acute) Prostate cancer (Acute) Sleep apnea (Acute ~2004) TIA (transient ischemic attack) (Acute) UTI (urinary tract infection) (Acute) Surgical History History of incision and drainage (Acute 05/16/19) History of vascular surgery (Acute) Family & Social History Social History: household members caregiver lives independently Yes caregiver/support person Yes: intermittently during day. Tobacco & Substance use: Tobacco type cigarettes Smoking Status Former smoker alcohol intake current alcohol intake frequency 0-2 drinks per day Substance Use Type does not use Meds Home Medications and Allergies Home Medications Medication Instructions Recorded Confirmed Type acetaminophen [Tylenol 8 Hour] 650 mg PO Q8H PRN 12/09/18 09/06/19 History carbidopa-levodopa 1.5 tab PO TID 12/09/18 09/06/19 History cetirizine 10 mg PO DAILY 12/09/18 09/06/19 History oxybutynin chloride 5 mg PO QPM 12/09/18 09/06/19 History sertraline 50 mg PO DAILY 12/09/18 09/06/19 History tamsulosin 0.4 mg PO BID 12/09/18 09/06/19 History oxycodone 2.5 mg PO Q4-6H PRN #40 tab 05/22/19 09/06/19 Rx aspirin 81 mg PO BID #60 tab 05/23/19 09/06/19 Rx Stool Softener PO DAILY 09/06/19 History fluconazole 400 mg PO DAILY 09/06/19 09/06/19 History nitrofurantoin monohyd/m-cryst 100 mg PO BID 09/06/19 09/06/19 History sulfamethoxazole-trimethoprim 1 tab PO BID 09/06/19 09/06/19 History [Bactrim DS] sulfamethoxazole-trimethoprim 1 tab PO BID 09/06/19 09/06/19 History [Bactrim DS] Allergies Allergy/AdvReac Type Severity Reaction Status Date / Time No Known Drug Allergies Allergy Verified 09/06/19 11:23 Review of Systems Review of Systems Narrative: Patient is currently finishing treatment for urinary tract infection. Patient has been nonweightbearing on the right lower extremity. Exam Narrative Exam Narrative: General exam: Alert elderly male HEENT normocephalic atraumatic Respiratory lungs clear to auscultation Regular rate gu: Saini in place Musculoskeletal exam: Dressing in place on right heel wound. Calf is soft. No drainage or purulence. Wiggles toes. Demonstrates flexion extension of the knees. Nonpalpable dorsalis pedis pulse Assessment & Plan Assessment & Plan narrative: Right heel pressure ulcer heal and calcaneal osteomyelitis, nonhealing--nonhealing despite wound care and debridements and offloading. Patient's vascular status has been os optimized. Patient has been indicated for partial calcaneal ectomy for skin closure. Patient and POA understand that the patient is at high risk for requiring below-knee amputation and that a partial calcaneal excision procedure is an attempt at limb salvage for wound closure. We discussed if this does not heal or fails the patient may require more proximal procedure. The risks and benefits of the procedure have been discussed with the patient even opportunity to ask questions. The risks of surgery include but are not limited to infection, malunion, nonunion, persistence of pain, damage to nerves and blood vessels, posttraumatic arthritis, DVT, PE, cardiopulmonary complications and . The patient and power of deputy commonwealth's attorney expressed a thorough understanding of the risks and benefits of surgery and has elected to proceed. Consent was signed. Plan will be admit to observation or inpatient after surgery patient will be a snf discharge. The patient's POA and son is already made efforts towards arrangements at a specific care facility. Peripheral vascular disease--had angiogram and optimized by vascular surgery Urinary tract infection--plan keep Saini while in house and for discharge, plans to convert to suprapubic catheter at another time Time Spent With Patient Time with patient: less than 15 minutes
[2019-09-06] MEDS: LACTATED RINGERS 1,000 ML 42 ML IV ×2 (11:30→16:58)
[2019-09-06] MEDS: VANCOMYCIN 1,000 MG/200 ML PIGGYBACK 200 MG IV ×2 (12:15→23:29)
--- NOTE | 2019-09-06 12:43 | PM.PREOP ---
Pre-operative Note Interval Note History & Physical reviewed/Exam performed by Physician: Yes Changes to H&P: No H&P completed within 30 days and has changed as indicated here:: new h&P today
--- NOTE | 2019-09-06 13:22 | SUR.PREOP ---
Wheelchair, leg protector, and clothing given to family prior to the patient going into the OR (by SCHOOL FUNDRAISING DIRECTOR)
[2019-09-06] MEDS: BUPIVACAINE 0.25% W/ EPI (PF) 10 ML VIAL 20 ML INJ (14:13)
--- NOTE | 2019-09-06 15:27 | PM.OP.1 ---
Operative Date/Time/Diagnoses Date of procedure: 09/06/19 Time of procedure: 13:41 Pre-op diagnosis: Right calcaneal osteomyelitis M87.9 Heel ulcer, nonhealing bone necrosis L97.414 Peripheral vascular disease Post-op diagnosis: same Procedure & Clinicians Procedure: Partial, subtotal calcanectomy CPT 87195, right foot Same procedure as scheduled: Yes Indications: The patient is an 84-year-old gentleman that has a nonhealing ulcer of his heel. He had a previous debridement and exhaustive care with the wound care center with negative pressure therapy and IV antibiotics. He has peripheral vascular disease and has been optimized vascularly by a vascular surgeon with an angiogram. He is very high risk for proximal amputation. We've discussed a partial calcanectomy, subtotal calcanectomy as a way to remove the bone and close the wound and as an alternative to below-knee amputation. We discussed that a gait will not be normal after this procedure but the patient may be able to walk for short distances without devices in longer distances with custom boots or braces. We discussed that healing of the wound is of the utmost importance. The risks and benefits of the procedure have been discussed with the patient even opportunity to ask questions. The risks of surgery include but are not limited to infection, malunion, nonunion, persistence of pain, damage to nerves and blood vessels, posttraumatic arthritis, DVT, PE, cardiopulmonary complications and . The patient and POA expressed a thorough understanding of the risks and benefits of surgery and has elected to proceed. Consent was signed. Surgeon: Ayde Neil Click Yes if Unassisted: Yes Anesthesia Type: General and Local Operative Notes Findings: Posterior lateral heel ulceration with bone exposure. No purulence no cellulitis no current obvious signs of infection. Wound is approximately 5 cm x 2 cm in full thickness. Closure Type: primary Specimen(s): none sent Estimated Blood Loss (mL): 30 Blood products transfused: none Tourniquet time (min): 17 Procedure in detail: Patient was seen in the preoperative area the site of surgery was marked and informed consent confirmed. The patient was then brought back to the operating room by the anesthesia team and positioned supine on the operative table. All bony prominences were well padded. Well-padded thigh tourniquet was placed. The patient was then switched into the prone position onto the operative table. Gel pads were placed appropriately and the arms were padded in the standard fashion. Right lower extremity was then prepped and draped in the standard sterile fashion. A formal time-out procedure was performed confirming the patient's side and site of surgery presence of informed consent and administration of appropriate preoperative antibiotics. All were in agreement. Complications: none
[2019-09-06] MEDS: ASPIRIN EC 81 MG TABLET PO (21:38)
[2019-09-06] MEDS: OXYCODONE IR 5 MG TABLET 2.5 MG PO (21:38)
[2019-09-06] MEDS: CARBIDOPA-LEVODOPA 25/100 TABLET 1.5 EACH PO (21:39)
[2019-09-06] MEDS: TAMSULOSIN 0.4 MG CAPSULE PO (21:39)
[2019-09-06] MEDS: DOCUSATE 100 MG CAPSULE PO (21:39)
[2019-09-06] MEDS: NITROFURANTOIN ER 100 MG CAPSULE PO (21:53)
[2019-09-07] VITALS (8 sets, daily range): BP systolic 104–127; BP diastolic 41–58; PULSE 51–58; RESP 15–18; TEMP 36.1–36.9; O2SAT 95–98
[2019-09-07 05:43] LABS: Hemoglobin 10.6 g/dL (13.5-17.5); Mean Corpuscular HGB Conc 33.2 % (30-36); Mean Corpuscular Hemoglobin 31.3 PG (26-34); Mean Corpuscular Volume 94.4 fL (80-100); Platelet Count 280 X10^3/uL (150-400); Red Blood Cell Count 3.38 X10^6/uL (4.5-5.9); Red Cell Distribution Width 15.3 % (11.6-14.8); White Blood Cell Count 11.1 X10^3/uL (4.5-11.0)
--- NOTE | 2019-09-07 08:13 | CM.DANOTE ---
Discharge Planning/Care Management CM Discharge Assessment Start: 09/07/19 08:09 Freq: Status: Active Protocol: Document 09/07/19 08:09 ITV (Rec: 09/07/19 08:12 ITV [id number]) Discharge Planning Assessment Advance Directives? Yes History Provided By Patient,Family Member,Medical Record Has Patient been admitted in last 30 No days? Type of transporation used prior to Relies on Others admit Independent with ADL's Yes Is patient alert and oriented? unclear at this time Caregiver for Another No Patient/Family Preference Nursing Home Facility Comment DPOA son Derrick is planning for [facility]. Pt agrees to same. Discharge Plan Nursing Home Facility Referrals Initiated Nursing Home Whiteboard Updated in Patient Room with Yes name and ext. # of Hot Car Operator Review Status In Process Next Review Type Continued Stay Review Pre-Anesthesia Assessment Start: 09/05/19 11:48 Freq: Status: Active Protocol: Document 09/05/19 11:48 CAB (Rec: 09/05/19 11:58 CAB [id number]) Pre-Anesthesia Assessment Patient Information Reviewed Via Chart Review Primary Care Provider Brooks Alonso Seen Specialist in Last 12 Months Yes Specialist Seen Orthopedist Primary Language Portuguese Preferred Language Portuguese Housekeeper Cleaning Cooking Required No Height 177.8 cm Weight 88.451 kg Body Mass Index (BMI) 27.9 Hx Anesthesia Reactions No Hx Family Anesthesia Reaction No Hx Malignant Hyperthermia No Hx Blood Transfusions No Hx Blood Transfusion Reaction No Anesthesia Review Requested No Glass Designer Yes alcohol intake current alcohol intake frequency 0-2 drinks per day Smoking Status Former smoker Tobacco type cigarettes how long ago did patient quit smoking 1970 Substance Use Type does not use Pain Present Pain Reported History of Falling (Recent or History of Yes ) Patient is completely paralyzed or No completely immobile Gait/Transferring Weak,Impaired Comment Hx Parkinson's, dementia- progressive Is patient on oxygen? No Hx Sleep Apnea Yes: Unknown if uses CPAP Currently Taking a Beta Sana No Anti-Coagulant Therapy No Cardiac Testing Yes: Last Echo @ [facility] 12/09/18 EF 65-70% Hx Pacemaker/ICD No Pacemaker Rep Required? No Comment Hx Non-STEMI Bladder Pattern Incontinent,Retention,Urgency Urinary Catheter Present No Hx Urinary Self Catheterization No Diabetes No Presence of External or Internal Medical No Devices Have you traveled outside the [facility] in the last 30 days? Marital Status / Lives With caregiver Support System Caregiver,Child/Children Patient Discharge Plan Description Return Home Do You Have Any Spiritual Beliefs That No May Affect Your HC Choices? Do You Have Any Cultural Practices That No May Affect Your HC Choices? Health Care Proxy/Next of Kin Derrick (Son) Health Care Proxy Emergency Contact Name Derrick (Son) Emergency Contact Advance Directives? Yes Power of Class A Regional Drivers Name Derrick Meza Power of Class A Regional Drivers Stop Bang Assessment Do you snore loudly (louder than talking Yes or loud enough to be heard through closed doors) Do you often feel tired, fatigued or Yes sleepy during the daytime Has anyone ever observed you stop Yes breathing while sleeping? Do you have, or are you being treated No for, high blood pressure Is your BMI more than 35 kg/m2 No Age over 50 No Estimated neck circumference greater No than 40cm or 16in Gender male Yes Result Negative
--- NOTE | 2019-09-07 08:22 | CM.DANOTE ---
Addendum entered by Chantel Bloom LPN 09/07/19 11:33: Have spoken now with Derrick, at pt's bedside and updated him re the acceptance at [facility]. Irene is also updated. She reports that she will be off for about 3 weeks but someone else will be on the admission phone during that time and will be anticipating pt 12/7 or >. PASRR: not started yet. Will be needed at d/c. [place] [facility] Derrick notes pt should be able to fernando lift into a w/c...will need to be reassessed closer to d/c date. Addendum entered by Chantel Bloom LPN 09/07/19 10:43: Admission status: confirmed by KAYLI Block: INPT. Will update Irene who has confirmed she did meet with son and they have a bed for pt. Will update POA son Derrick. Addendum entered by Chantel Bloom LPN 09/07/19 09:09: Have left a vm now for admissions/[facility] . [facility] Danay is faxing clinical. Await admission status confirmation. Original Note: Discharge Planning/Care Management DCP: assessment: case received, EMR reviewed and met briefly with pt. Introduced self and role. Pt is an 84 year old male who admitted yesterday for a scheduled partial, subtotal calcanectomy R foot as part of an ongoing treatment program to treat R calcaneal osteomyelitis/PVD/nonhealing bone necrosis. Pt is a bit of a vague historian (carries dx of Parkinson's disease with some dementia) but is able to confirm that his plan is to d/c to [facility] when he is stable for d/c from hospital setting and that my son Derrick handles everything. OF NOTE: Derrick did stop by the CM/DCP office yesterday late afternoon to say that his father had admitted, would have surgery in the evening and that he had spoken with Irene/[facility] re admitting to that facility for rehab. He left phone # [phone]. PCP: Brooks Alonso Payer: Medicare and eleni. Admission status: in review: have discussed with UR RN Mckayla. OF NOTE: admission status will affect the DCP process. Will give referral now to [facility] [place] and will follow closely as the admission status is determined. Discharge Assessment Start: 09/07/19 08:09 Freq: Status: Active Protocol: Document 09/07/19 08:09 ITV (Rec: 09/07/19 08:12 ITV [id number]) Discharge Planning Assessment Advance Directives? Yes History Provided By Patient,Family Member,Medical Record Has Patient been admitted in last 30 No days? Type of transportation used prior to Relies on Others admit Independent with ADL's no Is patient alert and oriented? unclear at this time Caregiver for Another No Patient/Family Preference Prison Facility Comment SHARI Meza is planning for [facility]. Pt agrees to same. Discharge Plan Prison Facility Referrals Initiated Prison Whiteboard Updated in Patient Room with Yes name and ext. # of Medical Numerical Control Operator Review Status In Process Next Review Type Continued Stay Review Document 09/07/19 08:19 ITV (Rec: 09/07/19 08:21 ITV [id number]) Discharge Planning Assessment Advance Directives? Yes History Provided By Patient,Family Member,Medical Record Has Patient been admitted in last 30 No days? Household Members caregiver Type of transportation used prior to Relies on Others admit Independent with ADL's Is patient alert and oriented? unclear at this time Caregiver for Another No Patient/Family Preference Prison Facility Comment SHARI Meza is planning for [facility]. Pt agrees to same. Discharge Plan Prison Facility Referrals Initiated Prison Whiteboard Updated in Patient Room with Yes name and ext. # of Medical Numerical Control Operator Review Status In Process Next Review Type Continued Stay Review Pre-Anesthesia Assessment Start: 09/05/19 11:48 Freq: Status: Active Protocol: Document 09/05/19 11:48 CAB (Rec: 09/05/19 11:58 CAB [id number]) Pre-Anesthesia Assessment Patient Information Reviewed Via Chart Review Primary Care Provider Brooks Alonso Seen Specialist in Last 12 Months Yes Specialist Seen Orthopedist Primary Language Martiniquais Preferred Language Martiniquais Ruling Machine Operator Required No Height 177.8 cm Weight 88.451 kg Body Mass Index (BMI) 27.9 Hx Anesthesia Reactions No Hx Family Anesthesia Reaction No Hx Malignant Hyperthermia No Hx Blood Transfusions No Hx Blood Transfusion Reaction No Anesthesia Review Requested No Vamp Presser Yes alcohol intake current alcohol intake frequency 0-2 drinks per day Smoking Status Former smoker Tobacco type cigarettes how long ago did patient quit smoking 1970 Substance Use Type does not use Pain Present Pain Reported History of Falling (Recent or History of Yes ) Patient is completely paralyzed or No completely immobile Gait/Transferring Weak,Impaired Comment Hx Parkinson's, dementia- progressive Is patient on oxygen? No Hx Sleep Apnea Yes: Unknown if uses CPAP Currently Taking a Beta Sana No Anti-Coagulant Therapy No Cardiac Testing Yes: Last Echo @ 12/09/18 EF 65-70% Hx Pacemaker/ICD No Pacemaker Rep Required? No Comment Hx Non-STEMI Bladder Pattern Incontinent,Retention,Urgency Urinary Catheter Present No Hx Urinary Self Catheterization No Diabetes No Presence of External or Internal Medical No Devices Have you traveled outside the [facility] in the last 30 days? Marital Status / Lives With caregiver Support System Caregiver,Child/Children Patient Discharge Plan Description Return Home Do You Have Any Spiritual Beliefs That No May Affect Your HC Choices? Do You Have Any Cultural Practices That No May Affect Your HC Choices? Health Care Proxy/Next of Kin Derrick Garner) Health Care Proxy Emergency Contact Name Derrick PerezSon) Emergency Contact Advance Directives? Yes Power of Car Lot Attendant Name Derrick Meza Power of Car Lot Attendant Stop Bang Assessment Do you snore loudly (louder than talking Yes or loud enough to be heard through closed doors) Do you often feel tired, fatigued or Yes sleepy during the daytime Has anyone ever observed you stop Yes breathing while sleeping? Do you have, or are you being treated No for, high blood pressure Is your BMI more than 35 kg/m2 No Age over 50 No Estimated neck circumference greater No than 40cm or 16in Gender male Yes Result Negative
--- NOTE | 2019-09-07 09:29 | CM.DPC ---
DCP Cont: Faxed new referral for review to [facility] at fax # [phone]. Fax confirmation scanned in. Danay Burns, [facility] Double Bass Player
[2019-09-07] MEDS: LORATADINE 10 MG TABLET PO (09:54)
[2019-09-07] MEDS: SERTRALINE 50 MG TABLET PO (09:54)
[2019-09-07] MEDS: CARBIDOPA-LEVODOPA 25/100 TABLET 1.5 EACH PO ×3 (09:54→21:27)
[2019-09-07] MEDS: HEPARIN 5,000 UNIT/ML VIAL 5000 UNIT SUBCUT ×2 (09:54→21:24)
[2019-09-07] MEDS: TAMSULOSIN 0.4 MG CAPSULE PO ×2 (09:54→21:24)
[2019-09-07] MEDS: ACETAMINOPHEN 325 MG TABLET 650 MG PO ×2 (09:54→21:23)
[2019-09-07] MEDS: ASPIRIN EC 81 MG TABLET PO ×2 (09:54→21:24)
[2019-09-07] MEDS: NITROFURANTOIN ER 100 MG CAPSULE PO ×2 (10:10→21:25)
[2019-09-07] MEDS: DOCUSATE 100 MG CAPSULE PO ×2 (10:10→21:24)
[2019-09-07] MEDS: FLUCONAZOLE 100 MG TABLET 400 MG PO (10:11)
--- NOTE | 2019-09-07 12:56 | PC.NURSE ---
Pt is A&Ox3. He states that he is 4/10 pain to r.lower ankle and foot. Given tylenol and effective for pain control. Pt has a heavy cast to his r.lower extremity and is no weight bearing. At this time he is bed rest with bathroom rights. Pt will most likely be a fernando lift when transferring. Pt will work with him as orders to activity change. Pt is A&Ox3 and pleasant with care. He takes all of his medication whole with water. Son into visit earlier. Pt denies any numbness or tingling to extremities. CMS wnl.
--- NOTE | 2019-09-07 15:09 | PT.IIE ---
Current Diagnoses Other chronic osteomyelitis, right ankle and foot (09/06/19) Surgery Performed Operation Date: 09/06/19 12:15 Actual Procedures p Foot partial calcanectomy/wound closure(Right) - Ayde Neil MD Surgical History (Last Reviewed 09/06/19 @ 12:43 by Ayde Neil MD) History of incision and drainage (Acute 05/16/19) History of vascular surgery (Acute) Medical History (Last Reviewed 09/06/19 @ 12:43 by Ayde Neil MD) BPH (benign prostatic hyperplasia) (Acute) Cervical radiculopathy (Acute) Constipation (Acute) Depression (Acute) Saini catheter in place on admission (Acute) GERD (gastroesophageal reflux disease) (Acute) HLD (hyperlipidemia) (Acute) Hydrocele in adult (Acute) Incontinent of urine (Acute) Influenza (Acute ~12/2018) Parkinson disease (Acute) Pollen allergies (Acute) Prostate cancer (Acute) Sleep apnea (Acute ~2004) TIA (transient ischemic attack) (Acute) UTI (urinary tract infection) (Acute) Physical Therapy Inpatient Evaluation/Re-Eval M1 PT/OT-IP Prior Functional Status Start: 09/07/19 08:32 Freq: NEEDED Status: Active Protocol: Document 09/07/19 14:04 AW (Rec: 09/07/19 15:09 AW [email or web address]) Medical Review Prior Functional Status Medical History Reviewed Yes Diet/Fluid Consistency Regular Communication Pt has dementia. Able to make needs known but is a poor historian. Mobility and Gait Pt had 26/04 caregiver assist. He required fernando/mechanical lift for transfers at baseline and mostly relied on manual and power wheelchair for mobility. He did limited standing and limited ambulation with FWW. At discharge from May hospitalization, pt had rehab stay at [facility] where he was fernando transfer ~1/2 of the time and stand pivot transfer ~1/2 of the time. He has been fernando- dependent for the past few months. Activities of Daily Living and IADL's Pt received 24-hour daily caregiver support at home. Caregivers provide assistance with meals, showers, and transfers using the fernando lift . Prior Functional Level (Other details) Pt with Saini catheter since before surgery. EMR states he will be transitioned to suprapubic catheter in the near future. Social History Household Members caregiver Living Arrangements House Number of Floors (Floors) One Floor Number of Stairs To Enter/Railing? Level entrance Home Environment High Toilet,Walk in Shower Home Equipment Front Wheel Walker,Manual Wheelchair,Power Wheelchair/ Scooter,Bedside Commode,Lift Recliner,Mechanical Lift, Hospital Bed,Grab Bars Near Toilet,Grab Bars In Shower Additional Social History Comment Pt's sister, Jorge, lives next door and check on him regularly. At home, he has a shower he can roll into in a wheelchair. M2 PT-IP Current Condition Start: 09/07/19 08:32 Freq: NEEDED Status: Active Protocol: Document 09/07/19 14:04 AW (Rec: 09/07/19 15:09 AW [email or web address]) Physical Therapy Current Condition Current Condition Evaluation Date 09/07/19 Treatment Diagnosis partial calanectomy, impaired mobility Onset Date 09/06/19 Weight Bearing Status Weight Bearing Status Non-Weight Bearing Allowed Weight Bearing Amount (enter % NWB RLE or #) (%) M3 PT-IP Subjective Start: 09/07/19 08:32 Freq: NEEDED Status: Active Protocol: Document 09/07/19 14:04 AW (Rec: 09/07/19 15:09 AW [email or web address]) Subjective Physical Therapy Visit Type Type Initial Evaluation Visit Start Time 12:50 Visit Stop Time 13:21 Total Visit Minutes 31 Notes Pt's sister Jorge and daughter Sneha arrived during evaluation and contributed to history with pt's consent. Number of STORAGE MANAGER Visits 0 Physical Therapy Visit Comments Patient Comments Pt agreeable to work with therapy Patient Goals Pt is planning discharge to SNF. Therapy Pain Assessment Pain When Pain Assessed During Mobility Pain Present Pain Present Pain Reported Location Right Heel Intensity 4 Scale Used 4/10 at rest and with mobility Pain Management Techniques Elevation,Re-positioning, Timing of Activity with Medications M4 PT-IP Mobility and Gait Start: 09/07/19 08:32 Freq: NEEDED Status: Active Protocol: Document 09/07/19 14:04 AW (Rec: 09/07/19 15:09 AW [email or web address]) PT-Bed Mobility Assessment Supine to Sit Supine to Sit Moderate Assistance,1 Person Assistance,Head of Bed Elevated Sit to Supine Sit to Supine Minimal Assistance,1 Person Assistance Scooting Scooting to Edge of Bed Minimal Assistance Scooting Up and Down in Bed Standby Assistance PT-Transfer Assessment Sit to and From Stand Sit to and from Stand Maximum Assistance,1 Person Assistance,Use of Upper Extremities Equipment Transfer Assistive Device Gait Belt,Front Wheeled Walker Orthotic/Prosthetic Devices or Brace: No Comments Mobility Comments Pt completed supine to sit min A x 1 with HOB elevated and was able to scoot toward EOB min A. In sitting with UE support, pt was able to accept min balance challenge, demonstrating fair trunk control. Pt completed sit to stand while NWB RLE using FWW max A x 1. He was able to maintain NWB RLE in standing, but with tendency toward retropulsion requiring max A to stand 1 minute. Pt required max A x 1 and verbal cues for UE support during transition back to sitting EOB, min A for return to supine. Pt was able to scoot up in the bed with single-leg bridging and pulling with UE's using bed rails SBA. Pt repositioned in bed with right foot elevated, call light and all needs within reach, sister Jorge at bedside. PT-Balance Assessment Sitting Balance and Reactions Static Sitting Balance Ability Fair Dynamic Sitting Balance Ability Fair Standing Balance and Reactions Static Standing Balance Ability Poor Device Used FWW M5 PT-IP Objective Assessments Start: 09/07/19 08:32 Freq: NEEDED Status: Active Protocol: Document 09/07/19 14:04 AW (Rec: 09/07/19 15:09 AW [email or web address]) Orientation Orientation/Cognition Level of Alertness Alert Orientation Name,Year,Place,Situation Language Function Ability Hard of Hearing Safety Awareness Understands Safety Issues Memory Description Short Term Impaired Comments Pt [place], improved with bilateral hearing aids Gross Range of Motion Upper Extremity ROM Assessment Within Functional Limits Lower Extremity ROM Assessment Bilaterally Impaired Strength Upper Extremity Strength Assessment Within Functional Limits Lower Extremity Strength Assessment Bilaterally Impaired Hip 3+/5 Knee 4/5 Ankle 4/5 Coordination Assessment Gross Coordination Gross Coordination WNL Sensation Assessment Sensation Gross Sensation WNL Comments Sensation Comments No deficits noted on exam M6 PT-IP Treatment Start: 09/07/19 08:32 Freq: NEEDED Status: Active Protocol: Document 09/07/19 14:04 AW (Rec: 09/07/19 15:09 AW [email or web address]) Physical Therapy Treatment Education Education Provided Precautions,Weight Bearing Status,Safety Other Treatments Other Treatment Performed Educated pt on PT plan of care , weightbearing status, and safety. M7 PT-IP Assessment and Plan Start: 09/07/19 08:32 Freq: NEEDED Status: Active Protocol: Document 09/07/19 14:04 AW (Rec: 09/07/19 15:09 AW [email or web address]) PT Summary Assessment and Plan Potential Rehabilitation Potential Good Status of Condition at Evaluation Evolving Summary Impairments Pain,ROM,Strength,Balance, Cognition,Bed Mobility, Transfers,Gait,Activity Tolerance Assessment Summary Pt is an 84 yo man with Parkinson's disease and dementia who was seen for PT evaluation on POD1 following partial calcanectomy for potential limb salvage. At baseline, pt uses a fernando lift to transfer and a manual or power wheelchair for mobility, though he was able to stand pivot transfer ~2 months ago. He has 24/7 caregivers who assist with transfers, meals, bathing, and other needs. He had limited standing tolerance . On evaluation, pt required min assist for bed mobility and max assist for sit to stand and standing with FWW. He was able to stand and maintain NWB RLE using FWW max assist x 1. He will benefit from acute and sub acute rehab to improve sitting and standing balance, for strengthening, and to improve independence with transfers. PT recommends 24/7 assist and ongoing therapy at discharge which would best be accomplished in a SNF setting. Goals Bed Mobility Goal Standby Assistance Transfer Goal Minimal Assistance,Front Wheeled Walker Other Goals - Pt will sit 5 minutes EOB with UE support in order to improve his ability to participate in his own care. Days to Meet Goals 10 Frequency of Treatment Frequency Of Treatment Once a Day Treatment Plan Physical Therapy Treatment Plan Bed Mobility Training,Transfer Training,Gait Training, Therapeutic Exercise,Balance Retraining,Post Op Education, Discharge Planning,Hot or Cold Pack,Neuromuscular Re-ed, Coordination Retraining,Manual Therapy Other Recommendations and Next Treatment bed mobility, supine or seated Focus ther ex, sit to stand with NWB RLE Recommendations To Nursing Amount of Assist Needed Mechanical Lift Discharge Recommendations PT Discharge Recommendations SNF Rehab
[2019-09-07] MEDS: OXYCODONE IR 5 MG TABLET 2.5 MG PO (16:35)
[2019-09-07] MEDS: OXYBUTYNIN 5 MG TABLET PO (16:35)
[2019-09-07] MEDS: LACTATED RINGERS 1,000 ML 42 ML IV (17:34)
--- NOTE | 2019-09-07 18:37 | PM.PN.1 ---
Subjective Subjective Date Patient Seen: 09/07/19 Time Patient Seen: 18:37 Interval history: Patient is POD#1 s/p subtotal calcanectomy with Dr. Neil. He denies pain to the extremity. He was able to mobilize somewhat with PT today while maintaining NWB on RLE. No chest pain, shortness of breath or calf tenderness. Exam Vital Signs (past 8 hours): - 09/07/19 11:28 09/07/19 15:33 Temperature 97.6 F 98.4 F Pulse Rate 58 L 52 L Respiratory Rate 18 15 Blood Pressure 124/57 L 104/41 L Pulse Oximetry 96 97 Oxygen Delivery Method Room Air,CPAP Oxygen Flow Rate 0 Narrative Exam Narrative: 84 year old male resting comfortably in bed. Alert and oriented in no acute distress. Splint in place is CDI. Patient able to fire toe flexors and extensors. Brisk capillary refill. Sensation intact to light touch. Objective Labs Result Diagrams: 09/07/19 05:18 Labs: Laboratory Results - last 24 hr 09/07/19 05:18 WBC 11.1 H RBC 3.38 L Hgb 10.6 L Hct 32.0 L MCV 94.4 MCH 31.3 MCHC 33.2 RDW 15.3 H Plt Count 280 Assessment & Plan Assessment & Plan narrative: Patient is to remain NWB on RLE. ASA 81mg BID and SCDs for DVT prophylaxis. Discharge to SNF when bed becomes available. Quality VTE Deep Vein Thrombosis/Pulmonary Embolism Present on Admission: No
--- NOTE | 2019-09-07 19:04 | PC.NURSE ---
Assumed care of pt at 1500. Pt resting in bed during bedside hand-off. Splint/cast to R. Foot wrapped with chon wrap c/d/i. No H/V drain, Pt states he does not recall when it was removed. CMS+. Denies numbness; Able to wiggle toes; toes warm and pink. Tolerating diet. IVF per orders. PO pain medication per mar effective. Calling appropriately for needs. Repositioning per pressure injury prevention protocol. Bed alarm on. Call light within reach.
[2019-09-08] MEDS: OXYCODONE IR 5 MG TABLET 2.5 MG PO ×2 (00:12→16:48)
[2019-09-08 05:30] VITALS: BP 132/55; PULSE 55; RESP 19; TEMP 36.5; O2SAT 96
--- NOTE | 2019-09-08 06:44 | PC.NURSE ---
NOC Note: Pt has been alert, has periods of forgetfulness. IVF running as ordered. PRN 1/2 tab of oxycodone given as ordered. Pt stated that he doesn't want to take Oxycodone very often because he doesn't want to become addicted. Pain management was explained to patient and he appeared to understand at the time. Isidro to SCOTTY CDI. Parveen gilmore patent.
[2019-09-08 07:45] VITALS: BP 132/55; PULSE 54; RESP 16; TEMP 36.4; O2SAT 96
[2019-09-08] MEDS: NITROFURANTOIN ER 100 MG CAPSULE PO ×2 (10:53→21:37)
[2019-09-08] MEDS: ASPIRIN EC 81 MG TABLET PO ×2 (10:54→21:37)
[2019-09-08] MEDS: CARBIDOPA-LEVODOPA 25/100 TABLET 1.5 EACH PO ×3 (10:54→21:37)
[2019-09-08] MEDS: FLUCONAZOLE 100 MG TABLET 400 MG PO (10:55)
[2019-09-08] MEDS: ACETAMINOPHEN 325 MG TABLET 650 MG PO ×2 (10:55→21:37)
[2019-09-08] MEDS: HEPARIN 5,000 UNIT/ML VIAL 5000 UNIT SUBCUT ×2 (10:56→21:38)
[2019-09-08] MEDS: DOCUSATE 100 MG CAPSULE PO ×2 (10:56→21:37)
[2019-09-08] MEDS: TAMSULOSIN 0.4 MG CAPSULE PO ×2 (10:57→21:37)
[2019-09-08] MEDS: SERTRALINE 50 MG TABLET PO (10:57)
[2019-09-08] MEDS: LORATADINE 10 MG TABLET PO (10:57)
--- NOTE | 2019-09-08 11:21 | P.PN_ITS ---
Subjective Subjective Date Patient Seen: 09/08/19 Time Patient Seen: 11:21 Interval history: Hospital day 3, postop day 2 following right partial subtotal calcanectomy for osteomyelitis by Dr. Neil. Patient has remained stable. He is scheduled to go to [facility] tomorrow. He is nonweightbearing to right leg. Been using oxycodone 2.5 mg her pain. Exam Vital Signs (past 8 hours): - 09/08/19 05:30 09/08/19 07:45 Temperature 97.7 F 97.6 F Pulse Rate 55 L 54 L Respiratory Rate 19 16 Blood Pressure 132/55 L 132/55 L Pulse Oximetry 96 96 Oxygen Delivery Method CPAP Oxygen Flow Rate 0 Narrative Exam Narrative: Alert, oriented no acute distress resting in bed. Right leg. Postop bulky lower leg dressing in place without drainage. Good blanching and s ensation to toes. Objective Labs Result Diagrams: 09/07/19 05:18 Assessment & Plan Post-op Postoperative Procedures: Procedures Operation Date: 09/06/19 12:15 Actual Procedures Side Surgeon p Foot partial calcanectomy/wound closure Right Ayde Neil MD Patient continue working with PT. Plan discharge to [facility] tomorrow. DC Saini catheter today. Will check with Dr. Neil regarding anticoagulant therapy and any dressing change. Quality VTE Deep Vein Thrombosis/Pulmonary Embolism Present on Admission: No
[2019-09-08 13:00] VITALS: BP 131/50; PULSE 57; RESP 16; TEMP 36.8; O2SAT 98
--- NOTE | 2019-09-08 14:32 | CM.DPC ---
DCP Cont: Per Ortho PA, pt likely stable for d/c to SNF tomorrow if stable. SW spoke to admissions at [facility] and she confirms that they can accept the pt at d/c and aware that tonjohanne is his 3rd night for Medicare qualifying stay and may be ready for d/c tomorrow Sat. SW faxed requested PT note for review. PASRR completed. Plan: SW to follow for likely pt d/c to [facility] tomorrow if medically stable. AUTUMN Cazares
--- NOTE | 2019-09-08 14:40 | PC.NURSE ---
Pt is Alert but can be confused at times. He has a splint in place to r.lower extremity and denies pain at this time after tylenol given. Repositioned every 3 hours. Pt has a red bottom but area is blanchable. Visiting with now. Denies numbness to tingling to r. extremity and is able to wave his ankles and wiggle toes. CMS wnl.
[2019-09-08 15:50] VITALS: BP 144/57; PULSE 56; RESP 16; TEMP 36.2; O2SAT 95
[2019-09-08] MEDS: OXYBUTYNIN 5 MG TABLET PO (16:48)
--- NOTE | 2019-09-08 16:59 | PT.IPTN ---
Current Diagnoses Other chronic osteomyelitis, right ankle and foot (09/06/19) Surgery Performed Operation Date: 09/06/19 12:15 Actual Procedures p Foot partial calcanectomy/wound closure(Right) - Ayde Neil MD Physical Therapy Treatment Note M2 PT-IP Current Condition Start: 09/07/19 08:32 Freq: NEEDED Status: Active Protocol: Document 09/07/19 14:04 AW (Rec: 09/07/19 15:09 AW [email or web address]) Physical Therapy Current Condition Current Condition Evaluation Date 09/07/19 Treatment Diagnosis partial calanectomy, impaired mobility Onset Date 09/06/19 Weight Bearing Status Weight Bearing Status Non-Weight Bearing Allowed Weight Bearing Amount (enter % NWB RLE or #) (%) M3 PT-IP Subjective Start: 09/07/19 08:32 Freq: NEEDED Status: Active Protocol: Document 09/08/19 14:47 LJ (Rec: 09/08/19 16:59 LJ [id number]) Subjective Physical Therapy Visit Type Type Treatment Note Visit Start Time 14:47 Visit Stop Time 15:22 Total Visit Minutes 35 Physical Therapy Visit Comments Patient Comments Pt agreeable to work with therapy M4 PT-IP Mobility and Gait Start: 09/07/19 08:32 Freq: NEEDED Status: Active Protocol: Document 09/08/19 14:47 LJ (Rec: 09/08/19 16:59 LJ [id number]) PT-Bed Mobility Assessment Rolling Type of Rolling Roll to Left Supine to Sit Supine to Sit Moderate Assistance,1 Person Assistance,Head of Bed Elevated Sit to Supine Sit to Supine Minimal Assistance,1 Person Assistance,2 Person Assistance ,Head of Bed Elevated Scooting Scooting to Edge of Bed Minimal Assistance Scooting Up and Down in Bed Moderate Assistance PT-Transfer Assessment Comments Mobility Comments Pt able to complete supine<> sit w/moda and cues for hand placement and sequencing. Charly -SBA for scooting to EOB. Sitting on side of bed required Charly and mod cueing to use UEs and sit straight. Pt sat at side of bed for 12 min with occasional cues for righting correction and posture. Pt performed seated exercises w/o trunk support other than his UEs. Was able to maintain seated balance for ~1 min with no cues or UE assist M5 PT-IP Objective Assessments Start: 09/07/19 08:32 Freq: NEEDED Status: Active Protocol: Document 09/07/19 14:04 AW (Rec: 09/07/19 15:09 AW [email or web address]) Orientation Orientation/Cognition Level of Alertness Alert Orientation Name,Year,Place,Situation Language Function Ability Hard of Hearing Safety Awareness Understands Safety Issues Memory Description Short Term Impaired Comments Pt [place], improved with bilateral hearing aids Gross Range of Motion Upper Extremity ROM Assessment Within Functional Limits Lower Extremity ROM Assessment Bilaterally Impaired Strength Upper Extremity Strength Assessment Within Functional Limits Lower Extremity Strength Assessment Bilaterally Impaired Hip 3+/5 Knee 4/5 Ankle 4/5 Coordination Assessment Gross Coordination Gross Coordination WNL Sensation Assessment Sensation Gross Sensation WNL Comments Sensation Comments No deficits noted on exam M6 PT-IP Treatment Start: 09/07/19 08:32 Freq: NEEDED Status: Active Protocol: Document 09/08/19 14:47 LJ (Rec: 09/08/19 16:59 LJ [id number]) Physical Therapy Treatment Exercises Exercises Ankle Pumps,Gluteal Sets,Quad Sets,Heel Slides,Straight Leg Raises Other Treatments Other Treatment Performed seated at side of bed-resisted hamstring curls, resisted SAQ , marching. Educated ond went over exercises he can perform in bed including above exercises and partial abdominal curls M7 PT-IP Assessment and Plan Start: 09/07/19 08:32 Freq: NEEDED Status: Active Protocol: Document 09/07/19 14:04 AW (Rec: 09/07/19 15:09 AW [email or web address]) PT Summary Assessment and Plan Potential Rehabilitation Potential Good Status of Condition at Evaluation Evolving Summary Impairments Pain,ROM,Strength,Balance, Cognition,Bed Mobility, Transfers,Gait,Activity Tolerance Assessment Summary Pt is an 84 yo man with Parkinson's disease and dementia who was seen for PT evaluation on POD1 following partial calcanectomy for potential limb salvage. At baseline, pt uses a fernando lift to transfer and a manual or power wheelchair for mobility, though he was able to stand pivot transfer ~2 months ago. He has 24/7 caregivers who assist with transfers, meals, bathing, and other needs. He had limited standing tolerance . On evaluation, pt required min assist for bed mobility and max assist for sit to stand and standing with FWW. He was able to stand and maintain NWB RLE using FWW max assist x 1. He will benefit from acute and sub acute rehab to improve sitting and standing balance, for strengthening, and to improve independence with transfers. PT recommends 24/7 assist and ongoing therapy at discharge which would best be accomplished in a SNF setting. Goals Bed Mobility Goal Standby Assistance Transfer Goal Minimal Assistance,Front Wheeled Walker Other Goals - Pt will sit 5 minutes EOB with UE support in order to improve his ability to participate in his own care. Days to Meet Goals 10 Frequency of Treatment Frequency Of Treatment Once a Day Treatment Plan Physical Therapy Treatment Plan Bed Mobility Training,Transfer Training,Gait Training, Therapeutic Exercise,Balance Retraining,Post Op Education, Discharge Planning,Hot or Cold Pack,Neuromuscular Re-ed, Coordination Retraining,Manual Therapy Other Recommendations and Next Treatment bed mobility, supine or seated Focus ther ex, sit to stand with NWB RLE Recommendations To Nursing Amount of Assist Needed Mechanical Lift Discharge Recommendations PT Discharge Recommendations SNF Rehab
[2019-09-08 20:11] VITALS: BP 131/72; PULSE 61; RESP 18; TEMP 36.6; O2SAT 97
[2019-09-08 23:00] VITALS: BP 130/53; PULSE 58; RESP 18; TEMP 36.1; O2SAT 96
[2019-09-09 06:00] VITALS: BP 138/61; PULSE 58; RESP 18; TEMP 36.4; O2SAT 95
[2019-09-09 07:30] VITALS: BP 140/67; PULSE 62; RESP 16; TEMP 36.5; O2SAT 97
[2019-09-09] MEDS: DOCUSATE 100 MG CAPSULE PO (08:24)
[2019-09-09] MEDS: HEPARIN 5,000 UNIT/ML VIAL 5000 UNIT SUBCUT (08:24)
[2019-09-09] MEDS: SERTRALINE 50 MG TABLET PO (08:24)
[2019-09-09] MEDS: LORATADINE 10 MG TABLET PO (08:24)
[2019-09-09] MEDS: TAMSULOSIN 0.4 MG CAPSULE PO (08:24)
[2019-09-09] MEDS: ACETAMINOPHEN 325 MG TABLET 650 MG PO ×2 (08:25→14:17)
[2019-09-09] MEDS: ASPIRIN EC 81 MG TABLET PO (08:25)
[2019-09-09] MEDS: CARBIDOPA-LEVODOPA 25/100 TABLET 1.5 EACH PO ×2 (08:25→14:17)
[2019-09-09] MEDS: NITROFURANTOIN ER 100 MG CAPSULE PO (08:47)
[2019-09-09] MEDS: SODIUM CHLORIDE 0.9% FLUSH 10 ML IV (09:00)
--- NOTE | 2019-09-09 09:59 | P.DS_ITS ---
History of Present Illness History of Present Illness Date Patient Seen: 09/09/19 Time Patient Seen: 09:59 Chief complaint: [id number] Narrative: The patient is an 84-year-old gentleman that has a nonhealing ulcer of his heel. He had a previous debridement and exhaustive care with the wound care center with negative pressure therapy and IV antibiotics. He has periphe ral vascular disease and has been optimized vascularly by a vascular surgeon with an angiogram. He is very high risk for proximal amputation. We've discussed a partial calcanectomy, subtotal calcanectomy as a way to remove the bone and close the wound and as an alternative to below-knee amputation. We discussed that a gait will not be normal after this procedure but the patient may be able to walk for short distances without devices in longer distances with custom boots or braces. We discussed that healing of the wound is of the utmost importance. The risks and benefits of the procedure have been discussed with the patient even opportunity to ask questions. The risks of surgery include but are not limited to infection, malunion, nonunion, persistence of pain, damage to nerves and blood vessels, posttraumatic arthritis, DVT, PE, cardiopulmonary complications and . The patient and POA expressed a thorough understanding of the risks and benefits of surgery and has elected to proceed. Consent was signed. Discharge Providers Provider Date of admission: 09/06/19 10:41 Discharge Date: 09/09/19 Primary care physician: Brooks Alonso MD Consults: 09/06/19 16:16 Consult to Discharge Planning Routine Comment: snf discharge-son has facility picked out Consult to Physical Therapy Evaluate & Treat Comment: ryanne Lr Physician Instructions: Evaluate and Treat Consult to Respiratory Therapy Evaluate & Treat Comment: Physician Instructions: Evaluate and treat Discharge provider: Ana Monique PA-C Summary Hospital Course Discharge Diagnosis: s/p Partial, subtotal calcanectomy of right foot BPH (benign prostatic hyperplasia) (Acute) Cervical radiculopathy (Acute) Constipation (Acute) Depression (Acute) Diana catheter in place on admission (Acute) GERD (gastroesophageal reflux disease) (Acute) HLD (hyperlipidemia) (Acute) Hydrocele in adult (Acute) Incontinent of urine (Acute) Influenza (Acute ~12/2018) Parkinson disease (Acute) Pollen allergies (Acute) Prostate cancer (Acute) Sleep apnea (Acute ~2004) TIA (transient ischemic attack) (Acute) UTI (urinary tract infection) (Acute) Hospital Course: Guillermo was admitted for a right Partial, subtotal calcanectomy of right foot with Dr. Neil. He is very slow to mobilize. Requiring Reshma lift. On postop day 3. Patient was ready to discharge to [facility]. He is nonweightbearing to right leg. Been using oxycodone 2.5 mg her pain. Nursing notes patient hasn't had a bowel movement in 6 days. Patient provided with stool softeners. He has heparin for VTE prophylaxis. Patient will need to follow up with urologist, and primary care. As well as Dr. Joey barton. Exam Vital Signs (past 8 hours): - 09/09/19 06:00 09/09/19 07:30 Temperature 97.6 F 97.7 F Pulse Rate 58 L 62 Respiratory Rate 18 16 Blood Pressure 138/61 140/67 Pulse Oximetry 95 97 Oxygen Delivery Method CPAP Oxygen Flow Rate 0 Narrative Exam Narrative: Patient is sleeping comfortably in bedside chair. The splint is well fitting. Brisk capillary refill. Objective Labs Result Diagrams: 09/07/19 05:18 Discharge Plan Discharge Plan Patient Disposition: SNF Transfer to: [facility] Consult as needed: Dental, Hearing, Mental health, Podiatry and Vision Discharge orders & Medications Prescriptions: New docusate sodium [DOK] 100 mg Capsule 100 mg PO BID Qty: 30 RF: 0 oxycodone 5 mg Tablet 2.5 mg PO Q3HR PRN (Reason: Pain, Moderate (4-6)) Qty: 40 RF: 0 sennosides [senna] 8.6 mg Tablet 8.6 mg PO BID PRN (Reason: constipation') Qty: 20 RF: 0 heparin (porcine) 5,000 unit/mL Solution 5,000 unit subcut BID Qty: 30 RF: 0 Continued cetirizine 10 mg tablet 10 mg PO DAILY RF: 0 acetaminophen [Tylenol 8 Hour] 650 mg Tablet Extended Release 650 mg PO Q8H PRN (Reason: pain) RF: 0 tamsulosin 0.4 mg capsule 0.4 mg PO BID RF: 0 carbidopa-levodopa 25-100 mg tablet 1.5 tab PO TID RF: 0 oxybutynin chloride 5 mg tablet 5 mg PO QPM RF: 0 sertraline 50 mg tablet 50 mg PO DAILY RF: 0 aspirin 81 mg tablet,delayed release (DR/EC) 81 mg PO BID Qty: 60 RF: 0 fluconazole 100 mg Tablet 400 mg PO DAILY RF: 0 sulfamethoxazole-trimethoprim [Bactrim DS] 800-160 mg Tablet 1 tab PO BID RF: 0 nitrofurantoin monohyd/m-cryst 100 mg Capsule 100 mg PO BID RF: 0 Discontinued oxycodone 5 mg Tablet 2.5 mg PO Q4-6H PRN (Reason: Pain, Moderate (4-6)) Qty: 40 RF: 0 sulfamethoxazole-trimethoprim [Bactrim DS] 800-160 mg Tablet 1 tab PO BID RF: 0 Stool Softener 1 dose PO DAILY RF: 0 Follow up/Referrals: Ayde Neil MD [Physician] - (PLEASE CALL WEDNESDAY TO SCHEDULE PATIENT'S FOLLOW UP APPOINTMENT) Brooks Alonso MD [Primary Care Provider] - (PLEASE CALL WEDNESDAY TO SCHEDULE A FOLLOW UP APPOINTMENT) Diet/Activity/Treatments Diet: Diet as Tolerated Liquid consistency: Normal/Thin Food texture: Regular Catheter: 2-way Diana Other treatments: postop plan: NWB RLE. drain removal POD 1. Received 2 doses abx postop. SNF discharge. admission for snf discharge and drain monitoring. pt will continue with the diana catheter present form outpt and his plan is to later have this converted to a suprapubic with his urologist. Skin/Wound/Dressing Care Report to your healthcare provider any signs of infection, such as:: chills, fever and increased pain Dressing: Leave splint in place [facility] Reason for rehabilitation: Post-operative therapy Rehab type: Physical therapy and Occupational therapy Visit Report/Discharge Packet Instructions: DI for Toe or Foot Amputation, DI for Osteomyelitis Discharge Data Primary Care Provider: Brooks Alonso Quality VTE Deep Vein Thrombosis/Pulmonary Embolism Present on Admission: No
[2019-09-09] MEDS: SENNOSIDES 8.6 MG TABLET PO (10:18)
[2019-09-09] MEDS: FLUCONAZOLE 100 MG TABLET 400 MG PO (10:18)
[2019-09-09] MEDS: MAGNESIUM HYDROXIDE 30 ML UDC PO (10:18)
--- NOTE | 2019-09-09 11:46 | PC.NURSE ---
Patient's son brought in patient's left hearing aid (it was being fixed).
--- NOTE | 2019-09-09 11:58 | CM.DPC ---
DCP Cont: Confirmed with Lizzette, who is at admissions desk at [facility], that they can accept patient today. Had not yet received orders yet, and informed her that when discharge orders are received, will fax them over. Received discharge orders shortly after, for this shoe parts caser spoke to Damari Monique, orthopedic PA, and she had written orders. Faxed over PASSR, prescriptions and signed med sheets, as well as discharge summary to [facility]. Spoke to Lizzette, for she is working on transportation, and have a call out to [employer] transport. Gave her additional services of transportation that she can try if she is unable to reach them. Son, Derrick, came by, and updated him that transportation and time is pending. He went ahead and signed IMM form for patient. He feels rehab will benefit patient before he is able to go home. Nurse, Cora, at [facility] had left a message requesting discharge summary, med sheets and PASSR. Attempted to call her back, but it went to voice mail. Lizzette in admissions had just called and confirmed apple picking supervisor time with [employer] between [phone]. Let her know that this shoe parts caser faxed all documents to their e-fax. She stated that she would re-route them to Cora, admissions nurse. Left a message with patient's son, Derrick, regarding patient's apple picking supervisor time, and updated nurse, Marvin, as well as charge nurse, Urbano. P: Patient is to be discharged to [facility] today. Latoya Gimenez, RN/Healthcare Management
[2019-09-09 12:40] VITALS: BP 144/71; PULSE 63; RESP 16; TEMP 36.7; O2SAT 97
--- NOTE | 2019-09-09 13:47 | PT.IPTN ---
Current Diagnoses Other chronic osteomyelitis, right ankle and foot (09/06/19) Surgery Performed Operation Date: 09/06/19 12:15 Actual Procedures p Foot partial calcanectomy/wound closure(Right) - Ayde Neil MD Physical Therapy Treatment Note M2 PT-IP Current Condition Start: 09/07/19 08:32 Freq: NEEDED Status: Active Protocol: Document 09/07/19 14:04 AW (Rec: 09/07/19 15:09 AW [email or web address]) Physical Therapy Current Condition Current Condition Evaluation Date 09/07/19 Treatment Diagnosis partial calanectomy, impaired mobility Onset Date 09/06/19 Weight Bearing Status Weight Bearing Status Non-Weight Bearing Allowed Weight Bearing Amount (enter % NWB RLE or #) (%) M3 PT-IP Subjective Start: 09/07/19 08:32 Freq: NEEDED Status: Active Protocol: Document 09/09/19 13:38 LJ (Rec: 09/09/19 13:47 LJ [email or web address]) Subjective Physical Therapy Visit Type Type Treatment Note Visit Start Time 12:49 Visit Stop Time 13:39 Total Visit Minutes 50 Notes Pt in chair. Nursing requests he sit on BSC for BM Physical Therapy Visit Comments Patient Comments Pt agreeable to work with therapy M4 PT-IP Mobility and Gait Start: 09/07/19 08:32 Freq: NEEDED Status: Active Protocol: Document 09/09/19 13:38 LJ (Rec: 09/09/19 13:47 LJ [email or web address]) PT-Bed Mobility Assessment Rolling Type of Rolling Bilateral Supine to Sit Supine to Sit Moderate Assistance,Bedrails Scooting Scooting Up and Down in Bed Standby Assistance PT-Transfer Assessment Sit to and From Stand Sit to and from Stand Maximum Assistance,2 Person Assistance,Use of Upper Extremities Equipment Transfer Assistive Device Gait Belt,Front Wheeled Walker Orthotic/Prosthetic Devices or Brace: No Comments Mobility Comments Pt in chair attempting to transfer to BSC. Sit<>stand x3 with MaxA x2 attempted but pt was unable. Transfered to BSC using fernando then to bed with fernando M5 PT-IP Objective Assessments Start: 09/07/19 08:32 Freq: NEEDED Status: Active Protocol: Document 09/07/19 14:04 AW (Rec: 09/07/19 15:09 AW [email or web address]) Orientation Orientation/Cognition Level of Alertness Alert Orientation Name,Year,Place,Situation Language Function Ability Hard of Hearing Safety Awareness Understands Safety Issues Memory Description Short Term Impaired Comments Pt [place], improved with bilateral hearing aids Gross Range of Motion Upper Extremity ROM Assessment Within Functional Limits Lower Extremity ROM Assessment Bilaterally Impaired Strength Upper Extremity Strength Assessment Within Functional Limits Lower Extremity Strength Assessment Bilaterally Impaired Hip 3+/5 Knee 4/5 Ankle 4/5 Coordination Assessment Gross Coordination Gross Coordination WNL Sensation Assessment Sensation Gross Sensation WNL Comments Sensation Comments No deficits noted on exam M6 PT-IP Treatment Start: 09/07/19 08:32 Freq: NEEDED Status: Active Protocol: Document 09/09/19 13:38 LJ (Rec: 09/09/19 13:47 LJ [email or web address]) Physical Therapy Treatment Exercises Exercises Ankle Pumps,Gluteal Sets,Quad Sets,Heel Slides,Straight Leg Raises Education Education Provided Precautions,Weight Bearing Status,Safety M7 PT-IP Assessment and Plan Start: 09/07/19 08:32 Freq: NEEDED Status: Active Protocol: Document 09/09/19 13:38 LJ (Rec: 09/09/19 13:47 [email or web address]) PT Summary Assessment and Plan Potential Rehabilitation Potential Good Status of Condition at Evaluation Evolving Summary Impairments Pain,ROM,Strength,Balance, Cognition,Bed Mobility, Transfers,Gait,Activity Tolerance Assessment Summary Pt unable to stand from chair. Attempted x3 with 2 person maxA but pt unable. Hoyered to bed and performed supine exercises Goals Bed Mobility Goal Standby Assistance Transfer Goal Minimal Assistance,Front Wheeled Walker Other Goals - Pt will sit 5 minutes EOB with UE support in order to improve his ability to participate in his own care. Days to Meet Goals 10 Frequency of Treatment Frequency Of Treatment Once a Day Treatment Plan Physical Therapy Treatment Plan Bed Mobility Training,Transfer Training,Gait Training, Therapeutic Exercise,Balance Retraining,Post Op Education, Discharge Planning,Hot or Cold Pack,Neuromuscular Re-ed, Coordination Retraining,Manual Therapy Other Recommendations and Next Treatment bed mobility, supine or seated Focus ther ex, sit to stand with NWB RLE Recommendations To Nursing Amount of Assist Needed PT/OT Assist Only,Mechanical Lift Discharge Recommendations PT Discharge Recommendations SNF Rehab
--- NOTE | 2019-09-09 14:59 | PC.NURSE ---
Report called to Cora Riggins RN accepting nurse at [facility]. Patient waiting for pickler helper for transport planned today.
== END 2019-09-09 15:15 | DRG 504 ==
LOC: OR 10:45 → AC 12:02
PROVIDERS: Admitting Provider Orthopaedic Surgery Foot and Ankle Surgery; PCP Family Medicine; Visit Provider Orthopaedic Surgery Foot and Ankle Surgery
PROC: 0QBN0ZZ Excision of Right Metatarsal, Open Approach (ICD-10-PCS; CPT 28292; principal; 2019-09-06 12:15)
DX: M86.671 Other chronic osteomyelitis, right ankle and foot (principal); L97.414 Non-pressure chronic ulcer of right heel and midfoot with necrosis of bone; N39.0 Urinary tract infection, site not specified; I73.9 Peripheral vascular disease, unspecified; F32.9 Major depressive disorder, single episode, unspecified; N40.1 Benign prostatic hyperplasia with lower urinary tract symptoms; G20 Parkinson's disease; Z87.891 Personal history of nicotine dependence
CPT/HCPCS: 36415; 73650; 76000; 85027; 94660; 97110; 97162; 97530; J1100; J1644; J2250; J2405; J2704; J3010